=== PATIENT | female | born 1950 | race Caucasian/White ===

== ENCOUNTER → 2017-12-23 13:23 | Outpatient (CLI) | payer OTHER, SELFPAY ==
--- NOTE | 2017-12-23 | DI.MRI.S_ITS ---
PROCEDURE: MR LUMBAR SPINE WO CON INDICATIONS: LOW BACK PAIN TECHNIQUE: Noncontrast sagittal T1 spin echo and T2 fast echo, sagittal STIR, axial T1 and T2 fast spin echo through the lumbar spine. In cases with scoliosis, additional coronal T2 fast spin echo may be performed. COMPARISON: None. FINDINGS: Image quality: Excellent. Alignment and Curvature: There is normal bony alignment. Bone Marrow: Marrow is of normal overall signal. No acute vertebral body compression fractures. Spinal Cord: Conus medullaris terminates at the T12 level. Visualized cord demonstrates normal signal and size. Paraspinous Soft Tissues: No paravertebral masses. L1-L2: Severe disc desiccation. Broad-based disc bulge. Moderate facet and ligamentum flavum hypertrophy. Epidural lipomatosis. Mild canal stenosis. No foraminal stenosis. L2-L3: Severe disc desiccation and height loss. Broad-based disc bulge. Moderate facet and ligamentum flavum hypertrophy. Epidural lipomatosis with resultant moderate canal stenosis. Moderate right and mild left foraminal narrowing. L3-L4: Severe disc desiccation and height loss. Broad-based disc bulge. Moderate facet and ligamentum flavum hypertrophy. Epidural lipomatosis. Severe canal stenosis. Severe bilateral neuroforaminal stenosis. L4-L5: Severe disc desiccation and height loss. Vacuum disc phenomenon. Severe facet and ligamentum flavum hypertrophy. Extensive epidural lipomatosis and severe canal stenosis. Mild bilateral neuroforaminal stenosis. L5-S1: Moderate disc desiccation and height loss. Broad-based disc bulge. Severe facet and ligamentum flavum hypertrophy. Epidural lipomatosis. Moderate canal stenosis. Severe left and moderate right foraminal stenosis. IMPRESSION: 1. Disc desiccation and height loss throughout the lumbar spine overall severe in degree. 2. Broad-based disc bulges and facet and ligamentum flavum hypertrophy in addition to extensive epidural lipomatosis with resultant severe canal stenosis at L3-4 L4-5, moderate canal stenosis at L2-3 and L5-S1, and mild canal stenosis at L1-L2. 3. Severe bilateral neuroforaminal stenosis at L3-4, severe left foraminal narrowing at L5-S1, moderate right foraminal narrowing at L2-3 and L5-S1. Dictated by: Wendy Carey M.D. on 12/23/2017 at 16:21 Approved by: Wendy Carey M.D. on 12/23/2017 at 16:27
== END ==
PROVIDERS: Family Provider Internal Medicine; PCP Physician Assistant; Visit Provider Physical Medicine & Rehabilitation
DX: M48.061 Spinal stenosis, lumbar region without neurogenic claudication (principal); M51.26 Other intervertebral disc displacement, lumbar region
CPT/HCPCS: 72148

== ENCOUNTER → 2018-01-13 13:21 | Outpatient (CLI) | payer OTHER, SELFPAY ==
[2018-01-13 14:30] LABS: Prothrombin Time 33.7 SECONDS (10.1-12.7)
== END ==
PROVIDERS: Family Provider Internal Medicine; PCP Physician Assistant; Visit Provider Physician Assistant
DX: I48.91 Unspecified atrial fibrillation (principal); I47.9 Paroxysmal tachycardia, unspecified
CPT/HCPCS: 36415; 85610

== ENCOUNTER 2018-03-20 09:12 | Observation (INO) | payer OTHER, SELFPAY ==
[2018-03-20] VITALS (10 sets, daily range): BP systolic 126–186; BP diastolic 59–105; PULSE 65–122; RESP 20–28; TEMP 36.8–37.2; O2SAT 92–98; BMI 34.2
--- NOTE | 2018-03-20 | DI.RAD.S_ITS ---
PROCEDURE: XR CHEST 1V INDICATIONS: shortness of breath TECHNIQUE: One view of the chest was acquired. COMPARISON: [facility], CHEST 1 VIEW, 01/15/2012, 15:44. [facility], CHEST 1 VIEW, 12/27/2011, 14:42. FINDINGS: Surgical changes and devices: None. Lungs and pleura: No pleural effusions or pneumothorax. Lungs are edematous, inspiratory volume is reduced. Mediastinum: Mediastinal contours appear normal. Heart size is at the upper limits of normal considering very large body habitus and reduced inspiration. Bones and chest wall: No suspicious bony lesions. Overlying soft tissues appear unremarkable. IMPRESSION: Very large body habitus, reduced inspiration, quality of visualization is somewhat limited but there appears to be pulmonary edema likely cardiogenic in origin. Dictated by: Anam Haynes M.D. on 03/20/2018 at 10:58 Approved by: Anam Haynes M.D. on 03/20/2018 at 10:58
--- NOTE | 2018-03-20 09:33 | DI.RAD.S_ITS ---
PROCEDURE: XR ABDOMEN 1V INDICATIONS: nausea TECHNIQUE: One view of the abdomen acquired. COMPARISON: [facility], CR, XR CHEST 1V, 03/20/2018, 10:16. FINDINGS: Surgical changes and devices: None. Bowel: Bowel gas pattern is normal. Soft tissues: No suspicious abdominal calcifications. Visualized solid organ contours appear normal in size. Bones: No suspicious bony lesions. IMPRESSION: Very large body habitus, quality of visualization therefore somewhat diminished but no acute disease is found. No free air seen, no bowel obstruction is identified. Please also refer to chest plain film from same day. Dictated by: Anam Haynes M.D. on 03/20/2018 at 10:56 Approved by: Anam Haynes M.D. on 03/20/2018 at 10:57
--- NOTE | 2018-03-20 09:37 | ED.NAVMDI ---
HPI - Nausea/Vomiting/Diarrhea General Chief complaint: Nausea/Vomiting/Diarrhea Stated complaint: Nausea Time Seen by Provider: 03/20/18 09:27 Source: patient and EMS Mode of arrival: EMS Limitations: no limitations History of Present Illness HPI Narrative: 67-year-old female comes to the emergency department with complaint of nausea. Patient states that she started having symptoms last night. She has been nauseated she has not had any vomiting. She has a little bit a headache that started this morning. She denies any vision changes. No chest pain or pressure. She did tell nursing she had some abdominal pain. Patient has had a little bit of short of breath for a couple weeks but she has also had some mild swelling in her lower extremities. Patient has not had any diarrhea or constipation. She has done any black or bloody stools. She is not complaining of any abdominal pain at this time she told nursing she had some earlier. She states that she called EMS today because she just felt so nauseated any time she tried to walk around. She had similar symptoms about 3 weeks ago for a couple days but it resolved. She has not had any other episodes. She has known diabetes, atrial fibrillation, hypertension as well as dyslipidemia. She only takes metformin for her diabetes. she has a wound on her right foot which has been treated by wound care and is closely healing completely. Patient does not smoke, denies alcohol or thc. Related Data Home Medications Medication Instructions Recorded Confirmed diltiazem HCl [Tiazac] 240 mg PO QDAY #0 01/15/12 03/20/18 B.ANI/L.ACI/L.CLARA/L.PLAN/L.ADARSH 1.5 tsp PO PRN PRN #0 10/22/12 03/20/18 (Probiotic Formula Capsule) hydrocodone-acetaminophen 0.5 tab PO DAILY PRN 03/20/18 03/20/18 lidocaine-prilocaine 1 arnold TP BID PRN 03/20/18 03/20/18 metformin 500 mg PO DAILY 03/20/18 03/20/18 Previous Rx's Medication Instructions Recorded Glucose: Home Monitor ea #1 10/30/16 Glucose: Test Strips str BID #120 10/30/16 lisinopril 40 mg tablet 40 mg PO HS #90 tab 12/10/17 chlorthalidone 25 mg tablet 25 mg PO BID #180 tab 12/29/17 warfarin 7.5 mg tablet 7.5 mg PO DAILY #90 tab 02/09/18 lorazepam 2 mg tablet 2 mg PO HS #30 tab 03/04/18 Allergies Allergy/AdvReac Type Severity Reaction Status Date / Time Sulfa (Sulfonamide Allergy Intermediate PATIENT Verified 03/20/18 10:18 Antibiotics) CAN'T REMEMBER IT WAS SO LONG AGO gabapentin [GABAPENTIN] AdvReac Intermediate Bodyaches, Verified 03/20/18 10:18 muscle aches pregabalin [From Lyrica] AdvReac Intermediate Muscle Pain Verified 03/20/18 10:19 duloxetine [DULOXETINE] AdvReac Unknown nausea and Verified 03/20/18 10:18 vomiting Review of Systems Review of Systems All systems reviewed & are unremarkable except as noted in HPI and below Constitutional Denies fever(s), Reports headache(s), Reports malaise and Denies weakness Eyes Denies change in vision ENT Ears, Nose, Mouth, and Throat: Reports headache(s) Cardiovascular Denies chest pain, Denies syncope, Reports edema (Mild bilaterally), Denies irregular heart rhythm, Denies lightheadedness, Denies palpitations, Denies dyspnea, Reports dyspnea on exertion and Denies orthopnea Respiratory Denies chest congestion, Denies cough, Denies hemoptysis, Denies dyspnea, Reports dyspnea on exertion and Denies wheezing Gastrointestinal Gastrointestinal: Reports abdominal pain, Denies melena, Denies hematochezia, Denies change in bowel habits, Denies diarrhea, Reports nausea and Denies vomiting Genitourinary Denies hematuria, Denies urinary frequency, Denies flank pain, Denies urinary incontinence and Denies urinary urgency Integumentary/Breasts Denies new lesions and Reports wounds (Healing wound on foot.) Neurologic Denies syncope, Reports headache(s) and Denies weakness Endocrine Denies palpitations Allergic/Immunologic Denies wheezing [facility] Medical History Essential hypertension (Chronic) Morbid obesity with body mass index (BMI) of 50.0 to 59.9 in adult (Chronic) Atrial fibrillation (Chronic) Obstructive sleep apnea syndrome (Chronic) Mixed hyperlipidemia (Chronic 01/30/00) Type 2 diabetes mellitus with diabetic neuropathy, without long-term current use of insulin (Chronic) 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) Umbilical hernia (Chronic) Atrial fibrillation (Chronic 12/2011) Diabetes (Chronic Unknown) Gout (Chronic Unknown) Heart murmur (Chronic Unknown) Hyperlipemia (Chronic Unknown) Hypertension (Chronic Unknown) Obstructive sleep apnea (Chronic 03/2014) Osteoarthritis (Chronic Unknown) PVD (peripheral vascular disease) (Chronic Unknown) Peripheral neuropathy (Chronic Unknown) Foot pain (Resolved Unknown) Foot ulcer (Resolved 08/2016) Surgical History History of angioplasty (Resolved 10/2016) Family History Father No problems noted. Mother No problems noted. Brother No problems noted. Brother No problems noted. Sister Fibromyalgia Social History household members: none Smoking Status: Never smoker alcohol intake: never Exam Narrative Exam Narrative: GENERAL: Alert and oriented x three, morbidly obese female in mild distress. HEENT: Head normocephalic, atraumatic, EOMI, pupils reactive, face symmetric, moist mucous membranes NECK: Supple, full range of motion CARDIOVASCULAR: Irregularly irregular rate and rhythm without murmurs, rubs or gallops. No JVD noted. RESPIRATORY: Breath sounds equal bilaterally, no wheezes rales or rhonchi. Patient has slightly decreased breath sounds bilaterally. This may be secondary to body habitus. No tachypnea or accessory muscle use. ABDOMEN: Soft, nontender. Normoactive bowel sounds all 4 quadrants. No guarding or rebound, rigidity, no mass : No CVA tenderness EXTREMITIES: Normal range of motion, no clubbing or edema. Neurovascularly intact NEUROLOGICAL: Cranial nerves II through XII grossly intact. Moving all extremities SKIN: Warm, dry, no petechiae, no rashes or lesions. Initial Vital Signs Initial Vital Signs: Vital Signs Temperature 98.6 F 03/20/18 09:14 Pulse Rate 65 03/20/18 09:14 Respiratory Rate 26 H 03/20/18 09:14 Blood Pressure 186/105 H 03/20/18 09:14 Pulse Oximetry 95 03/20/18 09:14 Course Orders Ordered: ED Orders 03/20/18 11:28 EKG-12 Lead Stat 03/20/18 11:41 US abdomen complete Stat 03/20/18 15:09 Education, smoking cessation ONGOING 03/20/18 17:34 EC echo doppler complete Routine 03/20/18 17:35 Troponin I Q4H 03/20/18 18:13 Consult to Pharmacy Routine 03/20/18 18:15 Prothrombin Time INR DAILY 03/20/18 21:35 Troponin I Q4H 03/21/18 01:35 Troponin I Q4H 03/21/18 04:00 Complete Blood Count AUTO DIFF Routine Comprehensive Metabolic Panel Routine Hemoglobin A1C % Routine Hepatitis A Antibody Total Routine Hepatitis B Core Antibody Routine Hepatitis B Surface Antigen Routine Hepatitis C Virus Antibody Routine Lipid Panel Routine TSH w/ Reflex to FT4 Routine Uric Acid Routine Acetaminophen (Tylenol) 650 mg PO Q6HR PRN PRN Reason: As Needed for Fever/Mild Pain Al Hydrox/Mg Hydrox/Simethicone (Maalox Plus) 30 ml PO Q6HR PRN PRN Reason: Dyspepsia Bisacodyl (Dulcolax) 10 mg PO DAILY PRN PRN Reason: Constipation Dextrose (D50w) 25 gm IV PRN PRN PRN Reason: Hypoglycemia Diltiazem HCl (Cardizem Cd) 240 mg PO DAILY [facility] Furosemide (Lasix) 20 mg IV BID [facility] Hydralazine HCl (Apresoline) 10 mg IV Q6HR PRN PRN Reason: Hypertension Insulin Aspart (Novolog Flexpen) 0 unit SUBCUT ACHS [facility]; Protocol Lisinopril (Zestril) 40 mg PO BEDTIME [facility] Lorazepam (Ativan) 2 mg PO BEDTIME [facility] Metformin HCl (Glucophage) 500 mg PO DAILY [facility] Metoclopramide HCl (Reglan) 5 mg PO AC [facility] Last Admin: 03/20/18 16:52 Dose: 5 mg Ondansetron HCl (Zofran Odt) 4 mg PO Q8HR PRN PRN Reason: Nausea And Vomiting Pantoprazole Sodium (Protonix) 20 mg PO 0700 [facility] Warfarin Sodium (Coumadin) 7.5 mg PO 1700 [facility] Discontinued Medications Diltiazem HCl (Cardizem Cd) 240 mg PO NOW ONE Stop: 03/20/18 13:44 Last Admin: 03/20/18 14:03 Dose: 240 mg Furosemide (Lasix) 40 mg IV NOW ONE Stop: 03/20/18 12:08 Last Admin: 03/20/18 12:26 Dose: 40 mg Furosemide (Lasix) 20 mg IV NOW ONE Stop: 03/20/18 15:10 Last Admin: 03/20/18 16:03 Dose: 20 mg Sodium Chloride (Normal Saline 0.9%) 1,000 mls @ 1,000 mls/hr IV BOLUS ONE Stop: 03/20/18 10:32 Last Admin: 03/20/18 10:20 Dose: Ondansetron HCl (Zofran) 4 mg IV NOW ONE Stop: 03/20/18 09:34 Last Admin: 03/20/18 10:21 Dose: 4 mg Warfarin Sodium (Coumadin) 7.5 mg PO NOW ONE Stop: 03/20/18 13:44 Last Admin: 03/20/18 14:03 Dose: 7.5 mg Vital Signs - 8 hr 03/20/18 12:00 03/20/18 13:39 03/20/18 14:49 Temperature Pulse Rate 94 H 97 H 93 H Respiratory Rate 22 23 20 Blood Pressure Blood Pressure [Left Arm] 146/76 H 148/88 H 139/59 L Pulse Oximetry 97 94 98 03/20/18 16:10 03/20/18 16:49 Temperature 98.3 F Pulse Rate 96 H 100 H Respiratory Rate 22 28 H Blood Pressure 126/74 Blood Pressure [Left Arm] Pulse Oximetry 95 95 MDM - Nausea/Vomiting/Diarrhea Lab Data Result diagrams: 03/20/18 10:10 03/20/18 10:10 Lab Results 03/20/18 03/20/18 03/20/18 Range/Units 10:10 10:10 10:10 WBC 10.1 (4.5-11.0) X10^3/uL RBC 4.03 (4.0-5.2) X10^6/uL Hgb 11.4 L (12.0-16.0) g/dL Hct 34.3 L (36-46) % MCV 85.1 (80-100) fL MCH 28.4 (26-34) PG MCHC 33.3 (30-36) % RDW 15.7 H (11.6-14.8) % Plt Count 268 (150-400) X10^3/uL Neut % (Auto) 85.3 H (50-75) % Lymph % (Auto) 8.8 L (25-40) % [place] % (Auto) 5.2 (3-14) % Eos % (Auto) 0.3 L (2-4) % Baso % (Auto) 0.4 (0-2) % Neut # (Auto) 8600 H (4715-5359) /uL Sodium 141 (137-145) mmol/L Potassium 4.7 (3.4-5.1) mmol/L Chloride 100 (98-107) mmol/L Carbon Dioxide 28 (22-32) mmol/L BUN 14 (7-17) mg/dL Creatinine 0.60 (0.52-1.04) mg/dL Estimated GFR > 60.0 (>60) mL/min BUN/Creatinine Ratio 23.3 H (6-22) Glucose 123 H (80-110) mg/dL Calcium 9.0 (8.4-10.2) mg/dL Total Bilirubin 1.6 H (0.2-1.3) mg/dL AST 59 H (14-36) IU/L ALT 15 (9-52) IU/L Alkaline Phosphatase 64 (38-126) U/L Troponin I 0.012 (0.01-0.034) ng/mL B-Natriuretic Peptide 365.0 H (<100) Total Protein 8.5 H (6.3-8.2) g/dL Albumin 4.6 (3.5-5.0) g/dL Globulin 3.9 (1.7-4.1) g/dL Albumin/Globulin Ratio 1.2 (1.0-2.8) Lipase 47 (23-300) U/L Point of Care Testing Glucose POC 124 Urine Dip Bedside Urine Glucose Negative Bedside Urine Bilirubin - Negative Bedside Urine Ketone - Negative Urine Specific [place] 1.015 Bedside Urine Occult Blood - Negative Bedside Urine pH 7.0 Bedside Urine Protein - Negative Bedside Urine Urobilinogen - Negative Bedside Urine Nitrite - Negative Bedside Urine Leukocytes - Negative Esterase Imaging Data US - abdomen: Radiologist's impression: [address] [id number] Ultrasound Report Signed Patient: Lucila Hawkins JMR#: [id number] : 8Acct:[id number] Age/Sex: 67 / FDate of Service: 03/20/18 Loc: ED Accession Number: [id number] Procedure: US abdomen complete Ordering Provider: Giana Samuel D.O. PROCEDURE: US ABDOMEN COMPLETE INDICATIONS: NAUSEA TECHNIQUE: Real-time scanning was performed of the abdominal and retroperitoneal organs, with image documentation. COMPARISON: None. FINDINGS: Liver: Liver is normal in size and homogeneous in echotexture and there is severe hyperechoic hepatic echotexture consistent with diffuse steatosis. Gallbladder: No abnormality found. Biliary ducts: Intrahepatic bile ducts are non-dilated. Extrahepatic bile duct caliber measures line is mm. Normal is 6-7 mm or less in diameter, or 10 mm or less post-cholecystectomy. Pancreas: Not seen due to hyperechoic overlying liver echotexture and bowel gas Spleen: Spleen is normal in size and homogeneous in echotexture. Kidneys: Kidneys are normal in size and echotexture. Right kidney measures 11.2 cm long; left kidney measures 11.9 cm long. No hydronephrosis or nephrolithiasis. No solid masses. Aorta: Not seen due to bowel gas [place]: Not seen due to bowel gas IVC: Intrahepatic inferior vena cava is patent. Miscellaneous: No free abdominal fluid. IMPRESSION: Prominent fatty infiltration throughout the liver. Overlying bowel gas and hyperechoic liver echotexture reduces quality of visualization of the gallbladder and renders the pancreas depending on the clinical status followup by CT scanning may become necessary. The common duct caliber of 9 mm is considered mildly dilated in the setting of a gallbladder remaining in place. Depending on the clinical status followup by MR cholangiogram may be warranted. Dictated by: Anam Haynes M.D. on 03/20/2018 at 12:57 Approved by: Anam Haynes M.D. on 03/20/2018 at 13:00 Chest x-ray: Radiologist's impression: [address] [address] XRay Report Signed Patient: Lucila Hawkins JMR#: [id number] : 8Acct:[id number] Age/Sex: 67 / FDate of Service: 03/20/18 Loc: ED Accession Number: [id number] Procedure: XR chest 1V Ordering Provider: Giana Samuel D.O. PROCEDURE: XR CHEST 1V INDICATIONS: shortness of breath TECHNIQUE: One view of the chest was acquired. COMPARISON: [facility], CHEST 1 VIEW, 01/15/2012, 15:44. [facility], CHEST 1 VIEW, 12/27/2011, 14:42. FINDINGS: Surgical changes and devices: None. Lungs and pleura: No pleural effusions or pneumothorax. Lungs are edematous, inspiratory volume is reduced. Mediastinum: Mediastinal contours appear normal. Heart size is at the upper limits of normal considering very large body habitus and reduced inspiration. Bones and chest wall: No suspicious bony lesions. Overlying soft tissues appear unremarkable. IMPRESSION: Very large body habitus, reduced inspiration, quality of visualization is somewhat limited but there appears to be pulmonary edema likely cardiogenic in origin. Dictated by: Anam Haynes M.D. on 03/20/2018 at 10:58 Approved by: Anam Haynes M.D. on 03/20/2018 at 10:58 Abdominal x-ray: Radiologist's impression: ECG Data Attestation: I personally reviewed and interpreted this ECG as follows: Prior ECG tracings: available for review Interpretation: Atrial fibrillation with rapid response with a rate of 107, QRS of 84 and QTC of 396 nonspecific T-wave changes. Patient does have some ST T depression in 1 and aVL. No elevation appreciated. Patient has a prior EKG from 01/12/2012 that appears similar with ST changes in 1 aVL and AFib. And nonspecific changes otherwise. MDM Narrative Medical decision making narrative: Patient's lab work shows a slightly elevated bilirubin. Ultrasound shows possibly mildly dilated duct but otherwise normal ultrasound. I discussed her findings with Dr. Tipton. Patient has not had any vomiting, she does not have any abdominal pain just nausea. She has also did shared that she has not been taking her Lasix because when she tries to get up and walk around she feels nauseated and her BNP is slightly elevated in the 300 range, she has had some drops in her oxygen level here in the emergency department. She has some changes on chest x-ray consistent with pulmonary edema expect she is having a little bit exacerbate gonzalez of CHF particularly she has not been taking her diuretic. Patient was given a dose of Lasix here in the emergency department. Patient has not had any improvement in her oxygenation after Lasix. When he tried to stand her up she feels a little bit dizzy. Patient case was discussed with Dr. Sanchez who accepts for observation. Discharge Plan Departure Patient Disposition: Admitted as Observation Clinical Impression: Nausea, Elevated bilirubin, Congestive heart failure Discharge Date/Time: 10/27/18 16:20 Interventions: ED Discharge Assessment Last Done: 03/20/18 16:10 Admit Date/Time: 03/20/18 16:10 Admit Provider: Dillon Fernandez
--- NOTE | 2018-03-20 09:43 | ED_ITS ---
HPI - Nausea/Vomiting/Diarrhea General Chief complaint: Nausea/Vomiting/Diarrhea Stated complaint: Nausea Time Seen by Provider: 03/20/18 09:27 Source: patient and EMS Mode of arrival: EMS Limitations: no limitations History of Present Illness HPI Narrative: 67-year-old female comes to the emergency department with complaint of nausea. Patient states that she started having symptoms last night. She has been nauseated she has not had any vomiting. She has a little bit a headache that started this morning. She denies any vision changes. No chest pain or pressure. She did tell nursing she had some abdominal pain. Patient has had a little bit of short of breath for a couple weeks but she has also had some mild swelling in her lower extremities. Patient has not had any diarrhea or constipation. She has done any black or bloody stools. She is not complaining of any abdominal pain at this time she told nursing she had some earlier. She states that she called EMS today because she just felt so nauseated any time she tried to walk around. She had similar symptoms about 3 weeks ago for a couple days but it resolved. She has not had any other episodes. She has known diabetes, atrial fibrillation, hypertension as well as dyslipidemia. She only takes metformin for her diabetes. she has a wound on her right foot which has been treated by wound care and is closely healing completely. Patient does not smoke, denies alcohol or thc. Related Data Home Medications Medication Instructions Recorded Confirmed diltiazem HCl [Tiazac] 240 mg PO QDAY #0 01/15/12 03/20/18 B.ANI/L.ACI/L.CLARA/L.PLAN/L.ADARSH 1.5 tsp PO PRN PRN #0 10/22/12 03/20/18 (Probiotic Formula Capsule) hydrocodone-acetaminophen 0.5 tab PO DAILY PRN 03/20/18 03/20/18 lidocaine-prilocaine 1 arnold TP BID PRN 03/20/18 03/20/18 metformin 500 mg PO DAILY 03/20/18 03/20/18 Previous Rx's Medication Instructions Recorded Glucose: Home Monitor ea #1 10/30/16 Glucose: Test Strips str BID #120 10/30/16 lisinopril 40 mg tablet 40 mg PO HS #90 tab 12/10/17 chlorthalidone 25 mg tablet 25 mg PO BID #180 tab 12/29/17 warfarin 7.5 mg tablet 7.5 mg PO DAILY #90 tab 02/09/18 lorazepam 2 mg tablet 2 mg PO HS #30 tab 03/04/18 Allergies Allergy/AdvReac Type Severity Reaction Status Date / Time Sulfa (Sulfonamide Allergy Intermediate PATIENT Verified 03/20/18 10:18 Antibiotics) CAN'T REMEMBER IT WAS SO LONG AGO gabapentin [GABAPENTIN] AdvReac Intermediate Bodyaches, Verified 03/20/18 10:18 muscle aches pregabalin [From Lyrica] AdvReac Intermediate Muscle Pain Verified 03/20/18 10: 19 duloxetine [DULOXETINE] AdvReac Unknown nausea and Verified 03/20/18 10:18 vomiting Review of Systems Review of Systems All systems reviewed & are unremarkable except as noted in HPI and below Constitutional Denies fever(s), Reports headache(s), Reports malaise and Denies weakness Eyes Denies change in vision ENT Ears, Nose, Mouth, and Throat: Reports headache(s) Cardiovascular Denies chest pain, Denies syncope, Reports edema (Mild bilaterally), Denies irregular heart rhythm, Denies lightheadedness, Denies palpitations, Denies dyspnea, Reports dyspnea on exertion and Denies orthopnea Respiratory Denies chest congestion, Denies cough, Denies hemoptysis, Denies dyspnea, Reports dyspnea on exertion and Denies wheezing Gastrointestinal Gastrointestinal: Reports abdominal pain, Denies melena, Denies hematochezia, Denies change in bowel habits, Denies diarrhea, Reports nausea and Denies vomiting Genitourinary Denies hematuria, Denies urinary frequency, Denies flank pain, Denies urinary incontinence and Denies urinary urgency Integumentary/Breasts Denies new lesions and Reports wounds (Healing wound on foot.) Neurologic Denies syncope, Reports headache(s) and Denies weakness Endocrine Denies palpitations Allergic/Immunologic Denies wheezing [facility] Medical History Essential hypertension (Chronic) Morbid obesity with body mass index (BMI) of 50.0 to 59.9 in adult (Chronic) Atrial fibrillation (Chronic) Obstructive sleep apnea syndrome (Chronic) Mixed hyperlipidemia (Chronic 01/30/00) Type 2 diabetes mellitus with diabetic neuropathy, without long-term current use of insulin (Chronic) 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) Umbilical hernia (Chronic) Atrial fibrillation (Chronic 12/2011) Diabetes (Chronic Unknown) Gout (Chronic Unknown) Heart murmur (Chronic Unknown) Hyperlipemia (Chronic Unknown) Hypertension (Chronic Unknown) Obstructive sleep apnea (Chronic 03/2014) Osteoarthritis (Chronic Unknown) PVD (peripheral vascular disease) (Chronic Unknown) Peripheral neuropathy (Chronic Unknown) Foot pain (Resolved Unknown) Foot ulcer (Resolved 08/2016) Surgical History History of angioplasty (Resolved 10/2016) Family History Father No problems noted. Mother No problems noted. Brother No problems noted. Brother No problems noted. Sister Fibromyalgia Social History household members: none Smoking Status: Never smoker alcohol intake: never Exam Narrative Exam Narrative: GENERAL: Alert and oriented x three, morbidly obese female in mild distress. HEENT: Head normocephalic, atraumatic, EOMI, pupils reactive, face symmetric, moist mucous membranes NECK: Supple, full range of motion CARDIOVASCULAR: Irregularly irregular rate and rhythm without murmurs, rubs or gallops. No JVD noted. RESPIRATORY: Breath sounds equal bilaterally, no wheezes rales or rhonchi. Patient has slightly decreased breath sounds bilaterally. This may be secondary to body habitus. No tachypnea or accessory muscle use. ABDOMEN: Soft, nontender. Normoactive bowel sounds all 4 quadrants. No guarding or rebound, rigidity, no mass : No CVA tenderness EXTREMITIES: Normal range of motion, no clubbing or edema. Neurovascularly intact NEUROLOGICAL: Cranial nerves II through XII grossly intact. Moving all extremities SKIN: Warm, dry, no petechiae, no rashes or lesions. Initial Vital Signs Initial Vital Signs: Vital Signs Temperature 98.6 F 03/20/18 09:14 Pulse Rate 65 03/20/18 09:14 Respiratory Rate 26 H 03/20/18 09:14 Blood Pressure 186/105 H 03/20/18 09:14 Pulse Oximetry 95 03/20/18 09:14 Course Orders Ordered: ED Orders 03/20/18 11:28 EKG-12 Lead Stat 03/20/18 11:41 US abdomen complete Stat 03/20/18 15:09 Education, smoking cessation ONGOING 03/20/18 17:34 EC echo doppler complete Routine 03/20/18 17:35 Troponin I Q4H 03/20/18 18:13 Consult to Pharmacy Routine 03/20/18 18:15 Prothrombin Time INR DAILY 03/20/18 21:35 Troponin I Q4H 03/21/18 01:35 Troponin I Q4H 03/21/18 04:00 Complete Blood Count AUTO DIFF Routine Comprehensive Metabolic Panel Routine Hemoglobin A1C % Routine Hepatitis A Antibody Total Routine Hepatitis B Core Antibody Routine Hepatitis B Surface Antigen Routine Hepatitis C Virus Antibody Routine Lipid Panel Routine TSH w/ Reflex to FT4 Routine Uric Acid Routine Acetaminophen (Tylenol) 650 mg PO Q6HR PRN PRN Reason: As Needed for Fever/Mild Pain Al Hydrox/Mg Hydrox/Simethicone (Maalox Plus) 30 ml PO Q6HR PRN PRN Reason: Dyspepsia Bisacodyl (Dulcolax) 10 mg PO DAILY PRN PRN Reason: Constipation Dextrose (D50w) 25 gm IV PRN PRN PRN Reason: Hypoglycemia Diltiazem HCl (Cardizem Cd) 240 mg PO DAILY [facility] Furosemide (Lasix) 20 mg IV BID [facility] Hydralazine HCl (Apresoline) 10 mg IV Q6HR PRN PRN Reason: Hypertension Insulin Aspart (Novolog Flexpen) 0 unit SUBCUT ACHS [facility]; Protocol Lisinopril (Zestril) 40 mg PO BEDTIME [facility] Lorazepam (Ativan) 2 mg PO BEDTIME [facility] Metformin HCl (Glucophage) 500 mg PO DAILY [facility] Metoclopramide HCl (Reglan) 5 mg PO AC [facility] Last Admin: 03/20/18 16:52 Dose: 5 mg Ondansetron HCl (Zofran Odt) 4 mg PO Q8HR PRN PRN Reason: Nausea And Vomiting Pantoprazole Sodium (Protonix) 20 mg PO 0700 [facility] Warfarin Sodium (Coumadin) 7.5 mg PO 1700 [facility] Discontinued Medications Diltiazem HCl (Cardizem Cd) 240 mg PO NOW ONE Stop: 03/20/18 13:44 Last Admin: 03/20/18 14:03 Dose: 240 mg Furosemide (Lasix) 40 mg IV NOW ONE Stop: 03/20/18 12:08 Last Admin: 03/20/18 12:26 Dose: 40 mg Furosemide (Lasix) 20 mg IV NOW ONE Stop: 03/20/18 15:10 Last Admin: 03/20/18 16:03 Dose: 20 mg Sodium Chloride (Normal Saline 0.9%) 1,000 mls @ 1,000 mls/hr IV BOLUS ONE Stop: 03/20/18 10:32 Last Admin: 03/20/18 10:20 Dose: Ondansetron HCl (Zofran) 4 mg IV NOW ONE Stop: 03/20/18 09:34 Last Admin: 03/20/18 10:21 Dose: 4 mg Warfarin Sodium (Coumadin) 7.5 mg PO NOW ONE Stop: 03/20/18 13:44 Last Admin: 03/20/18 14:03 Dose: 7.5 mg Vital Signs - 8 hr 03/20/18 12:00 03/20/18 13:39 03/20/18 14:49 Temperature Pulse Rate 94 H 97 H 93 H Respiratory Rate 22 23 20 Blood Pressure Blood Pressure [Left Arm] 146/76 H 148/88 H 139/59 L Pulse Oximetry 97 94 98 03/20/18 16:10 03/20/18 16:49 Temperature 98.3 F Pulse Rate 96 H 100 H Respiratory Rate 22 28 H Blood Pressure 126/74 Blood Pressure [Left Arm] Pulse Oximetry 95 95 MDM - Nausea/Vomiting/Diarrhea Lab Data Result diagrams: 03/20/18 10:10 03/20/18 10:10 Lab Results 03/20/18 03/20/18 03/20/18 Range/Units 10:10 10:10 10:10 WBC 10.1 (4.5-11.0) X10^3/uL RBC 4.03 (4.0-5.2) X10^6/uL Hgb 11.4 L (12.0-16.0) g/dL Hct 34.3 L (36-46) % MCV 85.1 (80-100) fL MCH 28.4 (26-34) PG MCHC 33.3 (30-36) % RDW 15.7 H (11.6-14.8) % Plt Count 268 (150-400) X10^3/uL Neut % (Auto) 85.3 H (50-75) % Lymph % (Auto) 8.8 L (25-40) % [place] % (Auto) 5.2 (3-14) % Eos % (Auto) 0.3 L (2-4) % Baso % (Auto) 0.4 (0-2) % Neut # (Auto) 8600 H (2614-2041) /uL Sodium 141 (137-145) mmol/L Potassium 4.7 (3.4-5.1) mmol/L Chloride 100 (98-107) mmol/L Carbon Dioxide 28 (22-32) mmol/L BUN 14 (7-17) mg/dL Creatinine 0.60 (0.52-1.04) mg/dL Estimated GFR > 60.0 (>60) mL/min BUN/Creatinine Ratio 23.3 H (6-22) Glucose 123 H (80-110) mg/dL Calcium 9.0 (8.4-10.2) mg/dL Total Bilirubin 1.6 H (0.2-1.3) mg/dL AST 59 H (14-36) IU/L ALT 15 (9-52) IU/L Alkaline Phosphatase 64 (38-126) U/L Troponin I 0.012 (0.01-0.034) ng/mL B-Natriuretic Peptide 365.0 H (<100) Total Protein 8.5 H (6.3-8.2) g/dL Albumin 4.6 (3.5-5.0) g/dL Globulin 3.9 (1.7-4.1) g/dL Albumin/Globulin Ratio 1.2 (1.0-2.8) Lipase 47 (23-300) U/L Point of Care Testing Glucose POC 124 Urine Dip Bedside Urine Glucose Negative Bedside Urine Bilirubin - Negative Bedside Urine Ketone - Negative Urine Specific [place] 1.015 Bedside Urine Occult Blood - Negative Bedside Urine pH 7.0 Bedside Urine Protein - Negative Bedside Urine Urobilinogen - Negative Bedside Urine Nitrite - Negative Bedside Urine Leukocytes - Negative Esterase Imaging Data US - abdomen: Radiologist's impression: [address] [address] Ultrasound Report Signed Patient: Lucila Hawkins JMR#: [id number] : 8Acct:[id number] Age/Sex: 67 / FDate of Service: 03/20/18 Loc: ED Accession Number: [id number] Procedure: US abdomen complete Ordering Provider: Giana Samuel D.O. PROCEDURE: US ABDOMEN COMPLETE INDICATIONS: NAUSEA TECHNIQUE: Real-time scanning was performed of the abdominal and retroperitoneal organs, with image documentation. COMPARISON: None. FINDINGS: Liver: Liver is normal in size and homogeneous in echotexture and there is severe hyperechoic hepatic echotexture consistent with diffuse steatosis. Gallbladder: No abnormality found. Biliary ducts: Intrahepatic bile ducts are non-dilated. Extrahepatic bile duct caliber measures line is mm. Normal is 6-7 mm or less in diameter, or 10 mm or less post-cholecystectomy. Pancreas: Not seen due to hyperechoic overlying liver echotexture and bowel gas Spleen: Spleen is normal in size and homogeneous in echotexture. Kidneys: Kidneys are normal in size and echotexture. Right kidney measures 11.2 cm long; left kidney measures 11.9 cm long. No hydronephrosis or nephrolithiasis. No solid masses. Aorta: Not seen due to bowel gas Iliacs: Not seen due to bowel gas IVC: Intrahepatic inferior vena cava is patent. Miscellaneous: No free abdominal fluid. IMPRESSION: Prominent fatty infiltration throughout the liver. Overlying bowel gas and hyperechoic liver echotexture reduces quality of visualization of the gallbladder and renders the pancreas depending on the clinical status followup by CT scanning may become necessary. The common duct caliber of 9 mm is considered mildly dilated in the setting of a gallbladder remaining in place. Depending on the clinical status followup by MR cholangiogram may be warranted. Dictated by: Anam Haynes M.D. on 03/20/2018 at 12:57 Approved by: Anam Haynes M.D. on 03/20/2018 at 13:00 Chest x-ray: Radiologist's impression: [address] [address] XRay Report Signed Patient: Lucila Hawkins JMR#: [id number] : 8Acct:[id number] Age/Sex: 67 / FDate of Service: 03/20/18 Loc: ED Accession Number: [id number] Procedure: XR chest 1V Ordering Provider: Giana Samuel D.O. PROCEDURE: XR CHEST 1V INDICATIONS: shortness of breath TECHNIQUE: One view of the chest was acquired. COMPARISON: [facility], CHEST 1 VIEW, 01/15/2012, 15:44. [facility], CHEST 1 VIEW, 12/27/2011, 14:42. FINDINGS: Surgical changes and devices: None. Lungs and pleura: No pleural effusions or pneumothorax. Lungs are edematous, inspiratory volume is reduced. Mediastinum: Mediastinal contours appear normal. Heart size is at the upper limits of normal considering very large body habitus and reduced inspiration. Bones and chest wall: No suspicious bony lesions. Overlying soft tissues appear unremarkable. IMPRESSION: Very large body habitus, reduced inspiration, quality of visualization is somewhat limited but there appears to be pulmonary edema likely cardiogenic in origin. Dictated by: Anam Haynes M.D. on 03/20/2018 at 10:58 Approved by: Anam Haynes M.D. on 03/20/2018 at 10:58 Abdominal x-ray: Radiologist's impression: ECG Data Attestation: I personally reviewed and interpreted this ECG as follows: Prior ECG tracings: available for review Interpretation: Atrial fibrillation with rapid response with a rate of 107, QRS of 84 and QTC of 396 nonspecific T-wave changes. Patient does have some ST T depression in 1 and aVL. No elevation appreciated. Patient has a prior EKG from 01/12/2012 that appears similar with ST changes in 1 aVL and AFib. And nonspecific changes otherwise. MDM Narrative Medical decision making narrative: Patient's lab work shows a slightly elevated bilirubin. Ultrasound shows possibly mildly dilated duct but otherwise normal ultrasound. I discussed her findings with Dr. Tipton. Patient has not had any vomiting, she does not have any abdominal pain just nausea. She has also did shared that she has not been taking her Lasix because when she tries to get up and walk around she feels nauseated and her BNP is slightly elevated in the 300 range, she has had some drops in her oxygen level here in the emergency department. She has some changes on chest x-ray consistent with pulmonary edema expect she is having a little bit exacerbate gonzalez of CHF particularly she has not been taking her diuretic. Patient was given a dose of Lasix here in the emergency department. Patient has not had any improvement in her oxygenation after Lasix. When he tried to stand her up she feels a little bit dizzy. Patient case was discussed with Dr. Sanchez who accepts for observation. Discharge Plan Departure Patient Disposition: Admitted as Observation Clinical Impression: Nausea, Elevated bilirubin, Congestive heart failure Discharge Date/Time: 10/27/18 16:20 Interventions: ED Discharge Assessment Last Done: 03/20/18 16:10 Admit Date/Time: 03/20/18 16:10 Admit Provider: Dillon Fernandez
[2018-03-20] MEDS: ONDANSETRON 4 MG/2 ML INJ IV (10:21)
[2018-03-20 10:23] LABS: Add Manual Diff / Slide Review NO; Basophils Percent Auto 0.4 % (0-2); Eosinophils Percent Auto 0.3 % (2-4); Hematocrit 34.3 % (36-46); Hemoglobin 11.4 g/dL (12.0-16.0); Lymphocytes Percent Auto 8.8 % (25-40); Mean Corpuscular HGB Conc 33.3 % (30-36); Mean Corpuscular Hemoglobin 28.4 PG (26-34); Mean Corpuscular Volume 85.1 fL (80-100); Monocytes Percent Auto 5.2 % (3-14); Neutrophils Absolute Auto 8600 /uL (3000-5900); Neutrophils Percent Auto 85.3 % (50-75); Platelet Count 268 X10^3/uL (150-400); Red Blood Cell Count 4.03 X10^6/uL (4.0-5.2); Red Cell Distribution Width 15.7 % (11.6-14.8); White Blood Cell Count 10.1 X10^3/uL (4.5-11.0)
--- NOTE | 2018-03-20 10:23 | PC.NURSE ---
w/ any activity,(talking/moving/repositioning) pt w/ decreased saturations. Initially resolved w/ rest. Noted resting sat drift to 85% w/ good wave form. Placed on 4 l NC oxygen w/ 99% saturation. Now 2L NC w/ sat 93%.
[2018-03-20 10:34] LABS: Alanine Aminotransferase 15 IU/L (9-52); Albumin 4.6 g/dL (3.5-5.0); Albumin Globulin Ratio 1.2 (1.0-2.8); Alkaline Phosphatase 64 U/L (38-126); Aspartate Aminotransferase 59 IU/L (14-36); BUN Creatinine Ratio 23.3 (6-22); Bilirubin Total 1.6 mg/dL (0.2-1.3); Blood Urea Nitrogen 14 mg/dL (7-17); Carbon Dioxide 28 mmol/L (22-32); Chloride 100 mmol/L (98-107); Estimated Glomerular Filt Rate > 60.0 mL/min (>60); Globulin 3.9 g/dL (1.7-4.1); Glucose 123 mg/dL (80-110); Lipase 47 U/L (23-300); Potassium 4.7 mmol/L (3.4-5.1); Sodium 141 mmol/L (137-145); Total Protein 8.5 g/dL (6.3-8.2)
[2018-03-20 10:41] LABS: HEMOLYSIS 207 (0-50)
[2018-03-20 10:46] LABS: Troponin I 0.012 ng/mL (0.01-0.034)
--- NOTE | 2018-03-20 11:41 | DI.US.S_ITS ---
PROCEDURE: US ABDOMEN COMPLETE INDICATIONS: NAUSEA TECHNIQUE: Real-time scanning was performed of the abdominal and retroperitoneal organs, with image documentation. COMPARISON: None. FINDINGS: Liver: Liver is normal in size and homogeneous in echotexture and there is severe hyperechoic hepatic echotexture consistent with diffuse steatosis. Gallbladder: No abnormality found. Biliary ducts: Intrahepatic bile ducts are non-dilated. Extrahepatic bile duct caliber measures line is mm. Normal is 6-7 mm or less in diameter, or 10 mm or less post-cholecystectomy. Pancreas: Not seen due to hyperechoic overlying liver echotexture and bowel gas Spleen: Spleen is normal in size and homogeneous in echotexture. Kidneys: Kidneys are normal in size and echotexture. Right kidney measures 11.2 cm long; left kidney measures 11.9 cm long. No hydronephrosis or nephrolithiasis. No solid masses. Aorta: Not seen due to bowel gas Iliacs: Not seen due to bowel gas IVC: Intrahepatic inferior vena cava is patent. Miscellaneous: No free abdominal fluid. IMPRESSION: Prominent fatty infiltration throughout the liver. Overlying bowel gas and hyperechoic liver echotexture reduces quality of visualization of the gallbladder and renders the pancreas depending on the clinical status followup by CT scanning may become necessary. The common duct caliber of 9 mm is considered mildly dilated in the setting of a gallbladder remaining in place. Depending on the clinical status followup by MR cholangiogram may be warranted. Dictated by: Anam Haynes M.D. on 03/20/2018 at 12:57 Approved by: Anam Haynes M.D. on 03/20/2018 at 13:00
[2018-03-20] MEDS: FUROSEMIDE 40 MG/4 ML VIAL IV (12:26)
[2018-03-20] MEDS: dilTIAZem CD 240 MG CAP PO (14:03)
[2018-03-20] MEDS: WARFARIN 7.5 MG TABLET PO (14:03)
[2018-03-20] MEDS: FUROSEMIDE 20 MG/2 ML VIAL IV ×2 (16:03→20:40)
--- NOTE | 2018-03-20 16:45 | P.HP_ITS ---
History of Present Illness Chief complaint: Nausea Narrative: THE PATIENT DATES HER PROBLEM BACK TO APPROXIMATELY 1 WEEK PRIOR TO ADMISSION. SHE STATES THAT AT THAT TIME SHE DEVELOPED NAUSEA. THERE WAS NO EMESIS. SHE STATES THAT IT LASTED FOR 2 DAYS AND RESOLVED WITHOUT ANY PARTICULAR TREATMENT. SHE STATES THAT IT THEN RETURNED THE DAY PRIOR TO ADMISSION. SPONTANEOUS IN NATURE. IT IS NOT POSTPRANDIAL. THEN THE NIGHT PRIOR TO ADMISSION HER SYMPTOMS BECAME PARTICULARLY SEVERE WITH HER STATING SHE HAS SIGNIFICANT PROBLEMS WITH BREATHING SHE JUST COULD NOT CATCH HER AIR SHE WAS GASPING FOR AIR. 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 THE DISCOMFORT DID NOT RADIATE INTO HER BACK SHOULDERS OR CHEST. SHE DENIED ANY PROBLEMS WITH ANY CHEST TIGHTNESS OR CHEST HEAVINESS. SHE HAS HAD SOME SLIGHT INCREASE IN LOWER EXTREMITY EDEMA. SHE DENIED PROBLEMS WITH PALPITATIONS. SHE HAS HAD DAILY BOWEL MOVEMENTS. SHE STATES THAT SHE HAS HAD NO PREVIOUS SIMILAR TYPE SYMPTOMS. BECAUSE OF THE ONGOING SYMPTOMS WHICH WERE INCREASING SHE SHE PRESENTED TO THE ED. IN THE ED HER BLOOD PRESSURE IS 186/105 PULSE 65 RESPIRATIONS 26 TEMPERATURE 98.6? O2 SAT WAS 95. HER INR IS 3.0 ON THE PATIENT IS ON WARFARIN. HER CBC REVEALED HEMOGLOBIN OF 11.4 WHITE BLOOD CELL COUNT WAS 10.1 PLATELET COUNT 268. COMPLETE METABOLIC PROFILE WAS REMARKABLE FOR GLUCOSE OF 123, TOTAL BILI 1.6, AST OF 59. HER BNP WAS 365 AND TROPONIN 0.012. LIPASE WAS WITHIN NORMAL LIMITS AT 47. ABDOMINAL ULTRASOUND WAS REMARKABLE FOR PROMINENT FATTY INFILTRATION THROUGHOUT THE LIVER. THE COMMON BOWEL DUCT WAS 9 MM. ABDOMINAL X -RAY REVEALED NO FREE AIR OR BOWEL OBSTRUCTION. CHEST X-RAY REVEALED PULMONARY EDEMA LIKE COULEE CARDIAC IN ORIGIN. A RESULT OF THE PATIENT'S COMPLAINTS OF SHORTNESS OF BREATH CHEST X-RAY WITH PULMONARY EDEMA AND ELEVATED BNP THE PATIENT IS BEING ADMITTED FOR CONGESTIVE HEART FAILURE AND TO HAVE FURTHER WORKUP AND EVALUATION Patient History Medical History Essential hypertension (Chronic) Morbid obesity with body mass index (BMI) of 50.0 to 59.9 in adult (Chronic) Atrial fibrillation (Chronic) Obstructive sleep apnea syndrome (Chronic) Mixed hyperlipidemia (Chronic 01/30/00) Type 2 diabetes mellitus with diabetic neuropathy, without long-term current use of insulin (Chronic) 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) Umbilical hernia (Chronic) Atrial fibrillation (Chronic 12/2011) Diabetes (Chronic Unknown) Gout (Chronic Unknown) Heart murmur (Chronic Unknown) Hyperlipemia (Chronic Unknown) Hypertension (Chronic Unknown) Obstructive sleep apnea (Chronic 03/2014) Osteoarthritis (Chronic Unknown) PVD (peripheral vascular disease) (Chronic Unknown) Peripheral neuropathy (Chronic Unknown) Foot pain (Resolved Unknown) Foot ulcer (Resolved 08/2016) Surgical History History of angioplasty (Resolved 10/2016) Family & Social History Social History: PATIENT IS . SHE LIVES ALONE. SHE HAS 2 CHILDREN 1 SON AND 1 DAUGHTER SHE IS RETIRED. 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 Safety & Behavioral: Feels Safe in Current No Environment Tobacco & Substance use: Smoking Status Never smoker Substance Use Type does not use Meds Home Medications Medication Instructions Recorded Confirmed Type diltiazem HCl [Tiazac] 240 mg PO QDAY #0 01/15/12 03/20/18 History B.ANI/L.ACI/L.CLARA/L.PLAN/L.ADARSH 1.5 tsp PO PRN PRN #0 10/22/12 03/20/18 History (Probiotic Formula Capsule) Glucose: Home Monitor ea #1 10/30/16 11/04/17 Rx Glucose: Test Strips str BID #120 10/30/16 11/04/17 Rx lisinopril 40 mg tablet 40 mg PO HS #90 tab 12/10/17 03/20/18 Rx chlorthalidone 25 mg tablet 25 mg PO BID #180 tab 12/29/17 03/20/18 Rx warfarin 7.5 mg tablet 7.5 mg PO DAILY #90 tab 02/09/18 03/20/18 Rx lorazepam 2 mg tablet 2 mg PO HS #30 tab 03/04/18 03/20/18 Rx hydrocodone-acetaminophen 0.5 tab PO DAILY PRN 03/20/18 03/20/18 History lidocaine-prilocaine 1 arnold TP BID PRN 03/20/18 03/20/18 History metformin 500 mg PO DAILY 03/20/18 03/20/18 History Allergies Allergy/AdvReac Type Severity Reaction Status Date / Time Sulfa (Sulfonamide Allergy Intermediate PATIENT Verified 03/20/18 10:18 Antibiotics) CAN'T REMEMBER IT WAS SO LONG AGO gabapentin [GABAPENTIN] AdvReac Intermediate Bodyaches, Verified 03/20/18 10:18 muscle aches pregabalin [From Lyrica] AdvReac Intermediate Muscle Pain Verified 03/20/18 10: 19 duloxetine [DULOXETINE] AdvReac Unknown nausea and Verified 03/20/18 10:18 vomiting Review of Systems Review of Systems All systems reviewed & are unremarkable except as noted in HPI and below Exam Vital Signs (past 8 hours): - 03/20/18 09:14 03/20/18 11:00 03/20/18 12:00 Temperature 98.6 F Pulse Rate 65 106 H 94 H Respiratory Rate 26 H 25 H 22 Blood Pressure 186/105 H Blood Pressure [Left Arm] 155/87 H 146/76 H Pulse Oximetry 95 94 97 03/20/18 13:39 03/20/18 14:49 03/20/18 16:10 Temperature Pulse Rate 97 H 93 H 96 H Respiratory Rate 23 20 22 Blood Pressure 126/74 Blood Pressure [Left Arm] 148/88 H 139/59 L Pulse Oximetry 94 98 95 Oxygen Delivery Method Nasal Cannula Oxygen Flow Rate 3 Narrative Exam Narrative: GENERAL MORBIDLY OBESE FEMALE LAYING IN BED AT APPROXIMATELY A 20 DEGREE TRUNCAL ELEVATION. SHE HAS MILD INCREASED WORK OF BREATHING. HEENT NORMOCEPHALIC ATRAUMATIC EXTRAOCULAR MOVEMENT WAS INTACT PUPILS WERE EQUAL ROUND REACTIVE FUNDI WERE NOT VISUALIZED SCLERA WERE NONICTERIC OROPHARYNX WAS CLEAR NECK NO JUGULAR VENOUS DISTENTION THYROMEGALY OR BRUITS PULMONARY CLEAR ON ANTERIOR AUSCULTATION CARDIOVASCULAR IRREGULARLY IRREGULAR RHYTHM ABDOMEN OBESE BENIGN BOWEL SOUNDS ACTIVE EXTREMITIES TRACE PRETIBIAL PEDAL EDEMA NEUROLOGIC GROSSLY PHYSIOLOGIC PSYCHIATRIC MOOD AND AFFECT WERE NORMAL Objective Labs Result Diagrams: 03/20/18 10:10 03/20/18 10:10 Labs: Laboratory Results - last 24 hr 03/20/18 03/20/18 03/20/18 10:10 10:10 10:10 WBC 10.1 RBC 4.03 Hgb 11.4 L Hct 34.3 L MCV 85.1 MCH 28.4 MCHC 33.3 RDW 15.7 H Plt Count 268 Neut % (Auto) 85.3 H Lymph % (Auto) 8.8 L [place] % (Auto) 5.2 Eos % (Auto) 0.3 L Baso % (Auto) 0.4 Neut # (Auto) 8600 H Sodium 141 Potassium 4.7 Chloride 100 Carbon Dioxide 28 BUN 14 Creatinine 0.60 Estimated GFR > 60.0 BUN/Creatinine Ratio 23.3 H Glucose 123 H Calcium 9.0 Total Bilirubin 1.6 H AST 59 H ALT 15 Alkaline Phosphatase 64 Troponin I 0.012 B-Natriuretic Peptide 365.0 H Total Protein 8.5 H Albumin 4.6 Globulin 3.9 Albumin/Globulin Ratio 1.2 Lipase 47 ULTRASOUND OF THE ABDOMEN IMPRESSION: Prominent fatty infiltration throughout the liver. Overlying bowel gas and hyperechoic liver echotexture reduces quality of visualization of the gallbladder and renders the pancreas depending on the clinical status followup by CT scanning may become necessary. The common duct caliber of 9 mm is considered mildly dilated in the setting of a gallbladder remaining in place. Depending on the clinical status followup by MR cholangiogram may be warranted. ONE VIEW ABDOMINAL X-RAY IMPRESSION: Very large body habitus, quality of visualization therefore somewhat diminished but no acute disease is found. No free air seen, no bowel obstruction is identified. Please also refer to chest plain film from same day. ONE VIEW CHEST X-RAY IMPRESSION: Very large body habitus, reduced inspiration, quality of visualization is somewhat limited but there appears to be pulmonary edema likely cardiogenic in origin. Assessment & Plan Plan: Assessment/Plan Narrative: 1. SHORTNESS OF BREATH BASED ON HER INCREASED BMP AND CHEST X-RAY IT APPEARED THIS IS SECONDARY TO CONGESTIVE HEART FAILURE ECHOCARDIOGRAM ORDERED THE PATIENT IS ALREADY ON YUAN INHIBITOR. HAVE ORDERED LASIX 20 MG B.I.D. CHEM PANEL IN A.M. 2. NAUSEA ETIOLOGY OF THIS IS NOT CLEAR. THIS IS SUDDENLY DEVELOPED AND THEREFORE DOUBT DIABETIC GASTROPARESIS. HOWEVER WILL HAVE PATIENT ON SCHEDULED REGLAN FOR NOW. PATIENT MAY REQUIRE GASTRIC EMPTYING STUDY THE NAUSEA IS NOT POSTPRANDIAL AND THEREFORE DOUBT GALLBLADDER DISEASE SHE DOES TAKE 2-4 IBUPROFEN PER DAY FOR HER PERIPHERAL NEUROPATHY. IT IS POSSIBLE THAT SHE MAY BE DEVELOPING GASTRITIS OR EVEN ULCER. SHE MAY NEED EGD. WILL HAVE PATIENT ON PROTEIN PUMP INHIBITOR LASTLY CONSIDERATION PART OF ATYPICAL MASS WAS STATIONED OF UNDERLYING CORONARY ARTERY DISEASE. THIS IS CONSIDERED BECAUSE OF THE DEVELOPMENT OF ABDOMINAL PRESSURE WITH ASSOCIATED NAUSEA AND SHORTNESS OF BREATH. BECAUSE OF CARDIAC CONSIDERATIONS SHE WILL HAVE A NUCLEAR MEDICINE CARDIAC STRESS TEST 3. EPIGASTRIC ABDOMINAL HEAVINESS ULTRASOUND BUT HE DOES NOT REVEAL ANY GALLBLADDER DISEASE TO SUGGEST ETIOLOGY OF PROBLEM. STATED ABOVE CONSIDERATION FOR CARDIAC IS GIVEN. A RESULT SHE IS TO HAVE A NUCLEAR MEDICINE CARDIAC STRESS TEST 4. ABNORMAL LFTs IN LIGHT OF HER MORBID OBESITY AND ULTRASOUND RESULTS QUITE LIKELY THIS IS RELATED TO NON ALCOHOLIC STEATOHEPATITIS. OF PATIENT DENIES ETOH HISTORY AND THEREFORE WAS SEEM UNLIKELY SECONDARY TO THIS. HEPATITIS SEROLOGY WILL BE OBTAINED SERIAL LFTS WILL BE OBTAINED 5. ATRIAL FIBRILLATION WITH CONTROLLED VENTRICULAR RESPONSE HEART RATE IS CONTROLLED. WE WILL MAINTAIN HER ON HER CARDIZEM CD 200 40 MG P.O. DAILY 6. ANTICOAGULATION WITH WARFARIN HER INR IS AT THE UPPER LIMIT OF THERAPEUTIC AT 3.0 WILL OBTAIN DAILY INRS AND HAVE PHARMACY FOLLOW 7. OBSTRUCTIVE SLEEP APNEA/OBESITY HYPERVENTILATION SYNDROME PATIENT STATES THAT SHE HAS NEVER USED CPAP OR OXYGEN AT HOME WILL MONITOR O2 SATS AND OBTAIN O2 SAT PRIOR TO DISCHARGE TO SEE IF SHE WOULD BENEFIT BY HOME O2 8. MORBID OBESITY 9. GOUT CHECK URIC ACID IN A.M. PATIENT IS PRESENTLY NOT ON ANY THERAPY FOR GOUT 10. PERIPHERAL ARTERY DISEASE PATIENT IS SAID TO HAVE HAD AN ANGIOPLASTY. SHE IS UNAWARE OF THE TERM ANGIOPLASTY BUT STATES THAT SHE HAD SOME PROCEDURE AND HER LEG BECAUSE OF HER DIABETIC FOOT ULCER 11. DIABETES MELLITUS TYPE 2 WITH PERIPHERAL NEUROPATHY DIABETIC DIET MAINTAIN ON HOME OUTPATIENT DIABETIC THERAPY PLACED ON SLIDING SCALE INSULIN PATIENT IS ON IBUPROFEN FOR HER NEUROPATHY. SHE STATES THAT SHE IS TRYING TO STAY OFF THE OXYCODONE. ADDITIONALLY THE PATIENT IS SAID TO BE ALLERGIC OR TO HAVE ADVERSE REACTIONS TO GABAPENTIN, LYRICA, AND CYMBALTA. THEREFORE THESE WILL NOT BE USED FOR DIABETIC PERIPHERAL NEUROPATHY
[2018-03-20] MEDS: METOCLOPRAMIDE HCL 5 MG TABLET PO (16:52)
--- NOTE | 2018-03-20 17:34 | DI.ECHO.S_ITS ---
[facility]---------+ [facility] +---------+ : : [address] : : : : [id number] : : : : Phone: [phone] Echocardiogram Report + + :Name: KEDAR SCOTT Study Date: 03/22/2018 Height: 60 in : :[facility] Weight: 276 lb : : Gender: Female BSA: 2.1 m2 : :: 1950 Age: 67 yrs BP: 138/104 mmHg: :Reason For Study: Atrial fibrillation : : Performed By: Mayela Short : :Referring: RADHA DEWEY : + + Interpretation Summary Technically difficult study. The patient was in atrial fibrillation with heart rates between 89-125 bpm during the exam. Normal left ventricle size with ejection fraction 60-65%. Moderately dilated left atrium. Mild aortic stenosis. The peak aortic velocity is 2.0 m/sec (the previous exam was 1.7 m/sec). Mild aortic regurgitation. Moderate mitral annular calcification. The right ventricular systolic pressure is estimated to be at least 32 mmHg based on an estimated right atrial pressure of 3 mm Hg. Comparison is made with the echocardiogram of 12-28-11, aortic stenosis has progressed. Procedure: A two-dimensional transthoracic echocardiogram with color flow and Doppler was performed. The study quality was technically difficult. A contrast injection of Definity was performed to improve assessment of LV function. Comparison is made with the echocardiogram of 12-28-11. The patient was in atrial fibrillation with heart rates between 89-125 bpm during the exam. Left Ventricle: The left ventricle is normal in size. There is normal left ventricular wall thickness. The left ventricular ejection fraction is grossly normal. The ejection fraction is estimated to be 60-65%. There are no obvious focal wall motion abnormalities noted but poor endocardial definition reduces the sensitivity for the detection of such. Diastolic function could not be accurately assessed due to atrial fibrillation. Right Ventricle: The right ventricle grossly appears normal in size with probable normal systolic function. Atria: The left atrium is moderately dilated. The right atrium grossly appears normal in size. Mitral Valve: The mitral valve leaflets appear mildly thickened, but open well. There is moderate calcification extending into the subvalvular apparatus. There is moderate mitral annular calcification. There is no mitral regurgitation noted. Aortic Valve: The aortic valve is moderately calcified. There is mild aortic stenosis. The calculated aortic valve area is 1.6 cm2. The peak aortic velocity is 2.0 m/sec. The peak aortic velocity on the previous exam was 1.7 m/sec. The aortic valve mean gradient is 7 mmHg. There is mild aortic regurgitation. Tricuspid Valve: The tricuspid valve is normal in structure and function. There is a trace or physiologic amount of tricuspid regurgitation. The right ventricular systolic pressure is estimated to be at least 32 mmHg based on an estimated right atrial pressure of 3 mm Hg. Pulmonic Valve: The pulmonic valve is normal in structure and function. There is trace pulmonic regurgitation. Great Vessels: The aortic root is normal size. The ascending aorta is at the upper limits of normal in size. The aortic arch is normal in size. The IVC is of normal diameter and collapses greater than 50% with a sniff. This suggests a low right atrial pressure of 3 mm Hg. Pericardium/ Pleura There is no pericardial effusion. There is no pleural effusion. MMode/2D Measurements & Calculations LVIDd: 5.5 cm LVOT diam: 2.1 cm LVIDs: 3.5 cm Ao root diam: 2.7 cm FS: 36.9 % Aortic Jxn: 2.6 cm EPSS: 0.83 cm asc Aorta Diam: 3.7 cm IVSd: 1.0 cm Ao Arch Diam (Prox Trans): 3.2 cm LVPWd: 0.79 cm LV parekh. diameter/BSA (cm/m^2): 2.6 LV sys. diameter/BSA (cm/m^2): 1.6 LA dimension: 4.9 cm Doppler Measurements & Calculations Ao V2 max: 195.3 cm/sec LVOT Max Sean: 90.5 cm/sec Ao V2 mean: 122.2 cm/sec LV V1 max P.3 mmHg Ao max P.3 mmHg LV V1 VTI: 18.2 cm Ao mean P.4 mmHg KELL(I,D): 2.0 cm2 Ao V2 VTI: 31.8 cm KELL(V,D): 1.6 cm2 sev ratio: 0.57 KELL indexed to BSA (cm^2/m^2): 0.94 MV P1/2t: 69.4 msec TR max sean: 268.0 cm/sec MVA(VTI): 3.2 cm2 TR max P.7 mmHg PA V2 max: 136.8 cm/sec PA V2 mean: 82.3 cm/sec PA mean P.3 mmHg PA Accel Time: 0.11 sec MV V2 mean: 60.7 cm/sec MV P1/2t max sean: 126.1 cm/sec MV mean P.1 mmHg MVA(P1/2t): 3.2 cm2 MV V2 VTI: 19.9 cm Electronically signed by: Guillaume Calvillo on Reading Physician:03/22/2018 01:32 PM
[2018-03-20 20:03] LABS: Troponin I < 0.012 ng/mL (0.01-0.034)
[2018-03-20 20:09] LABS: INR 3.1 (0.9-1.3); Prothrombin Time 34.4 SECONDS (10.1-12.7)
[2018-03-20] MEDS: LORazepam 1 MG TABLET 2 MG PO (20:38)
[2018-03-20] MEDS: LISINOPRIL 20 MG TABLET 40 MG PO (20:39)
[2018-03-20 22:09] LABS: Troponin I 0.013 ng/mL (0.01-0.034)
[2018-03-21] VITALS (12 sets, daily range): BP systolic 121–144; BP diastolic 41–93; PULSE 88–110; RESP 14–19; TEMP 36.5–37.2; O2SAT 88–96
[2018-03-21 03:52] LABS: Uric Acid 6.3 mg/dL (2.5-6.2)
[2018-03-21 04:03] LABS: Add Manual Diff / Slide Review NO; Alanine Aminotransferase 26 IU/L (9-52); Albumin 3.8 g/dL (3.5-5.0); Albumin Globulin Ratio 1.2 (1.0-2.8); Alkaline Phosphatase 63 U/L (38-126); Aspartate Aminotransferase 22 IU/L (14-36); BUN Creatinine Ratio 18.9 (6-22); Basophils Percent Auto 0.7 % (0-2); Bilirubin Total 0.8 mg/dL (0.2-1.3); Blood Urea Nitrogen 17 mg/dL (7-17); Calcium 8.6 mg/dL (8.4-10.2); Carbon Dioxide 35 mmol/L (22-32); Chloride 96 mmol/L (98-107); Cholesterol 150 mg/dL (140-199); Eosinophils Percent Auto 1.6 % (2-4); Estimated Glomerular Filt Rate > 60.0 mL/min (>60); Globulin 3.2 g/dL (1.7-4.1); Glucose 105 mg/dL (80-110); HDL Cholesterol 48 mg/dL (40-60); HEMOLYSIS < 15 (0-50); Hematocrit 33.7 % (36-46); LDL Cholesterol Calculated 84 mg/dL (<100); Lymphocytes Percent Auto 12.9 % (25-40); Mean Corpuscular HGB Conc 32.7 % (30-36); Mean Corpuscular Hemoglobin 27.9 PG (26-34); Mean Corpuscular Volume 85.2 fL (80-100); Monocytes Percent Auto 7.1 % (3-14); Neutrophils Absolute Auto 5900 /uL (3000-5900); Neutrophils Percent Auto 77.7 % (50-75); Platelet Count 253 X10^3/uL (150-400); Potassium 3.1 mmol/L (3.4-5.1); Red Blood Cell Count 3.95 X10^6/uL (4.0-5.2); Red Cell Distribution Width 15.6 % (11.6-14.8); Sodium 145 mmol/L (137-145); Triglycerides 90 mg/dL (35-150); White Blood Cell Count 7.6 X10^3/uL (4.5-11.0)
[2018-03-21 04:10] LABS: Troponin I < 0.012 ng/mL (0.01-0.034)
[2018-03-21 04:18] LABS: Hemoglobin A1C% w Est Avg Glu 6.1 % (4.0-6.0)
[2018-03-21 04:49] LABS: TSH w/ Reflex to FT4 0.98 uIU/mL (0.47-4.68)
[2018-03-21 04:59] LABS: Hepatitis B Surface Antigen NEGATIVE s/c (NEGATIVE)
[2018-03-21 05:11] LABS: Hep C Virus Ab w/Reflex Quant NEGATIVE s/c (NEGATIVE)
--- NOTE | 2018-03-21 06:10 | PC.NURSE ---
Slept most of the night, did not C/O nausea all shift. No C/O pain, dyspnea & other discomfort. Potassium level this morning 3.1, GUANAKITO Whitfield made aware orders noted to give liquid Potassium. CO-ordinator Lilo Mann RN. notified with new order. Will implement order.
[2018-03-21] MEDS: POTASSIUM CHLORIDE 20 MEQ/15 ML UDC 60 MEQ PO (06:20)
[2018-03-21] MEDS: FUROSEMIDE 20 MG/2 ML VIAL IV ×2 (09:00→20:20)
[2018-03-21] MEDS: METFORMIN HCL 500 MG TABLET PO (09:00)
[2018-03-21] MEDS: SODIUM CHLORIDE 0.9% FLUSH 10 ML IV ×2 (09:00→20:19)
[2018-03-21] MEDS: dilTIAZem CD 240 MG CAP PO (09:00)
[2018-03-21] MEDS: PANTOPRAZOLE 20 MG TABLET PO (09:06)
--- NOTE | 2018-03-21 09:08 | CM.DANOTE ---
DCP: Case received, EMR reviewed and met with patient. Introduced self and role. DCP template completed with information currently available. Patient is a 67 year old female who admitted yesterday afternoon to the care of the hospitalist team. PCP: CHELSEA Beltrán. Payer: confirmed: [facility]. Patient came in to hospital via ambulance with symptoms of nausea. Patient at this time carries diagnosis of CHF. Resides here in [place]. Stated that she lives alone, but has friends nearby. Stated that she uses a walker sometimes in the home. Has been independent in the home as well. P: DCP to follow closely, and offer any resources that patient may need upon discharge. Rose Garcia RN/Assistant Merchandiser
--- NOTE | 2018-03-21 11:40 | PM.PN.1 ---
Subjective Date Patient Seen: 03/21/18 Time Patient Seen: 11:40 Interval history: She is seen in her room today to follow up the pulmonary edema, nausea, rule out CHF related myocardial ischemia. She also has atrial fibrillation, a peripheral arterial disease foot ulcer and type 2 diabetes mellitus with peripheral neuropathy. She says the foot ulcer is caused by diabetes but it is on the top of the foot much more typical for arterial disease. She is very anxious that she not miss her follow-up wound care appointment in [place] tomorrow and does not wish to remain in the hospital for the rest of her workup. 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 In that case she will also be undergoing a nuclear medicine chemical stress test here tomorrow instead of as an outpatient later on. Her dyspnea and nausea have improved/resolved. Exam Vital Signs (past 8 hours): - 03/21/18 04:32 03/21/18 07:35 03/21/18 08:45 Temperature 98.4 F 98.9 F Pulse Rate 107 H 110 H Respiratory Rate 18 17 Blood Pressure 121/58 L 125/93 H Pulse Oximetry 94 94 88 L 03/21/18 09:00 03/21/18 09:15 Temperature Pulse Rate 88 Respiratory Rate 14 Blood Pressure Pulse Oximetry 92 88 L Oxygen Delivery Method Room Air Oxygen Flow Rate 1 Narrative Exam Narrative: Heart is regular rate and rhythm without murmur. Lungs are clear to auscultation bilaterally. Abdomen is soft, bowel sounds positive, obese, nontender, no organomegaly. Extremities had no ankle edema. On the top of the right foot is a nearly completely healed vascular appearing ulcer. She is alert and oriented x3. Objective Labs Result Diagrams: 03/21/18 03:35 03/21/18 03:35 Labs: Laboratory Results - last 24 hr 03/20/18 03/20/18 03/20/18 19:20 19:20 21:37 WBC RBC Hgb Hct MCV MCH MCHC RDW Plt Count Neut % (Auto) Lymph % (Auto) [place] % (Auto) Eos % (Auto) Baso % (Auto) Neut # (Auto) PT 34.4 H INR 3.1 H Sodium Potassium Chloride Carbon Dioxide BUN Creatinine Estimated GFR BUN/Creatinine Ratio Glucose Hemoglobin A1c Uric Acid Calcium Total Bilirubin AST ALT Alkaline Phosphatase Troponin I < 0.012 0.013 Total Protein Albumin Globulin Albumin/Globulin Ratio Triglycerides Cholesterol LDL Cholesterol, Calc HDL Cholesterol TSH Hep Bs Antigen Hepatitis C Antibody 03/21/18 03/21/18 03/21/18 03:35 03:35 03:35 WBC 7.6 RBC 3.95 L Hgb 11.0 L Hct 33.7 L MCV 85.2 MCH 27.9 MCHC 32.7 RDW 15.6 H Plt Count 253 Neut % (Auto) 77.7 H Lymph % (Auto) 12.9 L [place] % (Auto) 7.1 Eos % (Auto) 1.6 L Baso % (Auto) 0.7 Neut # (Auto) 5900 PT INR Sodium 145 Potassium 3.1 L D Chloride 96 L Carbon Dioxide 35 H BUN 17 Creatinine 0.90 Estimated GFR > 60.0 BUN/Creatinine Ratio 18.9 Glucose 105 Hemoglobin A1c Uric Acid Calcium 8.6 Total Bilirubin 0.8 AST 22 ALT 26 Alkaline Phosphatase 63 Troponin I < 0.012 Total Protein 7.0 Albumin 3.8 Globulin 3.2 Albumin/Globulin Ratio 1.2 Triglycerides 90 Cholesterol 150 LDL Cholesterol, Calc 84 HDL Cholesterol 48 TSH Hep Bs Antigen Hepatitis C Antibody 03/21/18 03/21/18 03/21/18 03:35 03:35 03:35 WBC RBC Hgb Hct MCV MCH MCHC RDW Plt Count Neut % (Auto) Lymph % (Auto) [place] % (Auto) Eos % (Auto) Baso % (Auto) Neut # (Auto) PT INR Sodium Potassium Chloride Carbon Dioxide BUN Creatinine Estimated GFR BUN/Creatinine Ratio Glucose Hemoglobin A1c 6.1 H Uric Acid 6.3 H Calcium Total Bilirubin AST ALT Alkaline Phosphatase Troponin I Total Protein Albumin Globulin Albumin/Globulin Ratio Triglycerides Cholesterol LDL Cholesterol, Calc HDL Cholesterol TSH Hep Bs Antigen Negative Hepatitis C Antibody Negative 03/21/18 03:35 WBC RBC Hgb Hct MCV MCH MCHC RDW Plt Count Neut % (Auto) Lymph % (Auto) [place] % (Auto) Eos % (Auto) Baso % (Auto) Neut # (Auto) PT INR Sodium Potassium Chloride Carbon Dioxide BUN Creatinine Estimated GFR BUN/Creatinine Ratio Glucose Hemoglobin A1c Uric Acid Calcium Total Bilirubin AST ALT Alkaline Phosphatase Troponin I Total Protein Albumin Globulin Albumin/Globulin Ratio Triglycerides Cholesterol LDL Cholesterol, Calc HDL Cholesterol TSH 0.98 Hep Bs Antigen Hepatitis C Antibody Assessment & Plan Plan: Assessment/Plan Narrative: 1. SHORTNESS OF BREATH BASED ON HER INCREASED BNP AND CHEST X-RAY IT APPEARED THIS could be SECONDARY TO CONGESTIVE HEART FAILURE ECHOCARDIOGRAM ORDERED but not available sheet metal technician today, Thursday. THE PATIENT IS ALREADY ON YUAN INHIBITOR. Continue LASIX 20 MG B.I.D. Normal BMP today 2. NAUSEA ETIOLOGY OF THIS IS NOT CLEAR. THIS SUDDENLY DEVELOPED AND THEREFORE DOUBT DIABETIC GASTROPARESIS. HOWEVER WILL HAVE PATIENT ON SCHEDULED REGLAN FOR NOW. PATIENT MAY REQUIRE GASTRIC EMPTYING STUDY THE NAUSEA IS NOT POSTPRANDIAL AND THEREFORE DOUBT GALLBLADDER DISEASE SHE DOES TAKE 2-4 IBUPROFEN PER DAY FOR HER PERIPHERAL NEUROPATHY. IT IS POSSIBLE THAT SHE MAY BE DEVELOPING GASTRITIS OR EVEN ULCER. SHE MAY NEED EGD. WILL HAVE PATIENT ON PROTEIN PUMP INHIBITOR LASTLY CONSIDERATION PART OF an ATYPICAL sign of UNDERLYING CORONARY ARTERY DISEASE. THIS IS CONSIDERED BECAUSE OF THE DEVELOPMENT OF ABDOMINAL PRESSURE WITH ASSOCIATED NAUSEA AND SHORTNESS OF BREATH. BECAUSE OF CARDIAC CONSIDERATIONS SHE WILL HAVE A NUCLEAR MEDICINE CARDIAC STRESS TEST tomorrow. 3. EPIGASTRIC ABDOMINAL HEAVINESS ULTRASOUND DOES NOT REVEAL ANY GALLBLADDER DISEASE TO SUGGEST ETIOLOGY OF PROBLEM. STATED ABOVE CONSIDERATION FOR CARDIAC causes IS GIVEN. A RESULT SHE IS TO HAVE A NUCLEAR MEDICINE CARDIAC STRESS TEST 4. ABNORMAL LFTs IN LIGHT OF HER MORBID OBESITY AND ULTRASOUND RESULTS QUITE LIKELY THIS IS RELATED TO NON ALCOHOLIC STEATOHEPATITIS as the PATIENT DENIES ETOH HISTORY. Hepatic Congestion caused by the CHF is also possible. HEPATITIS SEROLOGY WILL BE OBTAINED Bilirubin and AST have both normalized with diuresis 5. ATRIAL FIBRILLATION WITH CONTROLLED VENTRICULAR RESPONSE HEART RATE IS CONTROLLED. WE WILL MAINTAIN HER ON HER CARDIZEM CD 200 40 MG P.O. DAILY - Hold Coumadin today, per pharmacy. INR 3.1. 6. ANTICOAGULATION WITH WARFARIN HER INR IS AT THE UPPER LIMIT OF THERAPEUTIC AT 3.1 WILL OBTAIN DAILY INRS AND HAVE PHARMACY FOLLOW - Hold Coumadin today, per pharmacy. INR 3.1. 7. OBSTRUCTIVE SLEEP APNEA/OBESITY HYPERVENTILATION SYNDROME PATIENT STATES THAT SHE HAS NEVER USED CPAP OR OXYGEN AT HOME WILL MONITOR O2 SATS AND OBTAIN O2 SAT PRIOR TO DISCHARGE TO SEE IF SHE WOULD BENEFIT BY HOME O2 8. MORBID OBESITY 9. GOUT CHECK URIC ACID IN A.M. PATIENT IS PRESENTLY NOT ON ANY THERAPY FOR GOUT 10. PERIPHERAL ARTERY DISEASE/Foot Ulcer PATIENT IS SAID TO HAVE HAD AN ANGIOPLASTY. SHE IS UNAWARE OF THE TERM ANGIOPLASTY BUT STATES THAT SHE HAD SOME PROCEDURE on HER LEG BECAUSE OF HER DIABETIC FOOT ULCER She has a wound care appointment in [place] tomorrow that she wants to get to. 11. DIABETES MELLITUS TYPE 2 WITH PERIPHERAL NEUROPATHY DIABETIC DIET MAINTAIN ON HOME OUTPATIENT DIABETIC THERAPY PLACED ON SLIDING SCALE INSULIN PATIENT IS ON IBUPROFEN FOR HER NEUROPATHY. SHE STATES THAT SHE IS TRYING TO STAY OFF THE OXYCODONE. ADDITIONALLY THE PATIENT IS SAID TO BE ALLERGIC OR TO HAVE ADVERSE REACTIONS TO GABAPENTIN, LYRICA, AND CYMBALTA. THEREFORE THESE WILL NOT BE USED FOR DIABETIC PERIPHERAL NEUROPATHY Quality VTE Deep Vein Thrombosis/Pulmonary Embolism Present on Admission: No
[2018-03-21] MEDS: LORazepam 1 MG TABLET 2 MG PO (20:19)
[2018-03-21] MEDS: LISINOPRIL 20 MG TABLET 40 MG PO (20:20)
[2018-03-21] MEDS: ACETAMINOPHEN 325 MG TABLET 650 MG PO (23:50)
[2018-03-22 02:50] VITALS: BP 123/71; PULSE 117; RESP 20; TEMP 36.7; O2SAT 90
[2018-03-22] MEDS: PANTOPRAZOLE 20 MG TABLET PO (06:50)
[2018-03-22 06:56] VITALS: O2SAT 97
[2018-03-22 07:30] VITALS: BP 151/74; PULSE 112; RESP 18; TEMP 36.6; O2SAT 93
[2018-03-22 10:00] VITALS: O2SAT 94
[2018-03-22] MEDS: FUROSEMIDE 20 MG/2 ML VIAL IV (12:48)
[2018-03-22] MEDS: METFORMIN HCL 500 MG TABLET PO (12:48)
[2018-03-22] MEDS: dilTIAZem CD 240 MG CAP PO (12:48)
[2018-03-22] MEDS: SODIUM CHLORIDE 0.9% FLUSH 10 ML IV (12:48)
[2018-03-22] MEDS: ONDANSETRON 4 MG ODT PO (12:49)
--- NOTE | 2018-03-22 17:10 | PC.NURSE ---
Pt given discharge instructions, states she understands her follow up care and the two new medications prescribed. She left in private vehicle with family member with all of her belongings, at 1700.
--- NOTE | 2018-03-22 19:51 | P.DS_ITS ---
History of Present Illness Chief complaint: Nausea Narrative: THE PATIENT DATES HER PROBLEM BACK TO APPROXIMATELY 1 WEEK PRIOR TO ADMISSION. SHE STATES THAT AT THAT TIME SHE DEVELOPED NAUSEA. THERE WAS NO EMESIS. SHE STATES THAT IT LASTED FOR 2 DAYS AND RESOLVED WITHOUT ANY PARTICULAR TREATMENT. SHE STATES THAT IT THEN RETURNED THE DAY PRIOR TO ADMISSION. SPONTANEOUS IN NATURE. IT IS NOT POSTPRANDIAL. THEN THE NIGHT PRIOR TO ADMISSION HER SYMPTOMS BECAME PARTICULARLY SEVERE WITH HER STATING SHE HAS SIGNIFICANT PROBLEMS WITH BREATHING SHE JUST COULD NOT CATCH HER AIR SHE WAS GASPING FOR AIR. 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 THE DISCOMFORT DID NOT RADIATE INTO HER BACK SHOULDERS OR CHEST. SHE DENIED ANY PROBLEMS WITH ANY CHEST TIGHTNESS OR CHEST HEAVINESS. SHE HAS HAD SOME SLIGHT INCREASE IN LOWER EXTREMITY EDEMA. SHE DENIED PROBLEMS WITH PALPITATIONS. SHE HAS HAD DAILY BOWEL MOVEMENTS. SHE STATES THAT SHE HAS HAD NO PREVIOUS SIMILAR TYPE SYMPTOMS. BECAUSE OF THE ONGOING SYMPTOMS WHICH WERE INCREASING SHE SHE PRESENTED TO THE ED. IN THE ED HER BLOOD PRESSURE IS 186/105 PULSE 65 RESPIRATIONS 26 TEMPERATURE 98.6? O2 SAT WAS 95. HER INR IS 3.0 ON THE PATIENT IS ON WARFARIN. HER CBC REVEALED HEMOGLOBIN OF 11.4 WHITE BLOOD CELL COUNT WAS 10.1 PLATELET COUNT 268. COMPLETE METABOLIC PROFILE WAS REMARKABLE FOR GLUCOSE OF 123, TOTAL BILI 1.6, AST OF 59. HER BNP WAS 365 AND TROPONIN 0.012. LIPASE WAS WITHIN NORMAL LIMITS AT 47. ABDOMINAL ULTRASOUND WAS REMARKABLE FOR PROMINENT FATTY INFILTRATION THROUGHOUT THE LIVER. THE COMMON BOWEL DUCT WAS 9 MM. ABDOMINAL X -RAY REVEALED NO FREE AIR OR BOWEL OBSTRUCTION. CHEST X-RAY REVEALED PULMONARY EDEMA LIKE COULEE CARDIAC IN ORIGIN. A RESULT OF THE PATIENT'S COMPLAINTS OF SHORTNESS OF BREATH CHEST X-RAY WITH PULMONARY EDEMA AND ELEVATED BNP THE PATIENT IS BEING ADMITTED FOR CONGESTIVE HEART FAILURE AND TO HAVE FURTHER WORKUP AND EVALUATION Discharge Providers Date of admission: 03/20/18 16:10 Primary care physician: Nubia Rock PA-C Consults: 03/20/18 18:13 Consult to Pharmacy Routine Comment: PATIENT TO FOLLOW WARFARIN AND ADJUST NECESSARY Discharge provider: Rolando Griffith MD Discharge Date: 03/22/18 Summary Discharge Diagnosis: 1. Acute on likely chronic diastolic heart failure 2. Acute nausea unclear etiology 3. Chronic atrial fibrillation 4. Diabetes with peripheral neuropathy 5. Non alcoholic steatohepatitis 7. Obstructive sleep apnea 8. Severe obesity 9. Mild aortic stenosis Procedures: -abdominal ultrasound:Prominent fatty infiltration throughout the liver. Overlying bowel gas and hyperechoic liver echotexture reduces quality of visualization of the gallbladder and renders the pancreas depending on the clinical status followup by CT scanning may become necessary. The common duct caliber of 9 mm is considered mildly dilated in the setting of a gallbladder remaining in place. Depending on the clinical status followup by MR cholangiogram may be warranted. Transthoracic echo:The patient was in atrial fibrillation with heart rates between 89-125 bpm during the exam. Normal left ventricle size with ejection fraction 60-65%. Moderately dilated left atrium. Mild aortic stenosis. The peak aortic velocity is 2.0 m/sec (the previous exam was 1.7 m/sec). Mild aortic regurgitation. Moderate mitral annular calcification. The right ventricular systolic pressure is estimated to be at least 32 mmHg based on an estimated right atrial pressure of 3 mm Hg. Comparison is made with the echocardiogram of 12-28-11, aortic stenosis has progressed. Hospital Course: -patient admitted with evidence of heart failure with lower extremity edema, pulmonary edema on x-ray, elevated BNP in 300 range. Echo showed normal LV systolic function with mild and MAC. Breathing improved with IV Lasix. She is being discharged on oral Lasix in addition to her chlorthalidone. She should have blood work done in a week to recheck electrolytes, BUN and creatinine. Patient also had nausea which improved during course of hospital stay. Ultrasound did not show gallstones but did show mild common bile duct 9 mm widening. Unclear if she passed a stone or she has gallbladder dysfunction. She also takes ibuprofen regularly and advised to stop her cut back on NSAID use. Advised she may need further diagnostic workup to be done as outpatient. In regards to AFib and diabetes, these were adequately controlled. She remains on oral agents including therapeutic warfarin. She has follow-up with PCP this week. Exam Vital Signs (past 8 hours): Oxygen Delivery Method Room Air Oxygen Flow Rate 0 Objective Labs Result Diagrams: 03/21/18 03:35 03/21/18 03:35 Discharge Plan Discharge Plan Patient Disposition: Home Discharge Med Rec/Prescriptions Prescriptions: New furosemide 20 mg tablet 20 mg PO DAILY Qty: 30 RF: 0 metoclopramide HCl 5 mg tablet 5 mg PO TID PRN (Reason: nausea and vomiting) Qty: 20 RF: 0 Continue diltiazem HCl [Tiazac] 240 MG capsule,extended release 24 hr 240 mg PO QDAY Qty: 0 RF: 0 B.ANI/L.ACI/L.CLARA/L.PLAN/L.ADARSH (Probiotic Formula Capsule) 1.5 tsp PO PRN PRN (Reason: Abdominal Discomfort) Qty: 0 RF: 0 Glucose: Home Monitor Qty: 1 RF: 0 Glucose: Test Strips BID Qty: 120 RF: 6 lisinopril 40 mg tablet 40 mg PO HS Qty: 90 RF: 3 chlorthalidone 25 mg tablet 25 mg PO BID Qty: 180 RF: 1 warfarin [Coumadin] 7.5 mg tablet 7.5 mg PO DAILY Qty: 90 RF: 1 lorazepam 2 mg tablet 2 mg PO HS Qty: 30 RF: 0 hydrocodone-acetaminophen 5-325 mg tablet 0.5 tab PO DAILY PRN (Reason: Pain (Scale Score 4-6)) RF: 0 lidocaine-prilocaine 2.5-2.5 % cream 1 arnold TP BID PRN (Reason: Pain (Scale Score 1-3)) RF: 0 metformin 500 mg Tablet 500 mg PO DAILY RF: 0 Follow up/Referrals: Nubia Rock PA-C [Primary Care Provider] - Provider Discharge Instructions Diet: Diet as Tolerated Visit Report/Discharge Packet Instructions: Metoclopramide Visit Report Forms: Stroke Signs & Symptoms Discharge Data Primary Care Provider: Nubia Rock Attending Provider: Dillon Fernandez Admit Date/Time: 03/20/18 16:10 Discharges patient from system. Discharge Date/Time: 03/22/18 17:00 Quality VTE Deep Vein Thrombosis/Pulmonary Embolism Present on Admission: No
[2018-03-23 15:09] LABS: Hepatitis A Antibody Total Nonreactive (Nonreactive)
[2018-03-24 08:33] LABS: Hepatitis B Core Antibody Nonreactive (Nonreactive)
== END 2018-03-22 17:00 | disposition home or self-care (01) ==
LOC: ED 16:09 → AC 16:10
PROVIDERS: Admitting Provider Internal Medicine; Emergency Provider Emergency Medicine; Family Provider Internal Medicine; PCP Physician Assistant; Visit Provider Internal Medicine
DX: I50.31 Acute diastolic (congestive) heart failure (principal); R11.0 Nausea; I48.2 Chronic atrial fibrillation; E11.42 Type 2 diabetes mellitus with diabetic polyneuropathy; K75.81 Nonalcoholic steatohepatitis (NASH); G47.33 Obstructive sleep apnea (adult) (pediatric); E66.9 Obesity, unspecified; I35.0 Nonrheumatic aortic (valve) stenosis; I10 Essential (primary) hypertension; E78.5 Hyperlipidemia, unspecified; Z79.84 Long term (current) use of oral hypoglycemic drugs; E80.6 Other disorders of bilirubin metabolism; Z68.43 Body mass index [BMI] 50.0-59.9, adult; Z79.01 Long term (current) use of anticoagulants; M10.9 Gout, unspecified; I73.9 Peripheral vascular disease, unspecified
CPT/HCPCS: 36415; 36591; 71045; 74018; 76700; 80053; 80061; 81003; 82962; 83036; 83690; 83880; 84443; 84484; 84550; 85025; 85610; 86704; 86708; 86803; 87340; 93005; 93010; 93306; 94760; 96374; 96375; 96376; 99285; G0378; J1940; J2405; Q9957

== ENCOUNTER 2018-07-02 10:50 | Emergency (ER) | payer OTHER, SELFPAY ==
[2018-03-20 16:18] VITALS: BMI 34.2
[2018-07-02 11:02] VITALS: BP 131/45; PULSE 60; RESP 18; TEMP 36.6; O2SAT 97
--- NOTE | 2018-07-02 12:39 | PC.NURSE ---
Pt with multiple wounds to bilateral lower shins, Weeping from wounds. Has increased edema to groin area. Lungs clear in all santos.
--- NOTE | 2018-07-02 13:45 | ED.EXTPRO ---
HPI - Extremity Problem <GUANAKITO Ng - Last Filed: 07/02/18 22:10> General Chief complaint: Extremity Problem,Nontraumatic Stated complaint: Sores on legs Time Seen by Provider: 07/02/18 13:24 Source: patient Mode of arrival: ambulatory Limitations: no limitations History of Present Illness HPI Narrative: 68-year-old female with history of AFib currently on warfarin that is a nonsmoker here for complaint of bilateral lower extremity swelling with lesions to her anterior gonzalez over the past few weeks. She denies any trauma to the area. She denies any chest pain. She does report that she has had some dyspnea at times when she is moving around. No nausea vomiting. Positive p.o. intake. No fevers no chills. She states that the open lesions have been leaking clear liquid. She also complains of having edema to pannus in the suprapubic region. states that she has been taking her medications as prescribed. No other concerns or complaints at this time Related Data Home Medications Medication Instructions Recorded Confirmed lidocaine-prilocaine 1 arnold TP BID PRN 03/20/18 07/02/18 chlorthalidone 25 mg tablet 25 mg PO BID 03/24/18 07/02/18 ibuprofen 200 mg tablet 400 mg PO PRN PRN 03/24/18 07/02/18 warfarin 7.5 mg tablet 7.5 mg PO DAILY 03/24/18 07/02/18 lisinopril 40 mg PO BEDTIME 07/02/18 07/02/18 lorazepam 2 mg PO BEDTIME 07/02/18 07/02/18 warfarin 3.75 mg PO MOFR 07/02/18 07/02/18 Previous Rx's Medication Instructions Recorded metoclopramide HCl 5 mg PO TID PRN #20 tab 03/22/18 Glucose: Home Monitor #1 ea 04/29/18 Glucose: Test Strips #100 each 06/09/18 diltiazem CD 240 mg 240 mg PO DAILY #30 cap 06/24/18 capsule,extended release 24 hr cephalexin 500 mg PO QID #28 cap 07/02/18 furosemide [Lasix] 20 mg PO BID #10 tab 07/02/18 mupirocin 1 applictn TOP BID #15 gram 07/02/18 Allergies Allergy/AdvReac Type Severity Reaction Status Date / Time Sulfa (Sulfonamide Allergy Intermediate PATIENT Verified 07/02/18 11:05 Antibiotics) CAN'T REMEMBER IT WAS SO LONG AGO gabapentin [GABAPENTIN] AdvReac Intermediate Bodyaches, Verified 07/02/18 11:05 muscle aches pregabalin [From Lyrica] AdvReac Intermediate Muscle Pain Verified 07/02/18 11:05 duloxetine [DULOXETINE] AdvReac Unknown nausea and Verified 07/02/18 11:05 vomiting Review of Systems <GUANAKITO Ng - Last Filed: 07/02/18 22:10> Constitutional Denies chills, Denies fever(s), Denies lethargy and Denies weakness Eyes Denies change in vision, Denies eye discharge, Denies irritation and Denies loss of vision ENT Ears, Nose, Mouth, and Throat: Denies change in voice, Denies neck pain, Denies sore throat and Denies throat swelling Cardiovascular Denies chest pain, Denies irregular heart rhythm, Denies lightheadedness, Denies palpitations, Reports dyspnea on exertion and Denies orthopnea Respiratory Reports dyspnea on exertion and Denies wheezing Gastrointestinal Gastrointestinal: Denies abdominal pain, Denies change in bowel habits, Denies diarrhea, Denies nausea and Denies vomiting Genitourinary Denies hematuria, Denies flank pain, Denies urinary incontinence and Denies urinary urgency Musculoskeletal Denies neck pain Integumentary/Breasts Denies pruritus, Denies erythema, Denies rash and Denies wounds Neurologic Denies confusion, Denies loss of vision and Denies weakness Psychiatric Denies anxiety, Denies confusion, Denies depression, Denies homicidal ideation and Denies suicidal ideation Endocrine Denies palpitations Hematologic/Lymphatic Denies easy bruising Allergic/Immunologic Denies urticaria, Denies throat swelling and Denies wheezing PFSH <GUANAKITO Ng - Last Filed: 07/02/18 22:10> Medical History Atrial fibrillation (Chronic) Essential hypertension (Chronic) Morbid obesity with body mass index (BMI) of 50.0 to 59.9 in adult (Chronic) Obstructive sleep apnea syndrome (Chronic) Mixed hyperlipidemia (Chronic 01/30/00) Type 2 diabetes mellitus with diabetic neuropathy, without long-term current use of insulin (Chronic) 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) Umbilical hernia (Chronic) Atrial fibrillation (Chronic 12/2011) Diabetes (Chronic Unknown) Gout (Chronic Unknown) Heart murmur (Chronic Unknown) Hyperlipemia (Chronic Unknown) Hypertension (Chronic Unknown) Obstructive sleep apnea (Chronic 03/2014) Osteoarthritis (Chronic Unknown) PVD (peripheral vascular disease) (Chronic Unknown) Peripheral neuropathy (Chronic Unknown) Foot pain (Resolved Unknown) Foot ulcer (Resolved 08/2016) Surgical History History of angioplasty (Resolved 10/2016) Family History Father No problems noted. Mother No problems noted. Brother No problems noted. Brother No problems noted. Sister Fibromyalgia Social History household members: none Smoking Status: Never smoker second hand exposure: No alcohol intake: never substance use type: does not use Family History Father No problems noted. Mother No problems noted. Brother No problems noted. Brother No problems noted. Sister Fibromyalgia Social History household members: none Smoking Status: Never smoker second hand exposure: No alcohol intake: never substance use type: does not use Exam <GUANAKITO Ng - Last Filed: 07/02/18 22:10> Initial Vital Signs Initial Vital Signs: Vital Signs Temperature 98 F 07/02/18 11:02 Pulse Rate 60 07/02/18 11:02 Respiratory Rate 18 07/02/18 11:02 Blood Pressure 131/45 L 07/02/18 11:02 Pulse Oximetry 97 07/02/18 11:02 Const General: cooperative and well developed Nutritional Appearance: well nourished Orientation: alert, awake, oriented x3 and not confused [facility] Mouth: oral mucosae normal and moist mucous membranes Eyes Conjunctivae: conjunctivae normal Sclera: sclerae normal Pupils: PERRL EOM: EOM intact bilaterally Neck Neck: normal visual inspection, trachea midline, No lymphadenopathy, No midline deformity and No JVD Lymphatic: No lymphedema Resp Effort & Inspection: normal respiratory effort, able to speak in complete sentences, no respiratory distress and no use of accessory muscles Auscultation: clear to auscultation bilaterally, no rales, no rhonchi and no wheezes Cardio Rate: regular rate Rhythm: regular rhythm Heart Sounds: no click, no gallops, no murmurs and no rubs GI Inspection: non-distended Palpation: soft, no hepatosplenomegaly, No guarding, No pulsatile mass and No tender Auscultation: normal bowel sounds Skin General: no rashes or lesions noted, No jaundice and No petechiae Neuro General: alert, oriented x3, gait normal and no focal motor deficits Speech: speech normal Extrem Other: bilateral lower extremities with +2 pitting edema to lower extremities. Ulcerations to the left anterior gonzalez Draining clear sanguinous drainage. Distal sensation is intact. Distal range of motion is intact. Distal pulses are intact. <Giana Samuel DO - Last Filed: 07/03/18 08:23> Initial Vital Signs Initial Vital Signs: Vital Signs Temperature 98 F 07/02/18 11:02 Pulse Rate 60 07/02/18 11:02 Respiratory Rate 18 07/02/18 11:02 Blood Pressure 131/45 L 07/02/18 11:02 Pulse Oximetry 97 07/02/18 11:02 Course <GUANAKITO Ng - Last Filed: 07/02/18 22:10> Orders Ordered: ED Orders 07/02/18 13:30 Urine Culture Routine Urine Microscopic Routine 07/02/18 13:57 XR chest 1V Stat 07/02/18 14:00 B Type Natriuretic Peptide Stat Complete Blood Count AUTO DIFF Stat Comprehensive Metabolic Panel Stat Lactate (Lactic Acid) Stat Procalcitonin Stat Prothrombin Time INR Stat Troponin & CK Cardiac Panel Stat Wound Culture and Gram Stain Stat 07/02/18 14:23 Blood Culture Stat EKG-12 Lead Stat Vital Signs - 8 hr 07/02/18 15:26 07/02/18 17:02 Pulse Rate 80 101 H Respiratory Rate 16 20 Blood Pressure 148/86 H Pulse Oximetry 95 96 <Giana Samuel DO - Last Filed: 07/03/18 08:23> Orders Ordered: ED Orders 07/02/18 13:30 Urine Culture Routine Urine Microscopic Routine 07/02/18 13:57 XR chest 1V Stat 07/02/18 14:00 B Type Natriuretic Peptide Stat Complete Blood Count AUTO DIFF Stat Comprehensive Metabolic Panel Stat Lactate (Lactic Acid) Stat Procalcitonin Stat Prothrombin Time INR Stat Troponin & CK Cardiac Panel Stat Wound Culture and Gram Stain Stat 07/02/18 14:23 Blood Culture Stat EKG-12 Lead Stat Vital Signs - 8 hr 07/02/18 15:26 07/02/18 17:02 Pulse Rate 80 101 H Respiratory Rate 16 20 Blood Pressure 148/86 H Pulse Oximetry 95 96 MDM - Extremity (Nontraumatic) <Abdiel GUANAKITO Daily - Last Filed: 07/02/18 22:10> Lab Data Result diagrams: 07/02/18 14:00 07/02/18 14:00 Lab Results 07/02/18 07/02/18 07/02/18 Range/Units 13:30 13:45 14:00 WBC 7.2 (4.5-11.0) X10^3/uL RBC 4.09 (4.0-5.2) X10^6/uL Hgb 11.4 L (12.0-16.0) g/dL Hct 34.6 L (36-46) % MCV 84.7 (80-100) fL MCH 27.8 (26-34) PG MCHC 32.8 (30-36) % RDW 17.2 H (11.6-14.8) % Plt Count 260 (150-400) X10^3/uL Neut % (Auto) 77.3 H (50-75) % Lymph % (Auto) 14.3 L (25-40) % [place] % (Auto) 6.2 (3-14) % Eos % (Auto) 1.7 L (2-4) % Baso % (Auto) 0.5 (0-2) % Neut # (Auto) 5500 (2750-4280) /uL Lymph # (Auto) 1000 L (1940-7772) /uL [place] # (Auto) 400 (0-900) /uL Eos # (Auto) 100 (0-450) /uL Baso # (Auto) 0 (0-100) /uL PT (10.1-12.7) SECONDS INR (0.9-1.3) Sodium (137-145) mmol/L Potassium (3.4-5.1) mmol/L Chloride (98-107) mmol/L Carbon Dioxide (22-32) mmol/L BUN (7-17) mg/dL Creatinine (0.52-1.04) mg/dL Estimated GFR (>60) mL/min BUN/Creatinine Ratio (6-22) Glucose (80-110) mg/dL Lactate (0.7-2.1) mmol/L Calcium (8.4-10.2) mg/dL Total Bilirubin (0.2-1.3) mg/dL AST (14-36) IU/L ALT (9-52) IU/L Alkaline Phosphatase (38-126) U/L Total Creatine Kinase (30-135) U/L CK-MB (CK-2) (<2.37) ng/mL CK-MB (CK-2) Rel Index (1.5-5.0) % Troponin I (0.01-0.034) ng/mL B-Natriuretic Peptide 181 H (<100) Total Protein (6.3-8.2) g/dL Albumin (3.5-5.0) g/dL Globulin (1.7-4.1) g/dL Albumin/Globulin Ratio (1.0-2.8) Procalcitonin (<0.5) ng/mL Urine RBC None seen Cancelled (0-5/HPF) Urine WBC 5-10/hpf H Cancelled (0-5/HPF) Ur Squamous Epith Cells 0-1 /hpf Cancelled Ur Transition Epith Cell Cancelled Ur Renal Epithelial Cell Cancelled Calcium Oxalate Crystal Cancelled Uric Acid Crystals Cancelled Triple Phos Crystals Cancelled Other Crystals Cancelled Amorphous Sediment Cancelled Urine Bacteria Many (>30) H Cancelled (None) Hyaline Casts Cancelled Granular Casts Cancelled RBC Casts Cancelled WBC Casts Cancelled Other Casts Cancelled Urine Mucus Cancelled Urine Trichomonas Cancelled Urine Yeast Cancelled Urine Sperm Cancelled Ur Culture Indicated? Specimen cultured Cancelled Micro UA Comment Cancelled 07/02/18 07/02/18 07/02/18 Range/Units 14:00 14:00 14:00 WBC (4.5-11.0) X10^3/uL RBC (4.0-5.2) X10^6/uL Hgb (12.0-16.0) g/dL Hct (36-46) % MCV (80-100) fL MCH (26-34) PG MCHC (30-36) % RDW (11.6-14.8) % Plt Count (150-400) X10^3/uL Neut % (Auto) (50-75) % Lymph % (Auto) (25-40) % [place] % (Auto) (3-14) % Eos % (Auto) (2-4) % Baso % (Auto) (0-2) % Neut # (Auto) (1051-0876) /uL Lymph # (Auto) (1909-1224) /uL [place] # (Auto) (0-900) /uL Eos # (Auto) (0-450) /uL Baso # (Auto) (0-100) /uL PT 26.4 H (10.1-12.7) SECONDS INR 2.3 H (0.9-1.3) Sodium 141 (137-145) mmol/L Potassium 3.4 (3.4-5.1) mmol/L Chloride 98 (98-107) mmol/L Carbon Dioxide 30 (22-32) mmol/L BUN 29 H (7-17) mg/dL Creatinine 1.10 H (0.52-1.04) mg/dL Estimated GFR 49.1 L (>60) mL/min BUN/Creatinine Ratio 26.4 H (6-22) Glucose 110 (80-110) mg/dL Lactate (0.7-2.1) mmol/L Calcium 9.3 (8.4-10.2) mg/dL Total Bilirubin 0.5 (0.2-1.3) mg/dL AST 30 (14-36) IU/L ALT 35 (9-52) IU/L Alkaline Phosphatase 84 (38-126) U/L Total Creatine Kinase 109 (30-135) U/L CK-MB (CK-2) 1.38 (<2.37) ng/mL CK-MB (CK-2) Rel Index 1.3 L (1.5-5.0) % Troponin I < 0.012 (0.01-0.034) ng/mL B-Natriuretic Peptide (<100) Total Protein 8.1 (6.3-8.2) g/dL Albumin 4.4 (3.5-5.0) g/dL Globulin 3.7 (1.7-4.1) g/dL Albumin/Globulin Ratio 1.2 (1.0-2.8) Procalcitonin < 0.05 (<0.5) ng/mL Urine RBC (0-5/HPF) Urine WBC (0-5/HPF) Ur Squamous Epith Cells Ur Transition Epith Cell Ur Renal Epithelial Cell Calcium Oxalate Crystal Uric Acid Crystals Triple Phos Crystals Other Crystals Amorphous Sediment Urine Bacteria (None) Hyaline Casts Granular Casts RBC Casts WBC Casts Other Casts Urine Mucus Urine Trichomonas Urine Yeast Urine Sperm Ur Culture Indicated? Micro UA Comment 07/02/18 Range/Units 14:00 WBC (4.5-11.0) X10^3/uL RBC (4.0-5.2) X10^6/uL Hgb (12.0-16.0) g/dL Hct (36-46) % MCV (80-100) fL MCH (26-34) PG MCHC (30-36) % RDW (11.6-14.8) % Plt Count (150-400) X10^3/uL Neut % (Auto) (50-75) % Lymph % (Auto) (25-40) % [place] % (Auto) (3-14) % Eos % (Auto) (2-4) % Baso % (Auto) (0-2) % Neut # (Auto) (2456-2698) /uL Lymph # (Auto) (5865-3945) /uL [place] # (Auto) (0-900) /uL Eos # (Auto) (0-450) /uL Baso # (Auto) (0-100) /uL PT (10.1-12.7) SECONDS INR (0.9-1.3) Sodium (137-145) mmol/L Potassium (3.4-5.1) mmol/L Chloride (98-107) mmol/L Carbon Dioxide (22-32) mmol/L BUN (7-17) mg/dL Creatinine (0.52-1.04) mg/dL Estimated GFR (>60) mL/min BUN/Creatinine Ratio (6-22) Glucose (80-110) mg/dL Lactate 1.0 (0.7-2.1) mmol/L Calcium (8.4-10.2) mg/dL Total Bilirubin (0.2-1.3) mg/dL AST (14-36) IU/L ALT (9-52) IU/L Alkaline Phosphatase (38-126) U/L Total Creatine Kinase (30-135) U/L CK-MB (CK-2) (<2.37) ng/mL CK-MB (CK-2) Rel Index (1.5-5.0) % Troponin I (0.01-0.034) ng/mL B-Natriuretic Peptide (<100) Total Protein (6.3-8.2) g/dL Albumin (3.5-5.0) g/dL Globulin (1.7-4.1) g/dL Albumin/Globulin Ratio (1.0-2.8) Procalcitonin (<0.5) ng/mL Urine RBC (0-5/HPF) Urine WBC (0-5/HPF) Ur Squamous Epith Cells Ur Transition Epith Cell Ur Renal Epithelial Cell Calcium Oxalate Crystal Uric Acid Crystals Triple Phos Crystals Other Crystals Amorphous Sediment Urine Bacteria (None) Hyaline Casts Granular Casts RBC Casts WBC Casts Other Casts Urine Mucus Urine Trichomonas Urine Yeast Urine Sperm Ur Culture Indicated? Micro UA Comment Point of Care Testing Glucose POC 137 Urine Dip Bedside Urine Glucose Negative Bedside Urine Bilirubin - Negative Bedside Urine Ketone - Negative Urine Specific [place] 1.025 Bedside Urine Occult Blood +/- Bedside Urine pH 6.0 Bedside Urine Protein +/- 15 Bedside Urine Urobilinogen - Negative Bedside Urine Nitrite + Positive Bedside Urine Leukocytes +/- 15 Esterase Imaging Data Chest x-ray: Radiologist's impression: [place] [address] XRay Report Signed Patient: Lucila Hawkins R#: [id number] : 8Acct:[id number] Age/Sex: 68 / FDate of Service: 07/02/18 Loc: ED Accession Number: [id number] Procedure: XR chest 1V Ordering Provider: Abdiel Daily PROCEDURE: XR CHEST 1V INDICATIONS: Swelling to bilateral lower extremities TECHNIQUE: One view of the chest was acquired. COMPARISON: [facility], [place], CHEST 1 VIEW, 01/15/2012, 15:44. [facility], , XR CHEST 1V, 03/20/2018, 10:16. FINDINGS: Surgical changes and devices: None. Lungs and pleura: No acute consolidation. Scattered subsegmental atelectasis and/or scarring. No pleural effusions or pneumothorax. Mildly prominent right hilar vessels unchanged since 01/15/12 Mediastinum: Mediastinal contours appear normal. Heart size is normal. Bones and chest wall: No suspicious bony lesions. Overlying soft tissues appear unremarkable. IMPRESSION: No acute consolidation. Scattered subsegmental atelectasis and/or scarring. Dictated by: Troy Nieto M.D. on 07/02/2018 at 14:27 Approved by: Troy Nieto M.D. on 07/02/2018 at 14:30 ECG Data Interpretation: EKG shows atrial fibrillation no ST elevation or depression. No ectopy. Ventricular rate of 101. QRS duration of 83. QTC 344. MDM Narrative Medical decision making narrative: chest x-ray was obtained was negative for any acute findings. EKG shows atrial fibrillation with no ST elevation or depression. Ventricular rate of 101. Cardiac enzymes were obtained were unremarkable.urinalysis shows signs of urinary tract infection. CBC was obtained and shows mild anemia otherwise is unremarkable. INR was obtained and was 2.4. Chemistry panel shows GFR 49 and creatinine of 1.1 otherwise is unremarkable. BNP was elevated at 180. wounds to lower extremity was dressed with bacitracin and a dressing. She is prescribed topical antibiotic mupirocin to cover. She is also placed on antibiotic Keflex to cover for urinary tract infection and for infection to her lower extremities. She is placed on 40 mg of Lasix for the next 5 days. She is encouraged to follow up with primary care provider in the next few days for re-evaluation. <Giana Samuel, DO - Last Filed: 07/03/18 08:23> Lab Data Lab Results 07/02/18 07/02/18 07/02/18 Range/Units 13:30 13:45 14:00 WBC 7.2 (4.5-11.0) X10^3/uL RBC 4.09 (4.0-5.2) X10^6/uL Hgb 11.4 L (12.0-16.0) g/dL Hct 34.6 L (36-46) % MCV 84.7 (80-100) fL MCH 27.8 (26-34) PG MCHC 32.8 (30-36) % RDW 17.2 H (11.6-14.8) % Plt Count 260 (150-400) X10^3/uL Neut % (Auto) 77.3 H (50-75) % Lymph % (Auto) 14.3 L (25-40) % [place] % (Auto) 6.2 (3-14) % Eos % (Auto) 1.7 L (2-4) % Baso % (Auto) 0.5 (0-2) % Neut # (Auto) 5500 (3428-3581) /uL Lymph # (Auto) 1000 L (5767-8527) /uL [place] # (Auto) 400 (0-900) /uL Eos # (Auto) 100 (0-450) /uL Baso # (Auto) 0 (0-100) /uL PT (10.1-12.7) SECONDS INR (0.9-1.3) Sodium (137-145) mmol/L Potassium (3.4-5.1) mmol/L Chloride (98-107) mmol/L Carbon Dioxide (22-32) mmol/L BUN (7-17) mg/dL Creatinine (0.52-1.04) mg/dL Estimated GFR (>60) mL/min BUN/Creatinine Ratio (6-22) Glucose (80-110) mg/dL Lactate (0.7-2.1) mmol/L Calcium (8.4-10.2) mg/dL Total Bilirubin (0.2-1.3) mg/dL AST (14-36) IU/L ALT (9-52) IU/L Alkaline Phosphatase (38-126) U/L Total Creatine Kinase (30-135) U/L CK-MB (CK-2) (<2.37) ng/mL CK-MB (CK-2) Rel Index (1.5-5.0) % Troponin I (0.01-0.034) ng/mL B-Natriuretic Peptide 181 H (<100) Total Protein (6.3-8.2) g/dL Albumin (3.5-5.0) g/dL Globulin (1.7-4.1) g/dL Albumin/Globulin Ratio (1.0-2.8) Procalcitonin (<0.5) ng/mL Urine RBC None seen Cancelled (0-5/HPF) Urine WBC 5-10/hpf H Cancelled (0-5/HPF) Ur Squamous Epith Cells 0-1 /hpf Cancelled Ur Transition Epith Cell Cancelled Ur Renal Epithelial Cell Cancelled Calcium Oxalate Crystal Cancelled Uric Acid Crystals Cancelled Triple Phos Crystals Cancelled Other Crystals Cancelled Amorphous Sediment Cancelled Urine Bacteria Many (>30) H Cancelled (None) Hyaline Casts Cancelled Granular Casts Cancelled RBC Casts Cancelled WBC Casts Cancelled Other Casts Cancelled Urine Mucus Cancelled Urine Trichomonas Cancelled Urine Yeast Cancelled Urine Sperm Cancelled Ur Culture Indicated? Specimen cultured Cancelled Micro UA Comment Cancelled 07/02/18 07/02/18 07/02/18 Range/Units 14:00 14:00 14:00 WBC (4.5-11.0) X10^3/uL RBC (4.0-5.2) X10^6/uL Hgb (12.0-16.0) g/dL Hct (36-46) % MCV (80-100) fL MCH (26-34) PG MCHC (30-36) % RDW (11.6-14.8) % Plt Count (150-400) X10^3/uL Neut % (Auto) (50-75) % Lymph % (Auto) (25-40) % [place] % (Auto) (3-14) % Eos % (Auto) (2-4) % Baso % (Auto) (0-2) % Neut # (Auto) (3232-1132) /uL Lymph # (Auto) (7071-7051) /uL [place] # (Auto) (0-900) /uL Eos # (Auto) (0-450) /uL Baso # (Auto) (0-100) /uL PT 26.4 H (10.1-12.7) SECONDS INR 2.3 H (0.9-1.3) Sodium 141 (137-145) mmol/L Potassium 3.4 (3.4-5.1) mmol/L Chloride 98 (98-107) mmol/L Carbon Dioxide 30 (22-32) mmol/L BUN 29 H (7-17) mg/dL Creatinine 1.10 H (0.52-1.04) mg/dL Estimated GFR 49.1 L (>60) mL/min BUN/Creatinine Ratio 26.4 H (6-22) Glucose 110 (80-110) mg/dL Lactate (0.7-2.1) mmol/L Calcium 9.3 (8.4-10.2) mg/dL Total Bilirubin 0.5 (0.2-1.3) mg/dL AST 30 (14-36) IU/L ALT 35 (9-52) IU/L Alkaline Phosphatase 84 (38-126) U/L Total Creatine Kinase 109 (30-135) U/L CK-MB (CK-2) 1.38 (<2.37) ng/mL CK-MB (CK-2) Rel Index 1.3 L (1.5-5.0) % Troponin I < 0.012 (0.01-0.034) ng/mL B-Natriuretic Peptide (<100) Total Protein 8.1 (6.3-8.2) g/dL Albumin 4.4 (3.5-5.0) g/dL Globulin 3.7 (1.7-4.1) g/dL Albumin/Globulin Ratio 1.2 (1.0-2.8) Procalcitonin < 0.05 (<0.5) ng/mL Urine RBC (0-5/HPF) Urine WBC (0-5/HPF) Ur Squamous Epith Cells Ur Transition Epith Cell Ur Renal Epithelial Cell Calcium Oxalate Crystal Uric Acid Crystals Triple Phos Crystals Other Crystals Amorphous Sediment Urine Bacteria (None) Hyaline Casts Granular Casts RBC Casts WBC Casts Other Casts Urine Mucus Urine Trichomonas Urine Yeast Urine Sperm Ur Culture Indicated? Micro UA Comment 07/02/18 Range/Units 14:00 WBC (4.5-11.0) X10^3/uL RBC (4.0-5.2) X10^6/uL Hgb (12.0-16.0) g/dL Hct (36-46) % MCV (80-100) fL MCH (26-34) PG MCHC (30-36) % RDW (11.6-14.8) % Plt Count (150-400) X10^3/uL Neut % (Auto) (50-75) % Lymph % (Auto) (25-40) % [place] % (Auto) (3-14) % Eos % (Auto) (2-4) % Baso % (Auto) (0-2) % Neut # (Auto) (0242-1216) /uL Lymph # (Auto) (2459-0031) /uL [place] # (Auto) (0-900) /uL Eos # (Auto) (0-450) /uL Baso # (Auto) (0-100) /uL PT (10.1-12.7) SECONDS INR (0.9-1.3) Sodium (137-145) mmol/L Potassium (3.4-5.1) mmol/L Chloride (98-107) mmol/L Carbon Dioxide (22-32) mmol/L BUN (7-17) mg/dL Creatinine (0.52-1.04) mg/dL Estimated GFR (>60) mL/min BUN/Creatinine Ratio (6-22) Glucose (80-110) mg/dL Lactate 1.0 (0.7-2.1) mmol/L Calcium (8.4-10.2) mg/dL Total Bilirubin (0.2-1.3) mg/dL AST (14-36) IU/L ALT (9-52) IU/L Alkaline Phosphatase (38-126) U/L Total Creatine Kinase (30-135) U/L CK-MB (CK-2) (<2.37) ng/mL CK-MB (CK-2) Rel Index (1.5-5.0) % Troponin I (0.01-0.034) ng/mL B-Natriuretic Peptide (<100) Total Protein (6.3-8.2) g/dL Albumin (3.5-5.0) g/dL Globulin (1.7-4.1) g/dL Albumin/Globulin Ratio (1.0-2.8) Procalcitonin (<0.5) ng/mL Urine RBC (0-5/HPF) Urine WBC (0-5/HPF) Ur Squamous Epith Cells Ur Transition Epith Cell Ur Renal Epithelial Cell Calcium Oxalate Crystal Uric Acid Crystals Triple Phos Crystals Other Crystals Amorphous Sediment Urine Bacteria (None) Hyaline Casts Granular Casts RBC Casts WBC Casts Other Casts Urine Mucus Urine Trichomonas Urine Yeast Urine Sperm Ur Culture Indicated? Micro UA Comment Point of Care Testing Glucose POC 137 Urine Dip Bedside Urine Glucose Negative Bedside Urine Bilirubin - Negative Bedside Urine Ketone - Negative Urine Specific [place] 1.025 Bedside Urine Occult Blood +/- Bedside Urine pH 6.0 Bedside Urine Protein +/- 15 Bedside Urine Urobilinogen - Negative Bedside Urine Nitrite + Positive Bedside Urine Leukocytes +/- 15 Esterase Discharge Plan Departure Patient Disposition: Home Clinical Impression: Peripheral edema Urinary tract infection Qualifiers: Urinary tract infection type: acute cystitis Hematuria presence: without hematuria Qualified Code(s): N30.00 - Acute cystitis without hematuria Discharge Date/Time: 07/02/18 17:08 Interventions: ED Discharge Assessment Last Done: 07/02/18 17:02 Instructions: DI for Urinary Tract Infection (UTI), DI for Dependent Edema Activity Restrictions/Additional Instructions: laboratory results today show mild decrease in kidney function Ensure your drinking adequate fluids. Cardiac enzymes were negative. Chest x-ray was negative. urinalysis indicates urinary tract infection. You are prescribed an antibiotic to cover for infection to the left lower extremity use as directed. Your prescribed Lasix to help with the edema to the lower extremity into the pubic reason use as directed. Follow up with her doctor next week. For any worsening symptoms return to the emergency room. Prescriptions: New cephalexin 500 mg capsule 500 mg PO QID Qty: 28 RF: 0 mupirocin 2 % ointment 1 applictn TOP BID Qty: 15 RF: 0 furosemide [Lasix] 20 mg tablet 20 mg PO BID Qty: 10 RF: 0 No Action chlorthalidone 25 mg Tablet 25 mg PO BID RF: 0 warfarin 7.5 mg Tablet 7.5 mg PO DAILY RF: 0 ibuprofen 200 mg Tablet 400 mg PO PRN PRN (Reason: pain) RF: 0 Glucose: Home Monitor See Rx Instructions .Route .MEDSUPPLY Qty: 1 RF: 0 Glucose: Test Strips See Rx Instructions .Route .MEDSUPPLY Qty: 100 RF: 3 diltiazem HCl [Cartia XT] 240 mg capsule,extended release 24hr 240 mg PO DAILY Qty: 30 RF: 0 warfarin 7.5 mg Tablet 3.75 mg PO MOFR RF: 0 lisinopril 40 mg tablet 40 mg PO BEDTIME RF: 0 lorazepam 2 mg tablet 2 mg PO BEDTIME RF: 0 lidocaine-prilocaine 2.5-2.5 % cream 1 arnold TP BID PRN (Reason: Pain (Scale Score 1-3)) RF: 0 metoclopramide HCl 5 mg tablet 5 mg PO TID PRN (Reason: nausea and vomiting) Qty: 20 RF: 0 Referrals: Dillon Shelton MD [Primary Care Provider] - <DO Sean Etienne Last Filed: 07/03/18 08:23> Cosign ED Attending Cosignature Attestation: I was immediately available in the department for consultation. This documentation has been reviewed and I agree with assessment and plan. Supervised by Giana Samuel DO
--- NOTE | 2018-07-02 13:57 | DI.RAD.S_ITS ---
PROCEDURE: XR CHEST 1V INDICATIONS: Swelling to bilateral lower extremities TECHNIQUE: One view of the chest was acquired. COMPARISON: [facility], , CHEST 1 VIEW, 01/15/2012, 15:44. [facility], , XR CHEST 1V, 03/20/2018, 10:16. FINDINGS: Surgical changes and devices: None. Lungs and pleura: No acute consolidation. Scattered subsegmental atelectasis and/or scarring. No pleural effusions or pneumothorax. Mildly prominent right hilar vessels unchanged since 01/15/12 Mediastinum: Mediastinal contours appear normal. Heart size is normal. Bones and chest wall: No suspicious bony lesions. Overlying soft tissues appear unremarkable. IMPRESSION: No acute consolidation. Scattered subsegmental atelectasis and/or scarring. Dictated by: Troy Nieot M.D. on 07/02/2018 at 14:27 Approved by: Troy Nieto M.D. on 07/02/2018 at 14:30
[2018-07-02 14:13] LABS: Add Manual Diff / Slide Review NO; Basophils Absolute Auto 0 /uL (0-100); Basophils Percent Auto 0.5 % (0-2); Eosinophils Absolute Auto 100 /uL (0-450); Eosinophils Percent Auto 1.7 % (2-4); Hematocrit 34.6 % (36-46); Hemoglobin 11.4 g/dL (12.0-16.0); Lymphocytes Absolute Auto 1000 /uL (1100-4500); Lymphocytes Percent Auto 14.3 % (25-40); Mean Corpuscular HGB Conc 32.8 % (30-36); Mean Corpuscular Hemoglobin 27.8 PG (26-34); Mean Corpuscular Volume 84.7 fL (80-100); Monocytes Absolute Auto 400 /uL (0-900); Monocytes Percent Auto 6.2 % (3-14); Neutrophils Absolute Auto 5500 /uL (1500-7000); Neutrophils Percent Auto 77.3 % (50-75); Platelet Count 260 X10^3/uL (150-400); Red Blood Cell Count 4.09 X10^6/uL (4.0-5.2); Red Cell Distribution Width 17.2 % (11.6-14.8); White Blood Cell Count 7.2 X10^3/uL (4.5-11.0)
[2018-07-02 14:24] LABS: Alanine Aminotransferase 35 IU/L (9-52); Albumin 4.4 g/dL (3.5-5.0); Albumin Globulin Ratio 1.2 (1.0-2.8); Alkaline Phosphatase 84 U/L (38-126); Aspartate Aminotransferase 30 IU/L (14-36); BUN Creatinine Ratio 26.4 (6-22); Bilirubin Total 0.5 mg/dL (0.2-1.3); Blood Urea Nitrogen 29 mg/dL (7-17); Calcium 9.3 mg/dL (8.4-10.2); Carbon Dioxide 30 mmol/L (22-32); Chloride 98 mmol/L (98-107); Creatine Kinase 109 U/L (30-135); Estimated Glomerular Filt Rate 49.1 mL/min (>60); Globulin 3.7 g/dL (1.7-4.1); Glucose 110 mg/dL (80-110); HEMOLYSIS < 15 (0-50); Potassium 3.4 mmol/L (3.4-5.1); Sodium 141 mmol/L (137-145); Total Protein 8.1 g/dL (6.3-8.2)
[2018-07-02 14:32] LABS: INR 2.3 (0.9-1.3); Prothrombin Time 26.4 SECONDS (10.1-12.7)
[2018-07-02 14:33] LABS: B Type Natriuretic Peptide 181 (<100)
[2018-07-02 14:34] LABS: RBC Urine None Seen (0-5/HPF)
[2018-07-02 14:37] LABS: Troponin I < 0.012 ng/mL (0.01-0.034)
[2018-07-02 14:39] LABS: CKMB % Relative Index 1.3 % (1.5-5.0); Creatine Kinase MB 1.38 ng/mL (<2.37); Procalcitonin < 0.05 ng/mL (<0.5)
[2018-07-02 14:40] LABS: Bacteria Urine Many (>30); Culture Indicated Urine Specimen Cultured; Squamous Epithelial Cell Urine 0-1 /HPF; WBC Urine 5-10/HPF (0-5/HPF)
[2018-07-02 15:26] VITALS: PULSE 80; RESP 16; O2SAT 95
--- NOTE | 2018-07-02 16:19 | ED_ITS ---
HPI - Extremity Problem <GUANAKITO Ng - Last Filed: 07/02/18 22:10> General Chief complaint: Extremity Problem,Nontraumatic Stated complaint: Sores on legs Time Seen by Provider: 07/02/18 13:24 Source: patient Mode of arrival: ambulatory Limitations: no limitations History of Present Illness HPI Narrative: 68-year-old female with history of AFib currently on warfarin that is a nonsmoker here for complaint of bilateral lower extremity swelling with lesions to her anterior gonzalez over the past few weeks. She denies any trauma to the area. She denies any chest pain. She does report that she has had some dyspnea at times when she is moving around. No nausea vomiting. Positive p.o. intake. No fevers no chills. She states that the open lesions have been leaking clear liquid. She also complains of having edema to pannus in the suprapubic region. states that she has been taking her medications as prescribed. No other concerns or complaints at this time Related Data Home Medications Medication Instructions Recorded Confirmed lidocaine-prilocaine 1 arnold TP BID PRN 03/20/18 07/02/18 chlorthalidone 25 mg tablet 25 mg PO BID 03/24/18 07/02/18 ibuprofen 200 mg tablet 400 mg PO PRN PRN 03/24/18 07/02/18 warfarin 7.5 mg tablet 7.5 mg PO DAILY 03/24/18 07/02/18 lisinopril 40 mg PO BEDTIME 07/02/18 07/02/18 lorazepam 2 mg PO BEDTIME 07/02/18 07/02/18 warfarin 3.75 mg PO MOFR 07/02/18 07/02/18 Previous Rx's Medication Instructions Recorded metoclopramide HCl 5 mg PO TID PRN #20 tab 03/22/18 Glucose: Home Monitor #1 ea 04/29/18 Glucose: Test Strips #100 each 06/09/18 diltiazem CD 240 mg 240 mg PO DAILY #30 cap 06/24/18 capsule,extended release 24 hr cephalexin 500 mg PO QID #28 cap 07/02/18 furosemide [Lasix] 20 mg PO BID #10 tab 07/02/18 mupirocin 1 applictn TOP BID #15 gram 07/02/18 Allergies Allergy/AdvReac Type Severity Reaction Status Date / Time Sulfa (Sulfonamide Allergy Intermediate PATIENT Verified 07/02/18 11:05 Antibiotics) CAN'T REMEMBER IT WAS SO LONG AGO gabapentin [GABAPENTIN] AdvReac Intermediate Bodyaches, Verified 07/02/18 11:05 muscle aches pregabalin [From Lyrica] AdvReac Intermediate Muscle Pain Verified 07/02/18 11:05 duloxetine [DULOXETINE] AdvReac Unknown nausea and Verified 07/02/18 11:05 vomiting Review of Systems <GUANAKITO Ng - Last Filed: 07/02/18 22:10> Constitutional Denies chills, Denies fever(s), Denies lethargy and Denies weakness Eyes Denies change in vision, Denies eye discharge, Denies irritation and Denies loss of vision ENT Ears, Nose, Mouth, and Throat: Denies change in voice, Denies neck pain, Denies sore throat and Denies throat swelling Cardiovascular Denies chest pain, Denies irregular heart rhythm, Denies lightheadedness, Denies palpitations, Reports dyspnea on exertion and Denies orthopnea Respiratory Reports dyspnea on exertion and Denies wheezing Gastrointestinal Gastrointestinal: Denies abdominal pain, Denies change in bowel habits, Denies diarrhea, Denies nausea and Denies vomiting Genitourinary Denies hematuria, Denies flank pain, Denies urinary incontinence and Denies urinary urgency Musculoskeletal Denies neck pain Integumentary/Breasts Denies pruritus, Denies erythema, Denies rash and Denies wounds Neurologic Denies confusion, Denies loss of vision and Denies weakness Psychiatric Denies anxiety, Denies confusion, Denies depression, Denies homicidal ideation and Denies suicidal ideation Endocrine Denies palpitations Hematologic/Lymphatic Denies easy bruising Allergic/Immunologic Denies urticaria, Denies throat swelling and Denies wheezing PFSH <GUANAKITO Ng - Last Filed: 07/02/18 22:10> Medical History Atrial fibrillation (Chronic) Essential hypertension (Chronic) Morbid obesity with body mass index (BMI) of 50.0 to 59.9 in adult (Chronic) Obstructive sleep apnea syndrome (Chronic) Mixed hyperlipidemia (Chronic 01/30/00) Type 2 diabetes mellitus with diabetic neuropathy, without long-term current use of insulin (Chronic) 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) Umbilical hernia (Chronic) Atrial fibrillation (Chronic 12/2011) Diabetes (Chronic Unknown) Gout (Chronic Unknown) Heart murmur (Chronic Unknown) Hyperlipemia (Chronic Unknown) Hypertension (Chronic Unknown) Obstructive sleep apnea (Chronic 03/2014) Osteoarthritis (Chronic Unknown) PVD (peripheral vascular disease) (Chronic Unknown) Peripheral neuropathy (Chronic Unknown) Foot pain (Resolved Unknown) Foot ulcer (Resolved 08/2016) Surgical History History of angioplasty (Resolved 10/2016) Family History Father No problems noted. Mother No problems noted. Brother No problems noted. Brother No problems noted. Sister Fibromyalgia Social History household members: none Smoking Status: Never smoker second hand exposure: No alcohol intake: never substance use type: does not use Family History Father No problems noted. Mother No problems noted. Brother No problems noted. Brother No problems noted. Sister Fibromyalgia Social History household members: none Smoking Status: Never smoker second hand exposure: No alcohol intake: never substance use type: does not use Exam <GUANAKITO Ng - Last Filed: 07/02/18 22:10> Initial Vital Signs Initial Vital Signs: Vital Signs Temperature 98 F 07/02/18 11:02 Pulse Rate 60 07/02/18 11:02 Respiratory Rate 18 07/02/18 11:02 Blood Pressure 131/45 L 07/02/18 11:02 Pulse Oximetry 97 07/02/18 11:02 Const General: cooperative and well developed Nutritional Appearance: well nourished Orientation: alert, awake, oriented x3 and not confused [facility] Mouth: oral mucosae normal and moist mucous membranes Eyes Conjunctivae: conjunctivae normal Sclera: sclerae normal Pupils: PERRL EOM: EOM intact bilaterally Neck Neck: normal visual inspection, trachea midline, No lymphadenopathy, No midline deformity and No JVD Lymphatic: No lymphedema Resp Effort & Inspection: normal respiratory effort, able to speak in complete sentences, no respiratory distress and no use of accessory muscles Auscultation: clear to auscultation bilaterally, no rales, no rhonchi and no wheezes Cardio Rate: regular rate Rhythm: regular rhythm Heart Sounds: no click, no gallops, no murmurs and no rubs GI Inspection: non-distended Palpation: soft, no hepatosplenomegaly, No guarding, No pulsatile mass and No tender Auscultation: normal bowel sounds Skin General: no rashes or lesions noted, No jaundice and No petechiae Neuro General: alert, oriented x3, gait normal and no focal motor deficits Speech: speech normal Extrem Other: bilateral lower extremities with +2 pitting edema to lower extremities. Ulcerations to the left anterior gonzalez Draining clear sanguinous drainage. Distal sensation is intact. Distal range of motion is intact. Distal pulses are intact. <Giana Samuel DO - Last Filed: 07/03/18 08:23> Initial Vital Signs Initial Vital Signs: Vital Signs Temperature 98 F 07/02/18 11:02 Pulse Rate 60 07/02/18 11:02 Respiratory Rate 18 07/02/18 11:02 Blood Pressure 131/45 L 07/02/18 11:02 Pulse Oximetry 97 07/02/18 11:02 Course <GUANAKITO gN - Last Filed: 07/02/18 22:10> Orders Ordered: ED Orders 07/02/18 13:30 Urine Culture Routine Urine Microscopic Routine 07/02/18 13:57 XR chest 1V Stat 07/02/18 14:00 B Type Natriuretic Peptide Stat Complete Blood Count AUTO DIFF Stat Comprehensive Metabolic Panel Stat Lactate (Lactic Acid) Stat Procalcitonin Stat Prothrombin Time INR Stat Troponin & CK Cardiac Panel Stat Wound Culture and Gram Stain Stat 07/02/18 14:23 Blood Culture Stat EKG-12 Lead Stat Vital Signs - 8 hr 07/02/18 15:26 07/02/18 17:02 Pulse Rate 80 101 H Respiratory Rate 16 20 Blood Pressure 148/86 H Pulse Oximetry 95 96 <Giana Samuel DO - Last Filed: 07/03/18 08:23> Orders Ordered: ED Orders 07/02/18 13:30 Urine Culture Routine Urine Microscopic Routine 07/02/18 13:57 XR chest 1V Stat 07/02/18 14:00 B Type Natriuretic Peptide Stat Complete Blood Count AUTO DIFF Stat Comprehensive Metabolic Panel Stat Lactate (Lactic Acid) Stat Procalcitonin Stat Prothrombin Time INR Stat Troponin & CK Cardiac Panel Stat Wound Culture and Gram Stain Stat 07/02/18 14:23 Blood Culture Stat EKG-12 Lead Stat Vital Signs - 8 hr 07/02/18 15:26 07/02/18 17:02 Pulse Rate 80 101 H Respiratory Rate 16 20 Blood Pressure 148/86 H Pulse Oximetry 95 96 MDM - Extremity (Nontraumatic) <Abdiel GUANAKITO Daily - Last Filed: 07/02/18 22:10> Lab Data Result diagrams: 07/02/18 14:00 07/02/18 14:00 Lab Results 07/02/18 07/02/18 07/02/18 Range/Units 13:30 13:45 14:00 WBC 7.2 (4.5-11.0) X10^3/uL RBC 4.09 (4.0-5.2) X10^6/uL Hgb 11.4 L (12.0-16.0) g/dL Hct 34.6 L (36-46) % MCV 84.7 (80-100) fL MCH 27.8 (26-34) PG MCHC 32.8 (30-36) % RDW 17.2 H (11.6-14.8) % Plt Count 260 (150-400) X10^3/uL Neut % (Auto) 77.3 H (50-75) % Lymph % (Auto) 14.3 L (25-40) % [place] % (Auto) 6.2 (3-14) % Eos % (Auto) 1.7 L (2-4) % Baso % (Auto) 0.5 (0-2) % Neut # (Auto) 5500 (3926-8935) /uL Lymph # (Auto) 1000 L (9935-4240) /uL [place] # (Auto) 400 (0-900) /uL Eos # (Auto) 100 (0-450) /uL Baso # (Auto) 0 (0-100) /uL PT (10.1-12.7) SECONDS INR (0.9-1.3) Sodium (137-145) mmol/L Potassium (3.4-5.1) mmol/L Chloride (98-107) mmol/L Carbon Dioxide (22-32) mmol/L BUN (7-17) mg/dL Creatinine (0.52-1.04) mg/dL Estimated GFR (>60) mL/min BUN/Creatinine Ratio (6-22) Glucose (80-110) mg/dL Lactate (0.7-2.1) mmol/L Calcium (8.4-10.2) mg/dL Total Bilirubin (0.2-1.3) mg/dL AST (14-36) IU/L ALT (9-52) IU/L Alkaline Phosphatase (38-126) U/L Total Creatine Kinase (30-135) U/L CK-MB (CK-2) (<2.37) ng/mL CK-MB (CK-2) Rel Index (1.5-5.0) % Troponin I (0.01-0.034) ng/mL B-Natriuretic Peptide 181 H (<100) Total Protein (6.3-8.2) g/dL Albumin (3.5-5.0) g/dL Globulin (1.7-4.1) g/dL Albumin/Globulin Ratio (1.0-2.8) Procalcitonin (<0.5) ng/mL Urine RBC None seen Cancelled (0-5/HPF) Urine WBC 5-10/hpf H Cancelled (0-5/HPF) Ur Squamous Epith Cells 0-1 /hpf Cancelled Ur Transition Epith Cell Cancelled Ur Renal Epithelial Cell Cancelled Calcium Oxalate Crystal Cancelled Uric Acid Crystals Cancelled Triple Phos Crystals Cancelled Other Crystals Cancelled Amorphous Sediment Cancelled Urine Bacteria Many (>30) H Cancelled (None) Hyaline Casts Cancelled Granular Casts Cancelled RBC Casts Cancelled WBC Casts Cancelled Other Casts Cancelled Urine Mucus Cancelled Urine Trichomonas Cancelled Urine Yeast Cancelled Urine Sperm Cancelled Ur Culture Indicated? Specimen cultured Cancelled Micro UA Comment Cancelled 07/02/18 07/02/18 07/02/18 Range/Units 14:00 14:00 14:00 WBC (4.5-11.0) X10^3/uL RBC (4.0-5.2) X10^6/uL Hgb (12.0-16.0) g/dL Hct (36-46) % MCV (80-100) fL MCH (26-34) PG MCHC (30-36) % RDW (11.6-14.8) % Plt Count (150-400) X10^3/uL Neut % (Auto) (50-75) % Lymph % (Auto) (25-40) % [place] % (Auto) (3-14) % Eos % (Auto) (2-4) % Baso % (Auto) (0-2) % Neut # (Auto) (9231-7438) /uL Lymph # (Auto) (1468-6086) /uL [place] # (Auto) (0-900) /uL Eos # (Auto) (0-450) /uL Baso # (Auto) (0-100) /uL PT 26.4 H (10.1-12.7) SECONDS INR 2.3 H (0.9-1.3) Sodium 141 (137-145) mmol/L Potassium 3.4 (3.4-5.1) mmol/L Chloride 98 (98-107) mmol/L Carbon Dioxide 30 (22-32) mmol/L BUN 29 H (7-17) mg/dL Creatinine 1.10 H (0.52-1.04) mg/dL Estimated GFR 49.1 L (>60) mL/min BUN/Creatinine Ratio 26.4 H (6-22) Glucose 110 (80-110) mg/dL Lactate (0.7-2.1) mmol/L Calcium 9.3 (8.4-10.2) mg/dL Total Bilirubin 0.5 (0.2-1.3) mg/dL AST 30 (14-36) IU/L ALT 35 (9-52) IU/L Alkaline Phosphatase 84 (38-126) U/L Total Creatine Kinase 109 (30-135) U/L CK-MB (CK-2) 1.38 (<2.37) ng/mL CK-MB (CK-2) Rel Index 1.3 L (1.5-5.0) % Troponin I < 0.012 (0.01-0.034) ng/mL B-Natriuretic Peptide (<100) Total Protein 8.1 (6.3-8.2) g/dL Albumin 4.4 (3.5-5.0) g/dL Globulin 3.7 (1.7-4.1) g/dL Albumin/Globulin Ratio 1.2 (1.0-2.8) Procalcitonin < 0.05 (<0.5) ng/mL Urine RBC (0-5/HPF) Urine WBC (0-5/HPF) Ur Squamous Epith Cells Ur Transition Epith Cell Ur Renal Epithelial Cell Calcium Oxalate Crystal Uric Acid Crystals Triple Phos Crystals Other Crystals Amorphous Sediment Urine Bacteria (None) Hyaline Casts Granular Casts RBC Casts WBC Casts Other Casts Urine Mucus Urine Trichomonas Urine Yeast Urine Sperm Ur Culture Indicated? Micro UA Comment 07/02/18 Range/Units 14:00 WBC (4.5-11.0) X10^3/uL RBC (4.0-5.2) X10^6/uL Hgb (12.0-16.0) g/dL Hct (36-46) % MCV (80-100) fL MCH (26-34) PG MCHC (30-36) % RDW (11.6-14.8) % Plt Count (150-400) X10^3/uL Neut % (Auto) (50-75) % Lymph % (Auto) (25-40) % [place] % (Auto) (3-14) % Eos % (Auto) (2-4) % Baso % (Auto) (0-2) % Neut # (Auto) (9331-2220) /uL Lymph # (Auto) (8706-1934) /uL [place] # (Auto) (0-900) /uL Eos # (Auto) (0-450) /uL Baso # (Auto) (0-100) /uL PT (10.1-12.7) SECONDS INR (0.9-1.3) Sodium (137-145) mmol/L Potassium (3.4-5.1) mmol/L Chloride (98-107) mmol/L Carbon Dioxide (22-32) mmol/L BUN (7-17) mg/dL Creatinine (0.52-1.04) mg/dL Estimated GFR (>60) mL/min BUN/Creatinine Ratio (6-22) Glucose (80-110) mg/dL Lactate 1.0 (0.7-2.1) mmol/L Calcium (8.4-10.2) mg/dL Total Bilirubin (0.2-1.3) mg/dL AST (14-36) IU/L ALT (9-52) IU/L Alkaline Phosphatase (38-126) U/L Total Creatine Kinase (30-135) U/L CK-MB (CK-2) (<2.37) ng/mL CK-MB (CK-2) Rel Index (1.5-5.0) % Troponin I (0.01-0.034) ng/mL B-Natriuretic Peptide (<100) Total Protein (6.3-8.2) g/dL Albumin (3.5-5.0) g/dL Globulin (1.7-4.1) g/dL Albumin/Globulin Ratio (1.0-2.8) Procalcitonin (<0.5) ng/mL Urine RBC (0-5/HPF) Urine WBC (0-5/HPF) Ur Squamous Epith Cells Ur Transition Epith Cell Ur Renal Epithelial Cell Calcium Oxalate Crystal Uric Acid Crystals Triple Phos Crystals Other Crystals Amorphous Sediment Urine Bacteria (None) Hyaline Casts Granular Casts RBC Casts WBC Casts Other Casts Urine Mucus Urine Trichomonas Urine Yeast Urine Sperm Ur Culture Indicated? Micro UA Comment Point of Care Testing Glucose POC 137 Urine Dip Bedside Urine Glucose Negative Bedside Urine Bilirubin - Negative Bedside Urine Ketone - Negative Urine Specific [place] 1.025 Bedside Urine Occult Blood +/- Bedside Urine pH 6.0 Bedside Urine Protein +/- 15 Bedside Urine Urobilinogen - Negative Bedside Urine Nitrite + Positive Bedside Urine Leukocytes +/- 15 Esterase Imaging Data Chest x-ray: Radiologist's impression: [place] [address] XRay Report Signed Patient: Lucila Hawkins R#: [id number] : 8Acct:[id number] Age/Sex: 68 / FDate of Service: 07/02/18 Loc: ED Accession Number: [id number] Procedure: XR chest 1V Ordering Provider: Abdiel Daily PROCEDURE: XR CHEST 1V INDICATIONS: Swelling to bilateral lower extremities TECHNIQUE: One view of the chest was acquired. COMPARISON: [facility], GAUTAM, CHEST 1 VIEW, 01/15/2012, 15:44. [facility], , XR CHEST 1V, 03/20/2018, 10:16. FINDINGS: Surgical changes and devices: None. Lungs and pleura: No acute consolidation. Scattered subsegmental atelectasis and/or scarring. No pleural effusions or pneumothorax. Mildly prominent right hilar vessels unchanged since 01/15/12 Mediastinum: Mediastinal contours appear normal. Heart size is normal. Bones and chest wall: No suspicious bony lesions. Overlying soft tissues appear unremarkable. IMPRESSION: No acute consolidation. Scattered subsegmental atelectasis and/or scarring. Dictated by: Troy Nieto M.D. on 07/02/2018 at 14:27 Approved by: Troy Nieto M.D. on 07/02/2018 at 14:30 ECG Data Interpretation: EKG shows atrial fibrillation no ST elevation or depression. No ectopy. Ventricular rate of 101. QRS duration of 83. QTC 344. MDM Narrative Medical decision making narrative: chest x-ray was obtained was negative for any acute findings. EKG shows atrial fibrillation with no ST elevation or depression. Ventricular rate of 101. Cardiac enzymes were obtained were unremarkable.urinalysis shows signs of urinary tract infection. CBC was obtained and shows mild anemia otherwise is unremarkable. INR was obtained and was 2.4. Chemistry panel shows GFR 49 and creatinine of 1.1 otherwise is unremarkable. BNP was elevated at 180. wounds to lower extremity was dressed with bacitracin and a dressing. She is prescribed topical antibiotic mupirocin to cover. She is also placed on antibiotic Keflex to cover for urinary tract infection and for infection to her lower extremities. She is placed on 40 mg of Lasix for the next 5 days. She is encouraged to follow up with primary care provider in the next few days for re-evaluation. <Giana Samuel, DO - Last Filed: 07/03/18 08:23> Lab Data Lab Results 07/02/18 07/02/18 07/02/18 Range/Units 13:30 13:45 14:00 WBC 7.2 (4.5-11.0) X10^3/uL RBC 4.09 (4.0-5.2) X10^6/uL Hgb 11.4 L (12.0-16.0) g/dL Hct 34.6 L (36-46) % MCV 84.7 (80-100) fL MCH 27.8 (26-34) PG MCHC 32.8 (30-36) % RDW 17.2 H (11.6-14.8) % Plt Count 260 (150-400) X10^3/uL Neut % (Auto) 77.3 H (50-75) % Lymph % (Auto) 14.3 L (25-40) % [place] % (Auto) 6.2 (3-14) % Eos % (Auto) 1.7 L (2-4) % Baso % (Auto) 0.5 (0-2) % Neut # (Auto) 5500 (2644-4875) /uL Lymph # (Auto) 1000 L (8418-2696) /uL [place] # (Auto) 400 (0-900) /uL Eos # (Auto) 100 (0-450) /uL Baso # (Auto) 0 (0-100) /uL PT (10.1-12.7) SECONDS INR (0.9-1.3) Sodium (137-145) mmol/L Potassium (3.4-5.1) mmol/L Chloride (98-107) mmol/L Carbon Dioxide (22-32) mmol/L BUN (7-17) mg/dL Creatinine (0.52-1.04) mg/dL Estimated GFR (>60) mL/min BUN/Creatinine Ratio (6-22) Glucose (80-110) mg/dL Lactate (0.7-2.1) mmol/L Calcium (8.4-10.2) mg/dL Total Bilirubin (0.2-1.3) mg/dL AST (14-36) IU/L ALT (9-52) IU/L Alkaline Phosphatase (38-126) U/L Total Creatine Kinase (30-135) U/L CK-MB (CK-2) (<2.37) ng/mL CK-MB (CK-2) Rel Index (1.5-5.0) % Troponin I (0.01-0.034) ng/mL B-Natriuretic Peptide 181 H (<100) Total Protein (6.3-8.2) g/dL Albumin (3.5-5.0) g/dL Globulin (1.7-4.1) g/dL Albumin/Globulin Ratio (1.0-2.8) Procalcitonin (<0.5) ng/mL Urine RBC None seen Cancelled (0-5/HPF) Urine WBC 5-10/hpf H Cancelled (0-5/HPF) Ur Squamous Epith Cells 0-1 /hpf Cancelled Ur Transition Epith Cell Cancelled Ur Renal Epithelial Cell Cancelled Calcium Oxalate Crystal Cancelled Uric Acid Crystals Cancelled Triple Phos Crystals Cancelled Other Crystals Cancelled Amorphous Sediment Cancelled Urine Bacteria Many (>30) H Cancelled (None) Hyaline Casts Cancelled Granular Casts Cancelled RBC Casts Cancelled WBC Casts Cancelled Other Casts Cancelled Urine Mucus Cancelled Urine Trichomonas Cancelled Urine Yeast Cancelled Urine Sperm Cancelled Ur Culture Indicated? Specimen cultured Cancelled Micro UA Comment Cancelled 07/02/18 07/02/18 07/02/18 Range/Units 14:00 14:00 14:00 WBC (4.5-11.0) X10^3/uL RBC (4.0-5.2) X10^6/uL Hgb (12.0-16.0) g/dL Hct (36-46) % MCV (80-100) fL MCH (26-34) PG MCHC (30-36) % RDW (11.6-14.8) % Plt Count (150-400) X10^3/uL Neut % (Auto) (50-75) % Lymph % (Auto) (25-40) % [place] % (Auto) (3-14) % Eos % (Auto) (2-4) % Baso % (Auto) (0-2) % Neut # (Auto) (0971-3525) /uL Lymph # (Auto) (8126-1016) /uL [place] # (Auto) (0-900) /uL Eos # (Auto) (0-450) /uL Baso # (Auto) (0-100) /uL PT 26.4 H (10.1-12.7) SECONDS INR 2.3 H (0.9-1.3) Sodium 141 (137-145) mmol/L Potassium 3.4 (3.4-5.1) mmol/L Chloride 98 (98-107) mmol/L Carbon Dioxide 30 (22-32) mmol/L BUN 29 H (7-17) mg/dL Creatinine 1.10 H (0.52-1.04) mg/dL Estimated GFR 49.1 L (>60) mL/min BUN/Creatinine Ratio 26.4 H (6-22) Glucose 110 (80-110) mg/dL Lactate (0.7-2.1) mmol/L Calcium 9.3 (8.4-10.2) mg/dL Total Bilirubin 0.5 (0.2-1.3) mg/dL AST 30 (14-36) IU/L ALT 35 (9-52) IU/L Alkaline Phosphatase 84 (38-126) U/L Total Creatine Kinase 109 (30-135) U/L CK-MB (CK-2) 1.38 (<2.37) ng/mL CK-MB (CK-2) Rel Index 1.3 L (1.5-5.0) % Troponin I < 0.012 (0.01-0.034) ng/mL B-Natriuretic Peptide (<100) Total Protein 8.1 (6.3-8.2) g/dL Albumin 4.4 (3.5-5.0) g/dL Globulin 3.7 (1.7-4.1) g/dL Albumin/Globulin Ratio 1.2 (1.0-2.8) Procalcitonin < 0.05 (<0.5) ng/mL Urine RBC (0-5/HPF) Urine WBC (0-5/HPF) Ur Squamous Epith Cells Ur Transition Epith Cell Ur Renal Epithelial Cell Calcium Oxalate Crystal Uric Acid Crystals Triple Phos Crystals Other Crystals Amorphous Sediment Urine Bacteria (None) Hyaline Casts Granular Casts RBC Casts WBC Casts Other Casts Urine Mucus Urine Trichomonas Urine Yeast Urine Sperm Ur Culture Indicated? Micro UA Comment 07/02/18 Range/Units 14:00 WBC (4.5-11.0) X10^3/uL RBC (4.0-5.2) X10^6/uL Hgb (12.0-16.0) g/dL Hct (36-46) % MCV (80-100) fL MCH (26-34) PG MCHC (30-36) % RDW (11.6-14.8) % Plt Count (150-400) X10^3/uL Neut % (Auto) (50-75) % Lymph % (Auto) (25-40) % [place] % (Auto) (3-14) % Eos % (Auto) (2-4) % Baso % (Auto) (0-2) % Neut # (Auto) (4055-0786) /uL Lymph # (Auto) (3064-6972) /uL [place] # (Auto) (0-900) /uL Eos # (Auto) (0-450) /uL Baso # (Auto) (0-100) /uL PT (10.1-12.7) SECONDS INR (0.9-1.3) Sodium (137-145) mmol/L Potassium (3.4-5.1) mmol/L Chloride (98-107) mmol/L Carbon Dioxide (22-32) mmol/L BUN (7-17) mg/dL Creatinine (0.52-1.04) mg/dL Estimated GFR (>60) mL/min BUN/Creatinine Ratio (6-22) Glucose (80-110) mg/dL Lactate 1.0 (0.7-2.1) mmol/L Calcium (8.4-10.2) mg/dL Total Bilirubin (0.2-1.3) mg/dL AST (14-36) IU/L ALT (9-52) IU/L Alkaline Phosphatase (38-126) U/L Total Creatine Kinase (30-135) U/L CK-MB (CK-2) (<2.37) ng/mL CK-MB (CK-2) Rel Index (1.5-5.0) % Troponin I (0.01-0.034) ng/mL B-Natriuretic Peptide (<100) Total Protein (6.3-8.2) g/dL Albumin (3.5-5.0) g/dL Globulin (1.7-4.1) g/dL Albumin/Globulin Ratio (1.0-2.8) Procalcitonin (<0.5) ng/mL Urine RBC (0-5/HPF) Urine WBC (0-5/HPF) Ur Squamous Epith Cells Ur Transition Epith Cell Ur Renal Epithelial Cell Calcium Oxalate Crystal Uric Acid Crystals Triple Phos Crystals Other Crystals Amorphous Sediment Urine Bacteria (None) Hyaline Casts Granular Casts RBC Casts WBC Casts Other Casts Urine Mucus Urine Trichomonas Urine Yeast Urine Sperm Ur Culture Indicated? Micro UA Comment Point of Care Testing Glucose POC 137 Urine Dip Bedside Urine Glucose Negative Bedside Urine Bilirubin - Negative Bedside Urine Ketone - Negative Urine Specific [place] 1.025 Bedside Urine Occult Blood +/- Bedside Urine pH 6.0 Bedside Urine Protein +/- 15 Bedside Urine Urobilinogen - Negative Bedside Urine Nitrite + Positive Bedside Urine Leukocytes +/- 15 Esterase Discharge Plan Departure Patient Disposition: Home Clinical Impression: Peripheral edema Urinary tract infection Qualifiers: Urinary tract infection type: acute cystitis Hematuria presence: without hematuria Qualified Code(s): N30.00 - Acute cystitis without hematuria Discharge Date/Time: 07/02/18 17:08 Interventions: ED Discharge Assessment Last Done: 07/02/18 17:02 Instructions: DI for Urinary Tract Infection (UTI), DI for Dependent Edema Activity Restrictions/Additional Instructions: laboratory results today show mild decrease in kidney function Ensure your drinking adequate fluids. Cardiac enzymes were negative. Chest x-ray was negative. urinalysis indicates urinary tract infection. You are prescribed an antibiotic to cover for infection to the left lower extremity use as directed. Your prescribed Lasix to help with the edema to the lower extremity into the pubic reason use as directed. Follow up with her doctor next week. For any worsening symptoms return to the emergency room. Prescriptions: New cephalexin 500 mg capsule 500 mg PO QID Qty: 28 RF: 0 mupirocin 2 % ointment 1 applictn TOP BID Qty: 15 RF: 0 furosemide [Lasix] 20 mg tablet 20 mg PO BID Qty: 10 RF: 0 No Action chlorthalidone 25 mg Tablet 25 mg PO BID RF: 0 warfarin 7.5 mg Tablet 7.5 mg PO DAILY RF: 0 ibuprofen 200 mg Tablet 400 mg PO PRN PRN (Reason: pain) RF: 0 Glucose: Home Monitor See Rx Instructions .Route .MEDSUPPLY Qty: 1 RF: 0 Glucose: Test Strips See Rx Instructions .Route .MEDSUPPLY Qty: 100 RF: 3 diltiazem HCl [Cartia XT] 240 mg capsule,extended release 24hr 240 mg PO DAILY Qty: 30 RF: 0 warfarin 7.5 mg Tablet 3.75 mg PO MOFR RF: 0 lisinopril 40 mg tablet 40 mg PO BEDTIME RF: 0 lorazepam 2 mg tablet 2 mg PO BEDTIME RF: 0 lidocaine-prilocaine 2.5-2.5 % cream 1 arnold TP BID PRN (Reason: Pain (Scale Score 1-3)) RF: 0 metoclopramide HCl 5 mg tablet 5 mg PO TID PRN (Reason: nausea and vomiting) Qty: 20 RF: 0 Referrals: Dillon Shelton MD [Primary Care Provider] - <DO Sean Etienne Last Filed: 07/03/18 08:23> Cosign ED Attending Cosignature Attestation: I was immediately available in the department for consultation. This documentation has been reviewed and I agree with assessment and plan. Supervised by Giana Samuel DO
[2018-07-02 17:02] VITALS: BP 148/86; PULSE 101; RESP 20; O2SAT 96
--- NOTE | 2018-07-02 17:05 | PC.NURSE ---
Placed dressings on bilateral legs with bacitracin abd pads, and kerlex.
--- NOTE | 2018-07-05 18:25 | PC.NURSE ---
Pt called ED stating she was chilled this morning but had no fever. Asking for advice. Reviewed discharge instructions w/ patient. Pt states she feels well. Eating and drinking. Tolerating po fluids. Denies fever, chills or other complaints. Encouraged to come to ED if she was feeling poorly or to call pcp in am for follow up. Pt verbalized understanding of instructions.
== END 2018-07-02 17:08 | disposition home or self-care (01) ==
PROVIDERS: Emergency Provider Nurse Practitioner Family; Family Provider Internal Medicine; PCP Student in an Organized Health Care Education/Training Program
DX: R60.9 Edema, unspecified (principal)
CPT/HCPCS: 36415; 36591; 71045; 80053; 81003; 81015; 82550; 82553; 82962; 83605; 83880; 84145; 84484; 85025; 85610; 87040; 87070; 87077; 87086; 87147; 87186; 87205; 93005; 99283; 99285

== ENCOUNTER → 2018-07-14 14:35 | Outpatient (CLI) | payer OTHER, SELFPAY ==
[2018-03-20 16:18] VITALS: BMI 34.2
[2018-07-14 15:24] LABS: BUN Creatinine Ratio 32.7 (6-22); Blood Urea Nitrogen 36 mg/dL (7-17); Calcium 9.6 mg/dL (8.4-10.2); Carbon Dioxide 32 mmol/L (22-32); Chloride 99 mmol/L (98-107); Estimated Glomerular Filt Rate 49.1 mL/min (>60); Glucose 124 mg/dL (80-110); HEMOLYSIS < 15 (0-50); Potassium 4.2 mmol/L (3.4-5.1); Sodium 142 mmol/L (137-145)
[2018-07-14 16:50] LABS: Vitamin D 25 Hydroxy (D3) 33.4 ng/mL (30.0-100.0)
== END ==
PROVIDERS: Family Provider Internal Medicine; PCP Student in an Organized Health Care Education/Training Program; Visit Provider Student in an Organized Health Care Education/Training Program
DX: E55.9 Vitamin D deficiency, unspecified (principal); N17.9 Acute kidney failure, unspecified
CPT/HCPCS: 36415; 80048; 82306

== ENCOUNTER → 2018-12-04 10:15 | Outpatient (CLI) | payer OTHER, SELFPAY ==
[2018-03-20 16:18] VITALS: BMI 34.2
[2018-12-04 10:41] LABS: INR 1.6 (0.9-1.3); Prothrombin Time 18.5 SECONDS (10.1-12.7)
[2018-12-04 10:46] LABS: BUN Creatinine Ratio 33.3 (6-22); Blood Urea Nitrogen 30 mg/dL (7-17); Calcium 9.3 mg/dL (8.4-10.2); Carbon Dioxide 29 mmol/L (22-32); Chloride 102 mmol/L (98-107); Estimated Glomerular Filt Rate > 60.0 mL/min (>60); Glucose 117 mg/dL (80-110); HEMOLYSIS 22 (0-50); Sodium 142 mmol/L (137-145)
== END ==
PROVIDERS: PCP Student in an Organized Health Care Education/Training Program; Visit Provider Student in an Organized Health Care Education/Training Program
DX: I48.91 Unspecified atrial fibrillation (principal); Z79.899 Other long term (current) drug therapy
CPT/HCPCS: 36415; 80048; 85610

== ENCOUNTER → 2019-01-25 15:18 | Outpatient (CLI) | payer OTHER, SELFPAY ==
[2018-03-20 16:18] VITALS: BMI 34.2
[2019-01-25 17:30] LABS: INR 1.7 (0.9-1.3); Prothrombin Time 19.9 SECONDS (10.1-12.7)
== END ==
PROVIDERS: PCP Student in an Organized Health Care Education/Training Program; Visit Provider Student in an Organized Health Care Education/Training Program
DX: I48.91 Unspecified atrial fibrillation (principal)
CPT/HCPCS: 36415; 85610

== ENCOUNTER → 2019-02-11 14:56 | Outpatient (CLI) | payer OTHER, SELFPAY ==
[2018-03-20 16:18] VITALS: BMI 34.2
[2019-02-11 16:47] LABS: Add Manual Diff / Slide Review NO; Basophils Absolute Auto 0 /uL (0-100); Basophils Percent Auto 0.6 % (0-2); Eosinophils Absolute Auto 200 /uL (0-450); Eosinophils Percent Auto 2.4 % (2-4); Hematocrit 35.1 % (36-46); Hemoglobin 11.4 g/dL (12.0-16.0); Lymphocytes Absolute Auto 1000 /uL (1100-4500); Lymphocytes Percent Auto 13.3 % (25-40); Mean Corpuscular HGB Conc 32.4 % (30-36); Mean Corpuscular Hemoglobin 28.3 PG (26-34); Mean Corpuscular Volume 87.3 fL (80-100); Monocytes Absolute Auto 500 /uL (0-900); Monocytes Percent Auto 6.8 % (3-14); Neutrophils Absolute Auto 5600 /uL (1500-7000); Neutrophils Percent Auto 76.9 % (50-75); Platelet Count 267 X10^3/uL (150-400); Red Blood Cell Count 4.02 X10^6/uL (4.0-5.2); Red Cell Distribution Width 16.8 % (11.6-14.8); White Blood Cell Count 7.3 X10^3/uL (4.5-11.0)
[2019-02-11 16:54] LABS: Blood Urea Nitrogen 27 mg/dL (7-17); Calcium 9.8 mg/dL (8.4-10.2); Carbon Dioxide 31 mmol/L (22-32); Chloride 99 mmol/L (98-107); Estimated Glomerular Filt Rate > 60.0 mL/min (>60); Glucose 110 mg/dL (80-110); HEMOLYSIS < 15 (0-50); Potassium 4.7 mmol/L (3.4-5.1); Sodium 142 mmol/L (137-145)
[2019-02-11 17:05] LABS: Erythrocyte Sedimentation Rate 48 MM/HR (0-20)
== END ==
PROVIDERS: PCP Student in an Organized Health Care Education/Training Program; Visit Provider Hospitalist
DX: E11.40 Type 2 diabetes mellitus with diabetic neuropathy, unspecified (principal)
CPT/HCPCS: 36415; 80048; 85025; 85651

== ENCOUNTER 2019-03-08 11:38 | Emergency (ER) | payer OTHER, SELFPAY ==
[2018-03-20 16:18] VITALS: BMI 34.2
[2019-03-08] VITALS (7 sets, daily range): BP systolic 139–177; BP diastolic 64–128; PULSE 77–118; RESP 17–30; TEMP 36.7; O2SAT 92–95
--- NOTE | 2019-03-08 11:48 | DI.RAD.S_ITS ---
PROCEDURE: XR CHEST 1V INDICATIONS: chest pain TECHNIQUE: One view of the chest was acquired. COMPARISON: [facility], CR, XR CHEST 1V, 07/02/2018, 14:07. [facility], CR, XR CHEST 1V, 03/20/2018, 10:16. FINDINGS: Surgical changes and devices: None. Lungs and pleura: Lungs are mildly edematous. No pleural effusions or pneumothorax. Mediastinum: Mediastinal contours appear normal. Heart size is at the upper limits of normal. Bones and chest wall: No suspicious bony lesions. Overlying soft tissues appear unremarkable. IMPRESSION: Mild pulmonary edema pattern, heart size at the upper limits of normal. Reduced inspiration, large body habitus, a definite source of acute pain is not seen. Dictated by: Anam Haynes M.D. on 03/08/2019 at 12:58 Approved by: Anam Haynes M.D. on 03/08/2019 at 12:59
[2019-03-08 12:09] LABS: Add Manual Diff / Slide Review NO; Basophils Absolute Auto 0 /uL (0-100); Basophils Percent Auto 0.4 % (0-2); Eosinophils Absolute Auto 100 /uL (0-450); Eosinophils Percent Auto 1.8 % (2-4); Hemoglobin 11.8 g/dL (12.0-16.0); Lymphocytes Absolute Auto 800 /uL (1100-4500); Lymphocytes Percent Auto 12.6 % (25-40); Mean Corpuscular HGB Conc 32.8 % (30-36); Mean Corpuscular Hemoglobin 28.3 PG (26-34); Mean Corpuscular Volume 86.4 fL (80-100); Monocytes Absolute Auto 500 /uL (0-900); Monocytes Percent Auto 7.2 % (3-14); Neutrophils Absolute Auto 5100 /uL (1500-7000); Platelet Count 257 X10^3/uL (150-400); Red Blood Cell Count 4.16 X10^6/uL (4.0-5.2); Red Cell Distribution Width 17.5 % (11.6-14.8); White Blood Cell Count 6.6 X10^3/uL (4.5-11.0)
--- NOTE | 2019-03-08 12:12 | ED.ARRPALP ---
HPI - Arrhythmia/Palpitations General Chief Complaint: Arrhythmia/Palpitations Stated Complaint: heart palps x7 days Time Seen by Provider: 03/08/19 11:45 Source: patient Mode of arrival: Wheelchair Limitations: no limitations History of Present Illness HPI narrative: Patient is a 68-year-old female who went to her primary doctor's office today as a routine visit. During that time it was found that she was tachycardic. She also expressed that over the past week she has had worsening shortness of breath especially on exertion. She has also noticed that she has had decreased exercise tolerance. Has had to sleep on multiple pillows at night due to the shortness of breath. She does have lower extremity swelling her she does not think that this is much worse than normal. She does have a history of eps-myrygbu-sfjrjvnyy diabetes. Does have a history of atrial fibrillation. Patient is unsure whether not she is in atrial fibrillation all the time or whether it comes and goes. She does take warfarin for this. Denies any chest pain. Has never had any chest pain over past week. All of her symptoms have been shortness of breath. She does not feel any palpitations. When she is sitting her shortness of breath seems to be improved or at least not causing her much discomfort is when she is exerting herself when she develops symptoms. No fevers. No coughing. Related Data Home Medications Medication Instructions Recorded Confirmed lisinopril 40 mg PO BEDTIME 07/02/18 03/08/19 warfarin 7.5 mg PO MOWEFR 03/08/19 03/08/19 warfarin 10 mg PO SUTUTHSA 03/08/19 03/08/19 Previous Rx's Medication Instructions Recorded Glucose: Home Monitor #1 ea 04/29/18 Glucose: Test Strips #100 each 06/09/18 diltiazem HCl 240 mg 240 mg PO DAILY #90 cap 07/22/18 capsule,extended release 24 hr lorazepam 2 mg tablet 2 mg PO BEDTIME #30 tab 09/03/18 furosemide 40 mg tablet 40 mg PO BID #60 tab 12/16/18 potassium chloride 20 mEq 20 meq PO BID #60 tab 12/16/18 tablet,extended release mupirocin 2 % topical ointment 1 applictn TOP BID #30 gram 02/11/19 lidocaine-prilocaine 2.5 %-2.5 % 1 applictn TOPICAL BID PRN #30 gram 02/14/19 topical cream hydrocodone 5 mg-acetaminophen 325 1 tab PO BID PRN #45 tab 02/17/19 mg tablet metoprolol succinate 25 mg PO DAILY #30 tab 03/08/19 Allergies Allergy/AdvReac Type Severity Reaction Status Date / Time latex Allergy Intermediate skin Verified 03/08/19 11:53 blistering Sulfa (Sulfonamide Allergy Intermediate PATIENT Verified 03/08/19 11:53 Antibiotics) CAN'T REMEMBER IT WAS SO LONG AGO gabapentin [GABAPENTIN] AdvReac Intermediate Bodyaches, Verified 03/08/19 11:53 muscle aches pregabalin [From Lyrica] AdvReac Intermediate Muscle Pain Verified 03/08/19 11:53 duloxetine [DULOXETINE] AdvReac Unknown nausea and Verified 03/08/19 11:53 vomiting Review of Systems Constitutional Constitutional: Denies fever(s) ENT Ears, Nose, Mouth, and Throat: Denies dizziness and Denies lip swelling Cardiovascular Cardiovascular: Denies chest pain, Denies chest pain at rest, Denies chest pain with activity, Reports edema, Denies irregular heart rhythm, Denies palpitations, Reports dyspnea and Reports dyspnea on exertion Respiratory Respiratory: Denies cough, Reports dyspnea, Reports dyspnea on exertion and Denies wheezing Gastrointestinal Gastrointestinal: Denies abdominal pain, Denies nausea and Denies vomiting Genitourinary Genitourinary: Denies dysuria Musculoskeletal Musculoskeletal: Denies myalgias and Denies arthralgias Integumentary/Breasts Skin/Breast: Denies lesions and Denies rash Neurologic Neurologic: Denies abnormal movements, Denies abnormal speech and Denies dizziness Endocrine Endocrine: Denies palpitations Hematologic/Lymphatic Comments: On Coumadin Allergic/Immunologic Allergic/Immunologic: Denies lip swelling and Denies wheezing Patient History Medical History Atrial fibrillation (Chronic 12/2011) Atrial fibrillation (Chronic) Diabetes (Chronic Unknown) Essential hypertension (Chronic) Foot pain (Resolved Unknown) Foot ulcer (Resolved 08/2016) Gout (Chronic Unknown) Heart murmur (Chronic Unknown) Hyperlipemia (Chronic Unknown) Hypertension (Chronic Unknown) Mixed hyperlipidemia (Chronic 01/30/00) Morbid obesity with body mass index (BMI) of 50.0 to 59.9 in adult (Chronic) Obstructive sleep apnea (Chronic 03/2014) Obstructive sleep apnea syndrome (Chronic) Osteoarthritis (Chronic Unknown) 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) Peripheral neuropathy (Chronic Unknown) PVD (peripheral vascular disease) (Chronic Unknown) Type 2 diabetes mellitus with diabetic neuropathy, without long-term current use of insulin (Chronic) Umbilical hernia (Chronic) Social History household members: none Smoking Status: Never smoker second hand exposure: No alcohol intake: never substance use type: does not use alcohol intake frequency: 0-2 drinks per day Substance Use Type: does not use Exam Initial Vital Signs Initial Vital Signs: Vital Signs Temperature 98.1 F 03/08/19 11:48 Pulse Rate 97 H 03/08/19 11:48 Respiratory Rate 30 H 03/08/19 11:48 Blood Pressure 161/125 H 03/08/19 11:48 Pulse Oximetry 94 03/08/19 11:48 Const General: cooperative and comfortable Nutritional Appearance: obese Orientation: alert, awake and oriented x3 HENMT Head: normal to inspection and normocephalic Resp Effort & Inspection: not labored and tachypneic Auscultation: clear to auscultation bilaterally Cardio Rate: regular rate Rhythm: abnormal rhythm Pulses: radial pulses present GI Inspection: non-distended Palpation: soft, No firm and No tender Skin Other: Patient with multiple ulcers on her distal left lower extremity. Minimal surrounding erythema. Patient states that these are actually improved from baseline. They are not causing any discomfort. There is no drainage. Neuro General: alert, awake and oriented x3 Cognition: normal cognition Speech: speech normal Extrem General: normal to inspection, capillary refill normal and edema Other: Bilateral right greater than left 2+ pitting edema Psych Appearance: grossly normal and well kempt Scores GCS Taylor coma scale eye opening: Spontaneous Taylor coma scale verbal response: Orientated Taylor coma scale motor response: Obey commands Taylor coma scale total score: 15 Course Orders Ordered: ED Orders 03/08/19 11:48 XR chest 1V Stat EKG-12 Lead Stat 03/08/19 11:57 BNP [B Type Natriuretic Peptide] Stat Complete Blood Count AUTO DIFF Stat Comprehensive Metabolic Panel Stat Lipase Stat Partial Thromboplastin Time Stat Prothrombin Time INR Stat Troponin & CK Cardiac Panel Stat 03/08/19 15:04 CT angio chest PE protocol Stat 03/08/19 16:19 Troponin I Stat Discontinued Medications Furosemide (Lasix) 40 mg IV NOW ONE Stop: 03/08/19 17:31 Last Admin: 03/08/19 17:37 Dose: 40 mg Documented by: JESSICA Metoprolol Tartrate (Lopressor) 5 mg IV NOW ONE Stop: 03/08/19 12:41 Last Admin: 03/08/19 13:59 Dose: 5 mg Documented by: JESSICA Vital Signs Vital signs: Vital Signs - 8 hr 03/08/19 11:48 03/08/19 11:51 03/08/19 13:00 Temperature 98.1 F Pulse Rate 97 H 118 H 77 Respiratory Rate 30 H 30 H 23 Blood Pressure 161/125 H Blood Pressure [Right Wrist] 161/128 H 177/64 H Pulse Oximetry 94 94 95 03/08/19 13:56 03/08/19 14:55 03/08/19 16:00 Temperature Pulse Rate 101 H 88 81 Respiratory Rate 22 17 20 Blood Pressure Blood Pressure [Right Wrist] 170/81 H 150/117 H 139/74 Pulse Oximetry 94 94 92 03/08/19 17:30 Temperature Pulse Rate 91 H Respiratory Rate 20 Blood Pressure Blood Pressure [Right Wrist] 165/106 H Pulse Oximetry 95 MDM - Arrhythmia/Palpitations Medical Records Attestation: I reviewed the patient's medical records. Lab Data Attestation: I reviewed the patient's lab results. Result diagrams: 03/08/19 11:57 03/08/19 11:57 Labs: Lab Results 03/08/19 03/08/19 03/08/19 Range/Units 11:57 11:57 11:57 WBC 6.6 (4.5-11.0) X10^3/uL RBC 4.16 (4.0-5.2) X10^6/uL Hgb 11.8 L (12.0-16.0) g/dL Hct 36.0 (36-46) % MCV 86.4 (80-100) fL MCH 28.3 (26-34) PG MCHC 32.8 (30-36) % RDW 17.5 H (11.6-14.8) % Plt Count 257 (150-400) X10^3/uL Neut % (Auto) 78.0 H (50-75) % Lymph % (Auto) 12.6 L (25-40) % [place] % (Auto) 7.2 (3-14) % Eos % (Auto) 1.8 L (2-4) % Baso % (Auto) 0.4 (0-2) % Neut # (Auto) 5100 (4475-3218) /uL Lymph # (Auto) 800 L (2560-3421) /uL [place] # (Auto) 500 (0-900) /uL Eos # (Auto) 100 (0-450) /uL Baso # (Auto) 0 (0-100) /uL PT 35.8 H (10.1-12.7) SECONDS INR 3.0 H (0.9-1.3) APTT 43 H (26.4-36.2) SECONDS Sodium 142 (137-145) mmol/L Potassium 4.0 (3.4-5.1) mmol/L Chloride 101 (98-107) mmol/L Carbon Dioxide 29 (22-32) mmol/L BUN 19 H (7-17) mg/dL Creatinine 0.80 (0.52-1.04) mg/dL Estimated GFR > 60.0 (>60) mL/min BUN/Creatinine Ratio 23.8 H (6-22) Glucose 120 H (80-110) mg/dL Calcium 9.4 (8.4-10.2) mg/dL Total Bilirubin 0.7 (0.2-1.3) mg/dL AST 34 (14-36) IU/L ALT 19 (9-52) IU/L Alkaline Phosphatase 88 (38-126) U/L Total Creatine Kinase 61 (30-135) U/L CK-MB (CK-2) TNP CK-MB (CK-2) Rel Index TNP Troponin I 0.033 (0.01-0.034) ng/mL B-Natriuretic Peptide (<100) Total Protein 8.2 (6.3-8.2) g/dL Albumin 4.6 (3.5-5.0) g/dL Globulin 3.6 (1.7-4.1) g/dL Albumin/Globulin Ratio 1.3 (1.0-2.8) Lipase 98 (23-300) U/L 03/08/19 03/08/19 Range/Units 11:57 16:19 WBC (4.5-11.0) X10^3/uL RBC (4.0-5.2) X10^6/uL Hgb (12.0-16.0) g/dL Hct (36-46) % MCV (80-100) fL MCH (26-34) PG MCHC (30-36) % RDW (11.6-14.8) % Plt Count (150-400) X10^3/uL Neut % (Auto) (50-75) % Lymph % (Auto) (25-40) % [place] % (Auto) (3-14) % Eos % (Auto) (2-4) % Baso % (Auto) (0-2) % Neut # (Auto) (7899-1609) /uL Lymph # (Auto) (0173-9882) /uL [place] # (Auto) (0-900) /uL Eos # (Auto) (0-450) /uL Baso # (Auto) (0-100) /uL PT (10.1-12.7) SECONDS INR (0.9-1.3) APTT (26.4-36.2) SECONDS Sodium (137-145) mmol/L Potassium (3.4-5.1) mmol/L Chloride (98-107) mmol/L Carbon Dioxide (22-32) mmol/L BUN (7-17) mg/dL Creatinine (0.52-1.04) mg/dL Estimated GFR (>60) mL/min BUN/Creatinine Ratio (6-22) Glucose (80-110) mg/dL Calcium (8.4-10.2) mg/dL Total Bilirubin (0.2-1.3) mg/dL AST (14-36) IU/L ALT (9-52) IU/L Alkaline Phosphatase (38-126) U/L Total Creatine Kinase (30-135) U/L CK-MB (CK-2) CK-MB (CK-2) Rel Index Troponin I 0.024 (0.01-0.034) ng/mL B-Natriuretic Peptide 160 H (<100) Total Protein (6.3-8.2) g/dL Albumin (3.5-5.0) g/dL Globulin (1.7-4.1) g/dL Albumin/Globulin Ratio (1.0-2.8) Lipase (23-300) U/L Imaging Data Chest x-ray: Radiologist's impression: [address] [address] XRay Report Signed Patient: Lucila Hawknis R#: [id number] : 8Acct:[id number] Age/Sex: 68 / FDate of Service: 03/08/19 Loc: ED Accession Number: [id number] Procedure: XR chest 1V Ordering Provider: Phillip Ashford D.O. PROCEDURE: XR CHEST 1V INDICATIONS: chest pain TECHNIQUE: One view of the chest was acquired. COMPARISON: [facility], CR, XR CHEST 1V, 07/02/2018, 14:07. [facility], CR, XR CHEST 1V, 03/20/2018, 10:16. FINDINGS: Surgical changes and devices: None. Lungs and pleura: Lungs are mildly edematous. No pleural effusions or pneumothorax. Mediastinum: Mediastinal contours appear normal. Heart size is at the upper limits of normal. Bones and chest wall: No suspicious bony lesions. Overlying soft tissues appear unremarkable. IMPRESSION: Mild pulmonary edema pattern, heart size at the upper limits of normal. Reduced inspiration, large body habitus, a definite source of acute pain is not seen. Dictated by: Anam Haynes M.D. on 03/08/2019 at 12:58 Approved by: Anam Haynes M.D. on 03/08/2019 at 12:59 CT scan - chest: Radiologist's impression: [address] [address] [address] Scan Report Signed Patient: Lucila Hawkins R#: [id number] : 8Acct:[id number] Age/Sex: 68 / FDate of Service: 03/08/19 Loc: ED Accession Number: [id number] Procedure: CT angio chest PE protocol Ordering Provider: Phillip Ashford D.O. PROCEDURE: CT ANGIO CHEST PE PROTOCOL INDICATIONS: Chest pain, shortness of breath, tachycardia TECHNIQUE: After the administration of intravenous contrast, 2 mm thick sections acquired from the pulmonary apices to the posterior costophrenic angles. 3-dimensional maximum intensity projection (MIP) coronal and sagittal reformats were then acquired through the thorax. For radiation dose reduction, the following was used: automated exposure control, adjustment of mA and/or kV according to patient size. COMPARISON: None. FINDINGS: Image quality: Excellent. Pulmonary arteries: Pulmonary arteries are normal in size, and demonstrate no intraluminal filling defects to suggest central pulmonary embolism. Lungs and pleura: Atelectasis noted in the dependent portions of the lungs. Multiple, small, 2-3 mm diameter calcified granuloma is noted in the lungs bilaterally. No pleural effusions or pneumothorax. Central and peripheral airways are patent. Mediastinum: Heart is enlarged, without pericardial effusion. Atherosclerotic calcifications are noted in the aorta, great vessels and the coronary vasculature. No mediastinal or hilar adenopathy. Thoracic aorta is normal in caliber and enhancement. Esophagus is normal in caliber, without hiatal hernia. Bones and chest wall: No suspicious bony lesions. Ribs and thoracic spine appear intact throughout. Spine degenerative disc disease and facet arthropathy. Thyroid gland is within normal limits. No axillary or supraclavicular adenopathy. Abdomen: The visualized liver has slightly nodular margins suggesting hepatic cirrhosis; please correlate with clinical and laboratory data. The adrenal glands are diffusely thickened concerning for adrenal hyperplasia. Visualized pancreas, spleen and kidneys are normal. IMPRESSION: 1. No pulmonary embolus. 2. No lung consolidation or pleural effusions. 3. Cardiomegaly. 4. Atherosclerosis including dense atherosclerotic calcifications in the coronary vasculature. 5. Visualized liver has slightly nodular margins suggesting hepatic cirrhosis. Please correlate with clinical and laboratory data. 6. Probable bilateral adrenal hyperplasia. Dictated by: Estefany Delgado MD, PhD on 03/08/2019 at 14:46 Approved by: Estefany Delgado MD, PhD on 03/08/2019 at 14:53 ECG Data Attestation: I personally reviewed and interpreted this ECG as follows: Prior ECG tracings: not available for review Interpretation: Atrial fibrillation Ventricular rate of 101 Normal axis QRS 94 milliseconds Normal QTC Nonspecific ST T wave changes MDM Narrative Medical decision making narrative: Upon arrival patient was tachypneic however was not in any respiratory distress. She did not need oxygen. Oxygen saturations were greater than 95%. Her lungs were clear. Chest x-ray does show some signs of pulmonary edema. She does have bilateral with right greater than left lower extremity pitting edema. She has denied any chest pain. She is in atrial fibrillation on her EKG. Her heart rate has been anywhere from 80s to 120s. Patient is unsure if she has paroxysmal AFib versus persistent AFib. She is on Coumadin and she is therapeutic today however review of her INR levels show that the last 2 over the past several months have been less than 2. This is somewhat concerning as to whether not she has been therapeutic on her Coumadin on a regular basis. Initial troponin slightly elevated however this could be secondary to her rapid heart rate and atrial fibrillation. Clinically patient has CHF given her lower extremity swelling and also her description of the symptoms however her BNP today is not consistent with this. A CT scan was ordered to rule out pulmonary embolism which she does not have. Patient was given IV metoprolol and afterwards her heart rate was consistently less than 100. After further discussion with the patient appears that she has not been taking her Lasix recently. She has multiple reasons to why this has been happening but she is prescribed 40 mg 2 times a day. Patient has been in the emergency department long enough that we could obtain a 2nd troponin which was lower than the initial troponin. I feel given the question is whether not she has been therapeutic on the Coumadin and the unknown onset of her atrial fibrillation that cardioversion in the emergency department is not possible. I also feel that given her other comorbidities in her body habitus that sedation in the emergency department would be unwise. I feel does not unreasonable to remind the patient that she should be taking her Lasix twice a day. She was given Lasix here in the emergency department. She did expressed the understanding and the importance of taking this medication and why she was taking a. Metoprolol seem to improve her symptoms today. Will send her home on 25 mg a day for rate control. Informed her that tomorrow she should contact her primary provider for follow-up. She was given strict return precautions. She expressed understanding and agreement with plan. Discharge Plan Departure Patient Disposition: Home Clinical Impression: Peripheral edema, Shortness of breath Atrial fibrillation Qualifiers: Atrial fibrillation type: paroxysmal Qualified Code(s): I48.0 - Paroxysmal atrial fibrillation Pulmonary edema Qualifiers: Chronicity: acute Qualified Code(s): J81.0 - Acute pulmonary edema Discharge Date/Time: 03/08/19 18:19 Instructions: DI for Atrial Fibrillation, DI for Peripheral Edema -- Bilateral Activity Restrictions/Additional Instructions: Recommend you take all of your medications as directed especially the 40 mg of Lasix/furosemide 2 times a day. Continue your Coumadin. Start taking the metoprolol as directed. Tomorrow morning contact Dr. Shelton's office for a follow-up. Return to the emergency department for any new or worsening symptoms Prescriptions: New metoprolol succinate 25 mg tablet extended release 24 hr 25 mg PO DAILY Qty: 30 RF: 0 No Action (DME) Glucose: Home Monitor See Rx Instructions .Route .MEDSUPPLY Qty: 1 RF: 0 (DME) Glucose: Test Strips See Rx Instructions .Route .MEDSUPPLY Qty: 100 RF: 3 diltiazem HCl [Cartia XT] 240 mg capsule,extended release 24hr 240 mg PO DAILY Qty: 90 RF: 3 lorazepam 2 mg tablet 2 mg PO BEDTIME Qty: 30 RF: 5 furosemide 40 mg tablet 40 mg PO BID Qty: 60 RF: 5 potassium chloride 20 mEq tablet extended release 20 meq PO BID Qty: 60 RF: 5 lidocaine-prilocaine 2.5-2.5 % cream 1 applictn topical BID PRN (Reason: Pain (Scale Score 1-3)) Qty: 30 RF: 1 hydrocodone-acetaminophen 5-325 mg tablet 1 tab PO BID PRN (Reason: pain) Qty: 45 RF: 0 mupirocin 2 % ointment 1 applictn TOP BID Qty: 30 RF: 1 lisinopril 40 mg tablet 40 mg PO BEDTIME RF: 0 warfarin 10 mg Tablet 10 mg PO SUTUTHSA RF: 0 warfarin 7.5 mg tablet 7.5 mg PO MOWEFR RF: 0 Referrals: Dillon Shelton MD [Primary Care Provider] -
[2019-03-08 12:13] LABS: Prothrombin Time 35.8 SECONDS (10.1-12.7)
[2019-03-08 12:15] LABS: PTT Partial Thromboplastin Tim 43 SECONDS (26.4-36.2)
[2019-03-08 12:17] LABS: Alanine Aminotransferase 19 IU/L (9-52); Albumin 4.6 g/dL (3.5-5.0); Albumin Globulin Ratio 1.3 (1.0-2.8); Alkaline Phosphatase 88 U/L (38-126); Aspartate Aminotransferase 34 IU/L (14-36); BUN Creatinine Ratio 23.8 (6-22); Bilirubin Total 0.7 mg/dL (0.2-1.3); Blood Urea Nitrogen 19 mg/dL (7-17); Calcium 9.4 mg/dL (8.4-10.2); Carbon Dioxide 29 mmol/L (22-32); Chloride 101 mmol/L (98-107); Creatine Kinase 61 U/L (30-135); Estimated Glomerular Filt Rate > 60.0 mL/min (>60); Globulin 3.6 g/dL (1.7-4.1); Glucose 120 mg/dL (80-110); HEMOLYSIS 30 (0-50); Lipase 98 U/L (23-300); Sodium 142 mmol/L (137-145); Total Protein 8.2 g/dL (6.3-8.2)
[2019-03-08 12:29] LABS: B Type Natriuretic Peptide 160 (<100); Troponin I 0.033 ng/mL (0.01-0.034)
[2019-03-08] MEDS: METOPROLOL TARTRATE 5 MG/5 ML INJ IV (13:59)
--- NOTE | 2019-03-08 15:04 | DI.CT.S_ITS ---
PROCEDURE: CT ANGIO CHEST PE PROTOCOL INDICATIONS: Chest pain, shortness of breath, tachycardia TECHNIQUE: After the administration of intravenous contrast, 2 mm thick sections acquired from the pulmonary apices to the posterior costophrenic angles. 3-dimensional maximum intensity projection (MIP) coronal and sagittal reformats were then acquired through the thorax. For radiation dose reduction, the following was used: automated exposure control, adjustment of mA and/or kV according to patient size. COMPARISON: None. FINDINGS: Image quality: Excellent. Pulmonary arteries: Pulmonary arteries are normal in size, and demonstrate no intraluminal filling defects to suggest central pulmonary embolism. Lungs and pleura: Atelectasis noted in the dependent portions of the lungs. Multiple, small, 2-3 mm diameter calcified granuloma is noted in the lungs bilaterally. No pleural effusions or pneumothorax. Central and peripheral airways are patent. Mediastinum: Heart is enlarged, without pericardial effusion. Atherosclerotic calcifications are noted in the aorta, great vessels and the coronary vasculature. No mediastinal or hilar adenopathy. Thoracic aorta is normal in caliber and enhancement. Esophagus is normal in caliber, without hiatal hernia. Bones and chest wall: No suspicious bony lesions. Ribs and thoracic spine appear intact throughout. Spine degenerative disc disease and facet arthropathy. Thyroid gland is within normal limits. No axillary or supraclavicular adenopathy. Abdomen: The visualized liver has slightly nodular margins suggesting hepatic cirrhosis; please correlate with clinical and laboratory data. The adrenal glands are diffusely thickened concerning for adrenal hyperplasia. Visualized pancreas, spleen and kidneys are normal. IMPRESSION: 1. No pulmonary embolus. 2. No lung consolidation or pleural effusions. 3. Cardiomegaly. 4. Atherosclerosis including dense atherosclerotic calcifications in the coronary vasculature. 5. Visualized liver has slightly nodular margins suggesting hepatic cirrhosis. Please correlate with clinical and laboratory data. 6. Probable bilateral adrenal hyperplasia. Dictated by: Estefany Delgado MD, PhD on 03/08/2019 at 14:46 Approved by: Estefany Delgado MD, PhD on 03/08/2019 at 14:53
[2019-03-08 16:54] LABS: Troponin I 0.024 ng/mL (0.01-0.034)
[2019-03-08] MEDS: FUROSEMIDE 40 MG/4 ML VIAL IV (17:37)
== END 2019-03-08 18:19 | disposition home or self-care (01) ==
PROVIDERS: Emergency Provider Emergency Medicine; PCP Student in an Organized Health Care Education/Training Program
DX: I48.0 Paroxysmal atrial fibrillation (principal); J81.0 Acute pulmonary edema; R60.9 Edema, unspecified
CPT/HCPCS: 36415; 71045; 71275; 80053; 82550; 83690; 83880; 84484; 85025; 85610; 85730; 93005; 96374; 96375; 99284; 99285; J1940; Q9967

== ENCOUNTER → 2019-07-15 14:13 | Outpatient (CLI) | payer OTHER, SELFPAY ==
[2018-03-20 16:18] VITALS: BMI 34.2
[2019-07-15 15:00] LABS: Add Manual Diff / Slide Review NO; Basophils Absolute Auto 100 /uL (0-100); Basophils Percent Auto 0.7 % (0-2); Eosinophils Absolute Auto 400 /uL (0-450); Eosinophils Percent Auto 5.1 % (2-4); Hematocrit 37.9 % (36-46); Hemoglobin 12.5 g/dL (12.0-16.0); Lymphocytes Absolute Auto 1200 /uL (1100-4500); Lymphocytes Percent Auto 16.8 % (25-40); Mean Corpuscular HGB Conc 32.9 % (30-36); Mean Corpuscular Hemoglobin 28.7 PG (26-34); Mean Corpuscular Volume 87.3 fL (80-100); Monocytes Absolute Auto 500 /uL (0-900); Neutrophils Absolute Auto 4900 /uL (1500-7000); Neutrophils Percent Auto 70.4 % (50-75); Platelet Count 242 X10^3/uL (150-400); Red Blood Cell Count 4.34 X10^6/uL (4.0-5.2); Red Cell Distribution Width 18.2 % (11.6-14.8); White Blood Cell Count 6.9 X10^3/uL (4.5-11.0)
[2019-07-15 15:08] LABS: INR 2.4 (0.9-1.3); Prothrombin Time 27.1 SECONDS (10.1-12.7)
[2019-07-15 15:12] LABS: D Dimer < 200 ng/mL (<230)
[2019-07-15 15:21] LABS: Hemoglobin A1C% w Est Avg Glu 5.9 % (4.0-6.0)
[2019-07-15 15:35] LABS: BUN Creatinine Ratio 35.6 (6-22); Blood Urea Nitrogen 32 mg/dL (7-17); Calcium 9.9 mg/dL (8.4-10.2); Carbon Dioxide 26 mmol/L (22-32); Chloride 105 mmol/L (98-107); Estimated Glomerular Filt Rate > 60.0 mL/min (>60); Glucose 119 mg/dL (80-110); HEMOLYSIS < 15 (0-50); Potassium 5.1 mmol/L (3.4-5.1); Sodium 143 mmol/L (137-145)
[2019-07-15 15:44] LABS: NT-proBNP (BNP-Adult 18+) 597 pg/mL (<125)
== END ==
PROVIDERS: PCP Student in an Organized Health Care Education/Training Program; Referring Provider Student in an Organized Health Care Education/Training Program; Visit Provider Student in an Organized Health Care Education/Training Program
DX: E11.40 Type 2 diabetes mellitus with diabetic neuropathy, unspecified (principal); E66.01 Morbid (severe) obesity due to excess calories; I10 Essential (primary) hypertension; I48.91 Unspecified atrial fibrillation; I50.9 Heart failure, unspecified; R60.9 Edema, unspecified; Z68.43 Body mass index [BMI] 50.0-59.9, adult; Z79.01 Long term (current) use of anticoagulants
CPT/HCPCS: 36415; 80048; 83036; 83880; 85025; 85379; 85610

== ENCOUNTER 2019-11-19 03:23 | Emergency (ER) | payer OTHER, SELFPAY ==
[2018-03-20 16:18] VITALS: BMI 34.2
--- NOTE | 2019-11-19 03:42 | DI.CT.S_ITS ---
PROCEDURE: CT HEAD/BRAIN WO CON INDICATIONS: Fall on Coumadin hit head TECHNIQUE: Noncontrast 4.5 mm thick angled axial sections acquired from the foramen magnum to the vertex, with coronal and sagittal reformats. For radiation dose reduction, the following was used: automated exposure control, adjustment of mA and/or kV according to patient size. COMPARISON: None. FINDINGS: Image quality: Excellent. CSF spaces: Basal cisterns are patent. No extra-axial fluid collections. The ventricles are symmetric in size and shape. Brain: No intracranial bleeds or masses. There is cerebral volume loss for age, with resultant ventricular and sulcal prominence. There are moderate periventricular and deep white matter chronic small vessel ischemic changes. There is intracranial internal carotid artery atherosclerosis. Skull and face: Calvarium and visualized facial bones appear intact, without suspicious lesions. Sinuses: Visualized sinuses and mastoids are clear. IMPRESSION: 1. Age related volume loss and moderate small vessel ischemic change. 2. No evidence acute stroke, hemorrhage, or mass. Dictated by: Ahmet Ko M.D. on 11/19/2019 at 8:02 Approved by: Ahmet Ko M.D. on 11/19/2019 at 8:03
--- NOTE | 2019-11-19 03:43 | ED_ITS ---
HPI - General Adult General Chief complaint: Fall Stated complaint: Ground level fall Time Seen by Provider: 11/19/19 03:27 Source: patient and EMS Mode of arrival: EMS Limitations: no limitations History of Present Illness HPI narrative: 69-year-old female on Coumadin for atrial fibrillation here for evaluation of a fall at home. Patient took some CBD and also a Ativan and afterwards became lightheaded and dizzy. EMS reports that she told them the lightheadedness happened last night after she took the same medication and after she fell asleep and woke up in the morning her symptoms improved. Patient reports that she did hit her head. There was no loss of consciousness. She reports no neck pain. No other injuries reported from the event. Related Data Previous Rx's Medication Instructions Recorded Glucose: Home Monitor #1 ea 04/29/18 Glucose: Test Strips #100 each 06/09/18 mupirocin 2 % topical ointment 1 applictn TOP BID #30 gram 02/11/19 lisinopril 40 mg tablet 40 mg PO BEDTIME #90 tab 03/09/19 warfarin 10 mg tablet 10 mg PO SUTUTHSA #60 tab 03/14/19 lidocaine-prilocaine 2.5 %-2.5 % 1 applictn TOPICAL BID PRN #30 gram 04/05/19 topical cream diltiazem HCl 240 mg 240 mg PO DAILY #90 cap 07/26/19 capsule,extended release 24 hr furosemide 40 mg tablet 40 mg PO BID #60 tab 07/28/19 potassium chloride 20 mEq 20 meq PO BID #60 tab 07/28/19 tablet,extended release lorazepam 2 mg tablet 2 mg PO BEDTIME #30 tab 09/21/19 warfarin 7.5 mg tablet 7.5 mg PO MOWEFR #60 tab 09/21/19 metoprolol succinate 25 mg 25 mg PO DAILY #90 tab 09/28/19 tablet,extended release 24 hr hydrocodone 5 mg-acetaminophen 325 1 tab PO BID PRN #45 tab 10/19/19 mg tablet Allergies Allergy/AdvReac Type Severity Reaction Status Date / Time latex Allergy Intermediate skin Verified 07/15/19 13:49 blistering Sulfa (Sulfonamide Allergy Intermediate PATIENT Verified 07/15/19 13:49 Antibiotics) CAN'T REMEMBER IT WAS SO LONG AGO gabapentin [GABAPENTIN] AdvReac Intermediate Bodyaches, Verified 07/15/19 13:49 muscle aches pregabalin [From Lyrica] AdvReac Intermediate Muscle Pain Verified 07/15/19 13:49 duloxetine [DULOXETINE] AdvReac Unknown nausea and Verified 07/15/19 13:49 vomiting Review of Systems Constitutional Constitutional: Denies fever(s) and Denies headache(s) ENT Ears, Nose, Mouth, and Throat: Denies vertigo, Reports dizziness, Denies headache(s) and Reports disequilibrium Cardiovascular Cardiovascular: Denies chest pain, Denies rapid heart rate, Denies irregular heart rhythm, Reports lightheadedness and Denies dyspnea Respiratory Respiratory: Denies dyspnea Gastrointestinal Gastrointestinal: Denies change in bowel habits Musculoskeletal Musculoskeletal: Denies arthralgias, Denies back pain and Denies myalgias Integumentary/Breasts Skin/Breast: Denies lesions Neurologic Neurologic: Denies vertigo, Reports dizziness, Denies headache(s) and Reports disequilibrium Hematologic/Lymphatic Comments: On Coumadin Patient History Medical History Atrial fibrillation (Chronic 12/2011) Atrial fibrillation (Chronic) Diabetes (Chronic Unknown) Essential hypertension (Chronic) Foot pain (Resolved Unknown) Foot ulcer (Resolved 08/2016) Gout (Chronic Unknown) Heart murmur (Chronic Unknown) Hyperlipemia (Chronic Unknown) Hypertension (Chronic Unknown) Mixed hyperlipidemia (Chronic 01/30/00) Morbid obesity with body mass index (BMI) of 50.0 to 59.9 in adult (Chronic) Obstructive sleep apnea (Chronic 03/2014) Obstructive sleep apnea syndrome (Chronic) Osteoarthritis (Chronic Unknown) 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 Mother No problems noted. Brother No problems noted. Brother No problems noted. Sister Fibromyalgia Social History household members: none Smoking Status: Smoker, status unknown second hand exposure: No alcohol intake: never substance use type: does not use Smoking Status: Smoker, status unknown alcohol intake frequency: 0-2 drinks per day Substance Use Type: does not use Exam Initial Vital Signs Initial Vital Signs: Vital Signs Temperature 98.1 F 11/19/19 04:10 Pulse Rate 105 H 11/19/19 04:10 Respiratory Rate 21 11/19/19 04:10 Blood Pressure 179/81 H 11/19/19 04:10 Pulse Oximetry 92 11/19/19 04:10 Const General: cooperative and comfortable Limitations: mental status not altered HENMT Head: normal to inspection and normocephalic Nose: external nose normal Face and sinus: normal facial exam Resp Effort & Inspection: normal respiratory effort Auscultation: clear to auscultation bilaterally Cardio Rate: regular rate Rhythm: abnormal rhythm irregularly irregular GI Inspection: non-distended Palpation: soft Back/Spine/Pelvis Cervical Spine: No collar present and No cervical spinal tenderness Skin Rashes: no rashes Other: Patient does have a wound to the top of her left foot. This approximately 8 cm x 8 cm. He is white. Draining a clear liquid. She also has a similar wound on the back of her legs. Neuro General: patient alert, patient awake and patient oriented x3 Cognition: normal cognition Speech: speech normal Extrem General: normal to inspection and capillary refill normal Psych Appearance: grossly normal and well kempt Scores GCS Taylor coma scale eye opening: Spontaneous Taylor coma scale verbal response: Orientated Taylor coma scale motor response: Obey commands Taylor coma scale total score: 15 Nexus Score for C-Spine Focal Neurologic deficit present: No Midline spinal tenderness present: No Altered level of conciousness present: No Intoxication present: No Distracting Injury Present: No Nexus Criteria for C-spine: 0 Course Orders Ordered: ED Orders 11/19/19 03:30 EKG-12 Lead Stat 11/19/19 03:42 CT head/brain wo con Stat 11/19/19 04:03 Wound Culture and Gram Stain Stat 11/19/19 04:16 Basic Metabolic Panel Stat Complete Blood Count AUTO DIFF Stat Partial Thromboplastin Time Stat Prothrombin Time INR Stat Vital Signs Vital signs: Vital Signs - 8 hr 11/19/19 04:10 11/19/19 04:30 11/19/19 05:35 Temperature 98.1 F Pulse Rate 105 H 91 H 91 H Respiratory Rate 21 20 24 Blood Pressure 179/81 H Blood Pressure [Right Arm] 158/71 H Pulse Oximetry 92 92 94 Medical Decision Making Medical Records Medical records reviewed: Yes I reviewed the patient's medical records. Lab Data Lab results reviewed: Yes I reviewed the patient's lab results. Result diagrams: 11/19/19 04:16 11/19/19 04:16 Labs: Lab Results 11/19/19 11/19/19 11/19/19 Range/Units 04:16 04:16 04:16 WBC 8.2 (4.5-11.0) X10^3/uL RBC 4.26 (4.0-5.2) X10^6/uL Hgb 12.3 (12.0-16.0) g/dL Hct 37.7 (36-46) % MCV 88.5 (80-100) fL MCH 28.9 (26-34) PG MCHC 32.7 (30-36) % RDW 17.5 H (11.6-14.8) % Plt Count 262 (150-400) X10^3/uL Neut % (Auto) 77.8 H (50-75) % Lymph % (Auto) 12.1 L (25-40) % Dewitt % (Auto) 7.4 (3-14) % Eos % (Auto) 2.2 (2-4) % Baso % (Auto) 0.5 (0-2) % Neut # (Auto) 6400 (9526-5689) /uL Lymph # (Auto) 1000 L (3473-3612) /uL Dewitt # (Auto) 600 (0-900) /uL Eos # (Auto) 200 (0-450) /uL Baso # (Auto) 0 (0-100) /uL PT 60.6 H (10.1-12.7) SECONDS INR 5.4 H* (0.9-1.3) APTT 55 H D (26.4-36.2) SECONDS Sodium 142 (137-145) mmol/L Potassium 4.2 (3.4-5.1) mmol/L Chloride 101 (98-107) mmol/L Carbon Dioxide 36 H (22-32) mmol/L BUN 27 H (7-17) mg/dL Creatinine 0.90 (0.52-1.04) mg/dL Estimated GFR > 60.0 (>60) mL/min BUN/Creatinine Ratio 30.0 H (6-22) Glucose 190 H (80-110) mg/dL Calcium 9.9 (8.4-10.2) mg/dL Imaging Data CT scan - head: Radiologist's Impression: No acute intracranial hemorrhage seen ECG Data Attestation: I personally reviewed and interpreted this ECG as follows: Prior ECG tracings: not available for review Interpretation: Atrial fibrillation Ventricular rate of 91 Normal axis Normal QRS Normal QTC Nonspecific ST T wave changes MDM Narrative Medical decision making narrative: Modified trauma call secondary to fall on anticoagulation. Head CT is unremarkable. She is in AFib however his rate controlled during most of her stay. The wounds the top of her foot back for legs are not related to the fall. I suspect that these are related to her diabetes. They do not need any emergent treatment. A wound culture was taken of the wound on the top of her foot for future reference. She has an appointment with wound care within the next week. Will hold on any antibiotics. Suspect the patient's dizziness/falls related to her CBD and Ativan. Appears this is the 2nd night in a row that this has happened. Feel we can hold on furt her workup for now. Patient was given return precautions and follow-up instructions. She expressed understanding and agreement. Discharge Plan Departure Patient Disposition: Home Clinical Impression: Closed head injury Qualifiers: Encounter type: initial encounter Qualified Code(s): S09.90XA - Unspecified injury of head, initial encounter Atrial fibrillation Qualifiers: Atrial fibrillation type: unspecified Qualified Code(s): I48.91 - Unspecified atrial fibrillation Diabetic foot ulcer Qualifiers: Diabetic foot ulcer location: midfoot Diabetes mellitus type: type 2 Laterality: left Non-pressure ulcer stage: unspecified non-pressure ulcer stage Qualified Code(s): E11.621 - Type 2 diabetes mellitus with foot ulcer Fall Qualifiers: Encounter type: initial encounter Qualified Code(s): W19.XXXA - Unspecified fall, initial encounter Instructions: How to Prevent Falls Activity Restrictions/Additional Instructions: I do recommend that you do not mix your Ativan head your CBD and earlier cut. This can cause you to become very lightheaded and fall. Is important that you avoid falling because of the fact that your on Coumadin/warfarin. You do have wounds on the top of your foot. A culture was obtained today. I advised that you contact her primary doctor and also keep your follow-up with wound care in the next couple days. Return to the emergency department for any new or worsening symptoms Prescriptions: No Action (DME) Glucose: Home Monitor See Rx Instructions .Route .MEDSUPPLY Qty: 1 RF: 0 (DME) Glucose: Test Strips See Rx Instructions .Route .MEDSUPPLY Qty: 100 RF: 3 lisinopril 40 mg tablet 40 mg PO BEDTIME Qty: 90 RF: 3 warfarin 10 mg tablet 10 mg PO SUTUTHSA Qty: 60 RF: 1 lidocaine-prilocaine 2.5-2.5 % cream 1 applictn topical BID PRN (Reason: Pain (Scale Score 1-3)) Qty: 30 RF: 1 diltiazem HCl [Cartia XT] 240 mg capsule,extended release 24hr 240 mg PO DAILY Qty: 90 RF: 3 furosemide 40 mg tablet 40 mg PO BID Qty: 60 RF: 5 potassium chloride 20 mEq tablet extended release 20 meq PO BID Qty: 60 RF: 5 lorazepam 2 mg tablet 2 mg PO BEDTIME Qty: 30 RF: 5 warfarin 7.5 mg tablet 7.5 mg PO MOWEFR Qty: 60 RF: 1 metoprolol succinate 25 mg tablet extended release 24 hr 25 mg PO DAILY Qty: 90 RF: 3 hydrocodone-acetaminophen 5-325 mg tablet 1 tab PO BID PRN (Reason: pain) Qty: 45 RF: 0 mupirocin 2 % ointment 1 applictn TOP BID Qty: 30 RF: 1 Referrals: Dillon Shelton MD [Primary Care Provider] -
[2019-11-19 04:10] VITALS: BP 179/81; PULSE 105; RESP 21; TEMP 36.7; O2SAT 92; BMI 60.9
--- NOTE | 2019-11-19 04:16 | PC.NURSE ---
attempt iv start x3. Unable to get line, provider ok with lab draw at this time.
[2019-11-19 04:27] LABS: Add Manual Diff / Slide Review NO; Basophils Absolute Auto 0 /uL (0-100); Basophils Percent Auto 0.5 % (0-2); Eosinophils Absolute Auto 200 /uL (0-450); Eosinophils Percent Auto 2.2 % (2-4); Hematocrit 37.7 % (36-46); Hemoglobin 12.3 g/dL (12.0-16.0); Lymphocytes Absolute Auto 1000 /uL (1100-4500); Lymphocytes Percent Auto 12.1 % (25-40); Mean Corpuscular HGB Conc 32.7 % (30-36); Mean Corpuscular Hemoglobin 28.9 PG (26-34); Mean Corpuscular Volume 88.5 fL (80-100); Monocytes Absolute Auto 600 /uL (0-900); Monocytes Percent Auto 7.4 % (3-14); Neutrophils Absolute Auto 6400 /uL (1500-7000); Neutrophils Percent Auto 77.8 % (50-75); Platelet Count 262 X10^3/uL (150-400); Red Blood Cell Count 4.26 X10^6/uL (4.0-5.2); Red Cell Distribution Width 17.5 % (11.6-14.8); White Blood Cell Count 8.2 X10^3/uL (4.5-11.0)
[2019-11-19 04:30] VITALS: BP 158/71; PULSE 91; RESP 20; O2SAT 92
[2019-11-19 04:39] LABS: PTT Partial Thromboplastin Tim 55 SECONDS (26.4-36.2)
[2019-11-19 04:43] LABS: Blood Urea Nitrogen 27 mg/dL (7-17); Calcium 9.9 mg/dL (8.4-10.2); Carbon Dioxide 36 mmol/L (22-32); Chloride 101 mmol/L (98-107); Estimated Glomerular Filt Rate > 60.0 mL/min (>60); Glucose 190 mg/dL (80-110); HEMOLYSIS < 15 (0-50); Potassium 4.2 mmol/L (3.4-5.1); Prothrombin Time 60.6 SECONDS (10.1-12.7); Sodium 142 mmol/L (137-145)
[2019-11-19 04:46] LABS: INR 5.4 (0.9-1.3)
[2019-11-19 05:35] VITALS: PULSE 91; RESP 24; O2SAT 94
[2019-11-19 06:45] VITALS: BP 151/70; PULSE 101; RESP 20; O2SAT 94
== END 2019-11-19 06:45 | disposition home or self-care (01) ==
PROVIDERS: Emergency Provider Emergency Medicine; PCP Student in an Organized Health Care Education/Training Program
DX: S09.90XA Unspecified injury of head, initial encounter (principal); I48.91 Unspecified atrial fibrillation; Z79.01 Long term (current) use of anticoagulants; W19.XXXA Unspecified fall, initial encounter
CPT/HCPCS: 36415; 70450; 80048; 85025; 85610; 85730; 87070; 87075; 87077; 87186; 87205; 93005; 99284

== ENCOUNTER 2020-01-10 18:19 | Inpatient (IN) | payer OTHER, SELFPAY ==
[2018-03-20 16:18] VITALS: BMI 34.2
[2020-01-10] VITALS (15 sets, daily range): BP systolic 110–156; BP diastolic 56–107; PULSE 75–133; RESP 22–47; TEMP 35.6–36.4; O2SAT 86–98; BMI 48.8
--- NOTE | 2020-01-10 18:44 | ED.GENADULT ---
HPI - General Adult General Chief complaint: Weakness Stated complaint: weakness / falls Time Seen by Provider: 01/10/20 18:23 Source: patient, family (Daughter) and EMS Mode of arrival: EMS Limitations: no limitations History of Present Illness HPI narrative: Patient is a 69-year-old female on anticoagulation for atrial fibrillation. Brought in by EMS after they were called to her house today 3 separate times for a lift assist. Patient states that she has chronic venous stasis changes in her lower extremities for which she sees wound care. She states that these wounds caused her quite a bit of discomfort. She feels that these wounds today are actually improving from prior issues that she has had. She is not currently taking any antibiotics. She states the past couple days she has had significant amount of pain in her legs. She does take hydrocodone at home. She states she takes 1 tablet 2 times a day. When she takes this medication and does ?take the edge off? the pain in her legs. She states that last evening she had a very difficult time sleeping secondary to the pain. She did use some CBD oil last evening which he states she normally does not do. She does admit that taking this CBD oil did cause her to be ?loopy? she states that she woke up this morning feeling this way. She states that she was very unsteady on her feet today. She denied any room spinning sensation it was an unsteadiness on her feet. She states that she fell 3 separate times today and could not get up on her own. She did not hit her head. There was no loss of consciousness. She states she did not hurt any bones or joints. She has no neck pain. She states that she agreed to come into the emergency department after the paramedics for her house 3 times today she does have home health which comes every other day otherwise she lives alone. She states that she does give herself sponge baths. She does walk around her house with a walker. She does cook for herself. Does dress herself. She states she can put on her socks but she rarely uses shoes. Related Data Home Medications Medication Instructions Recorded Confirmed hydrocodone-acetaminophen 2 tab PO BID PRN 01/10/20 01/10/20 Previous Rx's Medication Instructions Recorded Glucose: Home Monitor #1 ea 04/29/18 Glucose: Test Strips #100 each 06/09/18 lisinopril 40 mg tablet 40 mg PO BEDTIME #90 tab 03/09/19 warfarin 10 mg tablet 10 mg PO SUTUTHSA #60 tab 03/14/19 diltiazem HCl 240 mg 240 mg PO DAILY #90 cap 07/26/19 capsule,extended release 24 hr furosemide 40 mg tablet 40 mg PO BID #60 tab 07/28/19 potassium chloride 20 mEq 20 meq PO BID #60 tab 07/28/19 tablet,extended release lorazepam 2 mg tablet 2 mg PO BEDTIME #30 tab 09/21/19 warfarin 7.5 mg tablet 7.5 mg PO MOWEFR #60 tab 09/21/19 metoprolol succinate 25 mg 25 mg PO DAILY #90 tab 09/28/19 tablet,extended release 24 hr Allergies Allergy/AdvReac Type Severity Reaction Status Date / Time latex Allergy Intermediate skin Verified 01/10/20 20:22 blistering Sulfa (Sulfonamide Allergy Intermediate PATIENT Verified 01/10/20 20:22 Antibiotics) CAN'T REMEMBER IT WAS SO LONG AGO gabapentin [GABAPENTIN] AdvReac Intermediate Bodyaches, Verified 01/10/20 20:22 muscle aches pregabalin [From Lyrica] AdvReac Intermediate Muscle Pain Verified 01/10/20 20:22 duloxetine [DULOXETINE] AdvReac Unknown nausea and Verified 01/10/20 20:22 vomiting Review of Systems Constitutional Constitutional: Reports fatigue, Denies fever(s), Reports frequent falls, Denies headache(s) and Reports lethargy Eyes Eyes: Denies change in vision ENT Ears, Nose, Mouth, and Throat: Denies vertigo, Reports dizziness, Denies otalgia, Denies headache(s) and Reports disequilibrium Cardiovascular Cardiovascular: Denies chest pain and Denies dyspnea Respiratory Respiratory: Denies dyspnea Gastrointestinal Gastrointestinal: Denies abdominal pain, Denies nausea and Denies vomiting Genitourinary Genitourinary: Denies dysuria Genitourinary: Denies dysuria Musculoskeletal Musculoskeletal: Denies tingling Comments: Bilateral heat/lower leg pain Integumentary/Breasts Skin/Breast: Reports lesions Neurologic Neurologic: Denies behavioral changes, Denies confusion, Denies vertigo, Reports dizziness, Reports frequent falls, Denies headache(s), Denies tingling and Reports disequilibrium Psychiatric Psychiatric: Denies behavioral changes, Denies confusion and Denies depression Endocrine Endocrine: Reports fatigue Hematologic/Lymphatic Comments: On Coumadin Allergic/Immunologic Allergic/Immunologic: Denies urticaria Patient History Medical History Atrial fibrillation (Chronic 12/2011) Diabetes (Chronic Unknown) Essential hypertension (Chronic) Foot pain (Resolved Unknown) Foot ulcer (Resolved 08/2016) Gout (Chronic Unknown) Heart murmur (Chronic Unknown) Hypertension (Chronic Unknown) Mixed hyperlipidemia (Chronic 01/30/00) Morbid obesity with body mass index (BMI) of 50.0 to 59.9 in adult (Chronic) Obstructive sleep apnea syndrome (Chronic) Osteoarthritis (Chronic Unknown) 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 Brother No problems noted. Sister Fibromyalgia Social History household members: none Smoking Status: Never smoker second hand exposure: No alcohol intake: never substance use type: does not use Smoking Status: Smoker, status unknown alcohol intake frequency: 0-2 drinks per day Substance Use Type: does not use Exam Initial Vital Signs Initial Vital Signs: Vital Signs Temperature 97.5 F L 01/10/20 18:26 Pulse Rate 94 H 01/10/20 18:26 Respiratory Rate 29 H 01/10/20 18:26 Blood Pressure 124/89 01/10/20 18:26 Pulse Oximetry 98 01/10/20 18:26 Const General: cooperative and disheveled Limitations: mental status not altered [facility] Head: normal to inspection and normocephalic Ears: hearing grossly normal bilaterally Nose: external nose normal Face and sinus: normal facial exam Eyes Pupils: PERRL Chest Chest: No crepitus and No tenderness Other: Bruising right-sided chest Resp Effort & Inspection: normal respiratory effort and tachypneic Auscultation: clear to auscultation bilaterally Cardio Rate: regular rate Rhythm: abnormal rhythm Pulses: radial pulses present GI Inspection: non-distended Palpation: soft Back/Spine/Pelvis Cervical Spine: No cervical spinal tenderness Skin Other: Patient with ulcerations and wounds to bilateral lower extremities with surrounding redness. This does not appear to be new. There is some clear drainage from some of the wounds. They are not warm to touch. Patient has ecchymosis to her right chest. This does not appear to be new. She does not know when this occurred however she states the last time she fell was approximately 3 weeks ago. Neuro General: patient alert, patient awake and patient oriented x3 Cognition: normal cognition Speech: speech normal Extrem General: capillary refill normal Psych Appearance: grossly normal and disheveled Course Orders Ordered: ED Orders 01/10/20 18:23 Consult to [employer] - Music Therapy Teacher Stat 01/10/20 18:26 Wound Culture and Gram Stain Stat 01/10/20 18:33 EKG-12 Lead Stat 01/10/20 18:45 BNP [NT-proBNP (BNP-Adult 18+)] Stat Complete Blood Count AUTO DIFF Stat Comprehensive Metabolic Panel Stat Lipase Stat Partial Thromboplastin Time Stat Prothrombin Time INR Stat Troponin & CK Cardiac Panel Stat 01/10/20 19:26 XR chest 1V Stat 01/10/20 19:48 Urinalysis and Microscopic Stat Acetaminophen (Tylenol) 650 mg PO Q6HR PRN PRN Reason: Fever/Mild Pain (1-3) Hydrocodone Bitart/Acetaminophen (Hamlin 5/325) 1 tab PO Q6H PRN PRN Reason: Pain, Moderate (4-6) Hydrocodone Bitart/Acetaminophen (Hamlin 5/325) 2 tab PO Q6H PRN PRN Reason: Pain, Severe (7-10) Aspirin (Aspirin Ec) 81 mg PO DAILY MURRAY Bisacodyl (Dulcolax) 10 mg NM DAILY PRN PRN Reason: Constipation Dextrose (D50w) 25 gm IV PRN PRN; Protocol PRN Reason: Hypoglycemia Diltiazem HCl (Cardizem Cd) 240 mg PO DAILY MURRAY Docusate Sodium (Colace) 100 mg PO BID PRN PRN Reason: Constipation Sodium Chloride (Normal Saline 0.45%) 1,000 mls @ 75 mls/hr IV CONT MURRAY Last Admin: 01/11/20 00:56 Dose: 75 mls/hr Documented by: NIKOLE Insulin Aspart (Novolog Flexpen) 0 unit SUBCUT ACHS MURRAY; Protocol Metoprolol Succinate (Toprol Xl) 25 mg PO DAILY [facility] Naloxone HCl (Narcan) 0.2 mg IV Q2MIN PRN PRN Reason: Opiate Reversal Ondansetron HCl (Zofran) 4 mg IV Q8HR PRN PRN Reason: Nausea And Vomiting Warfarin Sodium (Coumadin) 10 mg PO SuTuThSa@1700 [facility] Warfarin Sodium (Coumadin) 7.5 mg PO MoWeFr@1700 [facility] Warfarin Sodium (Coumadin) 10 mg PO NOW ONE Stop: 01/11/20 01:16 Last Admin: 01/11/20 01:04 Dose: 10 mg Documented by: NIKOLE Discontinued Medications Hydrocodone Bitart/Acetaminophen (Hamlin 5/325) 1 tab PO NOW ONE Stop: 01/10/20 20:21 Last Admin: 01/10/20 20:25 Dose: 1 tab Documented by: JESSICA Sodium Chloride (Normal Saline 0.9%) 1,000 mls @ 125 mls/hr IV CONT [facility] Last Infusion: 01/10/20 20:59 Dose: 125 mls/hr Documented by: Admin: 01/10/20 20:26 Dose: 125 mls/hr Documented by: JESSICA Sodium Chloride (Normal Saline 0.9%) 1,000 mls @ 75 mls/hr IV CONT [facility] Ceftriaxone Sodium/Dextrose (Rocephin) 1 gm in 50 mls @ 100 mls/hr IV Q24H [facility] Spironolactone (Aldactone) 25 mg PO DAILY [facility] Vital Signs Vital signs: Vital Signs - 8 hr 01/10/20 18:26 01/10/20 18:27 01/10/20 18:28 Temperature 97.5 F L 97.5 F L Pulse Rate 94 H 103 H 102 H Respiratory Rate 29 H 32 H 32 H Blood Pressure 124/89 Blood Pressure [Left Wrist] 124/89 Pulse Oximetry 98 98 98 01/10/20 18:30 01/10/20 18:45 01/10/20 19:00 Temperature Pulse Rate 110 H 103 H 103 H Respiratory Rate 47 H 22 28 H Blood Pressure 132/59 L 135/56 L Blood Pressure [Left Wrist] Pulse Oximetry 97 97 86 L 01/10/20 19:15 01/10/20 19:30 01/10/20 19:31 Temperature Pulse Rate 103 H 102 H 108 H Respiratory Rate 43 H 37 H 36 H Blood Pressure 156/98 H 150/76 H Blood Pressure [Left Wrist] Pulse Oximetry 97 97 97 01/10/20 19:45 01/10/20 20:00 01/10/20 20:15 Temperature Pulse Rate 133 H 89 107 H Respiratory Rate 30 H 32 H 36 H Blood Pressure Blood Pressure [Left Wrist] Pulse Oximetry 97 95 Medical Decision Making Medical Records Medical records reviewed: Yes I reviewed the patient's medical records. Lab Data Lab results reviewed: Yes I reviewed the patient's lab results. Result diagrams: 01/10/20 18:45 01/10/20 18:45 Labs: Lab Results 01/10/20 01/10/20 01/10/20 Range/Units 18:45 18:45 18:45 WBC 9.2 (4.5-11.0) X10^3/uL RBC 3.78 L (4.0-5.2) X10^6/uL Hgb 10.9 L (12.0-16.0) g/dL Hct 33.4 L (36-46) % MCV 88.2 (80-100) fL MCH 28.7 (26-34) PG MCHC 32.6 (30-36) % RDW 17.3 H (11.6-14.8) % Plt Count 239 (150-400) X10^3/uL Neut % (Auto) 83.5 H (50-75) % Lymph % (Auto) 7.4 L (25-40) % Kimball % (Auto) 8.1 (3-14) % Eos % (Auto) 0.6 L (2-4) % Baso % (Auto) 0.4 (0-2) % Neut # (Auto) 7700 H (6149-2282) /uL Lymph # (Auto) 700 L (1779-5569) /uL Kimball # (Auto) 800 (0-900) /uL Eos # (Auto) 100 (0-450) /uL Baso # (Auto) 0 (0-100) /uL PT 25.2 H (10.1-12.7) SECONDS INR 2.2 H (0.9-1.3) APTT 40 H D (26.4-36.2) SECONDS Sodium 140 (137-145) mmol/L Potassium 4.6 (3.4-5.1) mmol/L Chloride 108 H (98-107) mmol/L Carbon Dioxide 17 L (22-32) mmol/L BUN 69 H (7-17) mg/dL Creatinine 2.60 H (0.52-1.04) mg/dL Estimated GFR 18.1 L (>60) mL/min BUN/Creatinine Ratio 26.5 H (6-22) Glucose 109 (80-110) mg/dL Calcium 9.6 (8.4-10.2) mg/dL Magnesium (1.6-2.3) mg/dL Total Bilirubin 0.4 (0.2-1.3) mg/dL AST 34 (14-36) IU/L ALT 18 (<35) IU/L Alkaline Phosphatase 98 (38-126) U/L Total Creatine Kinase (30-135) U/L CK-MB (CK-2) (<2.37) ng/mL CK-MB (CK-2) Rel Index (1.5-5.0) % Troponin I (0.01-0.034) ng/mL C-Reactive Protein (<1.0) mg/dL NT-Pro-B Natriuret Pep (<125) pg/mL Total Protein 8.2 (6.3-8.2) g/dL Albumin 4.3 (3.5-5.0) g/dL Globulin 3.9 (1.7-4.1) g/dL Albumin/Globulin Ratio 1.1 (1.0-2.8) Lipase 213 (23-300) U/L Urine Color Urine Appearance Urine pH (4.5-8.0) Ur Specific Monroe (1.000-1.035) Urine Protein (Negative) Urine Glucose (UA) (Negative) g/dL Urine Ketones (NEGATIVE) Urine Occult Blood (Negative) Urine Nitrate (Negative) Urine Bilirubin (NEGATIVE) Urine Urobilinogen (0.2) E.U./dL Ur Leukocyte Esterase (NEGATIVE) Urine RBC (0-5/HPF) Urine WBC (0-5/HPF) Ur Squamous Epith Cells (0-5/HPF) Amorphous Sediment Urine Bacteria (None) Ur Culture Indicated? Ur Random Sodium (30-90) mmol/L Urine Creatinine mg/dL COVID-19 PCR (Negative) 01/10/20 01/10/20 01/10/20 Range/Units 18:45 18:45 18:45 WBC (4.5-11.0) X10^3/uL RBC (4.0-5.2) X10^6/uL Hgb (12.0-16.0) g/dL Hct (36-46) % MCV (80-100) fL MCH (26-34) PG MCHC (30-36) % RDW (11.6-14.8) % Plt Count (150-400) X10^3/uL Neut % (Auto) (50-75) % Lymph % (Auto) (25-40) % Kimball % (Auto) (3-14) % Eos % (Auto) (2-4) % Baso % (Auto) (0-2) % Neut # (Auto) (5339-6286) /uL Lymph # (Auto) (7757-5727) /uL Kimball # (Auto) (0-900) /uL Eos # (Auto) (0-450) /uL Baso # (Auto) (0-100) /uL PT (10.1-12.7) SECONDS INR (0.9-1.3) APTT (26.4-36.2) SECONDS Sodium (137-145) mmol/L Potassium (3.4-5.1) mmol/L Chloride (98-107) mmol/L Carbon Dioxide (22-32) mmol/L BUN (7-17) mg/dL Creatinine (0.52-1.04) mg/dL Estimated GFR (>60) mL/min BUN/Creatinine Ratio (6-22) Glucose (80-110) mg/dL Calcium (8.4-10.2) mg/dL Magnesium 2.7 H (1.6-2.3) mg/dL Total Bilirubin (0.2-1.3) mg/dL AST (14-36) IU/L ALT (<35) IU/L Alkaline Phosphatase (38-126) U/L Total Creatine Kinase 246 H (30-135) U/L CK-MB (CK-2) 4.16 H (<2.37) ng/mL CK-MB (CK-2) Rel Index 1.7 (1.5-5.0) % Troponin I 0.043 H (0.01-0.034) ng/mL C-Reactive Protein 1.2 H (<1.0) mg/dL NT-Pro-B Natriuret Pep 1110 H (<125) pg/mL Total Protein (6.3-8.2) g/dL Albumin (3.5-5.0) g/dL Globulin (1.7-4.1) g/dL Albumin/Globulin Ratio (1.0-2.8) Lipase (23-300) U/L Urine Color Urine Appearance Urine pH (4.5-8.0) Ur Specific Monroe (1.000-1.035) Urine Protein (Negative) Urine Glucose (UA) (Negative) g/dL Urine Ketones (NEGATIVE) Urine Occult Blood (Negative) Urine Nitrate (Negative) Urine Bilirubin (NEGATIVE) Urine Urobilinogen (0.2) E.U./dL Ur Leukocyte Esterase (NEGATIVE) Urine RBC (0-5/HPF) Urine WBC (0-5/HPF) Ur Squamous Epith Cells (0-5/HPF) Amorphous Sediment Urine Bacteria (None) Ur Culture Indicated? Ur Random Sodium (30-90) mmol/L Urine Creatinine mg/dL COVID-19 PCR (Negative) 01/10/20 01/10/20 01/10/20 Range/Units 19:40 19:48 19:48 WBC (4.5-11.0) X10^3/uL RBC (4.0-5.2) X10^6/uL Hgb (12.0-16.0) g/dL Hct (36-46) % MCV (80-100) fL MCH (26-34) PG MCHC (30-36) % RDW (11.6-14.8) % Plt Count (150-400) X10^3/uL Neut % (Auto) (50-75) % Lymph % (Auto) (25-40) % Kimball % (Auto) (3-14) % Eos % (Auto) (2-4) % Baso % (Auto) (0-2) % Neut # (Auto) (2410-0321) /uL Lymph # (Auto) (4957-2936) /uL Kimball # (Auto) (0-900) /uL Eos # (Auto) (0-450) /uL Baso # (Auto) (0-100) /uL PT (10.1-12.7) SECONDS INR (0.9-1.3) APTT (26.4-36.2) SECONDS Sodium (137-145) mmol/L Potassium (3.4-5.1) mmol/L Chloride (98-107) mmol/L Carbon Dioxide (22-32) mmol/L BUN (7-17) mg/dL Creatinine (0.52-1.04) mg/dL Estimated GFR (>60) mL/min BUN/Creatinine Ratio (6-22) Glucose (80-110) mg/dL Calcium (8.4-10.2) mg/dL Magnesium (1.6-2.3) mg/dL Total Bilirubin (0.2-1.3) mg/dL AST (14-36) IU/L ALT (<35) IU/L Alkaline Phosphatase (38-126) U/L Total Creatine Kinase (30-135) U/L CK-MB (CK-2) (<2.37) ng/mL CK-MB (CK-2) Rel Index (1.5-5.0) % Troponin I (0.01-0.034) ng/mL C-Reactive Protein (<1.0) mg/dL NT-Pro-B Natriuret Pep (<125) pg/mL Total Protein (6.3-8.2) g/dL Albumin (3.5-5.0) g/dL Globulin (1.7-4.1) g/dL Albumin/Globulin Ratio (1.0-2.8) Lipase (23-300) U/L Urine Color Yellow Urine Appearance Clear Urine pH 5.5 (4.5-8.0) Ur Specific Monroe 1.010 (1.000-1.035) Urine Protein Trace H (Negative) Urine Glucose (UA) Negative (Negative) g/dL Urine Ketones Negative (NEGATIVE) Urine Occult Blood Negative (Negative) Urine Nitrate Negative (Negative) Urine Bilirubin Negative (NEGATIVE) Urine Urobilinogen 0.2 (0.2) E.U./dL Ur Leukocyte Esterase Negative (NEGATIVE) Urine RBC None seen (0-5/HPF) Urine WBC 1-5/hpf (0-5/HPF) Ur Squamous Epith Cells 1-5 /hpf (0-5/HPF) Amorphous Sediment 1+ Urine Bacteria Occasional (0-1) D (None) Ur Culture Indicated? Cult not indicated Ur Random Sodium 37 (30-90) mmol/L Urine Creatinine mg/dL COVID-19 PCR Negative (Negative) 01/10/20 Range/Units 19:48 WBC (4.5-11.0) X10^3/uL RBC (4.0-5.2) X10^6/uL Hgb (12.0-16.0) g/dL Hct (36-46) % MCV (80-100) fL MCH (26-34) PG MCHC (30-36) % RDW (11.6-14.8) % Plt Count (150-400) X10^3/uL Neut % (Auto) (50-75) % Lymph % (Auto) (25-40) % Kimball % (Auto) (3-14) % Eos % (Auto) (2-4) % Baso % (Auto) (0-2) % Neut # (Auto) (7587-6582) /uL Lymph # (Auto) (7179-8692) /uL Kimball # (Auto) (0-900) /uL Eos # (Auto) (0-450) /uL Baso # (Auto) (0-100) /uL PT (10.1-12.7) SECONDS INR (0.9-1.3) APTT (26.4-36.2) SECONDS Sodium (137-145) mmol/L Potassium (3.4-5.1) mmol/L Chloride (98-107) mmol/L Carbon Dioxide (22-32) mmol/L BUN (7-17) mg/dL Creatinine (0.52-1.04) mg/dL Estimated GFR (>60) mL/min BUN/Creatinine Ratio (6-22) Glucose (80-110) mg/dL Calcium (8.4-10.2) mg/dL Magnesium (1.6-2.3) mg/dL Total Bilirubin (0.2-1.3) mg/dL AST (14-36) IU/L ALT (<35) IU/L Alkaline Phosphatase (38-126) U/L Total Creatine Kinase (30-135) U/L CK-MB (CK-2) (<2.37) ng/mL CK-MB (CK-2) Rel Index (1.5-5.0) % Troponin I (0.01-0.034) ng/mL C-Reactive Protein (<1.0) mg/dL NT-Pro-B Natriuret Pep (<125) pg/mL Total Protein (6.3-8.2) g/dL Albumin (3.5-5.0) g/dL Globulin (1.7-4.1) g/dL Albumin/Globulin Ratio (1.0-2.8) Lipase (23-300) U/L Urine Color Urine Appearance Urine pH (4.5-8.0) Ur Specific Monroe (1.000-1.035) Urine Protein (Negative) Urine Glucose (UA) (Negative) g/dL Urine Ketones (NEGATIVE) Urine Occult Blood (Negative) Urine Nitrate (Negative) Urine Bilirubin (NEGATIVE) Urine Urobilinogen (0.2) E.U./dL Ur Leukocyte Esterase (NEGATIVE) Urine RBC (0-5/HPF) Urine WBC (0-5/HPF) Ur Squamous Epith Cells (0-5/HPF) Amorphous Sediment Urine Bacteria (None) Ur Culture Indicated? Ur Random Sodium (30-90) mmol/L Urine Creatinine 76.5 mg/dL COVID-19 PCR (Negative) Imaging Data Chest x-ray: Radiologist's Impression: [place] [address] XRay Report Signed Patient: Lucila Hawkins R#: [id number] : 8Acct:[id number] Age/Sex: 69 / FDate of Service: 01/10/20 Loc: [id number] Accession Number: [id number] Procedure: XR chest 1V Ordering Provider: Phillip Ashford D.O. PROCEDURE: XR CHEST 1V INDICATIONS: SHORTNESS OF BREATH TECHNIQUE: One view of the chest was acquired. COMPARISON: [facility], , XR CHEST 1V, 07/02/2018, 14:07. [facility], , XR CHEST 1V, 03/08/2019, 11:58. FINDINGS: Surgical changes and devices: None. Lungs and pleura: Lungs are clear. No pleural effusions or pneumothorax. Mediastinum: Mediastinal contours appear normal. Heart size is enlarged as before. Bones and chest wall: No suspicious bony lesions. Overlying soft tissues appear unremarkable. IMPRESSION: Cardiomegaly similar to prior studies. No acute pulmonary findings. Dictated by: Wendy Carey M.D. on 01/10/2020 at 20:28 Approved by: Wendy Carey M.D. on 01/10/2020 at 20:29 ECG Data Attestation: I personally reviewed and interpreted this ECG as follows: Prior ECG tracings: not available for review Interpretation: Atrial fibrillation Ventricular rate of [address] T wave changes MDM Narrative Medical decision making narrative: Patient was evaluated by social Work in the emergency department. Patient was tachypneic however her chest x-ray is unremarkable. She does not have any signs of CHF/heart failure/COPD and she has never been diagnosed with these before. She does have a prescription for furosemide. Her lower extremity skin changes do not appear to be new. This does not appear to be cellulitis. There may potentially be a superficial infection however according to the patient actually looked better today than what they have in the past. She does have ecchymosis on the right side of her chest. This does not appear to be new. She is unsure as when this occurred. Feel that given the appearance of it is less likely that this ecchymosis occurred today when she fell. She did not hit her head. She is alert and oriented x3. She has no neck pain. We will hold on head and neck CT for now given these findings. I suspect some of the patient's unsteadiness today is related to the CBD oil that she took last evening. Her daughter is at bedside. Patient does not use CBD on a regular basis. Her daughter states that when she has taken this substance in the past she has had some dizziness. With the patient describes is not vertigo per more unsteadiness on her feet. This is also compounded by the fact that she did not sleep very well last evening because the pain that she is having in her lower extremities. Review of labs today does show an increase in her creatinine consistent with acute kidney injury. Upon further discussion with the patient she does admit that potentially she has not been drinking very much for the past couple days. Patient does not have a leukocytosis however her CO2 on the chemistry is 17. Considered a potential infectious issue going on with the patient however does not appear that she has pneumonia, no belly pain, her lower extremity changes are not new and I feel the cellulitis is unlikely, she has no urinary symptoms, no headache, will hold on any antibiotics for now. Given the issues that she is having home and her acute kidney injury I did discuss the case with ROSIBEL Mendieta the [facility] hospital provider who will admit the patient for further evaluation and treatment. Discuss all this with the patient. She expressed understanding and agreement. Discharge Plan Departure Patient Disposition: Admitted As Inpatient Clinical Impression: Acute kidney injury, A-fib Discharge Date/Time: 01/10/20 21:02 Referrals: Dillon Shelton MD [Primary Care Provider] - Admit Date/Time: 01/10/20 20:20 Admit Provider: Hakeem Mendieta
[2020-01-10 18:57] LABS: Add Manual Diff / Slide Review NO; Basophils Absolute Auto 0 /uL (0-100); Basophils Percent Auto 0.4 % (0-2); Eosinophils Absolute Auto 100 /uL (0-450); Eosinophils Percent Auto 0.6 % (2-4); Hematocrit 33.4 % (36-46); Hemoglobin 10.9 g/dL (12.0-16.0); Lymphocytes Absolute Auto 700 /uL (1100-4500); Lymphocytes Percent Auto 7.4 % (25-40); Mean Corpuscular HGB Conc 32.6 % (30-36); Mean Corpuscular Hemoglobin 28.7 PG (26-34); Mean Corpuscular Volume 88.2 fL (80-100); Monocytes Absolute Auto 800 /uL (0-900); Monocytes Percent Auto 8.1 % (3-14); Neutrophils Absolute Auto 7700 /uL (1500-7000); Neutrophils Percent Auto 83.5 % (50-75); Platelet Count 239 X10^3/uL (150-400); Red Blood Cell Count 3.78 X10^6/uL (4.0-5.2); Red Cell Distribution Width 17.3 % (11.6-14.8); White Blood Cell Count 9.2 X10^3/uL (4.5-11.0)
[2020-01-10 19:05] LABS: INR 2.2 (0.9-1.3); Prothrombin Time 25.2 SECONDS (10.1-12.7)
[2020-01-10 19:08] LABS: PTT Partial Thromboplastin Tim 40 SECONDS (26.4-36.2)
[2020-01-10 19:10] LABS: Creatine Kinase 246 U/L (30-135)
[2020-01-10 19:11] LABS: Alanine Aminotransferase 18 IU/L (<35); Albumin 4.3 g/dL (3.5-5.0); Albumin Globulin Ratio 1.1 (1.0-2.8); Alkaline Phosphatase 98 U/L (38-126); Aspartate Aminotransferase 34 IU/L (14-36); BUN Creatinine Ratio 26.5 (6-22); Bilirubin Total 0.4 mg/dL (0.2-1.3); Blood Urea Nitrogen 69 mg/dL (7-17); Calcium 9.6 mg/dL (8.4-10.2); Carbon Dioxide 17 mmol/L (22-32); Chloride 108 mmol/L (98-107); Estimated Glomerular Filt Rate 18.1 mL/min (>60); Globulin 3.9 g/dL (1.7-4.1); Glucose 109 mg/dL (80-110); HEMOLYSIS 18 (0-50); Lipase 213 U/L (23-300); Potassium 4.6 mmol/L (3.4-5.1); Sodium 140 mmol/L (137-145); Total Protein 8.2 g/dL (6.3-8.2)
[2020-01-10 19:23] LABS: NT-proBNP (BNP-Adult 18+) 1110 pg/mL (<125); Troponin I 0.043 ng/mL (0.01-0.034)
[2020-01-10 19:26] LABS: CKMB % Relative Index 1.7 % (1.5-5.0); Creatine Kinase MB 4.16 ng/mL (<2.37)
--- NOTE | 2020-01-10 19:26 | DI.RAD.S_ITS ---
PROCEDURE: XR CHEST 1V INDICATIONS: SHORTNESS OF BREATH TECHNIQUE: One view of the chest was acquired. COMPARISON: [facility], CR, XR CHEST 1V, 07/02/2018, 14:07. [facility], CR, XR CHEST 1V, 03/08/2019, 11:58. FINDINGS: Surgical changes and devices: None. Lungs and pleura: Lungs are clear. No pleural effusions or pneumothorax. Mediastinum: Mediastinal contours appear normal. Heart size is enlarged as before. Bones and chest wall: No suspicious bony lesions. Overlying soft tissues appear unremarkable. IMPRESSION: Cardiomegaly similar to prior studies. No acute pulmonary findings. Dictated by: Wendy Carey M.D. on 01/10/2020 at 20:28 Approved by: Wendy Carey M.D. on 01/10/2020 at 20:29
--- NOTE | 2020-01-10 19:35 | CM.SWNOTE ---
SITE WORKER note SITE WORKER consult requested for patient. Patient is a 69 y/o female who presents to ED today with her daughter with stated complaint of weakness. Per verbal report from Dr. Ashford, patient had fallen and contacted EMS 3 times today, and has been receiving less in home care recently due to COVID. SITE WORKER enters room and speaks with patient and daughter. Patient is A+O x3, but does state she is experiencing some pain. Patient states that she feels she is getting what she needs from [facility], but is wanting caregiving services. Patient and daughter both explain that patient has been attempting to get set up with [employer] for several months, but that it hasn't been completed. SITE WORKER inquires further, and patient explains she is working with [facility]. Patient states Kathe, her mattress spring encaser at [facility] told her approx 1 week prior that she had her packet had been submitted for her Medicaid application and she should be hearing back roughly 1 week later. Patient and daughter both express agreement that patient would benefit from in home caregiving support, and daughter expresses frustration at length of time that patient has waited while applying for Medicaid/[employer]. Patient provides permission for SITE WORKER and SITE WORKER staff to contact [facility] on patient's behalf following d/c. Due to time of meeting, SITE WORKER is unable to contact [facility] to inquire about status of patient application for medicaid or [employer]. SITE WORKER offers to inform SITE WORKER on shift following day of situation and see if that SITE WORKER is able to contact [facility] while they are open to inquire further. Patient and daughter agreeable to this and request follow up call after [facility] is contacted. Pl: SITE WORKER will update SITE WORKER on shift tomorrow for follow up with [facility] and patient. AYLA Cobb
[2020-01-10 20:12] LABS: RBC Urine None Seen (0-5/HPF)
[2020-01-10 20:14] LABS: Appearance Urine UA CLEAR; Bilirubin Urine UA NEGATIVE (NEGATIVE); Color Urine UA YELLOW; Glucose Urine UA NEGATIVE (Negative); Ketones Urine UA NEGATIVE (NEGATIVE); Leukocyte Esterase Urine UA NEGATIVE (NEGATIVE); Nitrite Urine UA NEGATIVE (Negative); Occult Blood Urine UA NEGATIVE (Negative); Protein Urine UA TRACE (Negative); Urobilinogen Urine UA 0.2 E.U./dL (0.2)
[2020-01-10 20:24] LABS: WBC Urine 1-5/HPF (0-5/HPF); pH Urine UA 5.5 (4.5-8.0)
[2020-01-10 20:25] LABS: Amorphous Sediment Urine 1+; Bacteria Urine Occasional (0-1); Culture Indicated Urine Cult Not Indicated; Squamous Epithelial Cell Urine 1-5 /HPF (0-5/HPF)
[2020-01-10] MEDS: HYDROCODONE/ACET 5/325 TABLET 1 TAB PO (20:25)
[2020-01-10] MEDS: SODIUM CHLORIDE 0.9% 1,000 ML 125 ML IV (20:26)
--- NOTE | 2020-01-10 20:59 | PC.NURSE ---
Pt arrives to ED after EMS beind dispatched to pt's house x 3 today for weakness and falls. Pt states unsteady on feet causing her to fall, on thinners for afib. bruises noted on L cheek and B/L upper arms and R breast which appear to be old due to color. Redness and excoriation to B/L LE and weeping. afebrile, denies CP SOB. CLEARANCE REPRESENTATIVE in department for consult due to falls at home.
--- NOTE | 2020-01-10 21:45 | DI.ECHO.S_ITS ---
[facility] +---------+ [facility] +---------+ : : [address] : [place] : : : : [id number] : : : : Phone: [phone]+ Echocardiogram Report + + :Name: KEDAR SCOTT Study Date: 01/11/2020 Height: 60 in : :[facility] Weight: 250 lb : : Gender: Female BSA: 2.1 m2 : :: 1950 Age: 69 yrs BP: 153/93 mmHg: :Reason For Study: Congestive Heart Failure : :Ordering Physician: Xuan : :Hospitalist Performed By: Ann Marie Ruelas : :Referring: JONATHAN APARICIO : + + Interpretation Summary Patient refused Apical window due to pain. Skin under left breast was red in appearance prior Apical attempts. The study quality was technically difficult. Images were not obtained from all of the standard acoustic windows due to the limited scope of the study. The apical views were not obtained due to due to patient pain. The patient was in atrial fibrillation with heart rates between 84-98 bpm during the exam. The left ventricle is normal in size and wall thickness. The ejection fraction is estimated to be 50-55%. Regional wall motion abnormalities cannot be excluded due to limited visualization. Right ventricular appears grossly normal in size and function based of parasternal views. The aortic valve is moderately calcified. Patient has history of mild aortic stenosis from March 22, 2018. Today, aortic valve cusp separation measures 1.5cm. There is no hemodynamically significant valvular aortic stenosis. There is mild tricuspid regurgitation. Pulmonary artery pressures cannot be estimated because of the lack of a measurable TR jet velocity but the IVC suggests a CVP of around 3 mmHg. Procedure: A two-dimensional transthoracic echocardiogram with color flow and Doppler was performed. The apical views were not obtained due to due to patient pain. Images were not obtained from all of the standard acoustic windows due to the limited scope of the study. Comparison is made with the echocardiogram of 03/22/2018. The study quality was technically difficult. The patient was in atrial fibrillation with heart rates between 84-98 bpm during the exam. Left Ventricle: The left ventricle is normal in size and wall thickness. The ejection fraction is estimated to be 50-55%. Regional wall motion abnormalities cannot be excluded due to limited visualization. Diastolic function could not be accurately assessed due to atrial fibrillation. Right Ventricle: Right ventricular appears grossly normal in size and function based of parasternal views. Atria: Left atrial dimension of 4.7cm suggests moderate dilatation. Right atrium not well visualized. Mitral Valve: There is moderate mitral annular calcification. There is moderate calcification extending into the subvalvular apparatus. No significant mitral valve stenosis. There is no mitral regurgitation noted. Aortic Valve: The aortic valve is moderately calcified. The aortic valve is not well visualized. There is discrete nodular thickening of the non- coronary cusp. Patient has history of mild aortic stenosis from March 22, 2018. Today, aortic valve cusp separation measures 1.5cm. There is no hemodynamically significant valvular aortic stenosis. No aortic regurgitation is present. Compared to the prior echo study, there has been a decrease in the severity of aortic regurgitation. Tricuspid Valve: The tricuspid valve is not well visualized, but is grossly normal. There is mild tricuspid regurgitation. Pulmonary artery pressures cannot be estimated because of the lack of a measurable TR jet velocity but the IVC suggests a CVP of around 3 mmHg. Pulmonic Valve: The pulmonic valve is not well visualized. There is mild pulmonic regurgitation. Great Vessels: The aortic root is normal size. The ascending aorta is at the upper limits of normal in size. The IVC is of normal diameter and collapses greater than 50% with a sniff. This suggests a low right atrial pressure of 3 mm Hg. Pericardium/ Pleura There is no pericardial effusion. There is no pleural effusion. MMode/2D Measurements & Calculations LVIDd: 5.0 cm LVOT diam: 2.0 cm LVIDs: 3.5 cm Ao root diam: 3.1 cm FS: 29.9 % asc Aorta Diam: 3.5 cm EPSS: 1.2 cm Ao Arch Diam (Prox Trans): 2.9 cm IVSd: 0.91 cm LVPWd: 0.96 cm LV parekh. diameter/BSA (cm/m^2): 2.4 LV sys. diameter/BSA (cm/m^2): 1.7 LA dimension: 4.7 cm IVC diam: 2.0 cm Reading Physician:[id number] PM
[2020-01-10 22:22] LABS: COVID19 -Nasal RAPID Negative (Negative)
[2020-01-10 22:22] LABS: Magnesium 2.7 mg/dL (1.6-2.3)
[2020-01-10 22:25] LABS: C-Reactive Protein Quant 1.2 mg/dL (<1.0)
[2020-01-10 22:29] LABS: pH ABG 7.28 (7.35-7.45)
[2020-01-10 22:30] LABS: Fractionated Inspired Oxygen 21; HCO3 ABG 19 mmol/L (22-26); Oxygen Saturation ABG 92 % (95-100); PCO2 ABG 39.5 mmHg (35-45); PO2 ABG 71 mmHg (80-100); TCO2 ABG 20 mmol/L (21-31)
[2020-01-10 22:31] LABS: Sodium Urine Random 37 mmol/L (30-90)
[2020-01-10 22:39] LABS: Erythrocyte Sedimentation Rate 64 MM/HR (0-20)
[2020-01-10 22:44] LABS: Troponin I 0.044 ng/mL (0.01-0.034)
[2020-01-11] VITALS (8 sets, daily range): BP systolic 113–154; BP diastolic 64–93; PULSE 71–111; RESP 20–22; TEMP 36–36.7; O2SAT 96–97
--- NOTE | 2020-01-11 00:21 | P.HP_ITS ---
History of Present Illness History of Present Illness Date Patient Seen: 01/10/20 Time Patient Seen: 22:40 Chief complaint: weakness / falls Narrative: Ms. Lucila Hawkins is a 69-year-old female with history significant for atrial fibrillation anticoagulated on Coumadin, congestive heart failure with preserved ejection fraction, diabetes with neuropathy, h ypertension, hyperlipidemia, peripheral vascular disease chronic leg ulcers, morbid obesity and obstructive sleep apnea presents to the emergency department after calling EMS 3 times for falls today. The patient reports being unsteady on her feet and typically ambulates with a walker. She has been having increased pain in her lower extremities for which she takes [facility] 5/325 twice daily. Pain is not been controlled and she has added CBD while for pain. She states her falls were nonsyncopal and denies complaints of striking her head, neck or back pain. She describes generalized weakness and being unable to get up unassisted. She is on chronic Lasix therapy for CHF and bilateral lower ex tremity venous stasis leg ulcers which she states are actually looking better. She denies complaints of fevers or chills and has no known COVID-19 exposures. She denies complaints of chest pain and has intermittent palpitations. She reports no complaints of shortness of breath and sleeps in a recliner. She has no cough or wheezing. Denies complaints of abdominal pain, nausea vomiting. She had mild constipation in the last week but that has since resolved. She endorses urinary frequency and urgency on Lasix therapy. The patient lives alone in a 2 bedroom house with assistance of home health for a few hours per day. Upon arrival to the emergency department the patient has a temperature 97.5?, heart rate of 102, blood pressure 124/89, respiratory rate of 32 saturating 98% on room air. Chest x-ray is obtained which demonstrates cardiomegaly without evidence of pulmonary edema. Twelve lead EKG is obtained finding atrial fibrillation with a rapid ventricular response at 101 with unifocal PVCs, QRS is 82 milliseconds and QTC is 446 milliseconds, no evidence of ischemia with Q-wav es in V1 and V2. On laboratory analysis the patient has white count of 9.2 with elevated neutrophils at 83.5%, hemoglobin 10.9, hematocrit of 33.4 and platelets of 239. She has a PT of 25.2 with an INR of 2.2 and a PTT of 40. She has a sodium 140 and chloride of 108 potassium 4.6, BUN of 69 and a creatinine of 2.6. Her EGFR is 18.1 with a BUN creatinine ratio of 26.5. Her her total bilirubin 0.4, AST 34, ALT 18 and alkaline phosphatase is 98. Her total CK is 246, and be fraction is 4.16 with an index of 1.7%. Her troponin is elevated at 0.043. Her BMP is 1110. Her urine is not infected with trace protein. In the ER the patient was started on normal saline 125 cc/hour and given [facility] [place] 5/325 x1 for leg pain. The patient is admitted to the medicine service for generalized weakness, falls and acute kidney injury. Patient History Medical History Atrial fibrillation (Chronic 12/2011) Diabetes (Chronic Unknown) Essential hypertension (Chronic) Foot pain (Resolved Unknown) Foot ulcer (Resolved 08/2016) Gout (Chronic Unknown) Heart murmur (Chronic Unknown) Hypertension (Chronic Unknown) Mixed hyperlipidemia (Chronic 01/30/00) Morbid obesity with body mass index (BMI) of 50.0 to 59.9 in adult (Chronic) Obstructive sleep apnea syndrome (Chronic) Osteoarthritis (Chronic Unknown) 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) Peripheral neuropathy (Chronic Unknown) PVD (peripheral vascular disease) (Chronic Unknown) Type 2 diabetes mellitus with diabetic neuropathy, without long-term current use of insulin (Chronic) Umbilical hernia (Chronic) Surgical History History of angioplasty (Resolved 10/2016) Family & Social History Family History (Updated 01/11/20 @ 01:03 by GUANAKITO Osorio) Father Heart attack Mother Stroke Brother No problems noted. Brother No problems noted. Sister Fibromyalgia Social History: household members none Prior Living Arrangements House Safety & Behavioral: Feels Safe in Current Yes Environment Been Physically Hurt or No Threatened By a Person Suicidal Ideation Description None Suicide Plan Description No Plan Tobacco & Substance use: Smoking Status Never smoker alcohol intake never alcohol intake frequency 0-2 drinks per day Substance Use Type does not use Meds Home Medications and Allergies Home Medications Medication Instructions Recorded Confirmed Type Glucose: Home Monitor #1 ea 04/29/18 01/10/20 Rx Glucose: Test Strips #100 each 06/09/18 01/10/20 Rx lisinopril 40 mg tablet 40 mg PO BEDTIME #90 tab 03/09/19 01/10/20 Rx warfarin 10 mg tablet 10 mg PO SUTUTHSA #60 tab 03/14/19 01/10/20 Rx diltiazem HCl 240 mg 240 mg PO DAILY #90 cap 07/26/19 01/10/20 Rx capsule,extended release 24 hr furosemide 40 mg tablet 40 mg PO BID #60 tab 07/28/19 01/10/20 Rx potassium chloride 20 mEq 20 meq PO BID #60 tab 07/28/19 01/10/20 Rx tablet,extended release lorazepam 2 mg tablet 2 mg PO BEDTIME #30 tab 09/21/19 01/10/20 Rx warfarin 7.5 mg tablet 7.5 mg PO MOWEFR #60 tab 09/21/19 01/10/20 Rx metoprolol succinate 25 mg 25 mg PO DAILY #90 tab 09/28/19 01/10/20 Rx tablet,extended release 24 hr hydrocodone-acetaminophen 2 tab PO BID PRN 01/10/20 01/10/20 History Allergies Allergy/AdvReac Type Severity Reaction Status Date / Time latex Allergy Intermediate skin Verified 01/10/20 20:22 blistering Sulfa (Sulfonamide Allergy Intermediate PATIENT Verified 01/10/20 20:22 Antibiotics) CAN'T REMEMBER IT WAS SO LONG AGO gabapentin [GABAPENTIN] AdvReac Intermediate Bodyaches, Verified 01/10/20 20:22 muscle aches pregabalin [From Lyrica] AdvReac Intermediate Muscle Pain Verified 01/10/20 20:22 duloxetine [DULOXETINE] AdvReac Unknown nausea and Verified 01/10/20 20:22 vomiting Review of Systems Review of Systems ROS: Yes All systems reviewed with the patient and are negative except as otherwise documented Exam Vital Signs (past 8 hours): - 01/10/20 18:26 01/10/20 18:27 01/10/20 18:28 Temperature 97.5 F L 97.5 F L Pulse Rate 94 H 103 H 102 H Respiratory Rate 29 H 32 H 32 H Blood Pressure 124/89 Blood Pressure [Left Wrist] 124/89 Pulse Oximetry 98 98 98 01/10/20 18:30 01/10/20 18:45 01/10/20 19:00 Temperature Pulse Rate 110 H 103 H 103 H Respiratory Rate 47 H 22 28 H Blood Pressure 132/59 L 135/56 L Blood Pressure [Left Wrist] Pulse Oximetry 97 97 86 L 01/10/20 19:15 01/10/20 19:30 01/10/20 19:31 Temperature Pulse Rate 103 H 102 H 108 H Respiratory Rate 43 H 37 H 36 H Blood Pressure 156/98 H 150/76 H Blood Pressure [Left Wrist] Pulse Oximetry 97 97 97 01/10/20 19:45 01/10/20 20:00 01/10/20 20:15 Temperature Pulse Rate 133 H 89 107 H Respiratory Rate 30 H 32 H 36 H Blood Pressure Blood Pressure [Left Wrist] Pulse Oximetry 97 95 01/10/20 20:30 01/10/20 20:45 01/10/20 21:25 Temperature 96.1 F L Pulse Rate 106 H 83 75 Respiratory Rate 36 H 35 H 22 Blood Pressure 142/107 H 110/69 Blood Pressure [Left Wrist] Pulse Oximetry 96 96 96 Oxygen Delivery Method Room Air Oxygen Flow Rate 0 Narrative Exam Narrative: GENERAL APPEARANCE: well developed, super morbidly obese with BMI of 57.3, resting quietly in recliner chair in no acute distress. HEENT: Contusion left cheek, PERRLA, conjunctiva clear, EOMs intact without nystagmus, no sinus tenderness to percussion, no rhinorrhea or epistaxis, mucous membranes are moist and pink without lesions or exudate. NECK/THYROID: neck supple, nontender palpation, no step-offs, no JVD, no carotid bruit, no thyromegaly, trachea midline. LYMPH NODES: no cervical or supraclavicular lymphadenopathy. SKIN: [place], warm and dry, ecchymosis bilateral arms, venous stasis changes bilateral lower legs with weeping right anterior left posterior leg HEART: Irregularly irregular rhythm, S1-S2, 1/6 systolic murmur, no rubs or gallops, brisk capillary refill, 1+ pedal edema LUNGS: clear to auscultation bilaterally, no coarseness crackles or wheezing, no cough present CHEST: Symmetrical movement, no accessory muscle use, good tidal volume. ABDOMEN: Soft, obese, exam limited by body habitus, no abdominal tenderness on palpation, active bowel tones. EXTREMITIES: moves all extremities, strength is 4/5 and symmetrical, no deformities or joint effusions. NEUROLOGIC: AAO x3, no focal neurologic deficits, cranial nerves II-XII grossly intact, bilateral neuropathy distal to the ankles, hearing grossly normal to speech. PSYCH: Drowsy, Fair eye contact, cooperative with stable behavior. Objective Labs Result Diagrams: 01/10/20 18:45 01/10/20 18:45 Labs: Laboratory Results - last 24 hr 01/10/20 01/10/20 01/10/20 18:45 18:45 18:45 WBC 9.2 RBC 3.78 L Hgb 10.9 L Hct 33.4 L MCV 88.2 MCH 28.7 MCHC 32.6 RDW 17.3 H Plt Count 239 Neut % (Auto) 83.5 H Lymph % (Auto) 7.4 L Crisp % (Auto) 8.1 Eos % (Auto) 0.6 L Baso % (Auto) 0.4 Neut # (Auto) 7700 H Lymph # (Auto) 700 L Crisp # (Auto) 800 Eos # (Auto) 100 Baso # (Auto) 0 ESR PT 25.2 H INR 2.2 H APTT 40 H D ABG pH ABG pCO2 ABG pO2 ABG HCO3 ABG Total CO2 ABG O2 Saturation ABG Base Excess FiO2 Sodium 140 Potassium 4.6 Chloride 108 H Carbon Dioxide 17 L BUN 69 H Creatinine 2.60 H Estimated GFR 18.1 L BUN/Creatinine Ratio 26.5 H Glucose 109 Calcium 9.6 Magnesium Total Bilirubin 0.4 AST 34 ALT 18 Alkaline Phosphatase 98 Total Creatine Kinase CK-MB (CK-2) CK-MB (CK-2) Rel Index Troponin I C-Reactive Protein NT-Pro-B Natriuret Pep Total Protein 8.2 Albumin 4.3 Globulin 3.9 Albumin/Globulin Ratio 1.1 Lipase 213 Urine Color Urine Appearance Urine pH Ur Specific [place] Urine Protein Urine Glucose (UA) Urine Ketones Urine Occult Blood Urine Nitrate Urine Bilirubin Urine Urobilinogen Ur Leukocyte Esterase Urine RBC Urine WBC Ur Squamous Epith Cells Amorphous Sediment Urine Bacteria Ur Culture Indicated? Ur Random Sodium COVID-19 PCR 01/10/20 01/10/20 01/10/20 18:45 18:45 18:45 WBC RBC Hgb Hct MCV MCH MCHC RDW Plt Count Neut % (Auto) Lymph % (Auto) Crisp % (Auto) Eos % (Auto) Baso % (Auto) Neut # (Auto) Lymph # (Auto) Crisp # (Auto) Eos # (Auto) Baso # (Auto) ESR PT INR APTT ABG pH ABG pCO2 ABG pO2 ABG HCO3 ABG Total CO2 ABG O2 Saturation ABG Base Excess FiO2 Sodium Potassium Chloride Carbon Dioxide BUN Creatinine Estimated GFR BUN/Creatinine Ratio Glucose Calcium Magnesium 2.7 H Total Bilirubin AST ALT Alkaline Phosphatase Total Creatine Kinase 246 H CK-MB (CK-2) 4.16 H CK-MB (CK-2) Rel Index 1.7 Troponin I 0.043 H C-Reactive Protein 1.2 H NT-Pro-B Natriuret Pep 1110 H Total Protein Albumin Globulin Albumin/Globulin Ratio Lipase Urine Color Urine Appearance Urine pH Ur Specific [place] Urine Protein Urine Glucose (UA) Urine Ketones Urine Occult Blood Urine Nitrate Urine Bilirubin Urine Urobilinogen Ur Leukocyte Esterase Urine RBC Urine WBC Ur Squamous Epith Cells Amorphous Sediment Urine Bacteria Ur Culture Indicated? Ur Random Sodium COVID-19 PCR 01/10/20 01/10/20 01/10/20 19:40 19:48 19:48 WBC RBC Hgb Hct MCV MCH MCHC RDW Plt Count Neut % (Auto) Lymph % (Auto) Cris[place] % (Auto) Eos % (Auto) Baso % (Auto) Neut # (Auto) Lymph # (Auto) Crisp # (Auto) Eos # (Auto) Baso # (Auto) ESR PT INR APTT ABG pH ABG pCO2 ABG pO2 ABG HCO3 ABG Total CO2 ABG O2 Saturation ABG Base Excess FiO2 Sodium Potassium Chloride Carbon Dioxide BUN Creatinine Estimated GFR BUN/Creatinine Ratio Glucose Calcium Magnesium Total Bilirubin AST ALT Alkaline Phosphatase Total Creatine Kinase CK-MB (CK-2) CK-MB (CK-2) Rel Index Troponin I C-Reactive Protein NT-Pro-B Natriuret Pep Total Protein Albumin Globulin Albumin/Globulin Ratio Lipase Urine Color Yellow Urine Appearance Clear Urine pH 5.5 Ur Specific [place] 1.010 Urine Protein Trace H Urine Glucose (UA) Negative Urine Ketones Negative Urine Occult Blood Negative Urine Nitrate Negative Urine Bilirubin Negative Urine Urobilinogen 0.2 Ur Leukocyte Esterase Negative Urine RBC None seen Urine WBC 1-5/hpf Ur Squamous Epith Cells 1-5 /hpf Amorphous Sediment 1+ Urine Bacteria Occasional (0-1) D Ur Culture Indicated? Cult not indicated Ur Random Sodium 37 COVID-19 PCR Negative 01/10/20 01/10/20 01/10/20 22:06 22:10 22:10 WBC RBC Hgb Hct MCV MCH MCHC RDW Plt Count Neut % (Auto) Lymph % (Auto) [place] % (Auto) Eos % (Auto) Baso % (Auto) Neut # (Auto) Lymph # (Auto) Crisp # (Auto) Eos # (Auto) Baso # (Auto) ESR 64 H PT INR APTT ABG pH 7.28 L* ABG pCO2 39.5 ABG pO2 71 L ABG HCO3 19 L ABG Total CO2 20 L ABG O2 Saturation 92 L ABG Base Excess -8.0 L FiO2 21 Sodium Potassium Chloride Carbon Dioxide BUN Creatinine Estimated GFR BUN/Creatinine Ratio Glucose Calcium Magnesium Total Bilirubin AST ALT Alkaline Phosphatase Total Creatine Kinase CK-MB (CK-2) CK-MB (CK-2) Rel Index Troponin I 0.044 H C-Reactive Protein NT-Pro-B Natriuret Pep Total Protein Albumin Globulin Albumin/Globulin Ratio Lipase Urine Color Urine Appearance Urine pH Ur Specific [place] Urine Protein Urine Glucose (UA) Urine Ketones Urine Occult Blood Urine Nitrate Urine Bilirubin Urine Urobilinogen Ur Leukocyte Esterase Urine RBC Urine WBC Ur Squamous Epith Cells Amorphous Sediment Urine Bacteria Ur Culture Indicated? Ur Random Sodium COVID-19 PCR Assessment & Plan Assessment & Plan narrative: S a 69-year-old female patient who presents to the ER with multiple falls today secondary to generalized weakness requiring assistance of paramedics. The patient states she has been feeling unsteady on her feet and has had increased leg pain for which she used CBD. In the ER the patient is found to be in acute renal failure with metabolic acidosis. 1. Acute kidney injury, present on admission, active -BUN and creatinine upon arrival at 69 and 2.6 respectively, potassium is within normal range of 4.6. Patient had a creatinine of 0.9 on 11/19/2019 -patient is currently on Lasix 40 mg twice daily and reports decreased oral fluid intake. She further states that her leg swelling is better in the last few days. -patient is have a history CHF with preserved ejection fraction with last EF documented at 60-65%. -the patient's acute injury appears to be pre renal from over dehydration, will obtain a urine sodium and urine creatinine. -will rehydrate gently with normal saline 0.45% at 75 cc/hour related to history CHF and metabolic acidosis. -will stop lisinopril and hold Lasix tonight and re-evaluate tomorrow. 2. Uncompensated metabolic acidosis secondary to acute kidney injury, present on admission, active. -the patient is found to be acidotic on chemistries with a CO of 17. ABG is obtained finding a pH of 7.28, pCO2 of 39, PO2 71 with a bicarb of 18 and a base excess of -8. Anion gap is 15. -patient is tachypneic upon arrival at but with 30 breaths per minute believed compensatory for metabolic acidosis. -will treat underlying cause of acute kidney injury. 3. Persistent atrial fibrillation, present on admission, active -the patient reports intermittently having palpitations and irregular heartbeat. Twelve lead EKG finds atrial fibrillation with a rapid spots at 101 beats per minute with unifocal PVCs. -Potassium is 4.6 will obtain a magnesium level. -will continue regimen of diltiazem to and 40 mg extended release daily and metoprolol succinate 25 mg daily. -long-term anticoagulation with warfarin with therapeutic INR at 2.2. Will continue patient's home regimen of warfarin. 4. Elevated troponin, acute, present on admission, active -patient denies chest pain but is tachypneic at the rate of 30 in the setting of metabolic acidosis. -elevated troponin at 0.043, will recheck troponin for stability in the setting of decreased clearance secondary to GARRISON. 5. Frequent falls, chronic -the patient lives alone with assistance of home health few hours per day and uses a walker for ambulation. -patient reports increased generalized weakness which could be secondary to dehydration, metabolic acidosis word uses CBD. -requested PT and OT to consult, evaluate and treat. 6. Peripheral vascular disease with venous stasis ulcers, chronic, stable -Patient with bilateral venous stasis ulcers and skin lesions followed by wound care clinic. -patient reports worsening pain with decreased edema, no obvious cellulitic ag nges however patient does have a elevation in neutrophils at 83.5%, will obtain a sed rate and CRP. -will wrap bilateral lower extremities with Cong wrap for compression. 7. Diabetes type 2, with neuropathy, stable -blood sugar on admission is 109. Patient is not currently on diabetic medication. -will obtain a hemoglobin A1c. 8. Super morbid obesity, chronic, stable -BMI of 57.3 -requested dietitian to consult. VTE prophylaxis: Bilateral Cong wraps lower extremities, anticoagulated on warfa rin. IV fluid: Saline 0.45% at 75 cc/hour Diet: Constant carbohydrate low-sodium Code status: Full code, patient designates her daughter Gege to be her surrogate decision maker. The patient is admitted to the hospital related to acute kidney injury with uncompensated metabolic acidosis, atrial fibrillation and elevated troponin requiring further monitoring and evaluation. The patient is admitted as an inpatient with expected length of stay to be greater than 2 midnights. Scores GCS [place] coma scale eye opening: Spontaneous [place] coma scale verbal response: Orientated [place] coma scale motor response: Obey commands [place] coma scale total score: 15
[2020-01-11 00:23] LABS: Procalcitonin 0.06 ng/mL (<0.5)
[2020-01-11 00:29] LABS: Creatinine Urine Random 76.5 mg/dL
[2020-01-11] MEDS: SODIUM CHLORIDE 0.45% 1,000 ML 75 ML IV ×2 (00:56→12:37)
[2020-01-11] MEDS: WARFARIN 5 MG TABLET 10 MG PO (01:04)
[2020-01-11] MEDS: HYDROCODONE/ACET 5/325 TABLET 2 TAB PO ×2 (01:08→15:46)
[2020-01-11 02:50] LABS: Hemoglobin A1C% w Est Avg Glu 6.1 % (4.0-6.0)
[2020-01-11] MEDS: LORATADINE 10 MG TABLET PO (05:01)
[2020-01-11 05:41] LABS: Add Manual Diff / Slide Review NO; Basophils Absolute Auto 0 /uL (0-100); Basophils Percent Auto 0.5 % (0-2); Eosinophils Absolute Auto 100 /uL (0-450); Hematocrit 32.5 % (36-46); Hemoglobin 10.6 g/dL (12.0-16.0); INR 2.6 (0.9-1.3); Lymphocytes Absolute Auto 700 /uL (1100-4500); Lymphocytes Percent Auto 9.8 % (25-40); Mean Corpuscular HGB Conc 32.5 % (30-36); Mean Corpuscular Hemoglobin 28.7 PG (26-34); Mean Corpuscular Volume 88.5 fL (80-100); Monocytes Absolute Auto 700 /uL (0-900); Monocytes Percent Auto 10.4 % (3-14); Neutrophils Absolute Auto 5300 /uL (1500-7000); Neutrophils Percent Auto 77.3 % (50-75); Platelet Count 220 X10^3/uL (150-400); Prothrombin Time 29.7 SECONDS (10.1-12.7); Red Blood Cell Count 3.68 X10^6/uL (4.0-5.2); Red Cell Distribution Width 17.3 % (11.6-14.8); White Blood Cell Count 6.9 X10^3/uL (4.5-11.0)
[2020-01-11 05:48] LABS: Lactate (Lactic Acid) 0.9 mmol/L (0.7-2.1)
[2020-01-11 05:50] LABS: Albumin 3.7 g/dL (3.5-5.0); BUN Creatinine Ratio 27.7 (6-22); Blood Urea Nitrogen 59 mg/dL (7-17); Calcium 9.2 mg/dL (8.4-10.2); Carbon Dioxide 18 mmol/L (22-32); Chloride 109 mmol/L (98-107); Cholesterol 167 mg/dL (140-199); Estimated Glomerular Filt Rate 22.8 mL/min (>60); Glucose 91 mg/dL (80-110); HDL Cholesterol 45 mg/dL (40-60); HEMOLYSIS < 15 (0-50); LDL Cholesterol Calculated 104 mg/dL (<100); Phosphorous 5.1 mg/dL (2.8-4.1); Sodium 139 mmol/L (137-145); Triglycerides 90 mg/dL (35-150)
[2020-01-11 05:53] LABS: Uric Acid 11.7 mg/dL (2.5-6.2)
[2020-01-11 05:57] LABS: NT-proBNP (BNP-Adult 18+) 1130 pg/mL (<125)
[2020-01-11 06:15] LABS: Thyroid Stimulating Hormone 1.26 uIU/mL (0.47-4.68)
[2020-01-11] MEDS: ASPIRIN EC 81 MG TABLET PO (09:20)
[2020-01-11] MEDS: METOPROLOL ER 25 MG TABLET PO (09:22)
[2020-01-11] MEDS: HYDROCODONE/ACET 5/325 TABLET 1 TAB PO ×2 (09:22→23:40)
[2020-01-11] MEDS: NYSTATIN POWDER 15GM 1 APPLIC TOP (09:23)
[2020-01-11] MEDS: dilTIAZem CD 240 MG CAP PO (09:24)
--- NOTE | 2020-01-11 11:04 | PT.IIE ---
Current Diagnoses Acute kidney failure, unspecified (01/10/20) Surgical History (Last Reviewed 01/11/20 @ 01:02 by GUANAKITO Osorio) History of angioplasty (Resolved 10/2016) Medical History (Last Reviewed 01/11/20 @ 01:14 by Phillip Ashford DO) Atrial fibrillation (Chronic 12/2011) Diabetes (Chronic Unknown) Essential hypertension (Chronic) Foot pain (Resolved Unknown) Foot ulcer (Resolved 08/2016) Gout (Chronic Unknown) Heart murmur (Chronic Unknown) Hypertension (Chronic Unknown) Mixed hyperlipidemia (Chronic 01/30/00) Morbid obesity with body mass index (BMI) of 50.0 to 59.9 in adult (Chronic) Obstructive sleep apnea syndrome (Chronic) Osteoarthritis (Chronic Unknown) 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) Peripheral neuropathy (Chronic Unknown) PVD (peripheral vascular disease) (Chronic Unknown) Type 2 diabetes mellitus with diabetic neuropathy, without long-term current use of insulin (Chronic) Umbilical hernia (Chronic) Physical Therapy Inpatient Evaluation/Re-Eval M1 PT/OT-IP Prior Functional Status Start: 01/11/20 12:13 Freq: NEEDED Status: Active Protocol: Document 01/11/20 11:04 AB (Rec: 01/11/20 12:28 AB [id number]) Medical Review Prior Functional Status Medical History Reviewed Yes Communication able to make needs known Mobility and Gait pt stated that she is modified independent with all mobilities and ambulation with FWW; pt stated that her friend buys her groceries Social History Household Members none Living Arrangements House Number of Floors (Floors) One Floor Number of Stairs To Enter/Railing? 1 step to enter Home Environment Standard Height Toilet,Walk in Shower Home Equipment Front Wheel Walker,Hand Held Shower,Grab Bars Near Toilet Additional Social History Comment pt stated that she has bilateral bed rails M2 PT-IP Current Condition Start: 01/11/20 12:13 Freq: NEEDED Status: Active Protocol: Document 01/11/20 11:04 AB (Rec: 01/11/20 12:28 AB [email or web address]) Physical Therapy Current Condition Current Condition Evaluation Date 01/11/20 Treatment Diagnosis s/p fall; acute kidney injury; A-fib; difficulty in walking Onset Date 01/10/20 Precautions Other Precautions falls M3 PT-IP Subjective Start: 01/11/20 12:13 Freq: NEEDED Status: Active Protocol: Document 01/11/20 11:04 AB (Rec: 01/11/20 12:28 AB [email or web address]) Subjective Physical Therapy Visit Type Type Initial Evaluation Visit Start Time 11:04 Visit Stop Time 11:33 Total Visit Minutes 29 Number of JOB PRINTER Visits 0 Physical Therapy Visit Comments Patient Comments pt initially refusing but agreed to get up and requested to use the toilet Therapy Pain Assessment Pain When Pain Assessed During Mobility Pain Present Pain Present Pain Reported Location bilateral legs Scale Used pain scale not stated Pain Behaviors Guarding,Wincing Pain Management Techniques Modification of Treatment,Re- positioning,Timing of Activity with Medications M4 PT-IP Mobility and Gait Start: 01/11/20 12:13 Freq: NEEDED Status: Active Protocol: Document 01/11/20 11:04 AB (Rec: 01/11/20 12:28 [email or web address]) PT-Bed Mobility Assessment Supine to Sit Supine to Sit Maximum Assistance,1 Person Assistance,2 Person Assistance ,Head of Bed Elevated,Bedrails Sit to Supine Sit to Supine Maximum Assistance,2 Person Assistance,Bedrails Scooting Scooting to Edge of Bed Maximum Assistance PT-Transfer Assessment Sit to and From Stand Sit to and from Stand Maximum Assistance,1 Person Assistance,Use of Upper Extremities Equipment Transfer Assistive Device Gait Belt,Front Wheeled Walker Orthotic/Prosthetic Devices or Brace: No Transfers Transfer Destination Bedside Commode Transfer Technique Stand Step Pivot Transfer Ability Level of Assist Maximum Assistance,1 Person Assistance,Use of Upper Extremities Comments Mobility Comments completed supine to sit with HOB elevated max A x 1-2 and max cues. able to sit on EOB CGA. completed sit to stand max A x 1 and cues and transfer to bedside commode max A and cues using FWW. completed sit to stand from bedside commode mod to max A and was able to maintain standing min A while NAC assisted with hygiene care. completed step transfer to the bed using FWW max A and max cues. completed sit to supine max A x 2 and max cues. positioned pt in bed. call light and table placed within reach. pt is unable to stand upright during standing/transfers. tends to lean down on FWW on her forearms. emergency technician came in and will do ECHO procedure on pt and needs pt back in bed. pt was assisted back to the bed. Gait Assessment Comments Gait Comments unable at this time but was able to take steps during transfers. PT-Balance Assessment Sitting Balance and Reactions Static Sitting Balance Ability Good Dynamic Sitting Balance Ability Fair Standing Balance and Reactions Static Standing Balance Ability Poor Dynamic Standing Balance Ability Poor Device Used FWW M5 PT-IP Objective Assessments Start: 01/11/20 12:13 Freq: NEEDED Status: Active Protocol: Document 01/11/20 11:04 AB (Rec: 01/11/20 12:28 AB [email or web address]) Orientation Orientation/Cognition Level of Alertness Alert Orientation Name Safety Awareness Decreased Safety Awareness Strength Lower Extremity Strength Assessment Bilaterally Impaired Hip 3-/5 Knee 3/5 Muscle Tone Muscle Tone WNL Yes M6 PT-IP Treatment Start: 01/11/20 12:13 Freq: NEEDED Status: Active Protocol: Document 01/11/20 11:04 AB (Rec: 01/11/20 12:28 AB [email or web address]) Physical Therapy Treatment Education Education Provided Safety M7 PT-IP Assessment and Plan Start: 01/11/20 12:13 Freq: NEEDED Status: Active Protocol: Document 01/11/20 11:04 AB (Rec: 01/11/20 12:28 AB [email or web address]) PT Summary Assessment and Plan Potential Rehabilitation Potential Fair Status of Condition at Evaluation Evolving Summary Impairments Pain,ROM,Strength,Balance, Coordination,Sensation,Tone, Cognition,Bed Mobility, Transfers,Gait,Activity Tolerance Assessment Summary pt requires 2 person max A with mobility at this time and unable to ambulate due to decrease strength and activity tolerance. pt lives alone and will not have any assistance at home. pt will require SNF rehab to improve strength and independence. Goals Bed Mobility Goal Standby Assistance Transfer Goal Standby Assistance,Front Wheeled Walker Gait Goal Standby Assistance,Front Wheel Walker Gait Distance 50 Other Goals up/down 1 step SBA Days to Meet Goals 10 Frequency of Treatment Frequency Of Treatment Once a Day Treatment Plan Physical Therapy Treatment Plan Bed Mobility Training,Transfer Training,Gait Training, Therapeutic Exercise,Balance Retraining,Discharge Planning, Neuromuscular Re-ed, Coordination Retraining Other Recommendations and Next Treatment ambulation Focus Recommendations To Nursing Amount of Assist Needed 2 Person Assist Discharge Recommendations PT Discharge Recommendations SNF Rehab Transportation Needs at Discharge Wheelchair/Cabulance
--- NOTE | 2020-01-11 14:28 | CM.IDA ---
Initial DCP Assessment Note Patient is a 69 yo female, resident of [place]. Patient presents after falling multiple times at home, brought in by EMS PCP: Dillon Shelton Payer: Dieud[facility] Reviewed chart. Noted ED WORLD GEOGRAPHY TEACHER Kevin's note that indicated patient and family wondering when patient will get [employer] caregivers ? Placed call to [facility] and patient was not in their client database. Placed call to [facility], learned that Kolby Fitzpatrick P# [phone] has been assigned as patient's SWer but had to leave him a msg as he was in trainings all day (per his VM). have not heard back. Met w/patient very briefly today as she was beginning her session w/PT. Patient was in obvious distress while talking (exertion), says that she lives alone and dtr lives locally, works in the evenings per patient. Patient requiring 2 person max assist today and will require SNF stay to regain strength before return home (hopefully w/[facility] cgs in place), patient agreeable to this plan, [facility] vs [facility] are options w/[facility]. [facility] is not taking referrals at this time. Placed call to [facility], gave referral. Will not fax to [facility] today- they often request clinical/SNF auth request w/in 24-48 hr of DC date CM team following closely for coordination of DCP. Dtr appreciative of updates when available. AYLA Jackson Discharge Planning/Care Management CM Discharge Assessment Start: 01/11/20 14:17 Freq: Status: Active Protocol: Document 01/11/20 14:17 ADAIR (Rec: 01/11/20 14:28 ADAIR [id number]) Discharge Planning Assessment Assigned Expense Clerk AYLA Amaya DPMARTINA/Assigned Designee Name genny Stoner/JACOB Contact Information [phone] Advance Directives? Yes History Provided By Patient,Medical Record Prior Living Arrangements House Household Members none Independent with ADL's Yes: Modified, assist w/ groceries, chores Needs Assistance With Meal Prep,Home Chores / Shopping Patient/Family Preference [facility] Facility Barriers to Discharge Yes Comment Lives alone, currently 2 person assist Discharge Plan [facility] Facility Transportation Arrangement Friends Referrals Initiated [facility]
[2020-01-11] MEDS: hydrOXYzine pamoate 25 MG CAPSULE 12.5 MG PO (15:57)
--- NOTE | 2020-01-11 16:16 | PC.NURSE ---
Addendum entered by Ailyn Rodriguez R.N. 01/11/20 23:32: Pt awake and alert and desires assistance to commode. Demands manan wraps/compression wraps be removed d/t pain. Hospitalist Anam was informed and came to bedside. Compression wraps removed leaving telfa pads in place. Up to commode with assistance. Addendum entered by Ailyn Rodriguez R.N. 01/11/20 23:00: Declines offer for nystatin powder to folds. Continuous pulse oximeter in place with room air saturation level 94%. Pt denies h/o sleep apnea with cpap. Mostly sleeping once assisted into bed. Pedal pulses present BL with doppler. Addendum entered by Ailyn Rodriguez R.N. 01/11/20 18:36: Now denies pain. Taking diet well. Dr. Hoskins has seen pt and pt states will elevate legs BL in recliner as now legs are dependent. Original Note: Pt sitting up in recliner @ beginning of shift rocking back and forth and moaning. C/o pain to legs BL 9/10 and states does experience baseline pain to LE's. Pt requests compression wraps be removed. Discussion with pt to treat pain first as compression is beneficial. Pt reports wraps were placed last night to treat edema. BL manan wraps intact. Medicated pt with two vicodin and 12.5 mg vistaril as pt reports feels tightness in thighs. Tele in place. Apical rate irregular. Unable to palpate pedal pulses BL. Feet BL are red in color with visible thicky flaky skin. Bruise to left buttock when assisted with toileting. Able to bear own weight and ambulate slowly with walker. Returned to recliner and BL LE's elevated to manage edema. Call light available and use encouraged.
--- NOTE | 2020-01-11 17:52 | PM.PN.1 ---
Subjective Subjective Date Patient Seen: 01/11/20 Interval history: Lucila Hawkins is a 69-year-old female with a past medical history significant for persistent atrial fibrillation anticoagulated on warfarin, congestive heart failure with preserved ejection fraction, diabetes mellitus type II, non-insulin using with neuropathy, hypertension, hyperlipidemia, peripheral vascular disease with chronic venous stasis ulcers followed by wound care at [facility], morbid obesity and obstructive sleep apnea who presented to the emergency department for multiple falls today secondary to generalized weakness requiring assistance of paramedics. The patient is resting in bedside chair. She reports she feels fatigued and not foggy minded. She is mildly somnolent. She just received pain medication per nursing. Plan to perform repeat ABG to assess acidosis and possible carbon dioxide retention. She has pain of her legs especially with palpation and reports she does not like to elevate legs all the time due to pain. She continues to have generalized weakness. She has no other complaints and denies headache, ear pain, rhinitis, sore throat, cough, shortness of breath, chest pain, abdominal pain, nausea, vomiting, fever, chills, dysuria, diarrhea or constipation. She is voiding and eliminating without difficulty. She is minimally with significant assistance. Exam Vital Signs (past 8 hours): - 01/11/20 12:00 01/11/20 15:20 Temperature 98.0 F 97.6 F Pulse Rate 105 H 75 Respiratory Rate 20 21 Blood Pressure 154/93 H 113/72 Pulse Oximetry 96 97 Oxygen Delivery Method Room Air Oxygen Flow Rate 0 Narrative Exam Narrative: General: No acute distress, well-developed, well-nourished, appropriately interactive HEENT: Normocephalic, atraumatic. External ears without defect. Pupils equal, round, and reactive to light and accommodation. Anicteric sclerae, moist conjunctivae, and no lid lag. Oropharynx free of erythema and cobble stoning with moist mucosa. Neck: Supple with full range of motion. No jugular venous distension. No bruits. No lymphadenopathy or thyromegaly. Cardiovascular:Irregularly irregular without murmurs, rubs, or gallops appreciated Pulmonary: Clear to auscultation bilaterally without crackles, wheezes, or rhonchi. Normal respiratory effort with no use of accessory muscles. Abdomen: Soft, obese, bowel tones present. nontender, nondistended. Extremities: No clubbing or cyanosis. Moderate edema of bilateral feet with CONG wraps in place and mildly wet due to drainage. Skin: Normal temperature, turgor, and texture; no rash, ulcers, or subcutaneous nodules appreciated. Neurological: Cranial nerves grossly intact. Normal muscle strength, tone, and bulk. Reflexes, coordination, and sensory function within normal limits. No known gait impairment. Psychiatric: Normal mood and affect. Alert and oriented to person, place, and time. Objective Labs Result Diagrams: 01/11/20 05:00 01/11/20 19:49 Labs: Laboratory Results - last 24 hr 01/10/20 01/10/20 01/10/20 18:45 18:45 18:45 WBC 9.2 RBC 3.78 L Hgb 10.9 L Hct 33.4 L MCV 88.2 MCH 28.7 MCHC 32.6 RDW 17.3 H Plt Count 239 Neut % (Auto) 83.5 H Lymph % (Auto) 7.4 L [place] % (Auto) 8.1 Eos % (Auto) 0.6 L Baso % (Auto) 0.4 Neut # (Auto) 7700 H Lymph # (Auto) 700 L [place] # (Auto) 800 Eos # (Auto) 100 Baso # (Auto) 0 ESR PT 25.2 H INR 2.2 H APTT 40 H D ABG pH ABG pCO2 ABG pO2 ABG HCO3 ABG Total CO2 ABG O2 Saturation ABG Base Excess FiO2 Sodium 140 Potassium 4.6 Chloride 108 H Carbon Dioxide 17 L BUN 69 H Creatinine 2.60 H Estimated GFR 18.1 L BUN/Creatinine Ratio 26.5 H Glucose 109 Hemoglobin A1c Lactate Uric Acid Calcium 9.6 Phosphorus Magnesium Total Bilirubin 0.4 AST 34 ALT 18 Alkaline Phosphatase 98 Total Creatine Kinase CK-MB (CK-2) CK-MB (CK-2) Rel Index Troponin I C-Reactive Protein NT-Pro-B Natriuret Pep Total Protein 8.2 Albumin 4.3 Globulin 3.9 Albumin/Globulin Ratio 1.1 Triglycerides Cholesterol LDL Cholesterol, Calc HDL Cholesterol Lipase 213 Procalcitonin TSH Urine Color Urine Appearance Urine pH Ur Specific [place] Urine Protein Urine Glucose (UA) Urine Ketones Urine Occult Blood Urine Nitrate Urine Bilirubin Urine Urobilinogen Ur Leukocyte Esterase Urine RBC Urine WBC Ur Squamous Epith Cells Amorphous Sediment Urine Bacteria Ur Culture Indicated? Ur Random Sodium Urine Creatinine COVID-19 PCR 01/10/20 01/10/20 01/10/20 18:45 18:45 18:45 WBC RBC Hgb Hct MCV MCH MCHC RDW Plt Count Neut % (Auto) Lymph % (Auto) [place] % (Auto) Eos % (Auto) Baso % (Auto) Neut # (Auto) Lymph # (Auto) [place] # (Auto) Eos # (Auto) Baso # (Auto) ESR PT INR APTT ABG pH ABG pCO2 ABG pO2 ABG HCO3 ABG Total CO2 ABG O2 Saturation ABG Base Excess FiO2 Sodium Potassium Chloride Carbon Dioxide BUN Creatinine Estimated GFR BUN/Creatinine Ratio Glucose Hemoglobin A1c Lactate Uric Acid Calcium Phosphorus Magnesium 2.7 H Total Bilirubin AST ALT Alkaline Phosphatase Total Creatine Kinase 246 H CK-MB (CK-2) 4.16 H CK-MB (CK-2) Rel Index 1.7 Troponin I 0.043 H C-Reactive Protein 1.2 H NT-Pro-B Natriuret Pep 1110 H Total Protein Albumin Globulin Albumin/Globulin Ratio Triglycerides Cholesterol LDL Cholesterol, Calc HDL Cholesterol Lipase Procalcitonin TSH Urine Color Urine Appearance Urine pH Ur Specific [place] Urine Protein Urine Glucose (UA) Urine Ketones Urine Occult Blood Urine Nitrate Urine Bilirubin Urine Urobilinogen Ur Leukocyte Esterase Urine RBC Urine WBC Ur Squamous Epith Cells Amorphous Sediment Urine Bacteria Ur Culture Indicated? Ur Random Sodium Urine Creatinine COVID-19 PCR 01/10/20 01/10/20 01/10/20 18:45 19:40 19:48 WBC RBC Hgb Hct MCV MCH MCHC RDW Plt Count Neut % (Auto) Lymph % (Auto) [place] % (Auto) Eos % (Auto) Baso % (Auto) Neut # (Auto) Lymph # (Auto) [place] # (Auto) Eos # (Auto) Baso # (Auto) ESR PT INR APTT ABG pH ABG pCO2 ABG pO2 ABG HCO3 ABG Total CO2 ABG O2 Saturation ABG Base Excess FiO2 Sodium Potassium Chloride Carbon Dioxide BUN Creatinine Estimated GFR BUN/Creatinine Ratio Glucose Hemoglobin A1c 6.1 H Lactate Uric Acid Calcium Phosphorus Magnesium Total Bilirubin AST ALT Alkaline Phosphatase Total Creatine Kinase CK-MB (CK-2) CK-MB (CK-2) Rel Index Troponin I C-Reactive Protein NT-Pro-B Natriuret Pep Total Protein Albumin Globulin Albumin/Globulin Ratio Triglycerides Cholesterol LDL Cholesterol, Calc HDL Cholesterol Lipase Procalcitonin TSH Urine Color Yellow Urine Appearance Clear Urine pH 5.5 Ur Specific [place] 1.010 Urine Protein Trace H Urine Glucose (UA) Negative Urine Ketones Negative Urine Occult Blood Negative Urine Nitrate Negative Urine Bilirubin Negative Urine Urobilinogen 0.2 Ur Leukocyte Esterase Negative Urine RBC None seen Urine WBC 1-5/hpf Ur Squamous Epith Cells 1-5 /hpf Amorphous Sediment 1+ Urine Bacteria Occasional (0-1) D Ur Culture Indicated? Cult not indicated Ur Random Sodium Urine Creatinine COVID-19 PCR Negative 01/10/20 01/10/20 01/10/20 19:48 19:48 22:06 WBC RBC Hgb Hct MCV MCH MCHC RDW Plt Count Neut % (Auto) Lymph % (Auto) [place] % (Auto) Eos % (Auto) Baso % (Auto) Neut # (Auto) Lymph # (Auto) [place] # (Auto) Eos # (Auto) Baso # (Auto) ESR PT INR APTT ABG pH 7.28 L* ABG pCO2 39.5 ABG pO2 71 L ABG HCO3 19 L ABG Total CO2 20 L ABG O2 Saturation 92 L ABG Base Excess -8.0 L FiO2 21 Sodium Potassium Chloride Carbon Dioxide BUN Creatinine Estimated GFR BUN/Creatinine Ratio Glucose Hemoglobin A1c Lactate Uric Acid Calcium Phosphorus Magnesium Total Bilirubin AST ALT Alkaline Phosphatase Total Creatine Kinase CK-MB (CK-2) CK-MB (CK-2) Rel Index Troponin I C-Reactive Protein NT-Pro-B Natriuret Pep Total Protein Albumin Globulin Albumin/Globulin Ratio Triglycerides Cholesterol LDL Cholesterol, Calc HDL Cholesterol Lipase Procalcitonin TSH Urine Color Urine Appearance Urine pH Ur Specific [place] Urine Protein Urine Glucose (UA) Urine Ketones Urine Occult Blood Urine Nitrate Urine Bilirubin Urine Urobilinogen Ur Leukocyte Esterase Urine RBC Urine WBC Ur Squamous Epith Cells Amorphous Sediment Urine Bacteria Ur Culture Indicated? Ur Random Sodium 37 Urine Creatinine 76.5 COVID-19 PCR 01/10/20 01/10/20 01/10/20 22:10 22:10 22:10 WBC RBC Hgb Hct MCV MCH MCHC RDW Plt Count Neut % (Auto) Lymph % (Auto) [place] % (Auto) Eos % (Auto) Baso % (Auto) Neut # (Auto) Lymph # (Auto) [place] # (Auto) Eos # (Auto) Baso # (Auto) ESR 64 H PT INR APTT ABG pH ABG pCO2 ABG pO2 ABG HCO3 ABG Total CO2 ABG O2 Saturation ABG Base Excess FiO2 Sodium Potassium Chloride Carbon Dioxide BUN Creatinine Estimated GFR BUN/Creatinine Ratio Glucose Hemoglobin A1c Lactate Uric Acid Calcium Phosphorus Magnesium Total Bilirubin AST ALT Alkaline Phosphatase Total Creatine Kinase CK-MB (CK-2) CK-MB (CK-2) Rel Index Troponin I 0.044 H C-Reactive Protein NT-Pro-B Natriuret Pep Total Protein Albumin Globulin Albumin/Globulin Ratio Triglycerides Cholesterol LDL Cholesterol, Calc HDL Cholesterol Lipase Procalcitonin 0.06 TSH Urine Color Urine Appearance Urine pH Ur Specific [place] Urine Protein Urine Glucose (UA) Urine Ketones Urine Occult Blood Urine Nitrate Urine Bilirubin Urine Urobilinogen Ur Leukocyte Esterase Urine RBC Urine WBC Ur Squamous Epith Cells Amorphous Sediment Urine Bacteria Ur Culture Indicated? Ur Random Sodium Urine Creatinine COVID-19 PCR 01/11/20 01/11/20 01/11/20 05:00 05:00 05:00 WBC 6.9 RBC 3.68 L Hgb 10.6 L Hct 32.5 L MCV 88.5 MCH 28.7 MCHC 32.5 RDW 17.3 H Plt Count 220 Neut % (Auto) 77.3 H Lymph % (Auto) 9.8 L [place] % (Auto) 10.4 Eos % (Auto) 2.0 Baso % (Auto) 0.5 Neut # (Auto) 5300 Lymph # (Auto) 700 L [place] # (Auto) 700 Eos # (Auto) 100 Baso # (Auto) 0 ESR PT 29.7 H INR 2.6 H APTT ABG pH ABG pCO2 ABG pO2 ABG HCO3 ABG Total CO2 ABG O2 Saturation ABG Base Excess FiO2 Sodium 139 Potassium 4.0 Chloride 109 H Carbon Dioxide 18 L BUN 59 H Creatinine 2.13 H Estimated GFR 22.8 L BUN/Creatinine Ratio 27.7 H Glucose 91 Hemoglobin A1c Lactate Uric Acid Calcium 9.2 Phosphorus 5.1 H Magnesium Total Bilirubin AST ALT Alkaline Phosphatase Total Creatine Kinase CK-MB (CK-2) CK-MB (CK-2) Rel Index Troponin I C-Reactive Protein NT-Pro-B Natriuret Pep 1130 H Total Protein Albumin 3.7 Globulin Albumin/Globulin Ratio Triglycerides 90 Cholesterol 167 LDL Cholesterol, Calc 104 H HDL Cholesterol 45 Lipase Procalcitonin TSH Urine Color Urine Appearance Urine pH Ur Specific [place] Urine Protein Urine Glucose (UA) Urine Ketones Urine Occult Blood Urine Nitrate Urine Bilirubin Urine Urobilinogen Ur Leukocyte Esterase Urine RBC Urine WBC Ur Squamous Epith Cells Amorphous Sediment Urine Bacteria Ur Culture Indicated? Ur Random Sodium Urine Creatinine COVID-19 PCR 01/11/20 01/11/20 01/11/20 05:00 05:00 05:00 WBC RBC Hgb Hct MCV MCH MCHC RDW Plt Count Neut % (Auto) Lymph % (Auto) [place] % (Auto) Eos % (Auto) Baso % (Auto) Neut # (Auto) Lymph # (Auto) [place] # (Auto) Eos # (Auto) Baso # (Auto) ESR PT INR APTT ABG pH ABG pCO2 ABG pO2 ABG HCO3 ABG Total CO2 ABG O2 Saturation ABG Base Excess FiO2 Sodium Potassium Chloride Carbon Dioxide BUN Creatinine Estimated GFR BUN/Creatinine Ratio Glucose Hemoglobin A1c Lactate 0.9 Uric Acid 11.7 H Calcium Phosphorus Magnesium Total Bilirubin AST ALT Alkaline Phosphatase Total Creatine Kinase CK-MB (CK-2) CK-MB (CK-2) Rel Index Troponin I C-Reactive Protein NT-Pro-B Natriuret Pep Total Protein Albumin Globulin Albumin/Globulin Ratio Triglycerides Cholesterol LDL Cholesterol, Calc HDL Cholesterol Lipase Procalcitonin TSH 1.26 Urine Color Urine Appearance Urine pH Ur Specific [place] Urine Protein Urine Glucose (UA) Urine Ketones Urine Occult Blood Urine Nitrate Urine Bilirubin Urine Urobilinogen Ur Leukocyte Esterase Urine RBC Urine WBC Ur Squamous Epith Cells Amorphous Sediment Urine Bacteria Ur Culture Indicated? Ur Random Sodium Urine Creatinine COVID-19 PCR Assessment & Plan Assessment & Plan narrative: Lucila Hawkins is a 69-year-old female with a past medical history significant for persistent atrial fibrillation anticoagulated on warfarin, congestive heart failure with preserved ejection fraction, diabetes mellitus type II, non-insulin using with neuropathy, hypertension, hyperlipidemia, peripheral vascular disease with chronic venous stasis ulcers followed by wound care at [facility], morbid obesity and obstructive sleep apnea who presented to the emergency department for multiple falls today secondary to generalized weakness requiring assistance of paramedics. 1. Acute kidney injury, present on admission. Improving. -Secondary to pre-renal azotemia (FENA 0.7)from over diuresis and dehydration from home furosemide 40 mg twice daily and reports decreased oral fluid intake . -Initial creatinine 2.6 BUN 69. Baseline creatinine 0.9 on 11/19/2019. Creatinine improving to 2.13. -Continue gentle IV fluid hydration with normal saline 0.45% at 75 cc/hour related to history CHF and metabolic acidosis. -Held lisinopril and furosemide and continue to re-evaluate daily. 2. Metabolic acidosis, secondary to acute kidney injury, present on admission. Improving. -Patient was acidotic on chemistries with a CO of 17. ABG demonstrated metabolic acidosis with: pH of 7.28, pCO2 of 39, PO2 71 and HCO3 18. Repeat ABG demonstrates near resolution with IV fluid hydration as above. -Continue to treat acute kidney injury as above. 3. Persistent atrial fibrillation, present on admission. Stable. -Patient reports intermittent palpitations and irregular heartbeat. -EKG demonstrated atrial fibrillation without acute ischemic changes such as ST elevation or depression. -Continue home diltiazem ER 240 mg and metoprolol succinate 25 mg daily. -INR therapeutic at 2.6. Continue home regimen of warfarin. 4. Elevated troponin of unclear significance, acute, present on admission. Stable. -Patient denies chest pain or ACS symptoms. -EKG demonstrated atrial fibrillation without acute ischemic changes such as ST elevation or depression. Echocardiogram technically difficult due to body habitus and zelda intertrigo, therefore, unable to assess wall motion. -Initial troponin slightly elevated at 0.043and repeat unchanged 0.44 in the setting of GARRISON. No need to trend unless patient develops CP. 5. Frequent falls with generalized weakness, super morbid obesity and deconditioning, chronic, present on admission. Active. -Patient lives alone with assistance of home health a few hours per day and uses a walker for ambulation. Patient reports increased generalized weakness which could be secondary to dehydration, metabolic acidosis or use of CBD. -Continue physical and occupational therapy evaluation and treatment. 6. Peripheral vascular disease with venous stasis ulcers and pain with opiate dependence, chronic, present on admision. Stable -Patient with bilateral venous stasis ulcers and skin lesions followed by wound care clinic at [facility]. -Patient reports worsening pain with decreased edema. No obvious cellulitic changes. ESR elevated at 62 which is elevated once age adjusted (> 40 abnormal) and CRP 1.2 is not elevated once age adjusted (> 2). -Continue wound care per nursing with bilateral lower extremities with Cong wrap for compression. -Continue hydrocodone 5-10 mg every 6 hours as needed for pain. 7. Diabetes mellitus type 2, non-insulin using and diet controlled, with neuropathy, present on admission. Stable. -Hemoglobin A1C is 6.1% indicative of excellent glycemic control in the range of prediabetes. Patient is not currently medically treated and diet controlled. -Continue ACHS blood glucose checks and low dose correctional scale insulin. -Continue heart healthy/carbohydrate controlled diet. 8. Super morbid obesity, chronic, present on admission. Stable. -BMI of 57.3. -Counseled the patient on lifestyle modification including diet and exercise. -Consulted dietitian and we appreciate her time and recommendations. 9. Heart failure with preserved EF, chronic, present on admission. Stable. -Does not represent CHF exacerbation. -Held furosemide and lisinopril as above. Continue metoprolol as above. -Continue gentle IV fluid hydrationn as above and assess fluid balance daily. 10. History of NABILA and OHS not on CPAP/BiPAP due to non-complian, chronic, present on admission. Stable. -Plan to college and career counselor regarding risk of not treating NABILA/OHS. Code status: Full code, patient designates her daughter Gege to be her surrogate decision maker. VTE prophylaxis: Bilateral Cong wraps lower extremities, anticoagulated on warfarin. Disposition: Patient remains hospitalized to IV hydrate and treat GARRISON and increase strength and mobility. [facility].
[2020-01-11] MEDS: WARFARIN 7.5 MG TABLET PO (18:19)
[2020-01-11 19:08] LABS: Fractionated Inspired Oxygen 21; HCO3 ABG 20 mmol/L (22-26); Oxygen Saturation ABG 95 % (95-100); PCO2 ABG 38.8 mmHg (35-45); PO2 ABG 79 mmHg (80-100); TCO2 ABG 21 mmol/L (21-31); pH ABG 7.33 (7.35-7.45)
[2020-01-11 20:17] LABS: BUN Creatinine Ratio 26.5 (6-22); Blood Urea Nitrogen 52 mg/dL (7-17); Calcium 9.2 mg/dL (8.4-10.2); Carbon Dioxide 22 mmol/L (22-32); Chloride 108 mmol/L (98-107); Estimated Glomerular Filt Rate 25.1 mL/min (>60); Glucose 102 mg/dL (80-110); HEMOLYSIS < 15 (0-50); Potassium 4.2 mmol/L (3.4-5.1); Sodium 140 mmol/L (137-145)
[2020-01-11] MEDS: hydrOXYzine pamoate 25 MG CAPSULE PO (23:40)
[2020-01-12] VITALS (7 sets, daily range): BP systolic 127–168; BP diastolic 56–72; PULSE 71–94; RESP 19–22; TEMP 35.9–36.7; O2SAT 94–97
[2020-01-12] MEDS: SODIUM CHLORIDE 0.45% 1,000 ML 75 ML IV ×2 (02:11→15:20)
--- NOTE | 2020-01-12 03:01 | PC.NURSE ---
Addendum entered by Tiffani Woody R.N. 01/12/20 05:04: Additional note: patient refusing to have legs elevated Addendum entered by Tiffani Woody R.N. 01/12/20 05:03: New telfa pads placed on open areas of legs and legs rewrapped with manan wraps toes to knees bilaterally between 0330 and 0400. Patient then complaining of increasing pain. Discussed pain management with GUANAKITO Mendieta, and new order received to change Vicodin frequency from q6h to q4h; medicated with Vicodin following order change. Original Note: 2340 Patient crying and hollering out due to pain in bilateral LE. Insisting that manan wraps and non-adherent dressings be removed. Discussed with Anam CALABRESE, who agreed that patient could have them removed for 4 hours. Also discussed pain control with GUANAKITO and he instructed RN to give 1 tab of Vicodin + 25mg of Vistaril.
[2020-01-12] MEDS: HYDROCODONE/ACET 5/325 TABLET 1 TAB PO ×2 (04:06→10:05)
[2020-01-12 05:37] LABS: Add Manual Diff / Slide Review NO; Basophils Absolute Auto 0 /uL (0-100); Basophils Percent Auto 0.4 % (0-2); Eosinophils Absolute Auto 200 /uL (0-450); Hematocrit 33.6 % (36-46); Lymphocytes Absolute Auto 900 /uL (1100-4500); Lymphocytes Percent Auto 11.5 % (25-40); Mean Corpuscular HGB Conc 32.8 % (30-36); Mean Corpuscular Hemoglobin 29.2 PG (26-34); Mean Corpuscular Volume 89.1 fL (80-100); Monocytes Absolute Auto 700 /uL (0-900); Monocytes Percent Auto 8.7 % (3-14); Neutrophils Absolute Auto 6300 /uL (1500-7000); Neutrophils Percent Auto 77.4 % (50-75); Platelet Count 212 X10^3/uL (150-400); Red Blood Cell Count 3.77 X10^6/uL (4.0-5.2); Red Cell Distribution Width 17.3 % (11.6-14.8); White Blood Cell Count 8.2 X10^3/uL (4.5-11.0)
[2020-01-12 05:42] LABS: INR 3.6 (0.9-1.3); Prothrombin Time 40.4 SECONDS (10.1-12.7)
[2020-01-12 05:46] LABS: Alanine Aminotransferase 19 IU/L (<35); Albumin 3.7 g/dL (3.5-5.0); Alkaline Phosphatase 78 U/L (38-126); Aspartate Aminotransferase 34 IU/L (14-36); BUN Creatinine Ratio 29.3 (6-22); Bilirubin Total 0.3 mg/dL (0.2-1.3); Blood Urea Nitrogen 48 mg/dL (7-17); Calcium 9.2 mg/dL (8.4-10.2); Carbon Dioxide 22 mmol/L (22-32); Chloride 109 mmol/L (98-107); Estimated Glomerular Filt Rate 30.9 mL/min (>60); Globulin 3.8 g/dL (1.7-4.1); Glucose 91 mg/dL (80-110); HEMOLYSIS 17 (0-50); Magnesium 2.6 mg/dL (1.6-2.3); Potassium 4.3 mmol/L (3.4-5.1); Sodium 141 mmol/L (137-145); Total Protein 7.5 g/dL (6.3-8.2)
[2020-01-12] MEDS: ASPIRIN EC 81 MG TABLET PO (09:57)
[2020-01-12] MEDS: METOPROLOL ER 25 MG TABLET PO (09:57)
[2020-01-12] MEDS: PROBENECID 500 MG TABLET 250 MG PO ×2 (09:57→20:03)
[2020-01-12] MEDS: dilTIAZem CD 240 MG CAP PO (09:57)
[2020-01-12] MEDS: NYSTATIN POWDER 15GM 1 APPLIC TOP ×3 (10:07→20:33)
--- NOTE | 2020-01-12 10:47 | PT.IPTN ---
Current Diagnoses Acute kidney failure, unspecified (01/10/20) Physical Therapy Treatment Note M2 PT-IP Current Condition Start: 01/11/20 12:13 Freq: NEEDED Status: Active Protocol: Document 01/11/20 11:04 AB (Rec: 01/11/20 12:28 AB [email or web address]) Physical Therapy Current Condition Current Condition Evaluation Date 01/11/20 Treatment Diagnosis s/p fall; acute kidney injury; A-fib; difficulty in walking Onset Date 01/10/20 Precautions Other Precautions falls M3 PT-IP Subjective Start: 01/11/20 12:13 Freq: NEEDED Status: Active Protocol: Document 01/12/20 10:24 KS (Rec: 01/12/20 12:00 KS [email or web address]) Subjective Physical Therapy Visit Type Type Treatment Note Visit Start Time 10:24 Visit Stop Time 10:47 Total Visit Minutes 23 Number of CHAUFFEUR Visits 1 Physical Therapy Visit Comments Patient Comments Pt agreeable to therapy. Partial co treat w/ OT Therapy Pain Assessment Pain When Pain Assessed During Mobility Pain Present Pain Present Pain Reported Location bilateral legs Scale Used pain scale not stated Pain Behaviors Calling Out,Facial Grimacing, Guarding,Wincing Pain Management Techniques Modification of Treatment, Timing of Activity with Medications M4 PT-IP Mobility and Gait Start: 01/11/20 12:13 Freq: NEEDED Status: Active Protocol: Document 01/12/20 10:24 KS (Rec: 01/12/20 12:00 KS [email or web address]) PT-Bed Mobility Assessment Scooting Scooting to Edge of Bed Moderate Assistance PT-Transfer Assessment Sit to and From Stand Sit to and from Stand Minimal Assistance,1 Person Assistance,Use of Upper Extremities Equipment Transfer Assistive Device Gait Belt,Front Wheeled Walker Orthotic/Prosthetic Devices or Brace: No Transfers Transfer Destination Chair Transfer Technique Pt ambulated w/ FWW Transfer Ability Level of Assist Minimal Assistance,1 Person Assistance,Use of Upper Extremities Comments Mobility Comments Pt reclined in chair upon arrival from PT and OT. Pt c/o bilateral LE pain w/ movement . Pt able to tolerate 1x5 bilateral ankle pumps, quad sets, and SLR. Pt then Mod A for scooting to EOC, Min A and cues for hand placement for sit<>stand. Pt then ambulated ~10 ft to sink w/ FWW and Min A for FWW management. Cues for upright posture. Pt able to remain balanced at sink ~4 min for hygiene. Pt left in room at sink w/ OT. Gait Assessment Gait Gait Assistance Required: Minimum Assistance,1 Person Assist Distance (Feet) 10 Able to Maintain Weight Bearing Status Yes During Gait Assistive Devices Assistive Device Front Wheeled Walker Orthotic/Prosthetic Devices or Brace: No Gait Deviations General Gait Pattern Antalgic,Decreased Stride Length,Decreased Feet Clearance,Flexed Trunk,Wide Based Gait Factors Limiting Gait Function Factors Limiting Gait Function Decreased Activity Tolerance, Decreased Sensation,Decreased Strength,Limited Range of Motion,Pain Comments Gait Comments Pt ambulated ~10 ft w/ FWW. Pt requires Min A and mod cues for FWW use as well as cues for upright posture. Pt leans on forearms on FWW for support and is unable to use wrists/ hands for support at this time . PT-Balance Assessment Sitting Balance and Reactions Static Sitting Balance Ability Good Dynamic Sitting Balance Ability Fair Standing Balance and Reactions Static Standing Balance Ability Poor Dynamic Standing Balance Ability Poor Device Used FWW M5 PT-IP Objective Assessments Start: 01/11/20 12:13 Freq: NEEDED Status: Active Protocol: Document 01/11/20 11:04 AB (Rec: 01/11/20 12:28 AB [email or web address]) Orientation Orientation/Cognition Level of Alertness Alert Orientation Name Safety Awareness Decreased Safety Awareness Strength Lower Extremity Strength Assessment Bilaterally Impaired Hip 3-/5 Knee 3/5 Muscle Tone Muscle Tone WNL Yes M6 PT-IP Treatment Start: 01/11/20 12:13 Freq: NEEDED Status: Active Protocol: Document 01/12/20 10:24 KS (Rec: 01/12/20 12:00 KS [email or web address]) Physical Therapy Treatment Exercises Exercises Ankle Pumps,Quad Sets,Straight Leg Raises Education Education Provided Safety M7 PT-IP Assessment and Plan Start: 01/11/20 12:13 Freq: NEEDED Status: Active Protocol: Document 01/12/20 10:24 KS (Rec: 01/12/20 12:00 KS [email or web address]) PT Summary Assessment and Plan Potential Rehabilitation Potential Fair Status of Condition at Evaluation Evolving Summary Impairments Pain,ROM,Strength,Balance, Coordination,Sensation,Tone, Cognition,Bed Mobility, Transfers,Gait,Activity Tolerance Progress Towards Goals Slow Progress due to Pain,Slow Progress due to Medical Issues,Slow Progress due to Activity Tolerance Assessment Summary Pt showed improvements, needing Mod A fo5r scooting, and Min A Mod cues for sit<> stand and ambulation w/ FWW. Pt unable to use FWW properly at this time d/t pain, weakness, and low tolerance for Pt able to remain standing ~4 min at sink for hygiene, but only when leaning onto sink for support. Pt still requiring significant assistance and cuing and will require SNF to improve bed mobility, ambulation, and functional mobility. Goals Bed Mobility Goal Standby Assistance Transfer Goal Standby Assistance,Front Wheeled Walker Gait Goal Standby Assistance,Front Wheel Walker Gait Distance 50 Other Goals up/down 1 step SBA Days to Meet Goals 10 Frequency of Treatment Frequency Of Treatment Once a Day Treatment Plan Physical Therapy Treatment Plan Bed Mobility Training,Transfer Training,Gait Training, Therapeutic Exercise,Balance Retraining,Discharge Planning, Neuromuscular Re-ed, Coordination Retraining Other Recommendations and Next Treatment ambulation Focus Recommendations To Nursing Amount of Assist Needed 2 Person Assist Discharge Recommendations PT Discharge Recommendations SNF Rehab Transportation Needs at Discharge Wheelchair/Cabulance
--- NOTE | 2020-01-12 11:14 | OT.IP.EVAL ---
Current Diagnoses Acute kidney failure, unspecified (01/10/20) Past Medical History (Last Reviewed 01/11/20 @ 01:14 by Phillip Ashford DO) Atrial fibrillation (Chronic 12/2011) Diabetes (Chronic Unknown) Essential hypertension (Chronic) Foot pain (Resolved Unknown) Foot ulcer (Resolved 08/2016) Gout (Chronic Unknown) Heart murmur (Chronic Unknown) Hypertension (Chronic Unknown) Mixed hyperlipidemia (Chronic 01/30/00) Morbid obesity with body mass index (BMI) of 50.0 to 59.9 in adult (Chronic) Obstructive sleep apnea syndrome (Chronic) Osteoarthritis (Chronic Unknown) 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) Peripheral neuropathy (Chronic Unknown) PVD (peripheral vascular disease) (Chronic Unknown) Type 2 diabetes mellitus with diabetic neuropathy, without long-term current use of insulin (Chronic) Umbilical hernia (Chronic) Surgical History (Last Reviewed 01/11/20 @ 01:02 by GUANAKITO Osorio) History of angioplasty (Resolved 10/2016) Occupational Therapy Inpatient Evaluation/Re-Eval M1 PT/OT-IP Prior Functional Status Start: 01/12/20 11:26 Freq: NEEDED Status: Active Protocol: Document 01/12/20 10:25 [facility] (Rec: 01/12/20 11:48 [facility] [id number]) Medical Review Prior Functional Status Medical History Reviewed Yes Communication able to make needs known Mobility and Gait pt stated that she is modified independent with all mobilities and ambulation with FWW; pt stated that her friend buys her groceries Activities of Daily Living and IADL's Pt states just mainly wears short and top and has difficulty with pericare needs at home. Social History Household Members none Living Arrangements House Number of Floors (Floors) One Floor Number of Stairs To Enter/Railing? 1 step to enter Home Environment Standard Height Toilet,Walk in Shower Home Equipment Front Wheel Walker,Hand Held Shower,Grab Bars Near Toilet Additional Social History Comment pt stated that she has bilateral bed rails M2 OT-IP Current Condition Start: 01/12/20 11:26 Freq: Status: Active Protocol: Document 01/12/20 10:25 [facility] (Rec: 01/12/20 11:48 [facility] [id number]) Occupational Therapy Current Condition Current Condition Evaluation Date 01/12/20 Treatment Diagnosis S/p fall, acute kidney injury, decreased mobility Diagnosis Onset Date 01/10/20 M3 OT- IP Subjective and Pain Start: 01/12/20 11:26 Freq: Status: Active Protocol: Document 01/12/20 10:25 [facility] (Rec: 01/12/20 11:48 [facility] [id number]) OT- Subjective Occupational Therapy Visit Type Type Initial Evaluation Visit Start Time 10:25 Visit Stop Time 11:14 Total Visit Minutes 49 Occupational Therapy Visit Comments Patient Comments Pt agreed to get up for OT eval , OFFICE COORDINATOR RECEPTIONIST present for part of the session. Patient/Caregiver Goals Pt wanting to feel better and get some sleep. OT Pain Assessment Pain When Pain Assessed During Mobility Pain Present Pain Present Pain Reported M4 OT- IP ADL's Start: 01/12/20 11:26 Freq: Status: Active Protocol: Document 01/12/20 10:25 [facility] (Rec: 01/12/20 11:48 [facility] [id number]) OT WAL-Nove-Eylwdkd Comments OT Self-Feeding Comments Not at meal time. OT ADL-Grooming General Evaluation Grooming Ability Standby Assistance Areas Needing Assistance Retrieving/Set-up of Grooming Items Comments OT Grooming Comments Pt heavily leans onto the counter while standing with wide FWW in front of her and having to sit down to complete grooming as getting too tired to stand. Prior pt able to stand for 5 minutes at a time. OT ADL-Oral Care General Eval Oral Care Ability Independent OT ADL-Dressing General Eval Lower Body Dressing Ability Total Assistance Areas Needing Assistance Socks Comments OT Dressing Comments At this time, pt unable to reach her feet in order to gilda/doff socks. Pt's bilateral legs are also swollen. OT ADL-Toileting Comments MAXA OT Toileting Comments Pt not having to go. At this time pt unable to reach her pericare needs. Initiated conversation of options for hygiene needs. OT ADL-Bathing Comments OT Bathing Comments NOt at this time. M5 OT- IP IADL's Start: 01/12/20 11:26 Freq: Status: Active Protocol: Document 01/12/20 10:25 [facility] (Rec: 01/12/20 11:48 [facility] [id number]) OT-Instrumental Activities of Daily Living Home Safety Awareness Home Safety Comments Pt a bit confused at this time and if going home would need assist for all ADL and IADl needs. Medication Management Medication Management Comments Prior pt states took her own medications. Money Management Money Management Comments Prior pr states did her own bills but now having difficulty to add subtract two digit numbers. Meal Preparation Meal Preparation Comments Pt only able to stand for one minute , but heavily leaning on FWW or counter and would not be able to do meal prep at home at this time. Medical Records Manager Medical Records Manager Comments Pt a bit confused at this time and if going home would need assist for all ADL and IADl needs, however pt lives alone. M6 OT- IP Functional Cognition Start: 01/12/20 11:26 Freq: Status: Active Protocol: Document 01/12/20 10:25 [facility] (Rec: 01/12/20 11:48 [facility] [id number]) Cognitive Factors Limiting Selfcare Function Cognitive Ability Level of Alertness Alert,Drowsy Patient Orientation Name,Month,Year,Place, Situation Attention Span Ability Capable of Focused Attention, Capable of Sustained Attention Ability to Follow Commands Able to Follow One Step Commands Memory Description Short Term Impaired Safety Awareness Underestimates Need for Assistance Problem Solving Ability Needs Assist to Identify Solutions Cognitive Tests SLUMS Pt scored 14/30 on which implies cognitive deficits as normal score for pt's level of education is 25/30. Pt did not know the day of the week, unable to do recall information for math problem, only able to say 8 animals in one minute, only able to recall/5 objects after time passed, not able to recall 4 digit number backwards, not able to draw correctly the hour hands after time given, and only able to answer 2/4 questions right after a paragraph read. Pt blames her having lack of sleep for not thinking well today. Therefore continue to assess pt's cognitive status. Cognitive Comments Cognitive Assessment Comments Pt needing vc for safety awareness, vc to use of hands on armrests to push to stand up, vc for pt to hold handles of FWW versus front of the walker while walking, and to have the FWW in front of her while at the sink. OT- Vision and Hearing OT- Hearing Assessment OT- Hearing Assessment WFL OT- Vision Assessment Visual Acuity Glasses All The Time M7 OT- IP Mobility and Balance Start: 01/12/20 11:26 Freq: Status: Active Protocol: Document 01/12/20 10:25 [facility] (Rec: 01/12/20 11:48 [facility] [id number]) OT-Transfer Assessment Sit to and From Stand Sit to and from Stand Minimal Assistance,Moderate Assistance Transfers Transfer Ability Minimal Assistance Technique Transfer Destination Bedside Commode,Chair Transfer Technique Stand Step Pivot Devices Transfer Assistive Devices Gait Belt,Front Wheeled Walker Comments Mobility Comments Pt needing OSEI to stand from higher surface and will need MODA from lower surfaces. Once on her feet needing OSEI for balance and safety cues to stand upright to hold to handles of FWW. Pt has limited activity tolerance and only able to stand at sink leaned over for one minute at a time. OT- Gait Assessment Comments Gait Ability Comments OSEI with FWW. OT- Balance Assessment Sitting Balance and Reactions Static Sitting Balance Ability Good Standing Balance and Reactions Static Standing Balance Ability Fair M8 OT- IP Objective Assessments Start: 01/12/20 11:26 Freq: Status: Active Protocol: Document 01/12/20 10:25 [facility] (Rec: 01/12/20 11:48 [id number] OT Gross Range of Motion Upper Extremity Range of Motion Assessment Left Impaired OT Strength Comments Strength Comments BUE 4/5 thoroughout except for left shoulder 3-/5. M9 OT- IP Assessment and Plan Start: 01/12/20 11:26 Freq: Status: Active Protocol: Document 01/12/20 10:25 [facility] (Rec: 01/12/20 11:48 [id number] OT Summary Assessment and Plan Potential Rehabilitation Potential Good Analytic Complexity at Evaluation Low Summary OT Impairments Pain,Balance,Functional Cognition,Functional Mobility, Grooming,Dressing,Toileting, Bathing,Toilet Transfers, Shower Transfers,Activity Tolerance Progress Towards Goals Slow Progress due to Pain,Slow Progress due to Medical Issues,Slow Progress due to Activity Tolerance,Slow Progress due to Cognition Assessment Summary Pt low complexity and main barriers are pain , swollen legs and now a not able to do her LB dressing needs, and will need at time MODA to stand from lower surfaces. In addition, pt having difficulty thinking and scored 14/30 on the SLUMS but insists her decreased thinking is from lack of sleep. At this time it would be beneficial for pt to go to skilled rehab for to help improve pt's level for safety and independence for ADl, IADl and mobility needs as prior pt was mostly independent with all her needs. Goals Grooming Goal Independent Dressing Goal Independent Toileting Goal Independent Bathing Goal Independent Toilet Transfer Goal Independent Shower Transfer Goal Independent Patient/Caregiver Education Goal Demonstrate Energy Conservation and Pacing Days to Meet Goals 10 Frequency of Treatment Frequency Of Treatment Once a Day Treatment Plan OT Treatment Plan ADL Training,Functional Cognition Training,Functional Mobility,Patient/Family Education,Discharge Planning Other Treatment Recommendations and Next Shower Treatment Focus Discharge Recommendations OT Discharge Recommendations SNF Rehab Home Equipment Needs defer to SNF Transportation Needs at Discharge Private Vehicle,Wheelchair/ Cabulance
--- NOTE | 2020-01-12 13:13 | PM.PN.1 ---
Subjective Subjective Date Patient Seen: 01/12/20 Interval history: Lucila Hawkins is a 69-year-old female with a past medical history significant for persistent atrial fibrillation anticoagulated on warfarin, congestive heart failure with preserved ejection fraction, diabetes mellitus type II, non-insulin using with neuropathy, hypertension, hyperlipidemia, peripheral vascular disease with chronic venous stasis ulcers followed by wound care at [facility], morbid obesity and obstructive sleep apnea who presented to the emergency department for multiple falls today secondary to generalized weakness requiring assistance of paramedics. The patient is resting in bed comfortably. She continues to endorse fatigue and fogginess. She continies to have a difficult time elevating her legs due to body habitus and legs pain. Consulted wound care and Dr. Whitaker at bedside believes wounds are infected and plan to treat. Once dressings are taken down wounds appear purulent with drainage and erythema and minor bleeding. She continues to have generalized weakness and deconditioning. She has no other complaints and denies headache, cough, shortness of breath, chest pain, abdominal pain, nausea, vomiting, fever, chills, dysuria, diarrhea or constipation. She is voiding and eliminating without difficulty. She is ambulating minimally with significant assistance. Exam Vital Signs (past 8 hours): - 01/12/20 08:00 01/12/20 09:57 01/12/20 11:12 Temperature 97.6 F Pulse Rate 92 H 72 Respiratory Rate 19 Blood Pressure 168/68 H 145/68 H 134/72 Pulse Oximetry 97 01/12/20 12:00 Temperature 98.0 F Pulse Rate 78 Respiratory Rate 20 Blood Pressure 134/72 Pulse Oximetry 95 Oxygen Delivery Method Room Air Oxygen Flow Rate 0 Narrative Exam Narrative: General: Elderly acute distress, well-developed, well-nourished, appropriately interactive HEENT: Normocephalic, atraumatic. External ears without defect. Pupils equal, round, and reactive to light and accommodation. Anicteric sclerae, moist conjunctivae, and no lid lag. Oropharynx free of erythema and cobble stoning with moist mucosa. Neck: Supple with full range of motion. No jugular venous distension. No lymphadenopathy or thyromegaly. Cardiovascular: Irregularly irregular without murmurs, rubs, or gallops appreciated Pulmonary: Diminished throughout but clear to auscultation bilaterally without crackles, wheezes, or rhonchi. Normal respiratory effort with no use of accessory muscles. Abdomen: Soft, super obesity with panniculus, bowel tones present, nontender, nondistended. Zelda intertrigo. Extremities: No clubbing or cyanosis. Moderate edema of bilateral and legs with chronic venous stasis changes, excoriations, bleeding, and venous stasis ulcers that appear infected with purulence. Skin: Normal temperature, turgor, and texture; no rash, ulcers, or subcutaneous nodules appreciated. Neurological: Cranial nerves grossly intact. Generalized weakness. Psychiatric: Normal mood and affect. Alert and oriented to person, place, and time. Objective Labs Result Diagrams: 01/12/20 04:50 01/12/20 04:50 Labs: Laboratory Results - last 24 hr 01/11/20 01/11/20 01/12/20 18:59 19:49 04:50 WBC 8.2 RBC 3.77 L Hgb 11.0 L Hct 33.6 L MCV 89.1 MCH 29.2 MCHC 32.8 RDW 17.3 H Plt Count 212 Neut % (Auto) 77.4 H Lymph % (Auto) 11.5 L [place] % (Auto) 8.7 Eos % (Auto) 2.0 Baso % (Auto) 0.4 Neut # (Auto) 6300 Lymph # (Auto) 900 L [place] # (Auto) 700 Eos # (Auto) 200 Baso # (Auto) 0 PT INR ABG pH 7.33 L ABG pCO2 38.8 ABG pO2 79 L ABG HCO3 20 L ABG Total CO2 21 ABG O2 Saturation 95 ABG Base Excess -6.0 L FiO2 21 Sodium 140 Potassium 4.2 Chloride 108 H Carbon Dioxide 22 BUN 52 H Creatinine 1.96 H Estimated GFR 25.1 L BUN/Creatinine Ratio 26.5 H Glucose 102 Calcium 9.2 Magnesium Total Bilirubin AST ALT Alkaline Phosphatase Total Protein Albumin Globulin Albumin/Globulin Ratio 01/12/20 01/12/20 04:50 04:50 WBC RBC Hgb Hct MCV MCH MCHC RDW Plt Count Neut % (Auto) Lymph % (Auto) [place] % (Auto) Eos % (Auto) Baso % (Auto) Neut # (Auto) Lymph # (Auto) [place] # (Auto) Eos # (Auto) Baso # (Auto) PT 40.4 H D INR 3.6 H ABG pH ABG pCO2 ABG pO2 ABG HCO3 ABG Total CO2 ABG O2 Saturation ABG Base Excess FiO2 Sodium 141 Potassium 4.3 Chloride 109 H Carbon Dioxide 22 BUN 48 H Creatinine 1.64 H Estimated GFR 30.9 L BUN/Creatinine Ratio 29.3 H Glucose 91 Calcium 9.2 Magnesium 2.6 H Total Bilirubin 0.3 AST 34 ALT 19 Alkaline Phosphatase 78 Total Protein 7.5 Albumin 3.7 Globulin 3.8 Albumin/Globulin Ratio 1.0 Assessment & Plan Assessment & Plan narrative: Lucila Hawkins is a 69-year-old female with a past medical history significant for persistent atrial fibrillation anticoagulated on warfarin, congestive heart failure with preserved ejection fraction, diabetes mellitus type II, non-insulin using with neuropathy, hypertension, hyperlipidemia, peripheral vascular disease with chronic venous stasis ulcers followed by wound care at [facility], morbid obesity and obstructive sleep apnea who presented to the emergency department for multiple falls today secondary to generalized weakness requiring assistance of paramedics. 1. Acute kidney injury, present on admission. Improving. -Secondary to pre-renal azotemia (FENA 0.7) from over diuresis and dehydration from home furosemide 40 mg twice daily and reports decreased oral fluid intake . -Initial creatinine 2.6 and BUN 69. Baseline creatinine 0.9 on 11/19/2019. Creatinine improving to 1.64. -Continued gentle IV fluid hydration with normal saline 0.45% at 75 cc/hour then discontinued as appears to be hydrated. -Held lisinopril and furosemide and will consider restarting once GARRISON resolved and renal function stable. 2. Peripheral vascular disease with infected venous stasis ulcers and pain with opiate dependence, chronic, present on admision. Stable -Patient with bilateral venous stasis ulcers and skin lesions followed by wound care clinic at [facility]. -Patient reports worsening pain with infected appearing ulcers and no obvious cellulitic changes. ESR elevated at 62 which is elevated once age adjusted (> 40 abnormal) and CRP 1.2 is not elevated once age adjusted (> 2). Wound culture grew Enterococcus faecalis and Acinetobacter baumanii with variable sensitivities. Discussed case with on-call Infectious Disease for [facility] who recommended combination of cefepime 1 g every 24 hours and ampicillin 2 g every 8 hours renally dosed and to have lab test Enterococcus sensitivity for levofloxacin. If both organisms sensitive to levofloxacin with continue this medication with doxycycline to prevent Acinetobacter baumanii resistance to fluoroquinolones and anti-inflammatory effect. -Consulted wound care, Julianne Yang, and we appreciate his time and recommendations. Continue wound care per nursing and wound care physicians orders. -Continue hydrocodone 5-10 mg every 6 hours as needed for pain. 3. Metabolic acidosis, secondary to acute kidney injury and infected venous stasis ulcers, present on admission. Resolved. -Patient was acidotic on chemistries with a CO of 17. ABG demonstrated metabolic acidosis with: pH of 7.28, pCO2 of 39, PO2 71 and HCO3 18. Repeat ABG demonstrates near resolution with IV fluid hydration as above. -Continue to treat acute kidney injury as above. 4. Persistent atrial fibrillation, present on admission. Stable. -Patient reports intermittent palpitations and irregular heartbeat. -EKG demonstrated atrial fibrillation without acute ischemic changes such as ST elevation or depression. -Continue home diltiazem ER 240 mg and metoprolol succinate 25 mg daily. -INR supratherapeutic at 3.6. Held home regimen of warfarin temporarily. 5. Elevated troponin of unclear significance, acute, present on admission. Stable. -Patient denies chest pain or ACS symptoms. -EKG demonstrated atrial fibrillation without acute ischemic changes such as ST elevation or depression. Echocardiogram technically difficult due to body habitus and zelda intertrigo, therefore, unable to assess wall motion. -Initial troponin slightly elevated at 0.043and repeat unchanged 0.44 in the setting of GARRISON. No need to trend unless patient develops CP. 6. Frequent falls with generalized weakness, super morbid obesity and deconditioning, chronic, present on admission. Active. -Patient lives alone with assistance of home health a few hours per day and uses a walker for ambulation. Patient reports increased generalized weakness which could be secondary to dehydration, metabolic acidosis or use of CBD. -Continue physical and occupational therapy evaluation and treatment. 7. Diabetes mellitus type 2, non-insulin using and diet controlled, with neuropathy, present on admission. Stable. -Hemoglobin A1C is 6.1% indicative of excellent glycemic control in the range of prediabetes. Patient is not currently medically treated and diet controlled. -Continue ACHS blood glucose checks and low dose correctional scale insulin. -Continue heart healthy/carbohydrate controlled diet. 8. Super morbid obesity with zelda intertrigo, chronic, present on admission. Stable. -BMI of 57.3. -Counseled the patient on lifestyle modification including diet and exercise. -Consulted dietitian and we appreciate her time and recommendations. 9. Heart failure with preserved EF, chronic, present on admission. Stable. -Does not represent CHF exacerbation. -Held furosemide and lisinopril as above. Continue metoprolol as above. -Continued gentle IV fluid hydration as above. 10. History of NABILA and OHS not on CPAP/BiPAP due to non-complian, chronic, present on admission. Stable. -Plan to halfway house counselor regarding risk of not treating NABILA/OHS. Code status: Full code, patient designates her daughter Gege to be her surrogate decision maker. VTE prophylaxis: Bilateral Cong wraps lower extremities, anticoagulated on warfarin. Disposition: [facility] once infected venous stasis ulcers and GARRISON improving.
--- NOTE | 2020-01-12 13:20 | CM.DPC ---
DCP Cont: SNF vs HH Per MD, pt making some medical progress but not stable for d/c yet today and Consult with Dr. Andino Wound Care to determine any further recommendations for chronic wound care and possible need for IV-Abx. Per PT/OT, pt made some progress with mobility and transfers today but still requiring some care and assist. DOMINIK Sanders made initial SNF referral to [facility] for review in case SNF auth needed at d/c. SW met bedside with pt and explained role and discussed possible need for SNF pending pt's progress and possible IV-Abx needs. Pt denies any hx of SNF and preference is home and states she is currently open with [facility] but aware that her care level needs may make SNF needed at d/c. Pt lives in [place] and preference would be [facility]. SW called [facility] and confirmed pt open with RN for wound care currently and they were not aware that pt was admitted. SW faxed H&P to [facility] to review. JESUS called [facility] admissions October and she confirms that she is reviewing pt but if pt needs to continue her wound care at [facility] they will not be able to transport pt to her appointments and currently due to COVID 19 restrictions family is not an option for transport. But [facility] does have their own in-house wound care on Tuesdays. [facility] also wants to confirm that pt willing to follow recommendations for wound care/elevated legs/wrapped legs prior to accepting. Plan: SW to follow for [facility] review to determine if they will auth SNF and [facility] review of pt to determine if they can accept and Wound Care Consult to determine recommendations to determine d/c needs at d/c. AYLA Riley
[2020-01-12 15:21] LABS: Osmolality Urine 411 mOsmol/kg (.)
[2020-01-12] MEDS: HYDROCODONE/ACET 5/325 TABLET 2 TAB PO (15:48)
[2020-01-12] MEDS: AMPICILLIN 2,000 MG in SODIUM CHLORIDE 0.9% 100 ML 200 ML IV (20:01)
[2020-01-12] MEDS: hydrOXYzine pamoate 25 MG CAPSULE PO (20:03)
[2020-01-12] MEDS: HYDROMORPHONE 0.5 MG INJ IV (20:33)
[2020-01-12] MEDS: CEFEPIME 1 GM in SODIUM CHLORIDE 0.9% 100 ML 200 ML IV (21:16)
--- NOTE | 2020-01-12 22:53 | PC.NURSE ---
wound care 1899 in to see/assess pt. previous leg wraps and telfa dressings removed. sanguineous drainage to all. multiple wounds present with yellow slough and some bleeding. pt's legs erythemic and warm and tender to touch. per order, wounds cleansed with saline and patted dry with gauze, aquacel AG (removed from surgical dressing with duoderm portion removed), ABD pad overlays and kerlex wrapped with tubigauze. pt refusing tubigauze to RLE r/t the way it feels on her ankle. pt in significant pain post wound care. Anam CALABRESE notified and will order IV medication for pain.
[2020-01-13 01:15] VITALS: BP 132/85; PULSE 86; RESP 18; TEMP 36.6; O2SAT 97
[2020-01-13] MEDS: HYDROCODONE/ACET 5/325 TABLET 2 TAB PO ×6 (01:38→23:40)
--- NOTE | 2020-01-13 01:55 | PC.NURSE ---
Patient asleep at start of shift but now awake to use BSC and complains of excruciating pain (10/10) in bilateral legs; medicated with Vicodin. Patient is alert and oriented. Breath sounds diminished but CTA with RA sat of 97%. HR irregular; telemetry reading was afib CVR w/BBB. Denies nausea. BT hypoactive; abdomen is soft and non tender. Denies dysuria, frequency or urgency with urination. Needing 1-2 assist to BSC as is weak. Moves in bed with some difficulty; assisted upon request. Dressings to bilateral LE are CDI; refused to have tubular stocking applied to right LE. Moist, red, yeasty skin under breasts, abdominal and groin folds; exudry in place. Fall risk score is high and bed alarm is activated. Legs elevated on pillows.
[2020-01-13] MEDS: SODIUM CHLORIDE 0.9% FLUSH 10 ML IV ×3 (03:24→21:32)
[2020-01-13] MEDS: SODIUM CHLORIDE 0.9% 250 ML 21 ML IV (03:24)
[2020-01-13] MEDS: AMPICILLIN 2,000 MG in SODIUM CHLORIDE 0.9% 100 ML 200 ML IV ×2 (03:24→11:32)
[2020-01-13 03:30] VITALS: BP 130/53; PULSE 72; RESP 18; TEMP 36.6; O2SAT 95
[2020-01-13 05:11] LABS: INR 3.5 (0.9-1.3)
[2020-01-13 05:17] LABS: Add Manual Diff / Slide Review NO; Basophils Absolute Auto 0 /uL (0-100); Basophils Percent Auto 0.3 % (0-2); Eosinophils Absolute Auto 200 /uL (0-450); Eosinophils Percent Auto 2.5 % (2-4); Hematocrit 30.5 % (36-46); Lymphocytes Absolute Auto 700 /uL (1100-4500); Lymphocytes Percent Auto 9.3 % (25-40); Mean Corpuscular HGB Conc 32.9 % (30-36); Mean Corpuscular Hemoglobin 29.1 PG (26-34); Mean Corpuscular Volume 88.5 fL (80-100); Monocytes Absolute Auto 800 /uL (0-900); Monocytes Percent Auto 10.2 % (3-14); Neutrophils Absolute Auto 6100 /uL (1500-7000); Neutrophils Percent Auto 77.7 % (50-75); Platelet Count 206 X10^3/uL (150-400); Red Blood Cell Count 3.44 X10^6/uL (4.0-5.2); Red Cell Distribution Width 17.3 % (11.6-14.8); White Blood Cell Count 7.8 X10^3/uL (4.5-11.0)
[2020-01-13 05:24] LABS: BUN Creatinine Ratio 27.1 (6-22); Blood Urea Nitrogen 38 mg/dL (7-17); Calcium 8.9 mg/dL (8.4-10.2); Carbon Dioxide 18 mmol/L (22-32); Chloride 109 mmol/L (98-107); Estimated Glomerular Filt Rate 37.1 mL/min (>60); Glucose 94 mg/dL (80-110); HEMOLYSIS < 15 (0-50); Magnesium 2.4 mg/dL (1.6-2.3); Potassium 4.3 mmol/L (3.4-5.1); Sodium 138 mmol/L (137-145)
[2020-01-13 05:44] LABS: Procalcitonin < 0.05 ng/mL (<0.5)
[2020-01-13 08:00] VITALS: BP 146/64; PULSE 84; RESP 19; TEMP 36.4; O2SAT 97
[2020-01-13] MEDS: HYDROMORPHONE 0.5 MG INJ IV (08:21)
[2020-01-13] MEDS: dilTIAZem CD 240 MG CAP PO (08:22)
[2020-01-13] MEDS: ASPIRIN EC 81 MG TABLET PO (08:22)
[2020-01-13] MEDS: PROBENECID 500 MG TABLET 250 MG PO ×2 (08:23→21:30)
[2020-01-13] MEDS: METOPROLOL ER 25 MG TABLET PO (08:23)
--- NOTE | 2020-01-13 09:20 | PT.IPTN ---
Current Diagnoses Acute kidney failure, unspecified (01/10/20) Physical Therapy Treatment Note M2 PT-IP Current Condition Start: 01/11/20 12:13 Freq: NEEDED Status: Active Protocol: Document 01/11/20 11:04 AB (Rec: 01/11/20 12:28 AB [id number]) Physical Therapy Current Condition Current Condition Evaluation Date 01/11/20 Treatment Diagnosis s/p fall; acute kidney injury; A-fib; difficulty in walking Onset Date 01/10/20 Precautions Other Precautions falls M3 PT-IP Subjective Start: 01/11/20 12:13 Freq: NEEDED Status: Active Protocol: Document 01/13/20 09:09 KS (Rec: 01/13/20 09:30 KS [id number]) Subjective Physical Therapy Visit Type Type Treatment Note Visit Start Time 09:09 Visit Stop Time 09:20 Total Visit Minutes 11 Number of ICE HOCKEY COACH Visits 2 Physical Therapy Visit Comments Patient Comments Pt reporting high pain. Therapy Pain Assessment Pain When Pain Assessed During Mobility Pain Present Pain Present Pain Reported Location bilateral legs Intensity 8 Scale Used Numeric (0 - 10) Pain Behaviors Calling Out,Facial Grimacing, Guarding,Wincing Pain Management Techniques Elevation,Modification of Treatment,Re-positioning, Timing of Activity with Medications M4 PT-IP Mobility and Gait Start: 01/11/20 12:13 Freq: NEEDED Status: Active Protocol: Document 01/13/20 09:09 KS (Rec: 01/13/20 09:30 KS [id number]) PT-Transfer Assessment Sit to and From Stand Sit to and from Stand Minimal Assistance,1 Person Assistance,Use of Upper Extremities Equipment Transfer Assistive Device Gait Belt,Front Wheeled Walker Orthotic/Prosthetic Devices or Brace: No Transfers Transfer Destination Chair Transfer Technique Pt ambulated w/ FWW Transfer Ability Level of Assist Minimal Assistance,1 Person Assistance,Use of Upper Extremities Comments Mobility Comments Pt in chair w/ nursing in prep for bathing. Pt reported 8/10 pain in bilateral LE w/ movement. Pt Min A and cues for hand placement for sit<> stand w/ FWW. Pt then took 5 steps laterally and turned backwards to sit in chair. Pt unable to stand up fully and leans on forearms on FWW during ambulation. Min A and cues for FWW management, Min A for stand<>sit for slow descent, cues for hand placement. Pt was able to scoot herself back in chair CGA. Pt called out in pain when being reclined in chair and during requested pillow placement under BLE. Pt then agreed to review LE exercises including ankle pumps, quad sets, SLR, and glute sets to promote blood flow and strengthening. Gait Assessment Gait Gait Assistance Required: Minimum Assistance,1 Person Assist Distance (Feet) 6 Able to Maintain Weight Bearing Status Yes During Gait Assistive Devices Assistive Device Front Wheeled Walker Gait Deviations General Gait Pattern Antalgic,Decreased Stride Length,Decreased Feet Clearance,Flexed Trunk,Wide Based Gait Factors Limiting Gait Function Factors Limiting Gait Function Decreased Activity Tolerance, Decreased Sensation,Decreased Strength,Limited Range of Motion,Pain Comments Gait Comments Please refer to mobility section for details. PT-Balance Assessment Sitting Balance and Reactions Static Sitting Balance Ability Good Dynamic Sitting Balance Ability Fair Standing Balance and Reactions Static Standing Balance Ability Poor Dynamic Standing Balance Ability Poor Device Used FWW M5 PT-IP Objective Assessments Start: 01/11/20 12:13 Freq: NEEDED Status: Active Protocol: Document 01/11/20 11:04 AB (Rec: 01/11/20 12:28 AB [id number]) Orientation Orientation/Cognition Level of Alertness Alert Orientation Name Safety Awareness Decreased Safety Awareness Strength Lower Extremity Strength Assessment Bilaterally Impaired Hip 3-/5 Knee 3/5 Muscle Tone Muscle Tone WNL Yes M6 PT-IP Treatment Start: 01/11/20 12:13 Freq: NEEDED Status: Active Protocol: Document 01/13/20 09:09 KS (Rec: 01/13/20 09:30 KS [id number]) Physical Therapy Treatment Exercises Exercises Ankle Pumps,Gluteal Sets,Quad Sets,Straight Leg Raises Education Education Provided Safety M7 PT-IP Assessment and Plan Start: 01/11/20 12:13 Freq: NEEDED Status: Active Protocol: Document 01/13/20 09:09 KS (Rec: 01/13/20 09:30 KS [id number]) PT Summary Assessment and Plan Potential Rehabilitation Potential Fair Status of Condition at Evaluation Evolving Summary Impairments Pain,ROM,Strength,Balance, Coordination,Sensation,Tone, Cognition,Bed Mobility, Transfers,Gait,Activity Tolerance Progress Towards Goals Slow Progress due to Pain,Slow Progress due to Medical Issues,Slow Progress due to Activity Tolerance Assessment Summary Pt continues to require Min A for sit<>stand, transfers, and ambulation. She requires cues for FWW use/management, hand placement, and upright posture . Pt able to review ankle pumps, quad sets, glute sets, and SLR, but is very limited in mobility d/t high reported pain and BLE weakness and lack of ROM. Pt will require SNF to improve strength and functional mobility. Goals Bed Mobility Goal Standby Assistance Transfer Goal Standby Assistance,Front Wheeled Walker Gait Goal Standby Assistance,Front Wheel Walker Gait Distance 50 Other Goals up/down 1 step SBA Days to Meet Goals 10 Frequency of Treatment Frequency Of Treatment Once a Day Treatment Plan Physical Therapy Treatment Plan Bed Mobility Training,Transfer Training,Gait Training, Therapeutic Exercise,Balance Retraining,Discharge Planning, Neuromuscular Re-ed, Coordination Retraining Other Recommendations and Next Treatment ambulation Focus Recommendations To Nursing Amount of Assist Needed 2 Person Assist Discharge Recommendations PT Discharge Recommendations SNF Rehab Transportation Needs at Discharge Wheelchair/Cabulance
--- NOTE | 2020-01-13 10:44 | DIET.PN ---
Dietary Progress Note Assessment: 69y F admitted for weakness/falls, referred to nutrition for morbid obesity (BMI 57.5) and chronic wounds. HT: 152.4cm WT: 133.5kg BMI: 57.5 Labs: Cr 1.4, eGFR 37.1 L, A1c 6.1 H preDM Pt reports following Ketogenic diet and losing 60# however since stopping the diet she has gained it all back. Pt drinks collagen drink daily which she reports as being low/no sugar. Nutrition Diagnosis: morbid obesity and unhealing wounds r/t physical inactivity and undesirable food choices aeb pt BMI 57.5, pt seen at wound care, pt has hx of yoyo dieting without structured maintenance plan. Interventions: 1. Discussed important nutrients for wound healing. Using handout, discussed each (Vit A, C, Zinc, PRO) and good sources of each. RD highlighted foods pt enjoys on handout and pt will use this after d/c for meal planning. 2. Discussed pt's high BMI and how this reduces mobility, independence, and delays wound healing. Encouraged pt to continue consistent carb diet instead of keto diet for better follow through. 3. Encouraged pt to focus on intake of F/V, PRO, to support weight management and wound healing as well as mobility. 4. Encouraged pt to replace one meal c ONS Ensure Max (bariatric formula) to assist wound healing and weight loss. Provided d/c paperwork on ONS c coupons. Diet Order: CCD
[2020-01-13] MEDS: NYSTATIN POWDER 15GM 1 APPLIC TOP ×3 (11:26→21:30)
--- NOTE | 2020-01-13 11:42 | OT.IP.TRT ---
Current Diagnoses Acute kidney failure, unspecified (01/10/20) Occupational Therapy Treatment Note M2 OT-IP Current Condition Start: 01/12/20 11:26 Freq: Status: Active Protocol: Document 01/12/20 10:25 [facility] (Rec: 01/12/20 11:48 [facility] [id number]) Occupational Therapy Current Condition Current Condition Evaluation Date 01/12/20 Treatment Diagnosis S/p fall, acute kidney injury, decreased mobility Diagnosis Onset Date 01/10/20 M3 OT- IP Subjective and Pain Start: 01/12/20 11:26 Freq: Status: Active Protocol: Document 01/13/20 12:29 [facility] (Rec: 01/13/20 13:03 [facility] [id number]) OT- Subjective Occupational Therapy Visit Type Type Treatment Note Visit Start Time 11:25 Visit Stop Time 11:42 Total Visit Minutes 17 Occupational Therapy Visit Comments Patient Comments Pt not wanting to get up at this time, pt's daughter in the room. Patient/Caregiver Goals Pt wanting to go home but realizes would be best to go to skilled rehab prior to going home. M4 OT- IP ADL's Start: 01/12/20 11:26 Freq: Status: Active Protocol: Document 01/13/20 12:29 [facility] (Rec: 01/13/20 13:03 [facility] [id number]) OT ADL-Dressing Comments OT Dressing Comments Issued pt a heart doctor to assist for dressing needs as currently pt just wears shorts and a top. OT ADL-Toileting Comments OT Toileting Comments Educated and spoke to pt regarding a bidet would be helpful for pericare needs or even use of toilet paper aid would benefit to increase her hygiene needs. OT ADL-Bathing Comments OT Bathing Comments Currently pt states just sponges off as needed. Pt would benefit from a heavy duty tub bench and assist. M6 OT- IP Functional Cognition Start: 01/12/20 11:26 Freq: Status: Active Protocol: Document 01/13/20 12:29 [facility] (Rec: 01/13/20 13:03 [facility] [id number]) Cognitive Factors Limiting Selfcare Function Cognitive Comments Cognitive Assessment Comments Pt states has been thinking about ways to help with her hygiene needs but states never gets around to it to do anything at this time. Pt's daughter states will assist to help try to initiate getting items so pt able to increase her hygiene needs. M9 OT- IP Assessment and Plan Start: 01/12/20 11:26 Freq: Status: Active Protocol: Document 01/13/20 12:29 [facility] (Rec: 01/13/20 13:03 [facility] [id number]) OT Summary Assessment and Plan Potential Rehabilitation Potential Good Analytic Complexity at Evaluation Low Summary OT Impairments Pain,Balance,Functional Cognition,Functional Mobility, Grooming,Dressing,Toileting, Bathing,Toilet Transfers, Shower Transfers,Activity Tolerance Progress Towards Goals Slow Progress due to Pain,Slow Progress due to Medical Issues,Slow Progress due to Activity Tolerance,Slow Progress due to Cognition Assessment Summary Pt will continue to benefit from skilled rehab to improve her independence and safety for Adl and functional mobility needs. In addition to continue to educated and encourage pt to obtain equipment to improve her overall hygiene needs. Goals Grooming Goal Independent Dressing Goal Independent Toileting Goal Independent Bathing Goal Independent Toilet Transfer Goal Independent Shower Transfer Goal Independent Patient/Caregiver Education Goal Demonstrate Energy Conservation and Pacing Days to Meet Goals 9 Frequency of Treatment Frequency Of Treatment Once a Day Treatment Plan OT Treatment Plan ADL Training,Functional Cognition Training,Functional Mobility,Patient/Family Education,Discharge Planning Discharge Recommendations OT Discharge Recommendations SNF Rehab Home Equipment Needs defer to SNF Transportation Needs at Discharge Private Vehicle,Wheelchair/ Cabulance
[2020-01-13 12:00] VITALS: BP 123/63; PULSE 70; RESP 19; TEMP 36.3; O2SAT 96
--- NOTE | 2020-01-13 13:57 | CM.DPC ---
Addendum entered by AYLA Riley 01/13/20 14:32: ADD: Return call from Jacqueline at [facility] stating she needs PT/OT notes from today and a wound care note. JESUS updated that per MD just now, changing pt's Abx and will keep pt overnight to confirm no negative interaction with her Coumadin with plan of discharge Sat to SNF if stable. Jacqueline will review the updated clinicals today to try to determine pt meets SNF auth criteria. BF Original Note: DCP Cont: Per MD, Wound Consult occurred yesterday and recommendation of IV-Abx but not likely chcf but determining how many days before switching to PO abx. Per PT/OT, pt making some progress but would still benefit from SNF before home alone with HH. JESUS met bedside with pt and her adult Dtr Gege and explained role again and discussed needing to have [address] pending pt's progress. SW discussed SNF rehab and need to get [facility] [facility] auth and pt and Dtr agree that [facility] would be their preference. Pt ultimate preference would be to d/c home with [facility] and confirms that currently she is not aware of a [facility] CG in place to start immediately but feels that CG could be in place in the near future. Pt states that she goes to [facility] for [facility]ound Care as they are a contracted [place] facility and therefore less out of pocket copay than [facility] here in [place]. Pt would be agreeable to [facility] in house wound care if needed rather than Prov if SNF needed at d/c. JESUS faxed updated clinicals to [facility] with IV-Abx need currently towards SNF auth and called [facility] to find out assigned CM and was transferred to Jacqueline at [facility] and SW left ms updating that clinicals faxed yesterday and today towards SNF auth as likely getting closer to d/c. PASRR previously completed in anticipation of SNF at d/c. Plan: SW to follow for [facility] [facility] review for SNF auth at [facility] vs return home alone with [facility] and eventual [facility] CG in place. AYLA Riley
--- NOTE | 2020-01-13 14:19 | PC.NURSE ---
Pt A/o x4, painful, BLE with edema and wrapped from 01/11.Bed bath completed, panus and below breasts with nystatin and interweb drying towels placed. Assisting side to side positioning. Up to chair fo rmost of shift. Elevating LE's. IV ABX, order to change to Po Levaquin @ shift end. Will start lenora Pt. INR elevated coumadin on hold.
--- NOTE | 2020-01-13 14:21 | P.PN_ITS ---
Subjective Subjective Date Patient Seen: 01/13/20 Time Patient Seen: 14:21 Interval history: Lucila Hawkins is a 69-year-old female with a past medical history significant for persistent atrial fibrillation anticoagulated on warfarin, congestive heart failure with preserved ejection fraction, diabetes mellitus type II, non-insulin using with neuropathy, hypertension, hyperlipidemia, peripheral vascular disease with chronic venous stasis ulcers followed by wound care at [place], morbid obesity and obstructive sleep apnea who presented to the emergency department for multiple falls today secondary to generalized weakness requiring assistance of paramedics. The patient is resting in bed comfortably. She continues to endorse fatigue and fogginess which is slightly improved. Wound cultures came back with both Acinetobacter and E faecalis both sensitive to Levaquin. Previous provider discussed with infectious disease who recommended if possible to treat with Levaquin and doxycycline, which we will start today. Will need to have caution with this regimen given her Coumadin, and already with a supratherapeutic INR. She continues to have generalized weakness and deconditioning. She has no other complaints and denies headache, cough, shortness of breath, chest pain, abdominal pain, nausea, vomiting, fever, chills, dysuria, diarrhea or constipation. She is voiding and eliminating without difficulty. She requires significant assistance. She still complains of significant leg pain when attempting to ambulate. Currently awaiting authorization for possible senior living placement with [employer]. Exam Vital Signs (past 8 hours): - 01/13/20 08:00 01/13/20 12:00 Temperature 97.5 F L 97.3 F L Pulse Rate 84 70 Respiratory Rate 19 19 Blood Pressure 146/64 H 123/63 Pulse Oximetry 97 96 Oxygen Delivery Method Room Air Oxygen Flow Rate 0 Narrative Exam Narrative: General: Elderly acute distress, well-developed, well- nourished, appropriately interactive HEENT: Normocephalic, atraumatic. External ears without defect. Pupils equal, round, and reactive to light and accommodation. Anicteric sclerae, moist conjunctivae, and no lid lag. Oropharynx free of erythema and cobble stoning with moist mucosa. Neck: Supple with full range of motion. No jugular venous distension. No lymphadenopathy or thyromegaly. Cardiovascular: Irregularly irregular without murmurs, rubs, or gallops appreciated Pulmonary: Diminished throughout but clear to auscultation bilaterally without crackles, wheezes, or rhonchi. Normal respiratory effort with no use of accessory muscles. Abdomen: Soft, super obesity with panniculus, bowel tones present, nontender, nondistended. Zelda intertrigo. Extremities: No clubbing or cyanosis. Moderate edema of bilateral and legs with chronic venous stasis changes. Dressings c/d/i. Patient requested not to remove dressings as they had just recently been changed and cause significant pain. Skin: Normal temperature, turgor, and texture; no rash, ulcers, or subcutaneous nodules appreciated. Neurological: Cranial nerves grossly intact. Generalized weakness. Psychiatric: Normal mood and affect. Alert and oriented to person, place, and time. Objective Labs Result Diagrams: 01/13/20 04:35 01/13/20 04:35 Labs: Laboratory Results - last 24 hr 01/10/20 01/13/20 01/13/20 19:48 04:35 04:35 WBC 7.8 RBC 3.44 L Hgb 10.0 L Hct 30.5 L MCV 88.5 MCH 29.1 MCHC 32.9 RDW 17.3 H Plt Count 206 Neut % (Auto) 77.7 H Lymph % (Auto) 9.3 L [place] % (Auto) 10.2 Eos % (Auto) 2.5 Baso % (Auto) 0.3 Neut # (Auto) 6100 Lymph # (Auto) 700 L [place] # (Auto) 800 Eos # (Auto) 200 Baso # (Auto) 0 PT 40.0 H INR 3.5 H Sodium Potassium Chloride Carbon Dioxide BUN Creatinine Estimated GFR BUN/Creatinine Ratio Glucose Calcium Magnesium Procalcitonin Urine Osmolality 411 01/13/20 01/13/20 04:35 04:35 WBC RBC Hgb Hct MCV MCH MCHC RDW Plt Count Neut % (Auto) Lymph % (Auto) [place] % (Auto) Eos % (Auto) Baso % (Auto) Neut # (Auto) Lymph # (Auto) [place] # (Auto) Eos # (Auto) Baso # (Auto) PT INR Sodium 138 Potassium 4.3 Chloride 109 H Carbon Dioxide 18 L BUN 38 H Creatinine 1.40 H Estimated GFR 37.1 L BUN/Creatinine Ratio 27.1 H Glucose 94 Calcium 8.9 Magnesium 2.4 H Procalcitonin < 0.05 Urine Osmolality Assessment & Plan Assessment & Plan narrative: Lucila Hawkins is a 69-year-old female with a past medical history significant for persistent atrial fibrillation anticoagulated on warfarin, congestive heart failure with preserved ejection fraction, diabetes mellitus type II, non-insulin using with neuropathy, hypertension, hyperlipidemia, peripheral vascular disease with chronic venous stasis ulcers followed by wound care at [place], morbid obesity and obstructive sleep apnea who presented to the emergency department for multiple falls today secondary to generalized weakness requiring assistance of paramedics. 1. Acute kidney injury, present on admission. Improving. -Secondary to pre-renal azotemia (FENA 0.7) from over diuresis and dehydration from home furosemide 40 mg twice daily and reports decreased oral fluid intake . -Initial creatinine 2.6 and BUN 69. Baseline creatinine 0.9 on 11/19/2019. Creatinine improving to 1.64. -Continued gentle IV fluid hydration with normal saline 0.45% at 75 cc/hour then discontinued as appears to be hydrated. -Held lisinopril and furosemide and will consider restarting once GARRISON resolved and renal function stable. Possibly tomorrow as Cr improved to 1.4. 2. Peripheral vascular disease with infected venous stasis ulcerations and pain with opiate dependence, chronic, present on admision. Stable -Patient with bilateral venous stasis ulcers and skin lesions followed by wound care clinic at [place]. -Patient reports worsening pain with infected appearing ulcers and no obvious cellulitic changes. ESR elevated at 62 which is elevated once age adjusted (> 40 abnormal) and CRP 1.2 is not elevated once age adjusted (> 2). Wound culture grew Enterococcus faecalis and Acinetobacter baumanii with variabl e sensitivities. Discussed case with on-call Infectious Disease for [facility] who recommended combination of cefepime 1 g every 24 hours and ampicillin 2 g every 8 hours renally dosed and to have lab test Enterococcus sensitivity for levofloxacin. Both were sensative to levaquin so will start this medication with doxycycline to prevent Acinetobacter baumanii resistance to fluoroquinolones and anti-inflammatory effect. -Consulted wound care, Julianne Yang, and we appreciate his time and recommendations. Continue wound care per nursing and wound care physicians orders. -Continue hydrocodone 5-10 mg every 6 hours as needed for pain. 3. Metabolic acidosis, secondary to acute kidney injury and infected venous stasis ulcers, present on admission. Resolved. -Patient was acidotic on chemistries with a CO of 17. ABG demonstrated metabolic acidosis with: pH of 7.28, pCO2 of 39, PO2 71 and HCO3 18. Repeat ABG demonstrates near resolution with IV fluid hydration as above. -Continue to treat acute kidney injury as above. 4. Persistent atrial fibrillation, present on admission. Stable. -Patient reports intermittent palpitations and irregular heartbeat. -EKG demonstrated atrial fibrillation without acute ischemic changes such as ST elevation or depression. -Continue home diltiazem ER 240 mg and metoprolol succinate 25 mg daily. -INR supratherapeutic at 3.6, slightly improved to 3.5 today. Held home regimen of warfarin temporarily. Will need close monitoring after initiation of Levaquin. 5. Elevated troponin of unclear significance, acute, present on admission. Stable. -Patient denies chest pain or ACS symptoms. -EKG demonstrated atrial fibrillation without acute ischemic changes such as ST elevation or depression. Echocardiogram technically difficult due to body habit us and zelda intertrigo, therefore, unable to assess wall motion. -Initial troponin slightly elevated at 0.043and repeat unchanged 0.44 in the setting of GARRISON. No need to trend unless patient develops CP. 6. Frequent falls with generalized weakness, super morbid obesity and deconditioning, chronic, present on admission. Active. -Patient lives alone with assistance of home health a few hours per day and uses a walker for ambulation. Patient reports increased generalized weakness which could be secondary to dehydration, metabolic acidosis or use of CBD. -Continue physical and occupational therapy evaluation and treatment. 7. Diabetes mellitus type 2, non-insulin using and diet controlled, with neuropathy, present on admission. Stable. -Hemoglobin A1C is 6.1% indicative of excellent glycemic control in the range of prediabetes. Patient is not currently medically treated and diet controlled. -Continue [facility] blood glucose checks and low dose correctional scale insulin. -Continue heart healthy/carbohydrate controlled diet. 8. Super morbid obesity with zelda intertrigo, chronic, present on admission. Stable. -BMI of 57.3. -Counseled the patient on lifestyle modification including diet and exercise. -Consulted dietitian and we appreciate her time and recommendations. 9. Heart failure with preserved EF, chronic, present on admission. Stable. -Does not represent CHF exacerbation. -Held furosemide and lisinopril as above. Continue metoprolol as above. -Continued gentle IV fluid hydration as above. 10. History of NABILA and OHS not on CPAP/BiPAP due to non-complian, chronic, present on admission. Stable. -Plan to corporate counsel regarding risk of not treating NABILA/OHS. Code status: Full code, patient designates her daughter Gege to be her surrogate decision maker. VTE prophylaxis: Bilateral Cong wraps lower extremities, anticoagulated on warfarin. Disposition: Patient possibly ready for discharge tomorrow to SNF as GARRISON is improving and have adequate antibiotics for therapy. She still requires significant assistance and lives alone. Currently pending [employer] authorization for senior living.
[2020-01-13] MEDS: levoFLOXacin 250 MG TABLET 750 MG PO (15:18)
[2020-01-13 15:37] VITALS: BP 134/64; PULSE 61; RESP 20; TEMP 36.1; O2SAT 95
[2020-01-13] MEDS: INSULIN ASPART 100 UNIT/ML INSULN PEN SUBCUT (16:46)
[2020-01-13 19:09] VITALS: BP 140/77; PULSE 75; RESP 21; TEMP 36.3; O2SAT 97
[2020-01-13] MEDS: DOXYCYCLINE HYCLATE 100 MG TABLET PO (21:30)
[2020-01-14] VITALS (7 sets, daily range): BP systolic 112–155; BP diastolic 49–105; PULSE 69–88; RESP 18–20; TEMP 35.7–37; O2SAT 95–97
--- NOTE | 2020-01-14 01:42 | PC.NURSE ---
Patient seen and assessed at 2346. Is alert and oriented. Breath sounds diminished but CTA with RA sat of 97%. HR irregular; telemetry reading was afib CVR w/BBB. Denies nausea. BT hypoactive. Denies dysuria, frequency or urgency with urination. Assisted to turn upon patient request. Assisted to BSC with walker and 1-2 assist. Skin below breasts, abdominal folds and groin remain red and moist but not as bright and odor has improved. Dressings to bilateral LE are intact with serous drainage noted on left dressing; due to be changed later today. Medicated with Vicodin for 10/10 pain and on reassessment patient was asleep. Fall risk score is high and bed alarm is activated.
[2020-01-14] MEDS: HYDROCODONE/ACET 5/325 TABLET 2 TAB PO ×3 (03:31→17:17)
[2020-01-14 05:26] LABS: Add Manual Diff / Slide Review NO; Basophils Absolute Auto 0 /uL (0-100); Basophils Percent Auto 0.3 % (0-2); Eosinophils Absolute Auto 200 /uL (0-450); Eosinophils Percent Auto 3.5 % (2-4); Hematocrit 31.9 % (36-46); Hemoglobin 10.3 g/dL (12.0-16.0); Lymphocytes Absolute Auto 600 /uL (1100-4500); Lymphocytes Percent Auto 10.4 % (25-40); Mean Corpuscular HGB Conc 32.4 % (30-36); Mean Corpuscular Hemoglobin 28.8 PG (26-34); Mean Corpuscular Volume 88.7 fL (80-100); Monocytes Absolute Auto 600 /uL (0-900); Monocytes Percent Auto 9.9 % (3-14); Neutrophils Absolute Auto 4700 /uL (1500-7000); Neutrophils Percent Auto 75.9 % (50-75); Platelet Count 214 X10^3/uL (150-400); Red Cell Distribution Width 17.2 % (11.6-14.8); White Blood Cell Count 6.2 X10^3/uL (4.5-11.0)
[2020-01-14 05:27] LABS: INR 2.7 (0.9-1.3); Prothrombin Time 30.5 SECONDS (10.1-12.7)
[2020-01-14 05:40] LABS: Blood Urea Nitrogen 38 mg/dL (7-17); Carbon Dioxide 22 mmol/L (22-32); Chloride 109 mmol/L (98-107); Estimated Glomerular Filt Rate 35.3 mL/min (>60); Glucose 87 mg/dL (80-110); HEMOLYSIS < 15 (0-50); Potassium 4.4 mmol/L (3.4-5.1); Sodium 139 mmol/L (137-145)
[2020-01-14] MEDS: HYDROMORPHONE 0.5 MG INJ IV ×2 (08:54→15:00)
[2020-01-14] MEDS: LIDOCAINE JELLY 2% 30 ML TOP (08:54)
[2020-01-14] MEDS: PROBENECID 500 MG TABLET 250 MG PO ×2 (09:21→21:24)
[2020-01-14] MEDS: dilTIAZem CD 240 MG CAP PO (09:21)
[2020-01-14] MEDS: METOPROLOL ER 25 MG TABLET PO (09:21)
[2020-01-14] MEDS: ASPIRIN EC 81 MG TABLET PO (09:22)
--- NOTE | 2020-01-14 11:27 | PM.DS.1 ---
History of Present Illness History of Present Illness Date Patient Seen: 01/14/20 Time Patient Seen: 11:27 Chief complaint: weakness / falls Narrative: As per GUANAKITO Osorio: Ms. Lucila Hawkins is a 69-year-old female with history significant for atrial fibrillation anticoagulated on Coumadin, congestive heart failure with preserved ejection fraction, diabetes with neuropathy, hypertension, hyperlipidemia, peripheral vascular disease chronic leg ulcers, morbid obesity and obstructive sleep apnea presents to the emergency department after calling EMS 3 times for falls today. The patient reports being unsteady on her feet and typically ambulates with a walker. She has been having increased pain in her lower extremities for which she takes [place] 5/325 twice daily. Pain is not been controlled and she has added CBD while for pain. She states her falls were nonsyncopal and denies complaints of striking her head, neck or back pain. She describes generalized weakness and being unable to get up unassisted. She is on chronic Lasix therapy for CHF and bilateral lower extremity venous stasis leg ulcers which she states are actually looking better. She denies complaints of fevers or chills and has no known COVID-19 exposures. She denies complaints of chest pain and has intermittent palpitations. She reports no complaints of shortness of breath and sleeps in a recliner. She has no cough or wheezing. Denies complaints of abdominal pain, nausea vomiting. She had mild constipation in the last week but that has since resolved. She endorses urinary frequency and urgency on Lasix therapy. The patient lives alone in a 2 bedroom house with assistance of home health for a few hours per day. Upon arrival to the emergency department the patient has a temperature 97.5?, heart rate of 102, blood pressure 124/89, respiratory rate of 32 saturating 98% on room air. Chest x-ray is obtained which demonstrates cardiomegaly without evidence of pulmonary edema. Twelve lead EKG is obtained finding atrial fibrillation with a rapid ventricular response at 101 with unifocal PVCs, QRS is 82 milliseconds and QTC is 446 milliseconds, no evidence of ischemia with Q-waves in V1 and V2. On laboratory analysis the patient has white count of 9.2 with elevated neutrophils at 83.5%, hemoglobin 10.9, hematocrit of 33.4 and platelets of 239. She has a PT of 25.2 with an INR of 2.2 and a PTT of 40. She has a sodium 140 and chloride of 108 potassium 4.6, BUN of 69 and a creatinine of 2.6. Her EGFR is 18.1 with a BUN creatinine ratio of 26.5. Her her total bilirubin 0.4, AST 34, ALT 18 and alkaline phosphatase is 98. Her total CK is 246, and be fraction is 4.16 with an index of 1.7%. Her troponin is elevated at 0.043. Her BMP is 1110. Her urine is not infected with trace protein. In the ER the patient was started on normal saline 125 cc/hour and given [place] 5/325 x1 for leg pain. The patient is admitted to the medicine service for generalized weakness, falls and acute kidney injury. Discharge Providers Provider Date of admission: 01/10/20 20:20 Discharge Date: 01/14/20 Primary care physician: Dillon Shelton MD Consults: 01/10/20 18:23 Consult to FIELD SERVICE ENGINEER - [employer] Nib Grinder Stat Comment: FIELD SERVICE ENGINEER Consult: [facility] Res Need 01/10/20 21:39 Consult to Dietitian, Adult Routine Comment: Reason For Exam: Morbid obesity, diabetic, CHF, lymphedema 01/10/20 21:40 Consult to Discharge Planning Routine Comment: Consult to Occupational Therapy Evaluate & Treat Comment: Generalized weakness, frequent fall, morbid obesit Physician Instructions: Evaluate and treat Consult to Physical Therapy Evaluate & Treat Comment: Generalized weakness, frequent fall, morbid obesit Physician Instructions: Evaluate and Treat 01/10/20 21:41 Consult to Respiratory Therapy Evaluate & Treat Comment: Morbid obesity, NABILA, CHF Physician Instructions: Evaluate and treat 01/12/20 07:26 Consult to Wound Care Routine Comment: Consulting Provider: [facility] Discharge provider: Hakeem Camarena DO Summary Hospital Course Discharge Diagnosis: Please see hospital course by problem list noted below. Hospital Course: Lucila Hawkins is a 69-year-old female with a past medical history significant for persistent atrial fibrillation anticoagulated on warfarin, congestive heart failure with preserved ejection fraction, diabetes mellitus type II, non-insulin using with neuropathy, hypertension, hyperlipidemia, peripheral vascular disease with chronic venous stasis ulcers followed by wound care at [facility], morbid obesity and obstructive sleep apnea who presented to the emergency department for multiple falls today secondary to generalized weakness requiring assistance of paramedics. 1. Acute kidney injury, present on admission. Improving. -Secondary to pre-renal azotemia (FENA 0.7) from over diuresis and dehydration from home furosemide 40 mg twice daily and reports decreased oral fluid intake . -Initial creatinine 2.6 and BUN 69. Baseline creatinine 0.9 on 11/19/2019. Creatinine improving and now stable around 1.4. Would repeat BMP sometime next week. -Continued gentle IV fluid hydration with normal saline 0.45% at 75 cc/hour then discontinued as appears to be hydrated. -Held lisinopril and furosemide while admitted and will continue to hold given Cr stabilizing at 1.4. Consider restarting furosemide first although she still appears euvolemic. Blood pressures have remained around the upper limit of normal. 2. Peripheral vascular disease with infected venous stasis ulcerations and pain with opiate dependence, chronic, present on admision. Stable -Patient with bilateral venous stasis ulcers and skin lesions followed by wound care clinic at [facility]. -Patient reports worsening pain with infected appearing ulcers and no obvious cellulitic changes. ESR elevated at 62 which is elevated once age adjusted (> 40 abnormal) and CRP 1.2 is not elevated once age adjusted (> 2). Wound culture grew Enterococcus faecalis and Acinetobacter baumanii with variable sensitivities. Discussed case with on-call Infectious Disease for [facility] who recommended combination of cefepime 1 g every 24 hours and ampicillin 2 g every 8 hours renally dosed and to have lab test Enterococcus sensitivity for levofloxacin. Both were sensative to levaquin so will start this medication with doxycycline to prevent Acinetobacter baumanii resistance to fluoroquinolones and anti-inflammatory effect. -Consulted wound care, Julianne Yang, and we appreciate his time and recommendations. Continue wound care per nursing and wound care physicians orders, increased frequency to daily. Pre-medication required prior to dressing changes. -Continue hydrocodone 5-10 mg every 6 hours as needed for pain. Instructions for Bilateral lower extremity wounds: 1. premedicate with pain medication prior to dressing changes 1. Clean wounds with normal saline and pat dry. 2. Lay hydrofiber dressing such as Aquacel Ag Extra onto wounds. 3. Cover with superabsorbent dressing such as Mextra Superabsorbent. 4. Wrap with rolled gauze such as Kerlix 5. Retain with tubular elastic netting 6. Change dressing daily and prn detachment or saturation. 3. Metabolic acidosis, secondary to acute kidney injury and infected venous stasis ulcers, present on admission. Resolved. -Patient was acidotic on chemistries with a CO of 17. ABG demonstrated metabolic acidosis with: pH of 7.28, pCO2 of 39, PO2 71 and HCO3 18. Repeat ABG demonstrates near resolution with IV fluid hydration as above. Discharge BMP improved after hydration to CO2 of 22. 4. Persistent atrial fibrillation, present on admission. Stable. -Patient reports intermittent palpitations and irregular heartbeat. -EKG demonstrated atrial fibrillation without acute ischemic changes such as ST elevation or depression. -Continue home diltiazem ER 240 mg and metoprolol succinate 25 mg daily. -INR supratherapeutic at 3.6. Held home regimen of warfarin temporarily. To resume tonight as discharge INR 2.7. Previous regimen of 7.5 mg and 10 mg was decreased to 5 mg daily in setting of levaquin use. Continue to monitor INR while on levaquin as a dose adjustment may be necessary. 5. Elevated troponin of unclear significance, acute, present on admission. Stable. -Patient denies chest pain or ACS symptoms. -EKG demonstrated atrial fibrillation without acute ischemic changes such as ST elevation or depression. Echocardiogram technically difficult due to body habitus and zelda intertrigo, therefore, unable to assess wall motion. -Initial troponin slightly elevated at 0.043 and repeat unchanged 0.44 in the setting of GARRISON. 6. Frequent falls with generalized weakness, super morbid obesity and deconditioning, chronic, present on admission. Active. -Patient lives alone with assistance of home health a few hours per day and uses a walker for ambulation. Patient reports increased generalized weakness which could be secondary to dehydration, metabolic acidosis or use of CBD. May also have worsening venous disease. -Discharge to SNFT. 7. Diabetes mellitus type 2, non-insulin using and diet controlled, with neuropathy, present on admission. Stable. -Hemoglobin A1C is 6.1% indicative of excellent glycemic control in the range of prediabetes. Patient is not currently medically treated and diet controlled. -Continue [facility] blood glucose checks and low dose correctional scale insulin. -Continue heart healthy/carbohydrate controlled diet. 8. Super morbid obesity with zelda intertrigo, chronic, present on admission. Stable. -BMI of 57.3. -Counseled the patient on lifestyle modification including diet and exercise. -Consulted dietitian and we appreciate her time and recommendations. 9. Heart failure with preserved EF, chronic, present on admission. Stable. -Does not represent CHF exacerbation. -Held furosemide and lisinopril as above. Continue metoprolol as above. -Continued gentle IV fluid hydration as above. 10. History of NABILA and OHS not on CPAP/BiPAP due to non-complian, chronic, present on admission. Stable. -Counseled regarding risk of not treating NABILA/OHS. Code status: Full code, patient designates her daughter Gege to be her surrogate decision maker. Disposition: Transfer to SNF. Time Spent with Patient Time spent: Greater than 30 minutes Exam Vital Signs (past 8 hours): - 01/14/20 04:00 01/14/20 08:00 Temperature 97.8 F 97.2 F L Pulse Rate 70 88 Respiratory Rate 18 19 Blood Pressure 118/68 139/105 H Pulse Oximetry 96 97 Oxygen Delivery Method Room Air Oxygen Flow Rate 0 Narrative Exam Narrative: GENERAL APPEARANCE: well developed, super morbidly obese with BMI of 57.3, resting quietly in recliner chair in no acute distress. HEENT: Contusion left cheek, PERRLA, conjunctiva clear, EOMs intact without nystagmus, no sinus tenderness to percussion, no rhinorrhea or epistaxis, mucous membranes are moist and pink without lesions or exudate. NECK/THYROID: neck supple, nontender palpation, no step-offs, no JVD, no carotid bruit, no thyromegaly, trachea midline. LYMPH NODES: no cervical or supraclavicular lymphadenopathy. SKIN: [place], warm and dry, ecchymosis bilateral arms, venous stasis changes bilateral lower legs with weeping right anterior left posterior leg HEART: Irregularly irregular rhythm, S1-S2, 1/6 systolic murmur, no rubs or gallops, brisk capillary refill, 1+ pedal edema LUNGS: clear to auscultation bilaterally, no coarseness crackles or wheezing, no cough present CHEST: Symmetrical movement, no accessory muscle use, good tidal volume. ABDOMEN: Soft, obese, exam limited by body habitus, no abdominal tenderness on palpation, active bowel tones. EXTREMITIES: moves all extremities, strength is 4/5 and symmetrical, no deformities or joint effusions. NEUROLOGIC: AAO x3, no focal neurologic deficits, cranial nerves II-XII grossly intact, bilateral neuropathy distal to the ankles, hearing grossly normal to speech. PSYCH: Drowsy, Fair eye contact, cooperative with stable behavior. Objective Labs Result Diagrams: 01/14/20 04:18 01/14/20 04:18 Labs: Laboratory Results - last 24 hr 01/14/20 01/14/20 01/14/20 04:18 04:18 04:18 WBC 6.2 RBC 3.60 L Hgb 10.3 L Hct 31.9 L MCV 88.7 MCH 28.8 MCHC 32.4 RDW 17.2 H Plt Count 214 Neut % (Auto) 75.9 H Lymph % (Auto) 10.4 L Graham % (Auto) 9.9 Eos % (Auto) 3.5 Baso % (Auto) 0.3 Neut # (Auto) 4700 Lymph # (Auto) 600 L Graham # (Auto) 600 Eos # (Auto) 200 Baso # (Auto) 0 PT 30.5 H D INR 2.7 H Sodium 139 Potassium 4.4 Chloride 109 H Carbon Dioxide 22 BUN 38 H Creatinine 1.46 H Estimated GFR 35.3 L BUN/Creatinine Ratio 26.0 H Glucose 87 Calcium 9.0 Discharge Plan Discharge Plan Patient Disposition: SNF Transfer to: [facility] and [facility] Discharge comment: Lucila Hawkins is a 69-year-old female with a past medical history significant for persistent atrial fibrillation anticoagulated on warfarin, congestive heart failure with preserved ejection fraction, diabetes mellitus type II, non-insulin using with neuropathy, hypertension, hyperlipidemia, peripheral vascular disease with chronic venous stasis ulcers followed by wound care at [facility], morbid obesity and obstructive sleep apnea who presented to the emergency department for multiple falls today secondary to generalized weakness requiring assistance of paramedics. 1. Acute kidney injury, present on admission. Improving. -Secondary to pre-renal azotemia (FENA 0.7) from over diuresis and dehydration from home furosemide 40 mg twice daily and reports decreased oral fluid intake . -Initial creatinine 2.6 and BUN 69. Baseline creatinine 0.9 on 11/19/2019. Creatinine improving and now stable around 1.4. Would repeat BMP sometime next week. -Continued gentle IV fluid hydration with normal saline 0.45% at 75 cc/hour then discontinued as appears to be hydrated. -Held lisinopril and furosemide while admitted and will continue to hold given Cr stabilizing at 1.4. Consider restarting furosemide first although she still appears euvolemic. Blood pressures have remained around the upper limit of normal. 2. Peripheral vascular disease with infected venous stasis ulcerations and pain with opiate dependence, chronic, present on admision. Stable -Patient with bilateral venous stasis ulcers and skin lesions followed by wound care clinic at [facility]. -Patient reports worsening pain with infected appearing ulcers and no obvious cellulitic changes. ESR elevated at 64 which is elevated once age adjusted (> 40 abnormal) and CRP 1.2 is not elevated once age adjusted (> 2). Wound culture grew Enterococcus faecalis and Acinetobacter baumanii with variable sensitivities. Discussed case with on-call Infectious Disease for [facility] who recommended combination of cefepime 1 g every 24 hours and ampicillin 2 g every 8 hours renally dosed and to have lab test Enterococcus sensitivity for levofloxacin. Both were sensative to levaquin so will start this medication with doxycycline to prevent Acinetobacter baumanii resistance to fluoroquinolones and anti-inflammatory effect. -Consulted wound care, Julianne Yang, and we appreciate his time and recommendations. Continue wound care per nursing and wound care physicians orders, increased frequency to daily. Pre-medication required prior to dressing changes. -Continue hydrocodone 5-10 mg every 6 hours as needed for pain. Instructions for Bilateral lower extremity wounds: 1. premedicate with pain medication prior to dressing changes 1. Clean wounds with normal saline and pat dry. 2. Lay hydrofiber dressing such as Aquacel Ag Extra onto wounds. 3. Cover with superabsorbent dressing such as Mextra Superabsorbent. 4. Wrap with rolled gauze such as Kerlix 5. Retain with tubular elastic netting 6. Change dressing daily and prn detachment or saturation. 3. Metabolic acidosis, secondary to acute kidney injury and infected venous stasis ulcers, present on admission. Resolved. -Patient was acidotic on chemistries with a CO of 17. ABG demonstrated metabolic acidosis with: pH of 7.28, pCO2 of 39, PO2 71 and HCO3 18. Repeat ABG demonstrates near resolution with IV fluid hydration as above. Discharge BMP improved after hydration to CO2 of 22. 4. Persistent atrial fibrillation, present on admission. Stable. -Patient reports intermittent palpitations and irregular heartbeat. -EKG demonstrated atrial fibrillation without acute ischemic changes such as ST elevation or depression. -Continue home diltiazem ER 240 mg and metoprolol succinate 25 mg daily. -INR supratherapeutic at 3.6. Held home regimen of warfarin temporarily. To resume tonight as discharge INR 2.7. Previous regimen of 7.5 mg and 10 mg was decreased to 5 mg daily in setting of levaquin use. Continue to monitor INR while on levaquin as a dose adjustment may be necessary. 5. Elevated troponin of unclear significance, acute, present on admission. Stable. -Patient denies chest pain or ACS symptoms. -EKG demonstrated atrial fibrillation without acute ischemic changes such as ST elevation or depression. Echocardiogram technically difficult due to body habitus and zelda intertrigo, therefore, unable to assess wall motion. -Initial troponin slightly elevated at 0.043 and repeat unchanged 0.44 in the setting of GARRISON. 6. Frequent falls with generalized weakness, super morbid obesity and deconditioning, chronic, present on admission. Active. -Patient lives alone with assistance of home health a few hours per day and uses a walker for ambulation. Patient reports increased generalized weakness which could be secondary to dehydration, metabolic acidosis or use of CBD. May also have worsening venous disease. -Discharge to SNFT. 7. Diabetes mellitus type 2, non-insulin using and diet controlled, with neuropathy, present on admission. Stable. -Hemoglobin A1C is 6.1% indicative of excellent glycemic control in the range of prediabetes. Patient is not currently medically treated and diet controlled. -Continue [facility] blood glucose checks and low dose correctional scale insulin. -Continue heart healthy/carbohydrate controlled diet. 8. Super morbid obesity with zelda intertrigo, chronic, present on admission. Stable. -BMI of 57.3. -Counseled the patient on lifestyle modification including diet and exercise. -Consulted dietitian and we appreciate her time and recommendations. 9. Heart failure with preserved EF, chronic, present on admission. Stable. -Does not represent CHF exacerbation. -Held furosemide and lisinopril as above. Continue metoprolol as above. -Continued gentle IV fluid hydration as above. 10. History of NABILA and OHS not on CPAP/BiPAP due to non-complian, chronic, present on admission. Stable. -Counseled regarding risk of not treating NABILA/OHS. Code status: Full code, patient designates her daughter Gege to be her surrogate decision maker. Disposition: Transfer to SNF. Discharge orders & Medications Prescriptions: New acetaminophen 325 mg Tablet 650 mg PO Q6HR PRN (Reason: Fever/Mild Pain (1-3)) 30 Days Qty: 5 RF: 0 hydrocodone-acetaminophen 5-325 mg Tablet 1 - 2 tab PO Q4H PRN (Reason: Pain, Severe (7-10)) 7 Days Qty: 30 RF: 0 warfarin [Coumadin] 5 mg Tablet 5 mg PO SuTuThSa@1700 7 Days Qty: 7 RF: 0 warfarin [Coumadin] 5 mg Tablet 5 mg PO MoWeFr@1700 7 Days RF: 0 doxycycline hyclate 100 mg Tablet 100 mg PO BID 6 Days Qty: 12 RF: 0 lidocaine HCl 2 % Jelly 1 ml topical PRN PRN (Reason: Pain, Mild (1-3)) 30 Days Qty: 5 RF: 0 levofloxacin 250 mg Tablet 750 mg PO Q48H 6 Days Qty: 9 RF: 0 nystatin [Nystop] 100,000 unit/gram Powder 1 applic topical BID 30 Days Qty: 5 RF: 0 loratadine 10 mg Tablet 10 mg PO DAILY PRN (Reason: Itching) 30 Days Qty: 30 RF: 0 probenecid 500 mg Tablet 250 mg PO BID 14 Days Qty: 14 RF: 0 Continued (DME) Glucose: Home Monitor See Rx Instructions .Route .MEDSUPPLY Qty: 1 RF: 0 (DME) Glucose: Test Strips See Rx Instructions .Route .MEDSUPPLY Qty: 100 RF: 3 diltiazem HCl [Cartia XT] 240 mg capsule,extended release 24hr 240 mg PO DAILY Qty: 90 RF: 3 lorazepam 2 mg tablet 2 mg PO BEDTIME Qty: 30 RF: 5 metoprolol succinate 25 mg tablet extended release 24 hr 25 mg PO DAILY Qty: 90 RF: 3 Discontinued lisinopril 40 mg tablet 40 mg PO BEDTIME Qty: 90 RF: 3 warfarin 10 mg tablet 10 mg PO SUTUTHSA Qty: 60 RF: 1 furosemide 40 mg tablet 40 mg PO BID Qty: 60 RF: 5 potassium chloride 20 mEq tablet extended release 20 meq PO BID Qty: 60 RF: 5 warfarin 7.5 mg tablet 7.5 mg PO MOWEFR Qty: 60 RF: 1 hydrocodone-acetaminophen 5-325 mg tablet 2 tab PO BID PRN (Reason: Pain (Scale Score 7-10)) RF: 0 Follow up/Referrals: Dillon Shelton MD [Primary Care Provider] - Discharge Health Status Precautions: Harris Diet/Activity/Treatments Diet: Diet as Tolerated Activity: As tolerated [facility] Reason for rehabilitation: Post-operative therapy Rehab type: Physical therapy Discharge Data Primary Care Provider: Dillon Shelton
[2020-01-14] MEDS: DOXYCYCLINE HYCLATE 100 MG TABLET PO ×2 (11:34→21:56)
[2020-01-14] MEDS: NYSTATIN POWDER 15GM 1 APPLIC TOP ×2 (12:34→21:25)
[2020-01-14] MEDS: SODIUM CHLORIDE 0.9% FLUSH 10 ML IV ×2 (12:35→22:06)
[2020-01-14 13:52] LABS: COVID19 -Nasal RAPID Negative (Negative)
--- NOTE | 2020-01-14 13:58 | PT-IP ANOTE ---
Pt refused PT x3 today d/t high reported pain and fatigue.
--- NOTE | 2020-01-14 14:28 | PM.PN.1 ---
Subjective Subjective Date Patient Seen: 01/14/20 Time Patient Seen: 14:34 Interval history: Patient developed nausea and vomiting prior to discharge to SNF which was planned for today, unwilling to get COVID testing at this moment. Dressings changed this morning with improvement in erythema and purulence. Nausea and vomiting likely due to medications required for dressing change on an empty stomach with the addition of antibiotics. Will hold on discharge at this time, with planned discharge for tomorrow for SNF. Will treat with anti-emetics and continue to reassess. Exam Vital Signs (past 8 hours): - 01/14/20 08:00 01/14/20 12:00 Temperature 97.2 F L 97.7 F Pulse Rate 88 70 Respiratory Rate 19 20 Blood Pressure 139/105 H 112/50 L Pulse Oximetry 97 95 Oxygen Delivery Method Room Air Oxygen Flow Rate 0 Narrative Exam Narrative: GENERAL APPEARANCE: well developed, super morbidly obese with BMI of 57.9, resting in bed without acute distress but in obvious pain during dressing changes. HEENT: Contusion left cheek, PERRLA, conjunctiva clear, EOMs intact without nystagmus, no sinus tenderness to percussion, no rhinorrhea or epistaxis, mucous membranes are moist and pink without lesions or exudate. NECK/THYROID: neck supple, nontender palpation, no step-offs, no JVD, no carotid bruit, no thyromegaly, trachea midline. LYMPH NODES: no cervical or supraclavicular lymphadenopathy. SKIN: [place], warm and dry, ecchymosis bilateral arms, venous stasis changes bilateral lower legs with weeping bilateral lower leg. Venous ulcerations with improved circumferential erythema around the calf bilaterally, mild purulence improved with cleaning and dressing changes. Area is tender. HEART: Irregularly irregular rhythm, S1-S2, no murmur, no rubs or gallops, brisk capillary refill, 1+ pedal edema LUNGS: clear to auscultation bilaterally, no coarseness crackles or wheezing, no cough present CHEST: Symmetrical movement, no accessory muscle use, good tidal volume. ABDOMEN: Soft, obese, exam limited by body habitus, no abdominal tenderness on palpation, active bowel tones. EXTREMITIES: moves all extremities, strength is 4/5 and symmetrical, no deformities or joint effusions. NEUROLOGIC: AAO x3, no focal neurologic deficits, cranial nerves II-XII grossly intact, bilateral neuropathy distal to the ankles, hearing grossly normal to speech. PSYCH: Drowsy, Fair eye contact, cooperative with stable behavior. Objective Labs Result Diagrams: 01/14/20 04:18 01/14/20 04:18 Labs: Laboratory Results - last 24 hr 01/14/20 01/14/20 01/14/20 04:18 04:18 04:18 WBC 6.2 RBC 3.60 L Hgb 10.3 L Hct 31.9 L MCV 88.7 MCH 28.8 MCHC 32.4 RDW 17.2 H Plt Count 214 Neut % (Auto) 75.9 H Lymph % (Auto) 10.4 L [place] % (Auto) 9.9 Eos % (Auto) 3.5 Baso % (Auto) 0.3 Neut # (Auto) 4700 Lymph # (Auto) 600 L [place] # (Auto) 600 Eos # (Auto) 200 Baso # (Auto) 0 PT 30.5 H D INR 2.7 H Sodium 139 Potassium 4.4 Chloride 109 H Carbon Dioxide 22 BUN 38 H Creatinine 1.46 H Estimated GFR 35.3 L BUN/Creatinine Ratio 26.0 H Glucose 87 Calcium 9.0 COVID-19 PCR 01/14/20 12:53 WBC RBC Hgb Hct MCV MCH MCHC RDW Plt Count Neut % (Auto) Lymph % (Auto) [place] % (Auto) Eos % (Auto) Baso % (Auto) Neut # (Auto) Lymph # (Auto) [place] # (Auto) Eos # (Auto) Baso # (Auto) PT INR Sodium Potassium Chloride Carbon Dioxide BUN Creatinine Estimated GFR BUN/Creatinine Ratio Glucose Calcium COVID-19 PCR Negative Assessment & Plan Assessment & Plan narrative: Lucila Hawkins is a 69-year-old female with a past medical history significant for persistent atrial fibrillation anticoagulated on warfarin, congestive heart failure with preserved ejection fraction, diabetes mellitus type II, non-insulin using with neuropathy, hypertension, hyperlipidemia, peripheral vascular disease with chronic venous stasis ulcers followed by wound care at [place], morbid obesity and obstructive sleep apnea who presented to the emergency department for multiple falls today secondary to generalized weakness requiring assistance of paramedics. 1. Acute kidney injury, present on admission. Improving. -Secondary to pre-renal azotemia (FENA 0.7) from over diuresis and dehydration from home furosemide 40 mg twice daily and reports decreased oral fluid intake . -Initial creatinine 2.6 and BUN 69. Baseline creatinine 0.9 on 11/19/2019. Creatinine improving and now stable around 1.4. Would repeat BMP sometime next week. -Continued gentle IV fluid hydration with normal saline 0.45% at 75 cc/hour then discontinued as appears to be hydrated. -Held lisinopril and furosemide while admitted and will continue to hold given Cr stabilizing at 1.4. Consider restarting furosemide first although she still appears euvolemic. Blood pressures have remained around the upper limit of normal. 2. Peripheral vascular disease with infected venous stasis ulcerations and pain with opiate dependence, chronic, present on admision. Stable -Patient with bilateral venous stasis ulcers and skin lesions followed by wound care clinic at [place]. -Patient reports worsening pain with infected appearing ulcers and no obvious cellulitic changes. ESR elevated at 62 which is elevated once age adjusted (> 40 abnormal) and CRP 1.2 is not elevated once age adjusted (> 2). Wound culture grew Enterococcus faecalis and Acinetobacter baumanii with variable sensitivities. Discussed case with on-call Infectious Disease for [facility] who recommended combination of cefepime 1 g every 24 hours and ampicillin 2 g every 8 hours renally dosed and to have lab test Enterococcus sensitivity for levofloxacin. Both were sensative to levaquin so will start this medication with doxycycline to prevent Acinetobacter baumanii resistance to fluoroquinolones and anti-inflammatory effect. -Consulted wound care, Julianne Yang, and we appreciate his time and recommendations. Continue wound care per nursing and wound care physicians orders, increased frequency to daily. Pre-medication required prior to dressing changes. -Continue hydrocodone 5-10 mg every 6 hours as needed for pain. Instructions for Bilateral lower extremity wounds: 1. premedicate with pain medication prior to dressing changes 1. Clean wounds with normal saline and pat dry. 2. Lay hydrofiber dressing such as Aquacel Ag Extra onto wounds. 3. Cover with superabsorbent dressing such as Mextra Superabsorbent. 4. Wrap with rolled gauze such as Kerlix 5. Retain with tubular elastic netting 6. Change dressing daily and prn detachment or saturation. 3. Metabolic acidosis, secondary to acute kidney injury and infected venous stasis ulcers, present on admission. Resolved. -Patient was acidotic on chemistries with a CO of 17. ABG demonstrated metabolic acidosis with: pH of 7.28, pCO2 of 39, PO2 71 and HCO3 18. Repeat ABG demonstrates near resolution with IV fluid hydration as above. Discharge BMP improved after hydration to CO2 of 22. 4. Persistent atrial fibrillation, present on admission. Stable. -Patient reports intermittent palpitations and irregular heartbeat. -EKG demonstrated atrial fibrillation without acute ischemic changes such as ST elevation or depression. -Continue home diltiazem ER 240 mg and metoprolol succinate 25 mg daily. -INR supratherapeutic at 3.6. Held home regimen of warfarin temporarily. To resume tonight as discharge INR 2.7. Previous regimen of 7.5 mg and 10 mg was decreased to 5 mg daily in setting of levaquin use. Continue to monitor INR while on levaquin as a dose adjustment may be necessary. 5. Elevated troponin of unclear significance, acute, present on admission. Stable. -Patient denies chest pain or ACS symptoms. -EKG demonstrated atrial fibrillation without acute ischemic changes such as ST elevation or depression. Echocardiogram technically difficult due to body habitus and zelda intertrigo, therefore, unable to assess wall motion. -Initial troponin slightly elevated at 0.043 and repeat unchanged 0.44 in the setting of [place]. 6. Frequent falls with generalized weakness, super morbid obesity and deconditioning, chronic, present on admission. Active. -Patient lives alone with assistance of home health a few hours per day and uses a walker for ambulation. Patient reports increased generalized weakness which could be secondary to dehydration, metabolic acidosis or use of CBD. May also have worsening venous disease. -Discharge to SNFT. 7. Diabetes mellitus type 2, non-insulin using and diet controlled, with neuropathy, present on admission. Stable. -Hemoglobin A1C is 6.1% indicative of excellent glycemic control in the range of prediabetes. Patient is not currently medically treated and diet controlled. -Continue [facility] blood glucose checks and low dose correctional scale insulin. -Continue heart healthy/carbohydrate controlled diet. 8. Super morbid obesity with zelda intertrigo, chronic, present on admission. Stable. -BMI of 57.3. -Counseled the patient on lifestyle modification including diet and exercise. -Consulted dietitian and we appreciate her time and recommendations. 9. Heart failure with preserved EF, chronic, present on admission. Stable. -Does not represent CHF exacerbation. -Held furosemide and lisinopril as above. Continue metoprolol as above. -Continued gentle IV fluid hydration as above. 10. History of NABILA and OHS not on CPAP/BiPAP due to non-complian, chronic, present on admission. Stable. -Counseled regarding risk of not treating NABILA/OHS. 11. nausea/vomiting - likely multifactorial in setting of dressing changes, pain medications / opioids on an empty stomach, and new oral antibiotics. - will continue anti-emetics and continue to reassess. Code status: Full code, patient designates her daughter Gege to be her surrogate decision maker. Disposition: Transfer to SNF once nausea/vomiting improve, likely tomorrow.
--- NOTE | 2020-01-14 14:33 | OT.IP.TRT ---
Current Diagnoses Acute kidney failure, unspecified (01/10/20) Occupational Therapy Treatment Note M2 OT-IP Current Condition Start: 01/12/20 11:26 Freq: Status: Active Protocol: Document 01/12/20 10:25 [facility] (Rec: 01/12/20 11:48 [facility] [id number]) Occupational Therapy Current Condition Current Condition Evaluation Date 01/12/20 Treatment Diagnosis S/p fall, acute kidney injury, decreased mobility Diagnosis Onset Date 01/10/20 M3 OT- IP Subjective and Pain Start: 01/12/20 11:26 Freq: Status: Active Protocol: Document 01/14/20 14:32 [facility] (Rec: 01/14/20 14:33 [facility] [id number]) OT- Subjective Occupational Therapy Visit Type Type Administrative Note Notes Per pt and nursing, pt now planned for discharge tomorrow to SNF. Assisted with repositioning in bed but pt declined further activity at this time stating that she doesn't feel well today. Will continue to follow.
--- NOTE | 2020-01-14 14:37 | CM.DANOTE ---
DCP/Continued: Received notification from [place] that patient authorized for SNF stay at [facility]. Placed call to admit at [facility] this AM. They report that they can accept patient today but that she would need new COVID test. Spoke with provider in AM rounds, initial plan was for patient to discharge to [facility] at 2:00pm today. Unfortunately, patient starting vomiting around noon. Therefore, discharge cancelled and expected tomorrow. [facility] aware and have tentative plan to pick patient up at approximately 11:00AM. FACILITY REHAB DIRECTOR met with patient and daughter/Gege at bedside. Both aware and agreeable to plan. Daughter inquiring about state assistance with caregivers when patient goes home. Patient reports that Medicaid/[employer] have already been started. Encouraged daughter and patient to follow up with home and community on Thursday01-16-20. In the meantime, will fax expedited [employer] referral on day of discharge. Daughter appreciative. P: [facility] once medically stable. [place] has approved. Orders, PASSR, and copy of script faxed to [facility] today. Will need to resend if any changes made. In addition, COVID test currently pending. [facility] will need prior to acceptance. AYLA Major
--- NOTE | 2020-01-14 15:49 | PC.NURSE ---
Nursing AM PO ABX given today and Pt noted with nausea and tearfulness most of day. Frustrated about Having to get sent to [facility] Reassured with current needs and dressing changes required, she was safest at a short stay rehab. Goal remains to go home when safely able. Pt with nausea and emesis this afternoon. Medicated and d/c cancelled for today. Plan for tomorrow AM. Premedicated with dilaudid for re-wrapping of BLE's. This dressing change will be daily as removal this am took an hour. BLE's left PHLEBOTOMIST PRN for most of this shift d/t pain and active bleeding. Dr Camarena aware. New photos taken of BLE leg wounds this AM. NOTE-the aquacell was substantially easier to remove with saline soak to dried areas. Chucks pad to bed for weeping. PIV ÁNGEL Kirkpatrick AC
[2020-01-14] MEDS: INSULIN ASPART 100 UNIT/ML INSULN PEN SUBCUT (17:06)
[2020-01-14] MEDS: WARFARIN 5 MG TABLET PO (17:11)
--- NOTE | 2020-01-14 18:12 | PC.NURSE ---
1800- Patient states she has severe burning pain to both lower extremities since her dressing change today. Her feet and ankles feel hot. Dressing taken down to observe the tissue and visually the wounds do not appear swollen or more erythemic. Patient has been medicated. Will monitor.
--- NOTE | 2020-01-14 21:19 | PC.NURSE ---
2014 - This DATABASE DEVELOPER and an RN assisted pt up to bedside commode with gait belt and FWW. While assisting I noticed a bruise on her right gluteal toward the top. Notified her RN.
[2020-01-15] MEDS: HYDROCODONE/ACET 5/325 TABLET 2 TAB PO ×3 (01:29→10:20)
--- NOTE | 2020-01-15 01:39 | PC.NURSE ---
Addendum entered by Tiffani Woody R.N. 01/15/20 06:41: States pain is again 10/10; medicated with Vicodin Original Note: Patient is alert and oriented. Breath sounds diminished but CTA with RA sat of 97%. HR irregular; telemetry reading was afib CVR. Denies nausea. BT hypoactive; abdomen is soft. Voiding on BSC; denies dysuria, frequency or urgency. Moving self in bed but staff assist as needed. Getting up to BSC with 1-2 assist and walker. Complains of 10/10 bilateral LE pain so medicated with Vicodin. Dressings to bilateral LE are CDI. Legs are elevated on pillows and foot of bed also elevated. Fall risk score is high and bed alarm is activated.
[2020-01-15 04:44] VITALS: BP 118/57; PULSE 81; RESP 18; TEMP 36.6; O2SAT 93
[2020-01-15 05:14] LABS: Add Manual Diff / Slide Review NO; Basophils Absolute Auto 0 /uL (0-100); Basophils Percent Auto 0.4 % (0-2); Eosinophils Absolute Auto 100 /uL (0-450); Eosinophils Percent Auto 1.8 % (2-4); Hematocrit 30.5 % (36-46); Hemoglobin 9.9 g/dL (12.0-16.0); Lymphocytes Absolute Auto 600 /uL (1100-4500); Lymphocytes Percent Auto 8.3 % (25-40); Mean Corpuscular HGB Conc 32.5 % (30-36); Mean Corpuscular Hemoglobin 28.9 PG (26-34); Mean Corpuscular Volume 88.9 fL (80-100); Monocytes Absolute Auto 700 /uL (0-900); Monocytes Percent Auto 8.8 % (3-14); Neutrophils Absolute Auto 6100 /uL (1500-7000); Neutrophils Percent Auto 80.7 % (50-75); Platelet Count 247 X10^3/uL (150-400); Red Blood Cell Count 3.43 X10^6/uL (4.0-5.2); Red Cell Distribution Width 17.4 % (11.6-14.8); White Blood Cell Count 7.5 X10^3/uL (4.5-11.0)
[2020-01-15 05:20] LABS: INR 2.5 (0.9-1.3); Prothrombin Time 28.4 SECONDS (10.1-12.7)
[2020-01-15 05:25] LABS: BUN Creatinine Ratio 24.5 (6-22); Blood Urea Nitrogen 35 mg/dL (7-17); Calcium 9.1 mg/dL (8.4-10.2); Carbon Dioxide 23 mmol/L (22-32); Chloride 109 mmol/L (98-107); Estimated Glomerular Filt Rate 36.2 mL/min (>60); Glucose 90 mg/dL (80-110); HEMOLYSIS < 15 (0-50); Potassium 4.7 mmol/L (3.4-5.1); Sodium 138 mmol/L (137-145)
[2020-01-15 08:00] VITALS: BP 115/51; PULSE 89; RESP 21; TEMP 36.3; O2SAT 95
[2020-01-15] MEDS: ASPIRIN EC 81 MG TABLET PO (09:09)
[2020-01-15] MEDS: levoFLOXacin 250 MG TABLET 750 MG PO (09:10)
[2020-01-15 09:11] VITALS: BP 109/74; PULSE 89
[2020-01-15] MEDS: dilTIAZem CD 240 MG CAP PO (09:11)
[2020-01-15] MEDS: PROBENECID 500 MG TABLET 250 MG PO (09:11)
[2020-01-15] MEDS: METOPROLOL ER 25 MG TABLET PO (09:11)
[2020-01-15] MEDS: NYSTATIN POWDER 15GM 1 APPLIC TOP (09:11)
[2020-01-15] MEDS: SODIUM CHLORIDE 0.9% FLUSH 10 ML IV (09:12)
--- NOTE | 2020-01-15 09:14 | PM.DS.1 ---
History of Present Illness History of Present Illness Date Patient Seen: 01/15/20 Time Patient Seen: 09:14 Chief complaint: weakness / falls Narrative: As per GUANAKITO Osorio: Ms. Lucila Hawkins is a 69-year-old female with history significant for atrial fibrillation anticoagulated on Coumadin, congestive heart failure with preserved ejection fraction, diabetes with neuropathy, hypertension, hyperlipidemia, peripheral vascular disease chronic leg ulcers, morbid obesity and obstructive sleep apnea presents to the emergency department after calling EMS 3 times for falls today. The patient reports being unsteady on her feet and typically ambulates with a walker. She has been having increased pain in her lower extremities for which she takes [place] 5/325 twice daily. Pain is not been controlled and she has added CBD while for pain. She states her falls were nonsyncopal and denies complaints of striking her head, neck or back pain. She describes generalized weakness and being unable to get up unassisted. She is on chronic Lasix therapy for CHF and bilateral lower extremity venous stasis leg ulcers which she states are actually looking better. She denies complaints of fevers or chills and has no known COVID-19 exposures. She denies complaints of chest pain and has intermittent palpitations. She reports no complaints of shortness of breath and sleeps in a recliner. She has no cough or wheezing. Denies complaints of abdominal pain, nausea vomiting. She had mild constipation in the last week but that has since resolved. She endorses urinary frequency and urgency on Lasix therapy. The patient lives alone in a 2 bedroom house with assistance of home health for a few hours per day. Upon arrival to the emergency department the patient has a temperature 97.5?, heart rate of 102, blood pressure 124/89, respiratory rate of 32 saturating 98% on room air. Chest x-ray is obtained which demonstrates cardiomegaly without evidence of pulmonary edema. Twelve lead EKG is obtained finding atrial fibrillation with a rapid ventricular response at 101 with unifocal PVCs, QRS is 82 milliseconds and QTC is 446 milliseconds, no evidence of ischemia with Q-waves in V1 and V2. On laboratory analysis the patient has white count of 9.2 with elevated neutrophils at 83.5%, hemoglobin 10.9, hematocrit of 33.4 and platelets of 239. She has a PT of 25.2 with an INR of 2.2 and a PTT of 40. She has a sodium 140 and chloride of 108 potassium 4.6, BUN of 69 and a creatinine of 2.6. Her EGFR is 18.1 with a BUN creatinine ratio of 26.5. Her her total bilirubin 0.4, AST 34, ALT 18 and alkaline phosphatase is 98. Her total CK is 246, and be fraction is 4.16 with an index of 1.7%. Her troponin is elevated at 0.043. Her BMP is 1110. Her urine is not infected with trace protein. In the ER the patient was started on normal saline 125 cc/hour and given [place] 5/325 x1 for leg pain. The patient is admitted to the medicine service for generalized weakness, falls and acute kidney injury. Discharge Providers Provider Date of admission: 01/10/20 20:20 Discharge Date: 01/15/20 Primary care physician: Dillon Shelton MD Consults: 01/10/20 18:23 Consult to MEDICAID BILLING SPECIALIST - District Medical Examiner Stat Comment: MEDICAID BILLING SPECIALIST Consult: [facility] Res Need 01/10/20 21:39 Consult to Dietitian, Adult Routine Comment: Reason For Exam: Morbid obesity, diabetic, CHF, lymphedema 01/10/20 21:40 Consult to Discharge Planning Routine Comment: Consult to Occupational Therapy Evaluate & Treat Comment: Generalized weakness, frequent fall, morbid obesit Physician Instructions: Evaluate and treat Consult to Physical Therapy Evaluate & Treat Comment: Generalized weakness, frequent fall, morbid obesit Physician Instructions: Evaluate and Treat 01/10/20 21:41 Consult to Respiratory Therapy Evaluate & Treat Comment: Morbid obesity, NABILA, CHF Physician Instructions: Evaluate and treat 01/12/20 07:26 Consult to Wound Care Routine Comment: Consulting Provider: [facility] Discharge provider: Hakeem Camarena DO Summary Hospital Course Discharge Diagnosis: Please see hospital course by problem list noted below. Hospital Course: Lucila Hawkins is a 69-year-old female with a past medical history significant for persistent atrial fibrillation anticoagulated on warfarin, congestive heart failure with preserved ejection fraction, diabetes mellitus type II, non-insulin using with neuropathy, hypertension, hyperlipidemia, peripheral vascular disease with chronic venous stasis ulcers followed by wound care at [facility], morbid obesity and obstructive sleep apnea who presented to the emergency department for multiple falls today secondary to generalized weakness requiring assistance of paramedics. 1. Acute kidney injury, present on admission. Improving. -Secondary to pre-renal azotemia (FENA 0.7) from over diuresis and dehydration from home furosemide 40 mg twice daily and reports decreased oral fluid intake . -Initial creatinine 2.6 and BUN 69. Baseline creatinine 0.9 on 11/19/2019. Creatinine improving and now stable around 1.4. Would repeat BMP sometime next week. -Continued gentle IV fluid hydration with normal saline 0.45% at 75 cc/hour then discontinued as appears to be hydrated. -Held lisinopril and furosemide while admitted and will continue to hold given Cr stabilizing at 1.4. Consider restarting furosemide first although she still appears euvolemic. Blood pressures have remained around the upper limit of normal. 2. Peripheral vascular disease with infected venous stasis ulcerations and pain with opiate dependence, chronic, present on admision. Stable -Patient with bilateral venous stasis ulcers and skin lesions followed by wound care clinic at [facility]. -Patient reports worsening pain with infected appearing ulcers and no obvious cellulitic changes. ESR elevated at 62 which is elevated once age adjusted (> 40 abnormal) and CRP 1.2 is not elevated once age adjusted (> 2). Wound culture grew Enterococcus faecalis and Acinetobacter baumanii with variable sensitivities. Discussed case with on-call Infectious Disease for [facility] who recommended combination of cefepime 1 g every 24 hours and ampicillin 2 g every 8 hours renally dosed and to have lab test Enterococcus sensitivity for levofloxacin. Both were sensative to levaquin so will start this medication with doxycycline to prevent Acinetobacter baumanii resistance to fluoroquinolones and anti-inflammatory effect. -Consulted wound care, Julianne Yang, and we appreciate his time and recommendations. Continue wound care per nursing and wound care physicians orders, increased frequency to daily. Pre-medication required prior to dressing changes. -Continue hydrocodone 5-10 mg every 6 hours as needed for pain. Instructions for Bilateral lower extremity wounds: 1. premedicate with pain medication prior to dressing changes 1. Clean wounds with normal saline and pat dry. 2. Lay hydrofiber dressing such as Aquacel Ag Extra onto wounds. 3. Cover with superabsorbent dressing such as Mextra Superabsorbent. 4. Wrap with rolled gauze such as Kerlix 5. Retain with tubular elastic netting 6. Change dressing daily and prn detachment or saturation. 3. Metabolic acidosis, secondary to acute kidney injury and infected venous stasis ulcers, present on admission. Resolved. -Patient was acidotic on chemistries with a CO of 17. ABG demonstrated metabolic acidosis with: pH of 7.28, pCO2 of 39, PO2 71 and HCO3 18. Repeat ABG demonstrates near resolution with IV fluid hydration as above. Discharge BMP improved after hydration to CO2 of 22. 4. Persistent atrial fibrillation, present on admission. Stable. -Patient reports intermittent palpitations and irregular heartbeat. -EKG demonstrated atrial fibrillation without acute ischemic changes such as ST elevation or depression. -Continue home diltiazem ER 240 mg and metoprolol succinate 25 mg daily. -INR supratherapeutic at 3.6. Held home regimen of warfarin temporarily. To resume tonight as discharge INR 2.7. Previous regimen of 7.5 mg and 10 mg was decreased to 5 mg daily in setting of levaquin use. Continue to monitor INR while on levaquin as a dose adjustment may be necessary. 5. Elevated troponin of unclear significance, acute, present on admission. Stable. -Patient denies chest pain or ACS symptoms. -EKG demonstrated atrial fibrillation without acute ischemic changes such as ST elevation or depression. Echocardiogram technically difficult due to body habitus and zelda intertrigo, therefore, unable to assess wall motion. -Initial troponin slightly elevated at 0.043 and repeat unchanged 0.44 in the setting of GARRISON. 6. Frequent falls with generalized weakness, super morbid obesity and deconditioning, chronic, present on admission. Active. -Patient lives alone with assistance of home health a few hours per day and uses a walker for ambulation. Patient reports increased generalized weakness which could be secondary to dehydration, metabolic acidosis or use of CBD. May also have worsening venous disease. -Discharge to SNFT. 7. Diabetes mellitus type 2, non-insulin using and diet controlled, with neuropathy, present on admission. Stable. -Hemoglobin A1C is 6.1% indicative of excellent glycemic control in the range of prediabetes. Patient is not currently medically treated and diet controlled. -Continue [facility] blood glucose checks and low dose correctional scale insulin. -Continue heart healthy/carbohydrate controlled diet. 8. Super morbid obesity with zelda intertrigo, chronic, present on admission. Stable. -BMI of 57.3. -Counseled the patient on lifestyle modification including diet and exercise. -Consulted dietitian and we appreciate her time and recommendations. 9. Heart failure with preserved EF, chronic, present on admission. Stable. -Does not represent CHF exacerbation. -Held furosemide and lisinopril as above. Continue metoprolol as above. -Continued gentle IV fluid hydration as above. 10. History of NABILA and OHS not on CPAP/BiPAP due to non-complian, chronic, present on admission. Stable. -Counseled regarding risk of not treating NABILA/OHS. 11. nausea/vomiting - likely multifactorial in setting of dressing changes, pain medications / opioids on an empty stomach, and new oral antibiotics. -patients symptoms resolved by the following day and she was transferred to SNF. Code status: Full code, patient designates her daughter Gege to be her surrogate decision maker. Disposition: Transfer to SNF. Time Spent with Patient Time spent: Greater than 30 minutes Exam Vital Signs (past 8 hours): - 01/15/20 04:44 01/15/20 08:00 01/15/20 09:11 Temperature 97.9 F 97.4 F L Pulse Rate 81 89 89 Respiratory Rate 18 21 Blood Pressure 118/57 L 115/51 L 109/74 Pulse Oximetry 93 95 Oxygen Delivery Method Room Air Oxygen Flow Rate 0 Narrative Exam Narrative: GENERAL APPEARANCE: well developed, super morbidly obese with BMI of 57.9, resting in bed without acute distress but in obvious pain during dressing changes. HEENT: Contusion left cheek, PERRLA, conjunctiva clear, EOMs intact without nystagmus, no sinus tenderness to percussion, no rhinorrhea or epistaxis, mucous membranes are moist and pink without lesions or exudate. NECK/THYROID: neck supple, nontender palpation, no step-offs, no JVD, no carotid bruit, no thyromegaly, trachea midline. LYMPH NODES: no cervical or supraclavicular lymphadenopathy. SKIN: [place], warm and dry, ecchymosis bilateral arms, venous stasis changes bilateral lower legs with weeping bilateral lower leg. Venous ulcerations with improved circumferential erythema around the calf bilaterally, mild purulence improved with cleaning and dressing changes. Area is tender. HEART: Irregularly irregular rhythm, S1-S2, no murmur, no rubs or gallops, brisk capillary refill, 1+ pedal edema LUNGS: clear to auscultation bilaterally, no coarseness crackles or wheezing, no cough present CHEST: Symmetrical movement, no accessory muscle use, good tidal volume. ABDOMEN: Soft, obese, exam limited by body habitus, no abdominal tenderness on palpation, active bowel tones. EXTREMITIES: moves all extremities, strength is 4/5 and symmetrical, no deformities or joint effusions. NEUROLOGIC: AAO x3, no focal neurologic deficits, cranial nerves II-XII grossly intact, bilateral neuropathy distal to the ankles, hearing grossly normal to speech. PSYCH: Drowsy, Fair eye contact, cooperative with stable behavior. Objective Labs Result Diagrams: 01/15/20 04:53 01/15/20 04:53 Labs: Laboratory Results - last 24 hr 01/14/20 01/15/20 01/15/20 12:53 04:53 04:53 WBC 7.5 RBC 3.43 L Hgb 9.9 L Hct 30.5 L MCV 88.9 MCH 28.9 MCHC 32.5 RDW 17.4 H Plt Count 247 Neut % (Auto) 80.7 H Lymph % (Auto) 8.3 L Falls % (Auto) 8.8 Eos % (Auto) 1.8 L Baso % (Auto) 0.4 Neut # (Auto) 6100 Lymph # (Auto) 600 L Falls # (Auto) 700 Eos # (Auto) 100 Baso # (Auto) 0 PT 28.4 H INR 2.5 H Sodium Potassium Chloride Carbon Dioxide BUN Creatinine Estimated GFR BUN/Creatinine Ratio Glucose Calcium COVID-19 PCR Negative 01/15/20 04:53 WBC RBC Hgb Hct MCV MCH MCHC RDW Plt Count Neut % (Auto) Lymph % (Auto) Falls % (Auto) Eos % (Auto) Baso % (Auto) Neut # (Auto) Lymph # (Auto) Falls # (Auto) Eos # (Auto) Baso # (Auto) PT INR Sodium 138 Potassium 4.7 Chloride 109 H Carbon Dioxide 23 BUN 35 H Creatinine 1.43 H Estimated GFR 36.2 L BUN/Creatinine Ratio 24.5 H Glucose 90 Calcium 9.1 COVID-19 PCR Discharge Plan Discharge Plan Patient Disposition: SNF Transfer to: [facility] Discharge comment: Lucila Hawkins is a 69-year-old female with a past medical history significant for persistent atrial fibrillation anticoagulated on warfarin, congestive heart failure with preserved ejection fraction, diabetes mellitus type II, non-insulin using with neuropathy, hypertension, hyperlipidemia, peripheral vascular disease with chronic venous stasis ulcers followed by wound care at [facility], morbid obesity and obstructive sleep apnea who presented to the emergency department for multiple falls today secondary to generalized weakness requiring assistance of paramedics. 1. Acute kidney injury, present on admission. Improving. -Secondary to pre-renal azotemia (FENA 0.7) from over diuresis and dehydration from home furosemide 40 mg twice daily and reports decreased oral fluid intake . -Initial creatinine 2.6 and BUN 69. Baseline creatinine 0.9 on 11/19/2019. Creatinine improving and now stable around 1.4. Would repeat BMP sometime next week. -Continued gentle IV fluid hydration with normal saline 0.45% at 75 cc/hour then discontinued as appears to be hydrated. -Held lisinopril and furosemide while admitted and will continue to hold given Cr stabilizing at 1.4. Consider restarting furosemide first although she still appears euvolemic. Blood pressures have remained around the upper limit of normal. 2. Peripheral vascular disease with infected venous stasis ulcerations and pain with opiate dependence, chronic, present on admision. Stable -Patient with bilateral venous stasis ulcers and skin lesions followed by wound care clinic at [facility]. -Patient reports worsening pain with infected appearing ulcers and no obvious cellulitic changes. ESR elevated at 64 which is elevated once age adjusted (> 40 abnormal) and CRP 1.2 is not elevated once age adjusted (> 2). Wound culture grew Enterococcus faecalis and Acinetobacter baumanii with variable sensitivities. Discussed case with on-call Infectious Disease for [facility] who recommended combination of cefepime 1 g every 24 hours and ampicillin 2 g every 8 hours renally dosed and to have lab test Enterococcus sensitivity for levofloxacin. Both were sensative to levaquin so will start this medication with doxycycline to prevent Acinetobacter baumanii resistance to fluoroquinolones and anti-inflammatory effect. -Consulted wound care, Julianne Yang, and we appreciate his time and recommendations. Continue wound care per nursing and wound care physicians orders, increased frequency to daily. Pre-medication required prior to dressing changes. -Continue hydrocodone 5-10 mg every 6 hours as needed for pain. Instructions for Bilateral lower extremity wounds: 1. premedicate with pain medication prior to dressing changes 1. Clean wounds with normal saline and pat dry. 2. Lay hydrofiber dressing such as Aquacel Ag Extra onto wounds. 3. Cover with superabsorbent dressing such as Mextra Superabsorbent. 4. Wrap with rolled gauze such as Kerlix 5. Retain with tubular elastic netting 6. Change dressing daily and prn detachment or saturation. 3. Metabolic acidosis, secondary to acute kidney injury and infected venous stasis ulcers, present on admission. Resolved. -Patient was acidotic on chemistries with a CO of 17. ABG demonstrated metabolic acidosis with: pH of 7.28, pCO2 of 39, PO2 71 and HCO3 18. Repeat ABG demonstrates near resolution with IV fluid hydration as above. Discharge BMP improved after hydration to CO2 of 22. 4. Persistent atrial fibrillation, present on admission. Stable. -Patient reports intermittent palpitations and irregular heartbeat. -EKG demonstrated atrial fibrillation without acute ischemic changes such as ST elevation or depression. -Continue home diltiazem ER 240 mg and metoprolol succinate 25 mg daily. -INR supratherapeutic at 3.6. Held home regimen of warfarin temporarily. To resume tonight as discharge INR 2.7. Previous regimen of 7.5 mg and 10 mg was decreased to 5 mg daily in setting of levaquin use. Continue to monitor INR while on levaquin as a dose adjustment may be necessary. 5. Elevated troponin of unclear significance, acute, present on admission. Stable. -Patient denies chest pain or ACS symptoms. -EKG demonstrated atrial fibrillation without acute ischemic changes such as ST elevation or depression. Echocardiogram technically difficult due to body habitus and zelda intertrigo, therefore, unable to assess wall motion. -Initial troponin slightly elevated at 0.043 and repeat unchanged 0.44 in the setting of GARRISON. 6. Frequent falls with generalized weakness, super morbid obesity and deconditioning, chronic, present on admission. Active. -Patient lives alone with assistance of home health a few hours per day and uses a walker for ambulation. Patient reports increased generalized weakness which could be secondary to dehydration, metabolic acidosis or use of CBD. May also have worsening venous disease. -Discharge to SNFT. 7. Diabetes mellitus type 2, non-insulin using and diet controlled, with neuropathy, present on admission. Stable. -Hemoglobin A1C is 6.1% indicative of excellent glycemic control in the range of prediabetes. Patient is not currently medically treated and diet controlled. -Continue [facility] blood glucose checks and low dose correctional scale insulin. -Continue heart healthy/carbohydrate controlled diet. 8. Super morbid obesity with zelda intertrigo, chronic, present on admission. Stable. -BMI of 57.3. -Counseled the patient on lifestyle modification including diet and exercise. -Consulted dietitian and we appreciate her time and recommendations. 9. Heart failure with preserved EF, chronic, present on admission. Stable. -Does not represent CHF exacerbation. -Held furosemide and lisinopril as above. Continue metoprolol as above. -Continued gentle IV fluid hydration as above. 10. History of NABILA and OHS not on CPAP/BiPAP due to non-complian, chronic, present on admission. Stable. -Counseled regarding risk of not treating NABILA/OHS. Code status: Full code, patient designates her daughter Gege to be her surrogate decision maker. Disposition: Transfer to SNF. Discharge orders & Medications Prescriptions: New acetaminophen 325 mg Tablet 650 mg PO Q6HR PRN (Reason: Fever/Mild Pain (1-3)) 30 Days Qty: 5 RF: 0 hydrocodone-acetaminophen 5-325 mg Tablet 1 - 2 tab PO Q4H PRN (Reason: Pain, Severe (7-10)) 7 Days Qty: 30 RF: 0 warfarin [Coumadin] 5 mg Tablet 5 mg PO SuTuThSa@1700 7 Days Qty: 7 RF: 0 warfarin [Coumadin] 5 mg Tablet 5 mg PO MoWeFr@1700 7 Days RF: 0 doxycycline hyclate 100 mg Tablet 100 mg PO BID 6 Days Qty: 12 RF: 0 lidocaine HCl 2 % Jelly 1 ml topical PRN PRN (Reason: Pain, Mild (1-3)) 30 Days Qty: 5 RF: 0 levofloxacin 250 mg Tablet 750 mg PO Q48H 6 Days Qty: 9 RF: 0 nystatin [Nystop] 100,000 unit/gram Powder 1 applic topical BID 30 Days Qty: 5 RF: 0 loratadine 10 mg Tablet 10 mg PO DAILY PRN (Reason: Itching) 30 Days Qty: 30 RF: 0 probenecid 500 mg Tablet 250 mg PO BID 14 Days Qty: 14 RF: 0 Continued (DME) Glucose: Home Monitor See Rx Instructions .Route .MEDSUPPLY Qty: 1 RF: 0 (DME) Glucose: Test Strips See Rx Instructions .Route .MEDSUPPLY Qty: 100 RF: 3 diltiazem HCl [Cartia XT] 240 mg capsule,extended release 24hr 240 mg PO DAILY Qty: 90 RF: 3 lorazepam 2 mg tablet 2 mg PO BEDTIME Qty: 30 RF: 5 metoprolol succinate 25 mg tablet extended release 24 hr 25 mg PO DAILY Qty: 90 RF: 3 Discontinued lisinopril 40 mg tablet 40 mg PO BEDTIME Qty: 90 RF: 3 warfarin 10 mg tablet 10 mg PO SUTUTHSA Qty: 60 RF: 1 furosemide 40 mg tablet 40 mg PO BID Qty: 60 RF: 5 potassium chloride 20 mEq tablet extended release 20 meq PO BID Qty: 60 RF: 5 warfarin 7.5 mg tablet 7.5 mg PO MOWEFR Qty: 60 RF: 1 hydrocodone-acetaminophen 5-325 mg tablet 2 tab PO BID PRN (Reason: Pain (Scale Score 7-10)) RF: 0 Follow up/Referrals: Dillon Shelton MD [Primary Care Provider] - Discharge Health Status Precautions: [place] Diet/Activity/Treatments Diet: Diet as Tolerated Activity: As tolerated Special Rehabilitation [facility] Reason for rehabilitation: Post-operative therapy Rehab type: Physical therapy Discharge Data Primary Care Provider: Dillon Shelton Discharges patient from system. Discharge Date/Time: 01/15/20 11:20
[2020-01-15] MEDS: DOXYCYCLINE HYCLATE 100 MG TABLET PO (09:38)
--- NOTE | 2020-01-15 10:59 | PT-IP ANOTE ---
10:55 am pt unavailable. Nursing with pt dressing LEs. Will transfer at 11:00 to [facility]
--- NOTE | 2020-01-15 11:39 | PC.NURSE ---
1120: Patient [facility], via by their staff. Pre medicated prior to dressing change as ordered. Dressing changed to BLE venous stasis ulcers as ordered by Dr. Whitaker. SL removed. Report given to Misa DAVIES at [facility]. Daughter Keira at bedside providing supportive care, and updated regarding disposition and plan of care.
--- NOTE | 2020-01-20 09:52 | P.CONS_ITS ---
History of Present Illness Consult details Date Patient Seen: 01/12/20 Time Patient Seen: 17:15 Chief complaint: weakness / falls Reason for consult: Advice regarding dressings/treatment of BLE wounds. Requesting provider: Cheryl Hoskins Narrative: 69-year-old female with chronic, painful, bilateral LE ulcers in the context of venous insufficiency. She is under the care of providers at [facility] in [place]. History that patient able to provide is unclear with regards to the treatment (eg. dressings, compression, debridement) she receives there and by home health nurse. She has a difficult time elevating her legs due to body habitus and leg pain. She takes furosemide for LE edema. She typically ambulates with a walker. Sleeps in a recliner. Meds Home Medications and Allergies Home Medications Medication Instructions Recorded Confirmed Type Glucose: Home Monitor #1 ea 04/29/18 01/10/20 Rx Glucose: Test Strips #100 each 06/09/18 01/10/20 Rx diltiazem HCl 240 mg 240 mg PO DAILY #90 cap 07/26/19 01/10/20 Rx capsule,extended release 24 hr lorazepam 2 mg tablet 2 mg PO BEDTIME #30 tab 09/21/19 01/10/20 Rx metoprolol succinate 25 mg 25 mg PO DAILY #90 tab 09/28/19 01/10/20 Rx tablet,extended release 24 hr acetaminophen 650 mg PO Q6HR PRN 30 Days #5 tab 01/14/20 Rx hydrocodone-acetaminophen 1 - 2 tab PO Q4H PRN 7 Days #30 tab 01/14/20 Rx lidocaine HCl 1 ml TOPICAL PRN PRN 30 Days #5 ml 01/14/20 Rx loratadine 10 mg PO DAILY PRN 30 Days #30 tab 01/14/20 Rx nystatin [Nystop] 1 applic TOPICAL BID 30 Days #5 01/14/20 Rx gram probenecid 250 mg PO BID 14 Days #14 tab 01/14/20 Rx warfarin [Coumadin] 5 mg PO MoWeFr@1700 7 Days tab 01/14/20 Rx warfarin [Coumadin] 5 mg PO SuTuThSa@1700 7 Days #7 tab 01/14/20 Rx Allergies Allergy/AdvReac Type Severity Reaction Status Date / Time latex Allergy Intermediate skin Verified 01/10/20 20:22 blistering Sulfa (Sulfonamide Allergy Intermediate PATIENT Verified 01/10/20 20:22 Antibiotics) CAN'T REMEMBER IT WAS SO LONG AGO gabapentin [GABAPENTIN] AdvReac Intermediate Bodyaches, Verified 01/10/20 20:22 muscle aches pregabalin [From Lyrica] AdvReac Intermediate Muscle Pain Verified 01/10/20 20:22 duloxetine [DULOXETINE] AdvReac Unknown nausea and Verified 01/10/20 20:22 vomiting Review of Systems Review of Systems ROS: Yes All systems reviewed with the patient and are negative except as other paredes documented Constitutional Constitutional: Denies chills, Reports fatigue, Denies fever(s), Reports frequent falls and Denies night sweats ENT Ears, Nose, Mouth, and Throat: Yes dizziness Cardiovascular Cardiovascular: Denies chest pain, Reports pedal edema, Reports leg ulcers, Reports leg edema, Denies dyspnea, Denies orthopnea and Denies paroxysmal nocturnal dyspnea Respiratory Respiratory: Denies cough, Denies dyspnea and Denies wheezing Integumentary/Breasts Skin/Breast: Reports wounds (bilateral lower extremities. Painful, especially when touched.) Neurologic Neurologic: Reports dizziness and Reports frequent falls Psychiatric Psychiatric: Reports difficulty concentrating Endocrine Endocrine: Reports fatigue Hematologic/Lymphatic Hematologic/Lymphatic: Reports easy bruising Allergic/Immunologic Allergic/Immunologic: Denies wheezing Exam Vital Signs (past 8 hours): Oxygen Delivery Method Room Air Oxygen Flow Rate 0 Const General: cooperative, well developed, No acute distress and lethargic Nutritional Appearance: obese morbidly obese Orientation: alert, awake and oriented x3 HENMT Head: normal to inspection and normocephalic Ears: hearing grossly normal bilaterally Nose: external nose normal Face and sinus: normal facial exam Eyes Sclera: sclerae normal Pupils: PERRL Resp Effort & Inspection: normal respiratory effort, able to speak in complete sentences, no audible wheezes, no cough and symmetric chest movement Cardio Rate: regular rate Rhythm: abnormal rhythm Pulses: radial pulses present GI Inspection: non-distended and obesity Palpation: soft Skin Other: Bilateral venous stasis changes and distal LE edema noted, each with an open wound associated with friability and the presence of purulent yellow drainage, TTP, periulcer increased warmth to palpation, and erythema. Neuro General: patient alert, patient awake, patient oriented x3 and moves all extremities Cognition: normal cognition Speech: speech normal Motor: muscle tone normal throughout Sensory Exam: lower extremity (B feet with loss of protective sensation) Extrem General: capillary refill normal, No clubbing, No cyanosis, edema and pedal edema Psych Appearance: grossly normal Mental Status: other (drowsy) Speech and Movement: speech and movement normal Mood: congruent mood and other (drowsy) Affect: normal affect Attitude: cooperative Objective Labs Result Diagrams: 01/15/20 04:53 01/15/20 04:53 Labs: Labs reviewed: ESR elevated at 64. Otherwise, WBC, ESR, CRP, lactate, procalcitonin all without significant abnormality when adjusted for age. Wound culture revieweed: Grew Enterococcus faecalis and Acinetobacter baumanii with variable sensitivities. Assessment & Plan Assessment & Plan narrative: Assessment: Bilateral LE venous insufficiency ulcerations associated with infection. Plan: Recommend antibiotic therapy to treat infection. Hospitalist to discuss results of c&s with I.D. services. Encourage patient to elevate legs to minimize edema. Recommended dressings: 1. Clean wounds with normal saline and pat dry. 2. Lay hydrofiber dressing such as Aquacel Ag Extra onto wounds. 3. Cover with superabsorbent dressing such as Mextra Superabsorbent. 4. Wrap with rolled gauze such as Kerlix 5. Retain with tubular elastic netting 6. Change dressing daily and prn detachment or saturation.
== END 2020-01-15 11:20 | DRG 683 ==
LOC: ED 19:51 → AC 20:20
PROVIDERS: Internal Medicine; Admitting Provider Nurse Practitioner Adult Health; Emergency Provider Emergency Medicine; PCP Student in an Organized Health Care Education/Training Program; Referring Provider Emergency Medicine; Visit Provider Nurse Practitioner Adult Health
DX: N17.9 Acute kidney failure, unspecified (principal); E87.2 Acidosis; Z68.43 Body mass index [BMI] 50.0-59.9, adult; I48.19 Other persistent atrial fibrillation; L97.919 Non-pressure chronic ulcer of unspecified part of right lower leg with unspecified severity; L97.929 Non-pressure chronic ulcer of unspecified part of left lower leg with unspecified severity; I50.32 Chronic diastolic (congestive) heart failure; E11.622 Type 2 diabetes mellitus with other skin ulcer; E11.40 Type 2 diabetes mellitus with diabetic neuropathy, unspecified; E66.01 Morbid (severe) obesity due to excess calories; Z71.3 Dietary counseling and surveillance; Z79.01 Long term (current) use of anticoagulants; I11.0 Hypertensive heart disease with heart failure; G47.33 Obstructive sleep apnea (adult) (pediatric); L08.89 Other specified local infections of the skin and subcutaneous tissue; R11.2 Nausea with vomiting, unspecified; E78.5 Hyperlipidemia, unspecified; R79.89 Other specified abnormal findings of blood chemistry; R29.6 Repeated falls; B96.89 Other specified bacterial agents as the cause of diseases classified elsewhere; R53.1 Weakness; Z79.891 Long term (current) use of opiate analgesic; Z11.59 Encounter for screening for other viral diseases
CPT/HCPCS: 36415; 36600; 71045; 80048; 80053; 80061; 80069; 81001; 82550; 82553; 82570; 82805; 82962; 83036; 83605; 83690; 83735; 83880; 83935; 84145; 84300; 84443; 84484; 84550; 85025; 85610; 85651; 85730; 86140; 87070; 87075; 87077; 87185; 87186; 87205; 87635; 93005; 93010; 93306; 94762; 96360; 97110; 97116; 97162; 97165; 97530; 97535; 99284; J0290; J0692; J1170; J7050

== ENCOUNTER → 2020-01-16 13:54 | Outpatient (ROUT) | payer OTHER, SELFPAY ==
[2020-01-10 21:27] VITALS: BMI 48.8
[2020-01-16 14:11] LABS: INR 2.9 (0.9-1.3); Prothrombin Time 33.1 SECONDS (10.1-12.7)
== END ==
PROVIDERS: Visit Provider Nurse Practitioner
DX: I48.91 Unspecified atrial fibrillation (principal)
CPT/HCPCS: 85610

== ENCOUNTER → 2020-01-20 11:34 | Outpatient (ROUT) | payer OTHER, SELFPAY ==
[2020-01-10 21:27] VITALS: BMI 48.8
[2020-01-20 11:50] LABS: Prothrombin Time 69.6 SECONDS (10.1-12.7)
[2020-01-20 11:52] LABS: INR 6.1 (0.9-1.3)
== END ==
PROVIDERS: Visit Provider Internal Medicine
DX: I48.0 Paroxysmal atrial fibrillation (principal)
CPT/HCPCS: 85610

== ENCOUNTER → 2020-01-23 13:15 | Outpatient (ROUT) | payer OTHER, SELFPAY ==
[2020-01-10 21:27] VITALS: BMI 48.8
[2020-01-23 13:43] LABS: INR 1.5 (0.9-1.3); Prothrombin Time 17.5 SECONDS (10.1-12.7)
== END ==
PROVIDERS: Visit Provider Internal Medicine
DX: I48.91 Unspecified atrial fibrillation (principal)
CPT/HCPCS: 85610

== ENCOUNTER → 2020-01-25 11:13 | Outpatient (ROUT) | payer OTHER, SELFPAY ==
[2020-01-10 21:27] VITALS: BMI 48.8
[2020-01-26 16:36] LABS: COVID19 Sendout Not Detected (Not Detected)
== END ==
PROVIDERS: Visit Provider Internal Medicine
DX: Z11.59 Encounter for screening for other viral diseases (principal)
CPT/HCPCS: 87635

== ENCOUNTER → 2020-01-27 09:11 | Outpatient (ROUT) | payer OTHER, MEDICAID, SELFPAY ==
[2020-01-10 21:27] VITALS: BMI 48.8
[2020-01-27 09:27] LABS: INR 1.6 (0.9-1.3); Prothrombin Time 17.8 SECONDS (10.1-12.7)
[2020-01-27 09:30] LABS: BUN Creatinine Ratio 16.7 (6-22); Blood Urea Nitrogen 16 mg/dL (7-17); Calcium 8.9 mg/dL (8.4-10.2); Carbon Dioxide 30 mmol/L (22-32); Chloride 103 mmol/L (98-107); Estimated Glomerular Filt Rate 57.3 mL/min (>60); Glucose 103 mg/dL (80-110); HEMOLYSIS < 15 (0-50); Potassium 4.2 mmol/L (3.4-5.1); Sodium 138 mmol/L (137-145)
[2020-01-27 09:36] LABS: Vancomycin Trough 18.6 ug/mL (10-20)
== END ==
PROVIDERS: Visit Provider Nurse Practitioner
DX: I48.91 Unspecified atrial fibrillation (principal); I10 Essential (primary) hypertension
CPT/HCPCS: 80048; 80202; 85610

== ENCOUNTER 2020-02-04 02:30 | Observation (INO) | payer OTHER, SELFPAY ==
[2020-01-10 21:27] VITALS: BMI 48.8
--- NOTE | 2020-02-04 02:40 | DI.RAD.S_ITS ---
PROCEDURE: XR CHEST 1V INDICATIONS: respiratory distress TECHNIQUE: One view of the chest was acquired. COMPARISON: [facility], CR, XR CHEST 1V, 01/10/2020, 19:41. FINDINGS: Surgical changes and devices: None. Lungs and pleura: Probable pulmonary edema. No pleural effusions or pneumothorax. Mediastinum: Mediastinal contours appear normal. Unchanged cardiomegaly. Bones and chest wall: No suspicious bony lesions. Overlying soft tissues appear unremarkable. IMPRESSION: Probable congestive heart failure exacerbation. Dictated by: Ahmet Ko M.D. on 02/04/2020 at 8:16 Approved by: Ahmet Ko M.D. on 02/04/2020 at 8:17
[2020-02-04 02:50] LABS: HCO3 ABG 30 mmol/L (22-26); Oxygen Saturation ABG 93 % (95-100); PO2 ABG 75 mmHg (80-100); TCO2 ABG 32 mmol/L (21-31); pH ABG 7.33 (7.35-7.45)
[2020-02-04 02:51] VITALS: BP 155/78; PULSE 116; RESP 24; TEMP 35.8; O2SAT 94
[2020-02-04 02:52] LABS: Fractionated Inspired Oxygen 32
[2020-02-04 02:59] LABS: Add Manual Diff / Slide Review NO; Basophils Absolute Auto 100 /uL (0-100); Basophils Percent Auto 0.9 % (0-2); Eosinophils Absolute Auto 200 /uL (0-450); Eosinophils Percent Auto 3.8 % (2-4); Hematocrit 31.3 % (36-46); Hemoglobin 10.1 g/dL (12.0-16.0); Lymphocytes Absolute Auto 600 /uL (1100-4500); Lymphocytes Percent Auto 9.8 % (25-40); Mean Corpuscular HGB Conc 32.2 % (30-36); Mean Corpuscular Hemoglobin 29.1 PG (26-34); Mean Corpuscular Volume 90.5 fL (80-100); Monocytes Absolute Auto 600 /uL (0-900); Monocytes Percent Auto 9.7 % (3-14); Neutrophils Absolute Auto 4500 /uL (1500-7000); Neutrophils Percent Auto 75.8 % (50-75); Platelet Count 276 X10^3/uL (150-400); Red Blood Cell Count 3.45 X10^6/uL (4.0-5.2); Red Cell Distribution Width 17.8 % (11.6-14.8); White Blood Cell Count 5.9 X10^3/uL (4.5-11.0)
--- NOTE | 2020-02-04 03:02 | ED_ITS ---
HPI - Altered Mental Status General Chief Complaint: Altered Mental Status Stated Complaint: Altered mental status Time Seen by Provider: 02/04/20 02:32 Source: EMS Mode of arrival: EMS Limitations: altered mental status History of Present Illness HPI narrative: 69-year-old woman with a history of atrial fibrillation, congestive heart failure, peripheral vascular disease with chronic lower extremity ulcers, sleep apnea, hypertension, hyperlipidemia diabetes with neuropathy currently living is intermediate facility after hospitalization in late December. Her wound care has been improving the chronic venous stasis ulcers and she apparently had been doing well until this evening when staff checked on her and felt that she was sleeping a bit too soundly eventually unable to arouse her at all and 911 was called. She does use of chronic opioids for pain and her last Vicodin does was 9:00 p.m.. On presentation to the emergency department she is responsive only to pain. Does not open her eyes non purposeful movement of all extremities no obvious trauma. Pupils are 4-5 mm and reactive. Decreased respiratory effort. Urinary incontinence intermediate care staff report that she is only at the facility for IV antibiotics and wound care, she reportedly is quite independent. Related Data Home Medications Medication Instructions Recorded Confirmed Adult Probiotic 3,000 mmu cells PO DAILY 02/04/20 02/04/20 Benadryl Itch Stopping 1 applic TOPICAL QID PRN 02/04/20 02/04/20 ProSource 1 ea PO 1500 02/04/20 02/04/20 bisacodyl 5 mg PO DAILY PRN 02/04/20 02/04/20 bisacodyl 10 mg [place] DAILY PRN 02/04/20 02/04/20 furosemide 20 mg PO DAILY 02/04/20 02/04/20 hydrocodone-acetaminophen 1 tab PO Q4H PRN 02/04/20 02/04/20 hydrocodone-acetaminophen 2 tab PO Q4H PRN 02/04/20 02/04/20 nystatin 1 applic TOPICAL BID 02/04/20 02/04/20 polyethylene glycol 3350 [Miralax] 17 g PO DAILY PRN 02/04/20 02/04/20 probenecid 250 mg PO BID 02/04/20 02/04/20 vancomycin HCl in water 1.5 g IV Q24H 02/04/20 02/04/20 warfarin See Rx Instructions .ROUTE .COMPLEX 02/04/20 02/04/20 warfarin See Rx Instructions .ROUTE .COMPLEX 02/04/20 02/04/20 Previous Rx's Medication Instructions Recorded Glucose: Home Monitor #1 ea 04/29/18 Glucose: Test Strips #100 each 06/09/18 diltiazem HCl 240 mg 240 mg PO DAILY #90 cap 07/26/19 capsule,extended release 24 hr lorazepam 2 mg tablet 2 mg PO BEDTIME #30 tab 09/21/19 metoprolol succinate 25 mg 25 mg PO DAILY #90 tab 09/28/19 tablet,extended release 24 hr acetaminophen 650 mg PO Q6HR PRN 30 Days #5 tab 01/14/20 lidocaine HCl 1 ml TOPICAL PRN PRN 30 Days #5 ml 01/14/20 loratadine 10 mg PO DAILY PRN 30 Days #30 tab 01/14/20 Allergies Allergy/AdvReac Type Severity Reaction Status Date / Time latex Allergy Intermediate skin Verified 02/04/20 03:42 blistering Sulfa (Sulfonamide Allergy Intermediate PATIENT Verified 02/04/20 03:42 Antibiotics) CAN'T REMEMBER IT WAS SO LONG AGO gabapentin [GABAPENTIN] AdvReac Intermediate Bodyaches, Verified 02/04/20 03:42 muscle aches pregabalin [From Lyrica] AdvReac Intermediate Muscle Pain Verified 02/04/20 03:42 duloxetine [DULOXETINE] AdvReac Unknown nausea and Verified 02/04/20 03:42 vomiting Review of Systems Review of Systems ROS Unobtainable: Unobtainable due to mental status/LOC Patient History Medical History Atrial fibrillation (Chronic 12/2011) Diabetes (Chronic Unknown) Essential hypertension (Chronic) Foot pain (Resolved Unknown) Foot ulcer (Resolved 08/2016) Gout (Chronic Unknown) Heart murmur (Chronic Unknown) Hypertension (Chronic Unknown) Mixed hyperlipidemia (Chronic 01/30/00) Morbid obesity with body mass index (BMI) of 50.0 to 59.9 in adult (Chronic) Obstructive sleep apnea syndrome (Chronic) Osteoarthritis (Chronic Unknown) 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 Brother No problems noted. Sister Fibromyalgia Social History household members: none Smoking Status: Never smoker second hand exposure: No alcohol intake: never substance use type: does not use Smoking Status: Never smoker alcohol intake frequency: 0-2 drinks per day Substance Use Type: does not use Exam Narrative Exam Narrative: General: Moaning, nonpurposeful movement all extremities, withdraws from pain not following any commands decreased respiratory effort. No diaphoresis skin is not flushed nor warm to the touch HEENT: Pupils 4-5 mm and bilaterally reactive, no head or neck trauma Neck: Supple no JVD Chest: Poor respiratory effort, minimal wheezing, body habitus makes thorough exam more challenging Cardiac: Atrial fibrillation rate in the 100s no murmurs are appreciated Abdomen: Morbidly obese with multiple layers to her pannus. Skin: Exceptionally well cared for skin. There is no skin breakdown no erythema no smell to any of her multiple folds. Lower extremities with dressings on chronic ulcers. Neurologic: Grossly altered Extremities: 2+ lower extremity edema. Ulcer on the posterior right calf healing nicely with no erythema. Dressing on the dorsum of the left foot similar findings. Psych: Acutely altered 3:05 a.m. Acute change to mental status and seems to simply wake-up. Will now answer simple focused questions. Believe she is at [facility]. Complaining of ankle and foot pain Initial Vital Signs Initial Vital Signs: Vital Signs Temperature 96.5 F L 02/04/20 02:51 Pulse Rate 116 H 02/04/20 02:51 Respiratory Rate 24 02/04/20 02:51 Blood Pressure 155/78 H 02/04/20 02:51 Pulse Oximetry 94 02/04/20 02:51 Course Orders Ordered: Discontinued Medications Acetaminophen (Tylenol) 650 mg PO Q6HR PRN PRN Reason: Fever/Mild Pain (1-3) Hydrocodone Bitart/Acetaminophen ([place] 5/325) 1 tab PO NOW ONE Stop: 02/04/20 04:25 Last Admin: 02/04/20 04:31 Dose: Not Given Documented by: MUNDO Diltiazem HCl (Cardizem Cd) 240 mg PO DAILY [facility] Last Admin: 02/04/20 08:21 Dose: 240 mg Documented by: JOHANA Furosemide (Lasix) 40 mg IV NOW ONE Stop: 02/04/20 05:53 Last Admin: 02/04/20 06:28 Dose: 40 mg Documented by: PARISH Heparin Sodium (Porcine) (Heparin) 5,000 unit SUBCUT BID [facility] Metoprolol Succinate (Toprol Xl) 25 mg PO DAILY [facility] Last Admin: 02/04/20 08:20 Dose: 25 mg Documented by: JOHANA Naloxone HCl (Narcan) 0.2 mg IV Q2MIN PRN PRN Reason: Opiate Reversal Ondansetron HCl (Zofran) 4 mg IV Q8HR PRN PRN Reason: Nausea And Vomiting Warfarin Sodium (Coumadin) 3.5 mg PO 1700 MURRAY Warfarin Sodium (Coumadin) 4 mg PO 1700 [facility] Vital Signs Vital signs: Vital Signs - 8 hr 02/04/20 02:51 Temperature 96.5 F L Pulse Rate 116 H Respiratory Rate 24 Blood Pressure 155/78 H Pulse Oximetry 94 MDM - Altered Mental Status Medical Records Attestation: I reviewed the patient's medical records. Lab Data Attestation: I reviewed the patient's lab results. Result diagrams: 02/04/20 02:45 02/04/20 07:23 Labs: Lab Results 02/04/20 02/04/20 02/04/20 Range/Units 02:44 02:45 02:45 WBC 5.9 (4.5-11.0) X10^3/uL RBC 3.45 L (4.0-5.2) X10^6/uL Hgb 10.1 L (12.0-16.0) g/dL Hct 31.3 L (36-46) % MCV 90.5 (80-100) fL MCH 29.1 (26-34) PG MCHC 32.2 (30-36) % RDW 17.8 H (11.6-14.8) % Plt Count 276 (150-400) X10^3/uL Neut % (Auto) 75.8 H (50-75) % Lymph % (Auto) 9.8 L (25-40) % [place] % (Auto) 9.7 (3-14) % Eos % (Auto) 3.8 (2-4) % Baso % (Auto) 0.9 (0-2) % Neut # (Auto) 4500 (8865-3424) /uL Lymph # (Auto) 600 L (0792-3966) /uL [place] # (Auto) 600 (0-900) /uL Eos # (Auto) 200 (0-450) /uL Baso # (Auto) 100 (0-100) /uL PT (10.1-12.7) SECONDS INR (0.9-1.3) APTT (26.4-36.2) SECONDS ABG pH 7.33 L (7.35-7.45) ABG pCO2 57.0 H (35-45) mmHg ABG pO2 75 L (80-100) mmHg ABG HCO3 30 H (22-26) mmol/L ABG Total CO2 32 H (21-31) mmol/L ABG O2 Saturation 93 L (95-100) % ABG Base Excess 4.0 H (-2-2) mmol/L FiO2 32 Sodium 138 (137-145) mmol/L Potassium 3.9 (3.4-5.1) mmol/L Chloride 102 (98-107) mmol/L Carbon Dioxide 34 H (22-32) mmol/L BUN 22 H (7-17) mg/dL Creatinine 1.22 H (0.52-1.04) mg/dL Estimated GFR 43.4 L (>60) mL/min BUN/Creatinine Ratio 18.0 (6-22) Glucose 106 (80-110) mg/dL Calcium 8.7 (8.4-10.2) mg/dL Magnesium (1.6-2.3) mg/dL Total Bilirubin 0.5 (0.2-1.3) mg/dL AST 37 H (14-36) IU/L ALT 21 (<35) IU/L Alkaline Phosphatase 104 (38-126) U/L Ammonia (9-30) umol/L Troponin I 0.016 (0.01-0.034) ng/mL NT-Pro-B Natriuret Pep 3430 H (<125) pg/mL Total Protein 7.3 (6.3-8.2) g/dL Albumin 3.6 (3.5-5.0) g/dL Globulin 3.7 (1.7-4.1) g/dL Albumin/Globulin Ratio 1.0 (1.0-2.8) Lipase 109 (23-300) U/L Procalcitonin (<0.5) ng/mL Prolactin (3.0-18.6) ng/mL COVID-19 PCR (Negative) 02/04/20 02/04/20 02/04/20 Range/Units 02:45 02:45 02:45 WBC (4.5-11.0) X10^3/uL RBC (4.0-5.2) X10^6/uL Hgb (12.0-16.0) g/dL Hct (36-46) % MCV (80-100) fL MCH (26-34) PG MCHC (30-36) % RDW (11.6-14.8) % Plt Count (150-400) X10^3/uL Neut % (Auto) (50-75) % Lymph % (Auto) (25-40) % [place] % (Auto) (3-14) % Eos % (Auto) (2-4) % Baso % (Auto) (0-2) % Neut # (Auto) (0087-1093) /uL Lymph # (Auto) (8245-3068) /uL [place] # (Auto) (0-900) /uL Eos # (Auto) (0-450) /uL Baso # (Auto) (0-100) /uL PT (10.1-12.7) SECONDS INR (0.9-1.3) APTT (26.4-36.2) SECONDS ABG pH (7.35-7.45) ABG pCO2 (35-45) mmHg ABG pO2 (80-100) mmHg ABG HCO3 (22-26) mmol/L ABG Total CO2 (21-31) mmol/L ABG O2 Saturation (95-100) % ABG Base Excess (-2-2) mmol/L FiO2 Sodium (137-145) mmol/L Potassium (3.4-5.1) mmol/L Chloride (98-107) mmol/L Carbon Dioxide (22-32) mmol/L BUN (7-17) mg/dL Creatinine (0.52-1.04) mg/dL Estimated GFR (>60) mL/min BUN/Creatinine Ratio (6-22) Glucose (80-110) mg/dL Calcium (8.4-10.2) mg/dL Magnesium 2.3 (1.6-2.3) mg/dL Total Bilirubin (0.2-1.3) mg/dL AST (14-36) IU/L ALT (<35) IU/L Alkaline Phosphatase (38-126) U/L Ammonia (9-30) umol/L Troponin I (0.01-0.034) ng/mL NT-Pro-B Natriuret Pep (<125) pg/mL Total Protein (6.3-8.2) g/dL Albumin (3.5-5.0) g/dL Globulin (1.7-4.1) g/dL Albumin/Globulin Ratio (1.0-2.8) Lipase (23-300) U/L Procalcitonin < 0.05 (<0.5) ng/mL Prolactin 10.3 (3.0-18.6) ng/mL COVID-19 PCR (Negative) 02/04/20 02/04/20 02/04/20 Range/Units 02:45 02:45 03:05 WBC (4.5-11.0) X10^3/uL RBC (4.0-5.2) X10^6/uL Hgb (12.0-16.0) g/dL Hct (36-46) % MCV (80-100) fL MCH (26-34) PG MCHC (30-36) % RDW (11.6-14.8) % Plt Count (150-400) X10^3/uL Neut % (Auto) (50-75) % Lymph % (Auto) (25-40) % [place] % (Auto) (3-14) % Eos % (Auto) (2-4) % Baso % (Auto) (0-2) % Neut # (Auto) (1529-6414) /uL Lymph # (Auto) (7040-4921) /uL [place] # (Auto) (0-900) /uL Eos # (Auto) (0-450) /uL Baso # (Auto) (0-100) /uL PT 20.6 H (10.1-12.7) SECONDS INR 1.8 H (0.9-1.3) APTT 34 D (26.4-36.2) SECONDS ABG pH (7.35-7.45) ABG pCO2 (35-45) mmHg ABG pO2 (80-100) mmHg ABG HCO3 (22-26) mmol/L ABG Total CO2 (21-31) mmol/L ABG O2 Saturation (95-100) % ABG Base Excess (-2-2) mmol/L FiO2 Sodium (137-145) mmol/L Potassium (3.4-5.1) mmol/L Chloride (98-107) mmol/L Carbon Dioxide (22-32) mmol/L BUN (7-17) mg/dL Creatinine (0.52-1.04) mg/dL Estimated GFR (>60) mL/min BUN/Creatinine Ratio (6-22) Glucose (80-110) mg/dL Calcium (8.4-10.2) mg/dL Magnesium (1.6-2.3) mg/dL Total Bilirubin (0.2-1.3) mg/dL AST (14-36) IU/L ALT (<35) IU/L Alkaline Phosphatase (38-126) U/L Ammonia (9-30) umol/L Troponin I (0.01-0.034) ng/mL NT-Pro-B Natriuret Pep (<125) pg/mL Total Protein (6.3-8.2) g/dL Albumin (3.5-5.0) g/dL Globulin (1.7-4.1) g/dL Albumin/Globulin Ratio (1.0-2.8) Lipase (23-300) U/L Procalcitonin (<0.5) ng/mL Prolactin (3.0-18.6) ng/mL COVID-19 PCR Negative (Negative) 02/04/20 Range/Units 04:25 WBC (4.5-11.0) X10^3/uL RBC (4.0-5.2) X10^6/uL Hgb (12.0-16.0) g/dL Hct (36-46) % MCV (80-100) fL MCH (26-34) PG MCHC (30-36) % RDW (11.6-14.8) % Plt Count (150-400) X10^3/uL Neut % (Auto) (50-75) % Lymph % (Auto) (25-40) % [place] % (Auto) (3-14) % Eos % (Auto) (2-4) % Baso % (Auto) (0-2) % Neut # (Auto) (5501-2403) /uL Lymph # (Auto) (8075-8454) /uL [place] # (Auto) (0-900) /uL Eos # (Auto) (0-450) /uL Baso # (Auto) (0-100) /uL PT (10.1-12.7) SECONDS INR (0.9-1.3) APTT (26.4-36.2) SECONDS ABG pH (7.35-7.45) ABG pCO2 (35-45) mmHg ABG pO2 (80-100) mmHg ABG HCO3 (22-26) mmol/L ABG Total CO2 (21-31) mmol/L ABG O2 Saturation (95-100) % ABG Base Excess (-2-2) mmol/L FiO2 Sodium (137-145) mmol/L Potassium (3.4-5.1) mmol/L Chloride (98-107) mmol/L Carbon Dioxide (22-32) mmol/L BUN (7-17) mg/dL Creatinine (0.52-1.04) mg/dL Estimated GFR (>60) mL/min BUN/Creatinine Ratio (6-22) Glucose (80-110) mg/dL Calcium (8.4-10.2) mg/dL Magnesium (1.6-2.3) mg/dL Total Bilirubin (0.2-1.3) mg/dL AST (14-36) IU/L ALT (<35) IU/L Alkaline Phosphatase (38-126) U/L Ammonia < 9 L (9-30) umol/L Troponin I (0.01-0.034) ng/mL NT-Pro-B Natriuret Pep (<125) pg/mL Total Protein (6.3-8.2) g/dL Albumin (3.5-5.0) g/dL Globulin (1.7-4.1) g/dL Albumin/Globulin Ratio (1.0-2.8) Lipase (23-300) U/L Procalcitonin (<0.5) ng/mL Prolactin (3.0-18.6) ng/mL COVID-19 PCR (Negative) Point of Care Testing Glucose POC 103 Imaging Data Chest x-ray: Attestation: I personally reviewed and interpreted this imaging study as follows: My Impression: Poor positioning and difficult view Cardiomegaly with possible increase in interstitial findings possible right- sided pleural effusion with blunting of the costophrenic angle. With position and poor inspiratory effort taken into account this is minimally changed from study on January 09. No pneumothorax, no obvious infiltrate ECG Data Attestation: I personally reviewed and interpreted this ECG as follows: Interpretation: Atrial fibrillation at a rate of 90 Normal axis Poor R-wave progression, nonspecific ST T wave changes No acute ischemic findings MDM Narrative Medical decision making narrative: 69-year-old woman with chronic venous stasis ulcers currently on IV antibiotics and aggressive wound care with altered mental status. Seemingly normal at 9:00 a.m. last night when she had her usual Vicodin. When checked on around 1:00 a.m. she was quite sleepy in by to even more so enough that staff for concerned and she was transported to the emergency department. Labs are initially unremarkable with a normal white blood cell count, her procalcitonin is low suggesting no acute infection. Lactic acid is unremarkable suggesting no sepsis. There is no evidence of acute renal failure. She does have mild volume overload as evidenced by an elevated pro BNP and suggested on chest x-ray. CT scan does not show any acute changes, intracranial hemorrhages and clinically she does not have localizing sign suggesting a stroke. Decreased respiratory effort initially cause some concern for inadvertent opiate overdose however all of her medications are dispensed she does not have ad travis access to any of her Vicodin and pupils were far more dilated than an acute opiate overdose would suggest. Possiblilty of benzo overdose remains, however there has been no change to her regular dose. MAR review 2mg Ativan at 6pm (chronic and usual med for her). Last documented narcotic was 13:45, 2 pills. With decreased respiratory effort and mild hypercarbia BiPAP was considered initially (code status is DNR DNI) however she was to altered for safe use of BiPAP. Considered high-flow oxygen that she was doing nicely with 2 L nasal cannula and better respiratory effort. Prior notes indicate that she does have home BiPAP due to her sleep apnea and refuses to use it. Prolactin will be added to original blood draw and ammonia level will be sent. Patient does continue to become more alert and somewhat combative but still is significantly altered. She continues to moan that she is hurting in her legs and it is 7-1/2 hours since her last 5 mg of hydrocodone in the setting of receiving hydrocodone regularly. Care is reviewed with GUANAKITO Mackey hospitalist who will admit the patient for further observation Discharge Plan Departure Patient Disposition: Admitted as Observation Clinical Impression: Morbid obesity with body mass index (BMI) of 50.0 to 59.9 in adult, Obstructive sleep apnea syndrome, Type 2 diabetes mellitus with diabetic neuropathy, witho ut long-term current use of insulin, Uncomplicated opioid dependence Altered mental status Qualifiers: Altered mental status type: unspecified Qualified Code(s): R41.82 - Altered mental status, unspecified Atrial fibrillation Qualifiers: Atrial fibrillation type: longstanding persistent Qualified Code(s): I48.11 - Longstanding persistent atrial fibrillation Congestive heart failure Qualifiers: Heart failure type: unspecified Heart failure chronicity: chronic Qualified Code(s): I50.9 - Heart failure, unspecified Discharge Date/Time: 02/04/20 06:06 Admit Date/Time: 02/04/20 05:03 Admit Provider: Hakeem Mendieta
--- NOTE | 2020-02-04 03:03 | DI.CT.S_ITS ---
PROCEDURE: CT HEAD/BRAIN WO CON INDICATIONS: altered mental status TECHNIQUE: Noncontrast 4.5 mm thick angled axial sections acquired from the foramen magnum to the vertex, with coronal and sagittal reformats. For radiation dose reduction, the following was used: automated exposure control, adjustment of mA and/or kV according to patient size. COMPARISON: [facility], CT, CT HEAD/BRAIN WO CON, 11/19/2019, 3:48. FINDINGS: Image quality: Excellent. CSF spaces: Basal cisterns are patent. No extra-axial fluid collections. The ventricles are symmetric in size and shape. Brain: No intracranial bleeds or masses. There is cerebral volume loss for age, with resultant ventricular and sulcal prominence. There are moderate periventricular and deep white matter chronic small vessel ischemic changes. There is intracranial internal carotid artery atherosclerosis. Skull and face: Calvarium and visualized facial bones appear intact, without suspicious lesions. Sinuses: Visualized sinuses and mastoids are clear. IMPRESSION: 1. Age related volume loss and moderate small vessel ischemic change. 2. No evidence acute stroke, hemorrhage, or mass. Comment: Final report is concordant with preliminary interpretation provided by [facility]. Dictated by: Ahmet Ko M.D. on 02/04/2020 at 7:49 Approved by: Ahmet Ko M.D. on 02/04/2020 at 7:51
--- NOTE | 2020-02-04 03:09 | PC.NURSE ---
After Covid swab pt is now awake and responsive. Pt reports only taking narcotics that were prescribed and given to her in the facility. Pt now opens eyes, responds to questioning, complaints of pain and cold.
[2020-02-04 03:12] LABS: Alanine Aminotransferase 21 IU/L (<35); Albumin 3.6 g/dL (3.5-5.0); Alkaline Phosphatase 104 U/L (38-126); Aspartate Aminotransferase 37 IU/L (14-36); Bilirubin Total 0.5 mg/dL (0.2-1.3); Blood Urea Nitrogen 22 mg/dL (7-17); Calcium 8.7 mg/dL (8.4-10.2); Carbon Dioxide 34 mmol/L (22-32); Chloride 102 mmol/L (98-107); Estimated Glomerular Filt Rate 43.4 mL/min (>60); Globulin 3.7 g/dL (1.7-4.1); Glucose 106 mg/dL (80-110); HEMOLYSIS < 15 (0-50); Lipase 109 U/L (23-300); Potassium 3.9 mmol/L (3.4-5.1); Sodium 138 mmol/L (137-145); Total Protein 7.3 g/dL (6.3-8.2)
[2020-02-04 03:24] LABS: NT-proBNP (BNP-Adult 18+) 3430 pg/mL (<125); Troponin I 0.016 ng/mL (0.01-0.034)
[2020-02-04 03:28] LABS: Procalcitonin < 0.05 ng/mL (<0.5)
[2020-02-04 03:29] LABS: COVID19 -Nasal RAPID Negative (Negative)
--- NOTE | 2020-02-04 03:41 | PC.NURSE ---
Attemtp to place flores unsuccessful d/t body habitus
--- NOTE | 2020-02-04 04:34 | PC.NURSE ---
Pt is awake, taking off SPO2 and leads, requesting to get up and leave. Pt refused pain medication although pt has been c/o pain throughout ED stay. Pt is requesting to speak to her PCP. Pt is amenable to being transferred to the floor.
[2020-02-04 04:38] LABS: Magnesium 2.3 mg/dL (1.6-2.3)
[2020-02-04 04:39] LABS: Ammonia (NH3) < 9 umol/L (9-30)
[2020-02-04 04:45] LABS: Prolactin 10.3 ng/mL (3.0-18.6)
--- NOTE | 2020-02-04 05:07 | P.HP_ITS ---
History of Present Illness History of Present Illness Date Patient Seen: 02/04/20 Chief complaint: Altered mental status Narrative: Ms. Lucila Hawkins is a 69-year-old female with history significant for atrial fibrillation anticoagulated on Coumadin, congestive heart failure with preserved ejection fraction, diet controlled diabetes with neuropathy, hypertension, hyperlipidemia, peripheral vascular disease chronic leg ulcers, morbid obesity and obstructive sleep apnea presents to the emergency department having found the [place] [facility] with altered mental status. Patient has been residing at senior living facility following frequent falls at home and hospitalization from 01/10-01/14/2020 when she is admitted for atrial fibrillation diabetes acute kidney injury in venous stasis ulcers in self-care deficit. Per report the patient has been independent at the [place] [facility] until this evening. The patient received lorazepam 2 mg at 6:00 p.m. today and last Donnellson was 2 tablets of 3/325 mg administered at 1:48 p.m. notation from [facility] noted 0125 the patient was found to have an O2 saturation of 74% with a pulse of 112, not arousable and mumbling. Blood sugar check at that time was 139. After blowing oxygen the patient was able to follow simple commands but remains confused and not at baseline. The patient is uncooperative and unwilling to provide any subjective information. Upon arrival to the ER the patient is afebrile with temperature 96.5?, heart rate 116, blood pressure 155/78, respirations of 24 saturating 94% on 4 L per nasal cannula. A CT of the head obtained which is negative and chest x-ray of stained is poor inspiration with questionable upon pulmonary edema. On laboratory analysis the patient has white count of 5.9, hemoglobin of 10.1, hematocrit of 31.3, platelets of 276. Her chemistries with normal limits and has a potassium of 3.9 and a BUN of 22 and creatinine 1.22. Her nonfasting glucose is 106. She has a bilirubin of 0.5, AST of 37, ALT of 21 and alkaline phosphatase 104. Arterial blood class obtained which finds a pH of 7.33, pCO2 57, PO2 75, HC03 30 and a base excess of 4 on 32% FiO2. Her proBNP is a 3430, troponin is 0.016. Procalcitonin is less than 0.05. Ammonia is less than 9 and prolactin is normal. Covered screening is negative. The patient presents with no lateralizing symptoms in the ER and pupils are 4-5 mm bilaterally with spontaneous movement of all extremities. In the ER the patient did receive 1 Donnellson. The patient is admitted to the medicine service for altered mental status likely secondary to acute respiratory failure with hypoxemia. Patient History Medical History Atrial fibrillation (Chronic 12/2011) Diabetes (Chronic Unknown) Essential hypertension (Chronic) Foot pain (Resolved Unknown) Foot ulcer (Resolved 08/2016) Gout (Chronic Unknown) Heart murmur (Chronic Unknown) Hypertension (Chronic Unknown) Mixed hyperlipidemia (Chronic 01/30/00) Morbid obesity with body mass index (BMI) of 50.0 to 59.9 in adult (Chronic) Obstructive sleep apnea syndrome (Chronic) Osteoarthritis (Chronic Unknown) 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) Peripheral neuropathy (Chronic Unknown) PVD (peripheral vascular disease) (Chronic Unknown) Type 2 diabetes mellitus with diabetic neuropathy, without long-term current use of insulin (Chronic) Umbilical hernia (Chronic) Surgical History History of angioplasty (Resolved 10/2016) Family & Social History Family History Father Heart attack Mother Stroke Brother No problems noted. Brother No problems noted. Sister Fibromyalgia Social History: household members none Tobacco & Substance use: Smoking Status Never smoker alcohol intake never alcohol intake frequency 0-2 drinks per day Substance Use Type does not use Meds Home Medications and Allergies Home Medications Medication Instructions Recorded Confirmed Type Glucose: Home Monitor #1 ea 04/29/18 01/10/20 Rx Glucose: Test Strips #100 each 06/09/18 01/10/20 Rx diltiazem HCl 240 mg 240 mg PO DAILY #90 cap 07/26/19 01/10/20 Rx capsule,extended release 24 hr lorazepam 2 mg tablet 2 mg PO BEDTIME #30 tab 09/21/19 01/10/20 Rx metoprolol succinate 25 mg 25 mg PO DAILY #90 tab 09/28/19 01/10/20 Rx tablet,extended release 24 hr acetaminophen 650 mg PO Q6HR PRN 30 Days #5 tab 01/14/20 Rx lidocaine HCl 1 ml TOPICAL PRN PRN 30 Days #5 ml 01/14/20 Rx loratadine 10 mg PO DAILY PRN 30 Days #30 tab 01/14/20 Rx nystatin [Nystop] 1 applic TOPICAL BID 30 Days #5 01/14/20 Rx gram Allergies Allergy/AdvReac Type Severity Reaction Status Date / Time latex Allergy Intermediate skin Verified 02/04/20 03:42 blistering Sulfa (Sulfonamide Allergy Intermediate PATIENT Verified 02/04/20 03:42 Antibiotics) CAN'T REMEMBER IT WAS SO LONG AGO gabapentin [GABAPENTIN] AdvReac Intermediate Bodyaches, Verified 02/04/20 03:42 muscle aches pregabalin [From Lyrica] AdvReac Intermediate Muscle Pain Verified 02/04/20 03:42 duloxetine [DULOXETINE] AdvReac Unknown nausea and Verified 02/04/20 03:42 vomiting Review of Systems Review of Systems ROS: Yes unobtainable due to mental status (Patient is uncooperative and unwilling to provide information) Exam Vital Signs (past 8 hours): - 02/04/20 02:51 Temperature 96.5 F L Pulse Rate 116 H Respiratory Rate 24 Blood Pressure 155/78 H Pulse Oximetry 94 Oxygen Delivery Method Nasal Cannula Oxygen Flow Rate 4 Narrative Exam Narrative: GENERAL APPEARANCE: well developed, super morbid obesity, lying supine in bed no acute distress. HEENT: Blue discoloration left cheek, PERRLA, conjunctiva clear, EOMs intact without nystagmus, no rhinorrhea or epistaxis, mucous membranes are moist and pink without lesions or exudate. NECK/THYROID: neck supple, no JVD, no carotid bruit, no thyromegaly, trachea midline. LYMPH NODES: no cervical or supraclavicular lymphadenopathy. SKIN: [place], warm and dry. HEART: Irregularly irregular rhythm, S1-S2, 1/6 systolic murmur, no rubs or gallops, brisk capillary refill, 1+ pedal edema LUNGS: Breath sounds diminished but clear on auscultation bilaterally, no coarseness crackles or wheezing, no cough present, 4-5 word dyspnea CHEST: Symmetrical movement, no accessory muscle use, shallow tidal volume. ABDOMEN: Soft, obese, exam limited by body habitus, no abdominal tenderness on palpation, active bowel tones. EXTREMITIES: moves all extremities, strength is 4/5 and symmetrical, no deformities or joint effusions. NEUROLOGIC: AAO to person and place with no focal neurologic deficits, bilateral neuropathy distal to the ankles, hearing grossly normal to speech. PSYCH: Uncooperative, lung of monitors and oxygen, easily agitated. Objective Labs Result Diagrams: 02/04/20 02:45 02/04/20 02:45 Labs: Laboratory Results - last 24 hr 02/04/20 02/04/20 02/04/20 02:44 02:45 02:45 WBC 5.9 RBC 3.45 L Hgb 10.1 L Hct 31.3 L MCV 90.5 MCH 29.1 MCHC 32.2 RDW 17.8 H Plt Count 276 Neut % (Auto) 75.8 H Lymph % (Auto) 9.8 L Snyder % (Auto) 9.7 Eos % (Auto) 3.8 Baso % (Auto) 0.9 Neut # (Auto) 4500 Lymph # (Auto) 600 L Snyder # (Auto) 600 Eos # (Auto) 200 Baso # (Auto) 100 ABG pH 7.33 L ABG pCO2 57.0 H ABG pO2 75 L ABG HCO3 30 H ABG Total CO2 32 H ABG O2 Saturation 93 L ABG Base Excess 4.0 H FiO2 32 Sodium 138 Potassium 3.9 Chloride 102 Carbon Dioxide 34 H BUN 22 H Creatinine 1.22 H Estimated GFR 43.4 L BUN/Creatinine Ratio 18.0 Glucose 106 Calcium 8.7 Magnesium Total Bilirubin 0.5 AST 37 H ALT 21 Alkaline Phosphatase 104 Ammonia Troponin I 0.016 NT-Pro-B Natriuret Pep 3430 H Total Protein 7.3 Albumin 3.6 Globulin 3.7 Albumin/Globulin Ratio 1.0 Lipase 109 Procalcitonin Prolactin COVID-19 PCR 02/04/20 02/04/20 02/04/20 02:45 02:45 02:45 WBC RBC Hgb Hct MCV MCH MCHC RDW Plt Count Neut % (Auto) Lymph % (Auto) Snyder % (Auto) Eos % (Auto) Baso % (Auto) Neut # (Auto) Lymph # (Auto) Snyder # (Auto) Eos # (Auto) Baso # (Auto) ABG pH ABG pCO2 ABG pO2 ABG HCO3 ABG Total CO2 ABG O2 Saturation ABG Base Excess FiO2 Sodium Potassium Chloride Carbon Dioxide BUN Creatinine Estimated GFR BUN/Creatinine Ratio Glucose Calcium Magnesium 2.3 Total Bilirubin AST ALT Alkaline Phosphatase Ammonia Troponin I NT-Pro-B Natriuret Pep Total Protein Albumin Globulin Albumin/Globulin Ratio Lipase Procalcitonin < 0.05 Prolactin 10.3 COVID-19 PCR 02/04/20 02/04/20 03:05 04:25 WBC RBC Hgb Hct MCV MCH MCHC RDW Plt Count Neut % (Auto) Lymph % (Auto) Snyder % (Auto) Eos % (Auto) Baso % (Auto) Neut # (Auto) Lymph # (Auto) Snyder # (Auto) Eos # (Auto) Baso # (Auto) ABG pH ABG pCO2 ABG pO2 ABG HCO3 ABG Total CO2 ABG O2 Saturation ABG Base Excess FiO2 Sodium Potassium Chloride Carbon Dioxide BUN Creatinine Estimated GFR BUN/Creatinine Ratio Glucose Calcium Magnesium Total Bilirubin AST ALT Alkaline Phosphatase Ammonia < 9 L Troponin I NT-Pro-B Natriuret Pep Total Protein Albumin Globulin Albumin/Globulin Ratio Lipase Procalcitonin Prolactin COVID-19 PCR Negative Assessment & Plan Assessment & Plan narrative: This is a 69-year-old female patient presents to the ER from senior living facility with altered mental status. Patient is on opiates and received Donnellson at 9:00 p.m.. Staff checked the patient and found her to be altered in called 911. 1. Altered mental status, acute, present on admission, active -patient transported to the ER being minimally arousable only to noxious pain upon arrival. Patient was [place] increasing level of consciousness becoming uncooperative and belligerent reported by staff as inconsistent with her baseline behavior. -no evidence of infection with normal white count, ammonia is negative, procalc itonin is negative, prolactin is negative, patient is not acidotic and troponin is negative. Unable to obtain urine for tox screen the patient has been in senior living facility. -at this time altered mental status believed to be related to respiratory failure and hypercarbia. 2. Acute respiratory failure with hypoxemia and hypercarbia, present on admission, active. -patient has increased respiratory rate at 24 the ER without oxygen saturation 94% on 4 liters/minute nasal cannula -ABG in the ER reveals a pH of 7.33, pCO2 57, PO2 of 75, bicarbonate 30 with a base excess of 4 on 32% FiO2. -poor quality chest x-ray with poor inspiration, patient does have elevated proBNP at 3430. -patient with history of sleep apnea and noncompliant with CPAP at home. -request respiratory therapy to consult evaluate and treat. -ordered BiPAP 3. Heart failure with preserved EF, chronic, present on admission. -likely contributory to acute respiratory failure with and elevated proBNP of 3430. -most recent echocardiogram completed on 01/10/2020 with an EF of 50-55%. LV with normal size and function, RV with normal size and function. -ordered furosemide 40 mg 1 time, will continue Lasix 20 mg daily thereafter. 4. Peripheral vascular disease with infected venous stasis ulcerations and pain with opiate dependence, chronic, present on admision. Stable -Patient with bilateral venous stasis ulcers and skin lesions followed by wound care clinic at [facility]. -patient wounds bilateral lower extremities are healing, will continue the wound care plan with: 1. Clean wounds with normal saline and pat dry. 2. Lay hydrofiber dressing such as Aquacel Ag Extra onto wounds. 3. Cover with superabsorbent dressing such as Mextra Superabsorbent. 4. Wrap with rolled gauze such as Kerlix 5. Retain with tubular elastic netting 6. Change dressing daily and prn detachment or saturation. 5. Persistent atrial fibrillation, present on admission. Stable. -12 lead EKG reveals atrial fibrillation with a controlled rate with ventricular rate 90, low voltage with artifact. No apparent ST or T-wave changes noted. -EKG demonstrated atrial fibrillation without acute ischemic changes such as ST elevation or depression. -Continue home diltiazem ER 240 mg and metoprolol succinate 25 mg daily. 6. Diabetes mellitus type 2, non-insulin using and diet controlled, with neuropathy, present on admission. Stable. -Hemoglobin A1C 4 weeks ago is 6.1% indicative of excellent glycemic control in the range of prediabetes. Patient is not currently medically treated and diet controlled. -fingerstick blood glucose checks and low dose correctional scale insulin. -heart healthy/carbohydrate controlled diet. 7. Super morbid obesity, chronic, present on admission. Stable. -requested dietitian consult VTE prophylaxis: Patient anticoagulated on warfarin. IV fluid: Saline lock Diet: Heart healthy/small constant carbohydrate Code status: Full Code, the patient's daughter Gege is her surrogate decision maker. Upon arrival to the floor the patient is responsive to verbal stimulus uncooperative is stating her desire to return to her [place] [facility]. The patient is admitted observation status and appears to be rapidly improving. Scores GCS [place] coma scale eye opening: Spontaneous [place] coma scale verbal response: Confused [place] coma scale motor response: Obey commands [place] coma scale total score: 14
[2020-02-04 05:48] VITALS: BP 184/93; PULSE 82; RESP 10; TEMP 36.9; O2SAT 78
[2020-02-04 06:04] LABS: INR 1.8 (0.9-1.3); Prothrombin Time 20.6 SECONDS (10.1-12.7)
[2020-02-04 06:12] LABS: PTT Partial Thromboplastin Tim 34 SECONDS (26.4-36.2)
[2020-02-04] MEDS: FUROSEMIDE 40 MG/4 ML VIAL IV (06:28)
[2020-02-04 06:34] VITALS: BMI 58.5
[2020-02-04 07:28] LABS: Appearance Urine UA SL CLOUDY; Bilirubin Urine UA NEGATIVE (NEGATIVE); Color Urine UA YELLOW; Glucose Urine UA NEGATIVE (Negative); Ketones Urine UA NEGATIVE (NEGATIVE); Leukocyte Esterase Urine UA NEGATIVE (NEGATIVE); Nitrite Urine UA NEGATIVE (Negative); Occult Blood Urine UA 2+ (Negative); Protein Urine UA NEGATIVE (Negative); Urobilinogen Urine UA 0.2 E.U./dL (0.2)
--- NOTE | 2020-02-04 07:29 | PC.NURSE ---
Admit Note-Patient brought to room 227 via T[facility] sorto3, states I'm angry and don't want to be here Intermittently taking O2 and and oximeter off, denies pain. Lower leg dressings intact, patient refuses to have them removed for assessment. Refuses to have surveillance system monitor on at this time. 40 mg IV Lasix given x1 as ordered. 1-2 person assist to BSC, urine is cloudy, sample sent to lab. See assessment notes.
[2020-02-04 07:46] LABS: pH Urine UA 5.5 (4.5-8.0)
[2020-02-04 07:52] LABS: Amorphous Sediment Urine 2+; Bacteria Urine Few (2-10); Hyaline Casts Urine 0-1/LPF; RBC Urine 1-5/HPF (0-5/HPF); Squamous Epithelial Cell Urine 10-30 /HPF (0-5/HPF); WBC Urine 0-1/HPF (0-5/HPF)
[2020-02-04 07:53] LABS: BUN Creatinine Ratio 18.8 (6-22); Blood Urea Nitrogen 22 mg/dL (7-17); Calcium 8.7 mg/dL (8.4-10.2); Carbon Dioxide 33 mmol/L (22-32); Chloride 101 mmol/L (98-107); Estimated Glomerular Filt Rate 45.6 mL/min (>60); Glucose 110 mg/dL (80-110); HEMOLYSIS < 15 (0-50); Potassium 4.2 mmol/L (3.4-5.1); Sodium 141 mmol/L (137-145)
[2020-02-04 07:53] LABS: Culture Indicated Urine Cult Not Indicated
[2020-02-04 07:55] VITALS: PULSE 95; RESP 18; O2SAT 96
--- NOTE | 2020-02-04 08:00 | PC.NURSE ---
Addendum entered by Sandhya Rubi R.N. 02/04/20 14:51: update: pt has no peripheral iv access and has only single lumen picc line which was left intact Addendum entered by Sandhya Rubi R.N. 02/04/20 14:43: pt prepared for discharge to [facility]- report called and iv lines removed as well as telemetry off- plan is for pick and shovel man at 1615 with new orders for 02 @ 2l nc at all times and pts need for sleep study to be scheduled Addendum entered by Sandhya Rubi R.N. 02/04/20 10:22: pts daughter here and explained plan of care to her- she was tearful but understands- pt much more compliant Addendum entered by Sandhya Rubi R.N. 02/04/20 10:13: pt calmed down after speaking to her brother and allowed staff to place station helper and o2 - she is voiding well from iv lasix given earlier and mostly ignored staff upon rounds- no new orders at this time- she did take po rx this am ( dilt/metoprolol) Original Note: pt rude and cantakerous to staff- refusing to put on tele monitor, demanding telephone calls be made( which were by this RN)yelling @ phone in room and generally dissatisfied with any attempt to provide care or comfort to her
[2020-02-04] MEDS: METOPROLOL ER 25 MG TABLET PO (08:20)
[2020-02-04] MEDS: dilTIAZem CD 240 MG CAP PO (08:21)
[2020-02-04 08:35] LABS: D Dimer 350 ng/mL (<230)
[2020-02-04 08:54] VITALS: BP 146/89; PULSE 94; RESP 20; O2SAT 96
[2020-02-04 09:44] VITALS: PULSE 92
--- NOTE | 2020-02-04 10:20 | PT.IIE ---
Surgical History (Last Reviewed 02/04/20 @ 05:58 by GUANAKITO Osorio) History of angioplasty (Resolved 10/2016) Medical History (Last Reviewed 02/04/20 @ 05:58 by GUANAKITO Osorio) Atrial fibrillation (Chronic 12/2011) Diabetes (Chronic Unknown) Essential hypertension (Chronic) Foot pain (Resolved Unknown) Foot ulcer (Resolved 08/2016) Gout (Chronic Unknown) Heart murmur (Chronic Unknown) Hypertension (Chronic Unknown) Mixed hyperlipidemia (Chronic 01/30/00) Morbid obesity with body mass index (BMI) of 50.0 to 59.9 in adult (Chronic) Obstructive sleep apnea syndrome (Chronic) Osteoarthritis (Chronic Unknown) 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) Peripheral neuropathy (Chronic Unknown) PVD (peripheral vascular disease) (Chronic Unknown) Type 2 diabetes mellitus with diabetic neuropathy, without long-term current use of insulin (Chronic) Umbilical hernia (Chronic) Physical Therapy Inpatient Evaluation/Re-Eval M1 PT/OT-IP Prior Functional Status Start: 02/04/20 12:51 Freq: NEEDED Status: Active Protocol: Document 02/04/20 10:20 AB (Rec: 02/04/20 13:38 AB [id number]) Medical Review Prior Functional Status Medical History Reviewed Yes Communication able to make needs known Mobility and Gait pt was hospitalized last 01/09 for kidney injury and a- fib and was d/c'd to [facility] rehab for wound care. Pt now back to the hospital due to altered mental status. daughter stated that pt was modified independent usign [id number] prior to december hospitalization. Social History Household Members none Living Arrangements House Number of Floors (Floors) One Floor Number of Stairs To Enter/Railing? ramp to enter Home Environment Tub/Shower,Ramp Home Equipment Four Wheel Walker,Tub Transfer Bench,Hand Held Shower,Grab Bars Near Toilet Additional Social History Comment stated that she has friends/ family that assists her with meals/groceries states that she usually sleeps on her recliner stated that her son will be converting her tub shower into a walk in showerk install a bidet on the toilet and will put in rails on her bed M2 PT-IP Current Condition Start: 02/04/20 12:51 Freq: NEEDED Status: Active Protocol: Document 02/04/20 10:20 AB (Rec: 02/04/20 13:38 AB [email or web address]) Physical Therapy Current Condition Current Condition Evaluation Date 02/04/20 Treatment Diagnosis acute respiratory failure; AMS ; difficulty in walking Onset Date 02/04/20 Precautions Other Precautions 02 sat M3 PT-IP Subjective Start: 02/04/20 12:51 Freq: NEEDED Status: Active Protocol: Document 02/04/20 10:20 AB (Rec: 02/04/20 13:38 AB [email or web address]) Subjective Physical Therapy Visit Type Type Initial Evaluation Visit Start Time 10:20 Visit Stop Time 10:42 Total Visit Minutes 22 Number of METAL FURNITURE POLISHER Visits 0 Physical Therapy Visit Comments Patient Comments pt requires encouragement to participate; daughter in room tries to encourage pt as well Therapy Pain Assessment Pain Present Pain Present Denied Pain M4 PT-IP Mobility and Gait Start: 02/04/20 12:51 Freq: NEEDED Status: Active Protocol: Document 02/04/20 10:20 AB (Rec: 02/04/20 13:38 AB [email or web address]) PT-Bed Mobility Assessment Supine to Sit Supine to Sit Maximum Assistance,Head of Bed Elevated,Bedrails PT-Transfer Assessment Sit to and From Stand Sit to and from Stand Minimal Assistance,1 Person Assistance,Use of Upper Extremities Equipment Transfer Assistive Device Gait Belt,Front Wheeled Walker Orthotic/Prosthetic Devices or Brace: No Transfers Transfer Destination Toilet Transfer Technique Stand Step Pivot Transfer Ability Level of Assist Minimal Assistance,1 Person Assistance,Use of Upper Extremities Comments Mobility Comments daughter in room with pt. pt initially refusing to get out of bed. encouraged pt. daughter told pt to also try. pt completed supine to sit max A and cues. pt is with confusion and get agitated easily. pt was able to sit on EOB SBA. initially refused for O2 sat to be checked but agreed. O2 sat prior to getting up 94% with 2L/min O2 but O2 sat decreased to 84% after bed mobility. cued pt for deep breathing. O2 sat increased to 90% after ~ 30 sec. pt requested to use the toilet. completed sit to stand min A and step transfer using FWW min A to bedside commode. pt completed sit to stand from bedside commode min A and took a few steps to the chair min A. positioned pt on chair. Pt can be resistant to care. Left pt with NAC. Gait Assessment Comments Gait Comments able to take steps during transfer PT-Balance Assessment Sitting Balance and Reactions Static Sitting Balance Ability Good Dynamic Sitting Balance Ability Good Standing Balance and Reactions Static Standing Balance Ability Fair Dynamic Standing Balance Ability Fair Device Used FWW M5 PT-IP Objective Assessments Start: 02/04/20 12:51 Freq: NEEDED Status: Active Protocol: Document 02/04/20 10:20 AB (Rec: 02/04/20 13:38 AB [email or web address]) Orientation Orientation/Cognition Level of Alertness Confusional State Orientation Name Safety Awareness Decreased Safety Awareness Memory Description Short Term Impaired Strength Comments Strength Comments not formally tested as pt is resistive and agitated M6 PT-IP Treatment Start: 02/04/20 12:51 Freq: NEEDED Status: Active Protocol: Document 02/04/20 10:20 AB (Rec: 02/04/20 13:38 AB [email or web address]) Physical Therapy Treatment Education Education Provided Safety M7 PT-IP Assessment and Plan Start: 02/04/20 12:51 Freq: NEEDED Status: Active Protocol: Document 02/04/20 10:20 AB (Rec: 02/04/20 13:38 AB [email or web address]) PT Summary Assessment and Plan Potential Rehabilitation Potential Fair Status of Condition at Evaluation Evolving Summary Impairments Pain,ROM,Strength,Balance, Coordination,Sensation,Tone, Cognition,Bed Mobility, Transfers,Gait,Activity Tolerance Assessment Summary pt requires min A with transfers and max A with bed mobility. pt will require SNF rehab to improve strength and mobility. Goals Bed Mobility Goal Standby Assistance Transfer Goal Standby Assistance,Front Wheeled Walker Gait Goal Standby Assistance,Front Wheel Walker Gait Distance 50 Days to Meet Goals 5 Frequency of Treatment Frequency Of Treatment Once a Day Treatment Plan Physical Therapy Treatment Plan Bed Mobility Training,Transfer Training,Gait Training, Therapeutic Exercise,Balance Retraining,Discharge Planning, Hot or Cold Pack,Neuromuscular Re-ed,Coordination Retraining Recommendations To Nursing Amount of Assist Needed 1 Person Assist Discharge Recommendations PT Discharge Recommendations SNF Rehab Transportation Needs at Discharge Wheelchair/Cabulance
--- NOTE | 2020-02-04 10:35 | CM.DANOTE ---
DCP: Case received, EMR reviewed. Patient was sleeping. Was able to obtain information from October at [facility] regarding her baseline status and care needs at facility. DCP assessment completed with information currently available. Patient is a 69 year old female who admitted this morning to the care of the hospitalist team. PCP: She is currently under [facility]'s provider. Payer: confirmed: [facility]. Patient came to the hospital via ambulance from [facility] due to decreased mental status. She had been difficult to rouse. Patient's oxygen level had been in the 70s, secondary to acute respiratory failure. Patient has history of a-fib, and chronic venous status wounds that are being treated at the facility. Patient had been here in December, and was sent to [facility] for rehab, while family was working on [facility] caregivers. Patient is also getting IV ABO at [facility] for wounds. Isabella at [facility] mentioned that patient has been mobile in facility. They will accept patient back when stable. Called Jacqueline Friend at [employer] and left her a message inquiring if patient would need a new authorization to go back to [facility]. Jacqueline called back later and left a message indicating that if she has not been here for a midnight, would not need a new authorization. Patient came in early this morning. Discussed at team rounds. Patient may be going back to [facility] on oxygen for night time use. She will also need a sleep study. Updated Isabella at [facility] who confirmed that they can accept her back today. Will plan on coordinating a time after Dr. Lucio sees patient. Updated her on insurance, as well. P: DCP to continue to follow. Patient may need a new PASSR before going back to [facility]. Medications are also being adjusted, secondary to possibility of medication having some cause of respiratory issues. Rose Garcia RN/Civil Project Engineer
[2020-02-04 12:17] VITALS: BP 146/86; PULSE 86; RESP 29; O2SAT 95
--- NOTE | 2020-02-04 13:07 | OT.IPNOTE ---
Pt going back to skilled rehab today. Nursing states pt just got settled back into bed just now. Therefore defer to skilled OT needs.
--- NOTE | 2020-02-04 14:50 | CM.DPC ---
Addendum entered by Rose Garcia R.N. 02/04/20 15:49: Gave pm nurse, Feli, phone number for Isabella at [facility] in case transportation does not arrive, since she is being picked up after 1600 Original Note: DCP Cont: Patient is to be discharged back to [facility] today. As stated in this case repairer's previous note, since patient has not spent a midnight here, no new [place] authorization will be needed. Dr. Lucio is conducting discharge orders, and has not noted any new confusion. Patient is on occasion resistant to care. Dr. Lucio will include orders for continuous oxygen at 2 liters, with suggestion of sleep study. Updated Isabella at [facility]. Confirmed that the soonest that they can pick her up is between [id number]. Nurse, Sandhya, is aware. Gave her back line phone number for report at [facility]. Printed out negative COVID results, and med sheets were signed. Included oxygen orders. Faxed to [facility], pending completed discharge summary. 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 Rose Garcia RN/Cattle Dealer
--- NOTE | 2020-02-04 16:21 | PC.NURSE ---
1630 Pt discharged to [facility] via wheelchair, on 2LNC O2, with all belongings. Tolerated ambulation to wheelchair with no difficulties. Discharge packet given to driver starting gate, no further pt contact at this time.
== END 2020-02-04 16:30 ==
LOC: ED 04:21 → AC 05:10 → ICU 06:30 → AC 12:45 → ICU 12:45
PROVIDERS: Internal Medicine; Admitting Provider Nurse Practitioner Adult Health; Emergency Provider Emergency Medicine; Referring Provider Emergency Medicine; Visit Provider Nurse Practitioner Adult Health
DX: J96.02 Acute respiratory failure with hypercapnia (principal); J96.01 Acute respiratory failure with hypoxia; I50.9 Heart failure, unspecified; I11.0 Hypertensive heart disease with heart failure; I73.9 Peripheral vascular disease, unspecified; E78.5 Hyperlipidemia, unspecified; E11.41 Type 2 diabetes mellitus with diabetic mononeuropathy; E66.01 Morbid (severe) obesity due to excess calories; Z68.43 Body mass index [BMI] 50.0-59.9, adult; G47.33 Obstructive sleep apnea (adult) (pediatric); I48.11 Longstanding persistent atrial fibrillation; F11.20 Opioid dependence, uncomplicated; Z11.59 Encounter for screening for other viral diseases; Z79.01 Long term (current) use of anticoagulants
CPT/HCPCS: 36415; 36600; 70450; 71045; 80048; 80053; 81001; 82140; 82805; 82962; 83690; 83735; 83880; 84145; 84146; 84484; 85025; 85379; 85610; 85730; 87040; 87635; 93005; 96374; 97162; 99284; 99285; G0378; J1940

== ENCOUNTER → 2020-02-06 13:28 | Outpatient (ROUT) | payer OTHER, MEDICAID, SELFPAY ==
[2020-02-04 06:34] VITALS: BMI 58.5
[2020-02-06 15:09] LABS: BUN Creatinine Ratio 18.8 (6-22); Blood Urea Nitrogen 21 mg/dL (7-17); Calcium 8.4 mg/dL (8.4-10.2); Carbon Dioxide 34 mmol/L (22-32); Chloride 101 mmol/L (98-107); Glucose 107 mg/dL (80-110); HEMOLYSIS < 15 (0-50); Potassium 4.1 mmol/L (3.4-5.1); Sodium 140 mmol/L (137-145)
[2020-02-06 15:13] LABS: Vancomycin Trough 17.3 ug/mL (10-20)
[2020-02-06 20:49] LABS: BUN Creatinine Ratio 19.5 (6-22); Blood Urea Nitrogen 23 mg/dL (7-17); Calcium 8.4 mg/dL (8.4-10.2); Carbon Dioxide 36 mmol/L (22-32); Chloride 101 mmol/L (98-107); Estimated Glomerular Filt Rate 45.2 mL/min (>60); Glucose 109 mg/dL (80-110); HEMOLYSIS < 15 (0-50); Potassium 4.3 mmol/L (3.4-5.1); Sodium 141 mmol/L (137-145)
[2020-02-06 20:53] LABS: Vancomycin Trough 14.9 ug/mL (10-20)
== END ==
PROVIDERS: Visit Provider Internal Medicine
DX: Z79.899 Other long term (current) drug therapy (principal)
CPT/HCPCS: 80048; 80202

== ENCOUNTER → 2020-02-08 11:16 | Outpatient (ROUT) | payer OTHER, SELFPAY ==
[2020-02-04 06:34] VITALS: BMI 58.5
[2020-02-08 11:24] LABS: INR 1.9 (0.9-1.3)
== END ==
PROVIDERS: Visit Provider Internal Medicine
DX: I48.91 Unspecified atrial fibrillation (principal)
CPT/HCPCS: 85610

== ENCOUNTER 2020-03-09 15:48 | Observation (INO) | payer OTHER, SELFPAY ==
[2020-03-09] VITALS (13 sets, daily range): BP systolic 128–159; BP diastolic 69–80; PULSE 93–120; RESP 19–41; TEMP 36.2–36.7; O2SAT 95–100; BMI 57.2; BMI 56.2
--- NOTE | 2020-03-09 16:49 | ED.EXTPRO ---
HPI - Extremity Problem <Xuan Dye, DO - Last Filed: 03/09/20 19:46> General Chief complaint: Extremity Problem,Nontraumatic Stated complaint: INFECTION OF RIGHT LEG Time Seen by Provider: 03/09/20 16:26 Source: patient Mode of arrival: Wheelchair Limitations: no limitations Related Data Home Medications Medication Instructions Recorded Confirmed Adult Probiotic 3,000 mmu cells PO DAILY 02/04/20 02/16/20 Benadryl Itch Stopping 1 applic TOPICAL QID PRN 02/04/20 02/16/20 ProSource 1 ea PO 1500 02/04/20 02/16/20 bisacodyl 10 mg MI DAILY PRN 02/04/20 02/16/20 furosemide 40 mg PO DAILY 02/04/20 03/09/20 nystatin 1 applic TOPICAL BID 02/04/20 02/16/20 polyethylene glycol 3350 [Miralax] 17 g PO DAILY PRN 02/04/20 02/16/20 lisinopril 40 mg PO DAILY 03/09/20 03/09/20 warfarin 7.5 mg PO DAILY 03/09/20 03/09/20 Previous Rx's Medication Instructions Recorded Glucose: Home Monitor #1 ea 04/29/18 Glucose: Test Strips #100 each 06/09/18 diltiazem HCl 240 mg 240 mg PO DAILY #90 cap 07/26/19 capsule,extended release 24 hr lorazepam 2 mg tablet 2 mg PO BEDTIME #30 tab 09/21/19 metoprolol succinate 25 mg 25 mg PO DAILY #90 tab 09/28/19 tablet,extended release 24 hr probenecid 500 mg tablet 250 mg PO BID #60 tab 02/16/20 warfarin 1 mg tablet 1 mg PO DAILY #90 tab 02/16/20 hydrocodone 5 mg-acetaminophen 325 1 tab PO DAILY PRN #60 tab 02/23/20 mg tablet Allergies Allergy/AdvReac Type Severity Reaction Status Date / Time latex Allergy Intermediate skin Verified 02/16/20 13:22 blistering Sulfa (Sulfonamide Allergy Intermediate PATIENT Verified 02/16/20 13:22 Antibiotics) CAN'T REMEMBER IT WAS SO LONG AGO gabapentin [GABAPENTIN] AdvReac Intermediate Bodyaches, Verified 02/16/20 13:22 muscle aches pregabalin [From Lyrica] AdvReac Intermediate Muscle Pain Verified 02/16/20 13:22 duloxetine [DULOXETINE] AdvReac Unknown nausea and Verified 02/16/20 13:22 vomiting <Angely Meza MD - Last Filed: 03/09/20 22:14> History of Present Illness HPI Narrative: 69-year-old woman with history of morbid obesity, AFib on Coumadin, congestive heart failure, diabetes, hypertension, hyperlipidemia, sleep apnea, peripheral vascular disease with chronic leg ulcers that have been followed at [facility]. A week ago home health came to help with dressing changes but had no supplies and left the wound open. She is concerned that began to get infected at that point. Over the ensuing week she has had increasing pain, debris around the wound, redness and general malaise. She denies any fevers, vomiting, diarrhea. She is at her baseline dyspnea and stable on 2 L of her baseline oxygen level, no complaints of palpitations or chest pain. No syncope or dizziness. She notes increasing weakness overall but no focal or localizing deficits. <Angely Meza MD - Last Filed: 03/09/20 22:14> Review of Systems Narrative: Pertinent positive and negative findings as per HPI Remainder of review of systems is otherwise unremarkable for Constitutional: Fevers, chills, ENT: No sore throat, neck pain, ear pain CV: Chest pain, palpitations, Respiratory: Cough, wheeze (at baseline) GI: Nausea, vomiting, diarrhea, : Dysuria, hematuria, flank pain Neuro: Syncope, dizziness, tingling Patient History <Xuan Dye DO - Last Filed: 03/09/20 19:46> Medical History Atrial fibrillation (Chronic 12/2011) Diabetes (Chronic Unknown) Essential hypertension (Chronic) Foot pain (Resolved Unknown) Foot ulcer (Resolved 08/2016) Gout (Chronic Unknown) Heart murmur (Chronic Unknown) Hypertension (Chronic Unknown) Mixed hyperlipidemia (Chronic 01/30/00) Morbid obesity with body mass index (BMI) of 50.0 to 59.9 in adult (Chronic) Obstructive sleep apnea syndrome (Chronic) Osteoarthritis (Chronic Unknown) 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 Brother No problems noted. Sister Fibromyalgia Social History household members: none Smoking Status: Never smoker second hand exposure: No alcohol intake: never substance use type: does not use Smoking Status: Never smoker alcohol intake frequency: 0-2 drinks per day Substance Use Type: does not use Exam <Xuan Dye DO - Last Filed: 03/09/20 19:46> Initial Vital Signs Initial Vital Signs: Vital Signs Pulse Rate 120 H 03/09/20 16:03 Pulse Oximetry 100 03/09/20 16:03 <Angely Meza MD - Last Filed: 03/09/20 22:14> Narrative Exam Narrative: General: Morbidly obese, chronically ill-appearing but Able to give a complete and coherent history. HEENT: Moist mucous membranes, normal sclera with reactive pupils, Neck: supple, no tenderness to palpation Respiratory: Lungs are clear to auscultation, no wheezing no rales no rhonchi. Full and symmetrical air movement Cardiac: Irregular mildly tachycardic with no murmurs no bruits Abdomen: Obese with large pannus, nontender good bowel tones, no flank pain. She also has a large pudendal pannus. Skin: Bilateral lower extremity chronic venous stasis changes with erythema and 1+ edema. On the right side erythema is significantly more and the 4 x 4 cm ulceration on the back of her calf remains shallow but is developing more of an eschar mild drainage without significant odor and there is cellulitic erythema extending more proximal. Please see photographs included in the stocking Neurologic: Grossly neurologically intact with no obvious asymmetries or abnormalities Extremities: Peripheral neuropathy with hyperesthesias bilaterally. Psych: Cooperative, appropriate insight and affect Initial Vital Signs Initial Vital Signs: Vital Signs Pulse Rate 120 H 03/09/20 16:03 Pulse Oximetry 100 03/09/20 16:03 Course <DO Sean Ying Last Filed: 03/09/20 19:46> Orders Ordered: ED Orders 03/09/20 16:24 Complete Blood Count AUTO DIFF Stat Comprehensive Metabolic Panel Stat Lactate (Lactic Acid) Stat Partial Thromboplastin Time Stat Procalcitonin Stat Prothrombin Time INR Stat 03/09/20 17:00 Wound Culture and Gram Stain Stat 03/09/20 17:45 Blood Culture Stat 03/09/20 18:30 Urine Culture Stat Urine Microscopic Stat 03/09/20 18:51 COVID19 -ED/INPAT/OR/L&D Stat 03/09/20 19:28 XR tibia fibula RT 2V Stat Acetaminophen (Tylenol) 650 mg PO Q6HR PRN PRN Reason: Fever/Mild Pain (1-3) Diltiazem HCl (Cardizem Cd) 240 mg PO DAILY [facility] Enoxaparin Sodium (Lovenox) 40 mg SUBCUT DAILY [facility] Last Admin: 03/09/20 21:56 Dose: 40 mg Documented by: ANJELICA Sodium Chloride (Normal Saline 0.9%) 1,000 mls @ 75 mls/hr IV CONT [facility] Stop: 03/10/20 09:34 Last Admin: 03/09/20 21:31 Dose: 75 mls/hr Documented by: ANJELICA Levofloxacin (Levaquin) 750 mg PO 1800 [facility] Metoprolol Succinate (Toprol Xl) 25 mg PO DAILY [facility] Naloxone HCl (Narcan) 0.2 mg IV Q2MIN PRN PRN Reason: Opiate Reversal Ondansetron HCl (Zofran) 4 mg IV Q6HR PRN PRN Reason: Nausea And Vomiting Oxycodone/Acetaminophen (Percocet 5/325) 1 tab PO Q4HR PRN PRN Reason: Pain, Moderate (4-6) Last Admin: 03/09/20 21:32 Dose: 1 tab Documented by: ANJELICA Sennosides (Senna) 17.2 mg PO BEDTIME [facility] Last Admin: 03/09/20 21:31 Dose: 17.2 mg Documented by: ANJELICA Discontinued Medications Hydrocodone Bitart/Acetaminophen ([place] 5/325) 2 tab PO NOW ONE Stop: 03/09/20 19:24 Last Admin: 03/09/20 19:35 Dose: 2 tab Documented by: BLAIR Diltiazem HCl (Cardizem Cd) 360 mg PO DAILY [facility] Enoxaparin Sodium (Lovenox) 40 mg SUBCUT DAILY [facility] Furosemide (Lasix) 40 mg IV NOW ONE Stop: 03/09/20 17:08 Last Admin: 03/09/20 17:25 Dose: 40 mg Documented by: LINUS Levofloxacin (Levaquin) 750 mg in 150 mls @ 100 mls/hr IV NOW ONE Stop: 03/09/20 20:08 Last Infusion: 03/09/20 20:41 Dose: 0 mls/hr Documented by: Admin: 03/09/20 18:50 Dose: 100 mls/hr Documented by: LINUS Warfarin Sodium (Coumadin) 4 mg PO NOW ONE Stop: 03/09/20 20:46 Last Admin: 03/09/20 21:50 Dose: Not Given Documented by: Admin: 03/09/20 21:39 Dose: Not Given Documented by: ANJELICA Vital Signs Vital signs: Vital Signs - 8 hr 03/09/20 16:03 03/09/20 16:04 03/09/20 16:05 Temperature 98.0 F Pulse Rate 120 H 120 H 100 H Respiratory Rate 24 Blood Pressure 139/80 139/80 Pulse Oximetry 100 100 100 03/09/20 16:30 03/09/20 17:00 03/09/20 17:11 Temperature Pulse Rate 97 H 93 H 106 H Respiratory Rate Blood Pressure 159/69 H Pulse Oximetry 99 95 98 03/09/20 17:30 03/09/20 18:00 03/09/20 18:31 Temperature Pulse Rate 109 H 105 H 107 H Respiratory Rate 24 Blood Pressure Pulse Oximetry 97 95 03/09/20 19:00 03/09/20 19:30 Temperature Pulse Rate 106 H 115 H Respiratory Rate 41 H 30 H Blood Pressure Pulse Oximetry 99 99 <Angely Meza MD - Last Filed: 03/09/20 22:14> Orders Ordered: ED Orders 03/09/20 16:24 Complete Blood Count AUTO DIFF Stat Comprehensive Metabolic Panel Stat Lactate (Lactic Acid) Stat Partial Thromboplastin Time Stat Procalcitonin Stat Prothrombin Time INR Stat 03/09/20 17:00 Wound Culture and Gram Stain Stat 03/09/20 17:45 Blood Culture Stat 03/09/20 18:30 Urine Culture Stat Urine Microscopic Stat 03/09/20 18:51 COVID19 -ED/INPAT/OR/L&D Stat 03/09/20 19:28 XR tibia fibula RT 2V Stat Acetaminophen (Tylenol) 650 mg PO Q6HR PRN PRN Reason: Fever/Mild Pain (1-3) Diltiazem HCl (Cardizem Cd) 240 mg PO DAILY [facility] Enoxaparin Sodium (Lovenox) 40 mg SUBCUT DAILY [facility] Last Admin: 03/09/20 21:56 Dose: 40 mg Documented by: ANJELICA Sodium Chloride (Normal Saline 0.9%) 1,000 mls @ 75 mls/hr IV CONT [facility] Stop: 03/10/20 09:34 Last Admin: 03/09/20 21:31 Dose: 75 mls/hr Documented by: ANJELICA Levofloxacin (Levaquin) 750 mg PO 1800 [facility] Metoprolol Succinate (Toprol Xl) 25 mg PO DAILY [facility] Naloxone HCl (Narcan) 0.2 mg IV Q2MIN PRN PRN Reason: Opiate Reversal Ondansetron HCl (Zofran) 4 mg IV Q6HR PRN PRN Reason: Nausea And Vomiting Oxycodone/Acetaminophen (Percocet 5/325) 1 tab PO Q4HR PRN PRN Reason: Pain, Moderate (4-6) Last Admin: 03/09/20 21:32 Dose: 1 tab Documented by: ANJELICA Sennosides (Senna) 17.2 mg PO BEDTIME [facility] Last Admin: 03/09/20 21:31 Dose: 17.2 mg Documented by: ANJELICA Discontinued Medications Hydrocodone Bitart/Acetaminophen ([place] 5/325) 2 tab PO NOW ONE Stop: 03/09/20 19:24 Last Admin: 03/09/20 19:35 Dose: 2 tab Documented by: BLAIR Diltiazem HCl (Cardizem Cd) 360 mg PO DAILY [facility] Enoxaparin Sodium (Lovenox) 40 mg SUBCUT DAILY [facility] Furosemide (Lasix) 40 mg IV NOW ONE Stop: 03/09/20 17:08 Last Admin: 03/09/20 17:25 Dose: 40 mg Documented by: LINUS Levofloxacin (Levaquin) 750 mg in 150 mls @ 100 mls/hr IV NOW ONE Stop: 03/09/20 20:08 Last Infusion: 03/09/20 20:41 Dose: 0 mls/hr Documented by: Admin: 03/09/20 18:50 Dose: 100 mls/hr Documented by: LINUS Warfarin Sodium (Coumadin) 4 mg PO NOW ONE Stop: 03/09/20 20:46 Last Admin: 03/09/20 21:50 Dose: Not Given Documented by: Admin: 03/09/20 21:39 Dose: Not Given Documented by: ANJELICA Consultations Consultation #1: Vital Signs Vital signs: Vital Signs - 8 hr 03/09/20 16:03 03/09/20 16:04 03/09/20 16:05 Temperature 98.0 F Pulse Rate 120 H 120 H 100 H Respiratory Rate 24 Blood Pressure 139/80 139/80 Pulse Oximetry 100 100 100 03/09/20 16:30 03/09/20 17:00 03/09/20 17:11 Temperature Pulse Rate 97 H 93 H 106 H Respiratory Rate Blood Pressure 159/69 H Pulse Oximetry 99 95 98 03/09/20 17:30 03/09/20 18:00 03/09/20 18:31 Temperature Pulse Rate 109 H 105 H 107 H Respiratory Rate 24 Blood Pressure Pulse Oximetry 97 95 03/09/20 19:00 03/09/20 19:30 Temperature Pulse Rate 106 H 115 H Respiratory Rate 41 H 30 H Blood Pressure Pulse Oximetry 99 99 MDM - Extremity (Nontraumatic) <Xuan Dye, DO - Last Filed: 03/09/20 19:46> Lab Data Result diagrams: 03/09/20 16:24 03/09/20 16:24 Labs: Lab Results 03/09/20 03/09/20 03/09/20 Range/Units 16:24 16:24 16:24 WBC 10.8 (4.5-11.0) X10^3/uL RBC 3.29 L (4.0-5.2) X10^6/uL Hgb 9.6 L (12.0-16.0) g/dL Hct 30.2 L (36-46) % MCV 91.8 (80-100) fL MCH 29.2 (26-34) PG MCHC 31.8 (30-36) % RDW 18.2 H (11.6-14.8) % Plt Count 336 (150-400) X10^3/uL Neut % (Auto) 84.4 H (50-75) % Lymph % (Auto) 6.3 L (25-40) % [place] % (Auto) 6.5 (3-14) % Eos % (Auto) 2.4 (2-4) % Baso % (Auto) 0.4 (0-2) % Neut # (Auto) 9100 H (0422-2372) /uL Lymph # (Auto) 700 L (7092-9332) /uL [place] # (Auto) 700 (0-900) /uL Eos # (Auto) 300 (0-450) /uL Baso # (Auto) 0 (0-100) /uL PT (10.1-12.7) SECONDS INR (0.9-1.3) APTT (26.4-36.2) SECONDS Sodium 143 (137-145) mmol/L Potassium 4.0 (3.4-5.1) mmol/L Chloride 103 (98-107) mmol/L Carbon Dioxide 33 H (22-32) mmol/L BUN 31 H (7-17) mg/dL Creatinine 1.28 H (0.52-1.04) mg/dL Estimated GFR 41.1 L (>60) mL/min BUN/Creatinine Ratio 24.2 H (6-22) Glucose 103 (80-110) mg/dL Lactate (0.7-2.1) mmol/L Calcium 8.9 (8.4-10.2) mg/dL Total Bilirubin 0.7 (0.2-1.3) mg/dL AST 26 (14-36) IU/L ALT 16 (<35) IU/L Alkaline Phosphatase 123 (38-126) U/L NT-Pro-B Natriuret Pep (<125) pg/mL Total Protein 7.7 (6.3-8.2) g/dL Albumin 3.8 (3.5-5.0) g/dL Globulin 3.9 (1.7-4.1) g/dL Albumin/Globulin Ratio 1.0 (1.0-2.8) Procalcitonin < 0.05 (<0.5) ng/mL Urine RBC (0-5/HPF) Urine WBC (0-5/HPF) Ur Squamous Epith Cells (0-5/HPF) Amorphous Sediment Urine Bacteria (None) Ur Culture Indicated? COVID-19 PCR (Negative) 03/09/20 03/09/20 03/09/20 Range/Units 16:24 16:24 16:24 WBC (4.5-11.0) X10^3/uL RBC (4.0-5.2) X10^6/uL Hgb (12.0-16.0) g/dL Hct (36-46) % MCV (80-100) fL MCH (26-34) PG MCHC (30-36) % RDW (11.6-14.8) % Plt Count (150-400) X10^3/uL Neut % (Auto) (50-75) % Lymph % (Auto) (25-40) % [place] % (Auto) (3-14) % Eos % (Auto) (2-4) % Baso % (Auto) (0-2) % Neut # (Auto) (1463-8071) /uL Lymph # (Auto) (7839-1471) /uL [place] # (Auto) (0-900) /uL Eos # (Auto) (0-450) /uL Baso # (Auto) (0-100) /uL PT 19.4 H (10.1-12.7) SECONDS INR 1.7 H (0.9-1.3) APTT 27 D (26.4-36.2) SECONDS Sodium (137-145) mmol/L Potassium (3.4-5.1) mmol/L Chloride (98-107) mmol/L Carbon Dioxide (22-32) mmol/L BUN (7-17) mg/dL Creatinine (0.52-1.04) mg/dL Estimated GFR (>60) mL/min BUN/Creatinine Ratio (6-22) Glucose (80-110) mg/dL Lactate 1.5 (0.7-2.1) mmol/L Calcium (8.4-10.2) mg/dL Total Bilirubin (0.2-1.3) mg/dL AST (14-36) IU/L ALT (<35) IU/L Alkaline Phosphatase (38-126) U/L NT-Pro-B Natriuret Pep 2430 H (<125) pg/mL Total Protein (6.3-8.2) g/dL Albumin (3.5-5.0) g/dL Globulin (1.7-4.1) g/dL Albumin/Globulin Ratio (1.0-2.8) Procalcitonin (<0.5) ng/mL Urine RBC (0-5/HPF) Urine WBC (0-5/HPF) Ur Squamous Epith Cells (0-5/HPF) Amorphous Sediment Urine Bacteria (None) Ur Culture Indicated? COVID-19 PCR (Negative) 03/09/20 03/09/20 Range/Units 18:30 18:51 WBC (4.5-11.0) X10^3/uL RBC (4.0-5.2) X10^6/uL Hgb (12.0-16.0) g/dL Hct (36-46) % MCV (80-100) fL MCH (26-34) PG MCHC (30-36) % RDW (11.6-14.8) % Plt Count (150-400) X10^3/uL Neut % (Auto) (50-75) % Lymph % (Auto) (25-40) % [place] % (Auto) (3-14) % Eos % (Auto) (2-4) % Baso % (Auto) (0-2) % Neut # (Auto) (3517-5359) /uL Lymph # (Auto) (6244-1556) /uL [place] # (Auto) (0-900) /uL Eos # (Auto) (0-450) /uL Baso # (Auto) (0-100) /uL PT (10.1-12.7) SECONDS INR (0.9-1.3) APTT (26.4-36.2) SECONDS Sodium (137-145) mmol/L Potassium (3.4-5.1) mmol/L Chloride (98-107) mmol/L Carbon Dioxide (22-32) mmol/L BUN (7-17) mg/dL Creatinine (0.52-1.04) mg/dL Estimated GFR (>60) mL/min BUN/Creatinine Ratio (6-22) Glucose (80-110) mg/dL Lactate (0.7-2.1) mmol/L Calcium (8.4-10.2) mg/dL Total Bilirubin (0.2-1.3) mg/dL AST (14-36) IU/L ALT (<35) IU/L Alkaline Phosphatase (38-126) U/L NT-Pro-B Natriuret Pep (<125) pg/mL Total Protein (6.3-8.2) g/dL Albumin (3.5-5.0) g/dL Globulin (1.7-4.1) g/dL Albumin/Globulin Ratio (1.0-2.8) Procalcitonin (<0.5) ng/mL Urine RBC None seen (0-5/HPF) Urine WBC 5-10/hpf H (0-5/HPF) Ur Squamous Epith Cells 1-5 /hpf (0-5/HPF) Amorphous Sediment 1+ Urine Bacteria Many (>30) H (None) Ur Culture Indicated? Specimen cultured COVID-19 PCR Negative (Negative) Point of Care Testing Glucose POC 109 Urine Dip Bedside Urine Glucose Negative Bedside Urine Bilirubin - Negative Bedside Urine Ketone - Negative Urine Specific [place] 1.020 Bedside Urine Occult Blood - Negative Bedside Urine pH 5.5 Bedside Urine Protein - Negative Bedside Urine Urobilinogen - Negative Bedside Urine Nitrite + Positive Bedside Urine Leukocytes - Negative Esterase <Angely Meza MD - Last Filed: 03/09/20 22:14> Lab Data Attestation: I reviewed the patient's lab results. Labs: Lab Results 03/09/20 03/09/20 03/09/20 Range/Units 16:24 16:24 16:24 WBC 10.8 (4.5-11.0) X10^3/uL RBC 3.29 L (4.0-5.2) X10^6/uL Hgb 9.6 L (12.0-16.0) g/dL Hct 30.2 L (36-46) % MCV 91.8 (80-100) fL MCH 29.2 (26-34) PG MCHC 31.8 (30-36) % RDW 18.2 H (11.6-14.8) % Plt Count 336 (150-400) X10^3/uL Neut % (Auto) 84.4 H (50-75) % Lymph % (Auto) 6.3 L (25-40) % [place] % (Auto) 6.5 (3-14) % Eos % (Auto) 2.4 (2-4) % Baso % (Auto) 0.4 (0-2) % Neut # (Auto) 9100 H (3164-3862) /uL Lymph # (Auto) 700 L (2722-5514) /uL [place] # (Auto) 700 (0-900) /uL Eos # (Auto) 300 (0-450) /uL Baso # (Auto) 0 (0-100) /uL PT (10.1-12.7) SECONDS INR (0.9-1.3) APTT (26.4-36.2) SECONDS Sodium 143 (137-145) mmol/L Potassium 4.0 (3.4-5.1) mmol/L Chloride 103 (98-107) mmol/L Carbon Dioxide 33 H (22-32) mmol/L BUN 31 H (7-17) mg/dL Creatinine 1.28 H (0.52-1.04) mg/dL Estimated GFR 41.1 L (>60) mL/min BUN/Creatinine Ratio 24.2 H (6-22) Glucose 103 (80-110) mg/dL Lactate (0.7-2.1) mmol/L Calcium 8.9 (8.4-10.2) mg/dL Total Bilirubin 0.7 (0.2-1.3) mg/dL AST 26 (14-36) IU/L ALT 16 (<35) IU/L Alkaline Phosphatase 123 (38-126) U/L NT-Pro-B Natriuret Pep (<125) pg/mL Total Protein 7.7 (6.3-8.2) g/dL Albumin 3.8 (3.5-5.0) g/dL Globulin 3.9 (1.7-4.1) g/dL Albumin/Globulin Ratio 1.0 (1.0-2.8) Procalcitonin < 0.05 (<0.5) ng/mL Urine RBC (0-5/HPF) Urine WBC (0-5/HPF) Ur Squamous Epith Cells (0-5/HPF) Amorphous Sediment Urine Bacteria (None) Ur Culture Indicated? COVID-19 PCR (Negative) 03/09/20 03/09/20 03/09/20 Range/Units 16:24 16:24 16:24 WBC (4.5-11.0) X10^3/uL RBC (4.0-5.2) X10^6/uL Hgb (12.0-16.0) g/dL Hct (36-46) % MCV (80-100) fL MCH (26-34) PG MCHC (30-36) % RDW (11.6-14.8) % Plt Count (150-400) X10^3/uL Neut % (Auto) (50-75) % Lymph % (Auto) (25-40) % [place] % (Auto) (3-14) % Eos % (Auto) (2-4) % Baso % (Auto) (0-2) % Neut # (Auto) (2212-4090) /uL Lymph # (Auto) (7270-4660) /uL [place] # (Auto) (0-900) /uL Eos # (Auto) (0-450) /uL Baso # (Auto) (0-100) /uL PT 19.4 H (10.1-12.7) SECONDS INR 1.7 H (0.9-1.3) APTT 27 D (26.4-36.2) SECONDS Sodium (137-145) mmol/L Potassium (3.4-5.1) mmol/L Chloride (98-107) mmol/L Carbon Dioxide (22-32) mmol/L BUN (7-17) mg/dL Creatinine (0.52-1.04) mg/dL Estimated GFR (>60) mL/min BUN/Creatinine Ratio (6-22) Glucose (80-110) mg/dL Lactate 1.5 (0.7-2.1) mmol/L Calcium (8.4-10.2) mg/dL Total Bilirubin (0.2-1.3) mg/dL AST (14-36) IU/L ALT (<35) IU/L Alkaline Phosphatase (38-126) U/L NT-Pro-B Natriuret Pep 2430 H (<125) pg/mL Total Protein (6.3-8.2) g/dL Albumin (3.5-5.0) g/dL Globulin (1.7-4.1) g/dL Albumin/Globulin Ratio (1.0-2.8) Procalcitonin (<0.5) ng/mL Urine RBC (0-5/HPF) Urine WBC (0-5/HPF) Ur Squamous Epith Cells (0-5/HPF) Amorphous Sediment Urine Bacteria (None) Ur Culture Indicated? COVID-19 PCR (Negative) 03/09/20 03/09/20 Range/Units 18:30 18:51 WBC (4.5-11.0) X10^3/uL RBC (4.0-5.2) X10^6/uL Hgb (12.0-16.0) g/dL Hct (36-46) % MCV (80-100) fL MCH (26-34) PG MCHC (30-36) % RDW (11.6-14.8) % Plt Count (150-400) X10^3/uL Neut % (Auto) (50-75) % Lymph % (Auto) (25-40) % [place] % (Auto) (3-14) % Eos % (Auto) (2-4) % Baso % (Auto) (0-2) % Neut # (Auto) (1112-2335) /uL Lymph # (Auto) (4850-5057) /uL [place] # (Auto) (0-900) /uL Eos # (Auto) (0-450) /uL Baso # (Auto) (0-100) /uL PT (10.1-12.7) SECONDS INR (0.9-1.3) APTT (26.4-36.2) SECONDS Sodium (137-145) mmol/L Potassium (3.4-5.1) mmol/L Chloride (98-107) mmol/L Carbon Dioxide (22-32) mmol/L BUN (7-17) mg/dL Creatinine (0.52-1.04) mg/dL Estimated GFR (>60) mL/min BUN/Creatinine Ratio (6-22) Glucose (80-110) mg/dL Lactate (0.7-2.1) mmol/L Calcium (8.4-10.2) mg/dL Total Bilirubin (0.2-1.3) mg/dL AST (14-36) IU/L ALT (<35) IU/L Alkaline Phosphatase (38-126) U/L NT-Pro-B Natriuret Pep (<125) pg/mL Total Protein (6.3-8.2) g/dL Albumin (3.5-5.0) g/dL Globulin (1.7-4.1) g/dL Albumin/Globulin Ratio (1.0-2.8) Procalcitonin (<0.5) ng/mL Urine RBC None seen (0-5/HPF) Urine WBC 5-10/hpf H (0-5/HPF) Ur Squamous Epith Cells 1-5 /hpf (0-5/HPF) Amorphous Sediment 1+ Urine Bacteria Many (>30) H (None) Ur Culture Indicated? Specimen cultured COVID-19 PCR Negative (Negative) Point of Care Testing Glucose POC 109 Urine Dip Bedside Urine Glucose Negative Bedside Urine Bilirubin - Negative Bedside Urine Ketone - Negative Urine Specific [place] 1.020 Bedside Urine Occult Blood - Negative Bedside Urine pH 5.5 Bedside Urine Protein - Negative Bedside Urine Urobilinogen - Negative Bedside Urine Nitrite + Positive Bedside Urine Leukocytes - Negative Esterase wound culture from wound 12/2019 Aerobic Culture for wounds Final 01/12/20-2019 Organism 1 Acinetobacter baumannii comple Growth MODERATE Organism 2 Enterococcus faecalis Growth HEAVY Beta Lactamase NEGATIVE * This is a corrected result. * A prior result that was reported as final has been changed. 1. Acinetobacter baumannii comple [facility].I.[facility]. RX --------- --- * Cefepime S * Ceftriaxone I * Ciprofloxacin S * Gentamicin S * Imipenem S * Levofloxacin S * Meropenem S * Tobramycin S * Trimethoprim/Sulfamethoxazole S * Piperacillin/Tazobactam I 2. Enterococcus faecalis M.I.C. RX --------- --- * Ampicillin S * Daptomycin S * Vancomycin S * Ciprofloxacin S * Gentamicin 500 S * Levofloxacin S * Linezolid S * Nitrofurantoin S * Streptomycin 2000 S * Tetracycline R Acinetobacter baumannii comple Enterococcus faecalis M.I.C. RX M.I.C. RX --------- --- --------- --- * Ampicillin S * Daptomycin S * Cefepime S * Vancomycin S * Ceftriaxone I * Ciprofloxacin S S * Gentamicin S * Gentamicin 500 S * Imipenem S * Levofloxacin S S * Linezolid S * Meropenem S * Nitrofurantoin S * Streptomycin 2000 S * Tetracycline R * Tobramycin S * Trimethoprim/Sulfamethoxazole S * Piperacillin/Tazobactam I Anaerobic Culture Final 01/11/20-1026 Imaging Data XR Right tib/fib soft tissue: My Impression: FINDINGS: Bones: No fractures or dislocations. No suspicious bony lesions. Diffuse osteopenia. No plain film evidence of osteomyelitis. Severe knee degenerative change. Soft tissues: No suspicious soft tissue calcifications or masses. Diffuse soft tissue edema. No obvious soft tissue gas. IMPRESSION: No plain film evidence of osteomyelitis. Diffuse edema. No gross soft tissue gas. Comment: If suspect necrotizing fasciitis, consider CT. Dictated by: Ahmet Ko M.D. on 03/09/2020 at 20:34 MDM Narrative Medical decision making narrative: 69-year-old woman with chronic peripheral venous stasis ulcers has been followed by wound care. Last week increasing pain redness. Right leg certainly is more red, larger posterior ulcer with eschar and slight debris, erythema is extending to the proximal calf and beyond the chronic venous stasis changes seen on the left side. In December cultures revealed Acinetobacter and Enterococcus both sensitive to Levaquin. Will begin Levaquin in the emergency department. Given the failed outpatient treatment with wound care, increasing pain and obvious infection, difficulty in taking care of herself at home keeping her leg elevated in dealing with her pain will recomm excepted is inpatient. End hospital admission with IV antibiotics and wound care until clearly improving. At this point there is no evidence of sepsis, osteomyelitis, underlying abscess or necrotizing fasciitis. She is anticoagulated for her atrial fibrillation and running in a rate around 100 without fever. 7:25pm Care is discussed with GUANAKITO Riggins, night hosptialist, excepted is inpatient. Patient is safe for transfer to the floor. Discharge Plan Departure Patient Disposition: Admitted as Observation Clinical Impression: Morbid obesity with body mass index (BMI) of 50.0 to 59.9 in adult, Lower extremity edema Cellulitis Qualifiers: Site of cellulitis: extremity Site of cellulitis of extremity: lower extremity Laterality: right Qualified Code(s): L03.115 - Cellulitis of right lower limb Atrial fibrillation Qualifiers: Atrial fibrillation type: unspecified chronic Qualified Code(s): I48.20 - Chronic atrial fibrillation, unspecified Venous stasis ulcer Qualifiers: Venous stasis ulcer site: calf Varicose vein presence: without varicose veins Laterality: right Non-pressure ulcer stage: limited to breakdown of skin Qualified Code(s): I87.2 - Venous insufficiency (chronic) (peripheral) Admit Date/Time: 03/09/20 19:37 Admit Provider: Ni Nieto
--- NOTE | 2020-03-09 17:16 | PC.NURSE ---
arrived to ER wearing oxygen at 2lnc continuous.
[2020-03-09] MEDS: FUROSEMIDE 40 MG/4 ML VIAL IV (17:25)
[2020-03-09 17:45] LABS: INR 1.7 (0.9-1.3); Prothrombin Time 19.4 SECONDS (10.1-12.7)
[2020-03-09 17:47] LABS: Add Manual Diff / Slide Review NO; Basophils Absolute Auto 0 /uL (0-100); Basophils Percent Auto 0.4 % (0-2); Eosinophils Absolute Auto 300 /uL (0-450); Eosinophils Percent Auto 2.4 % (2-4); Hematocrit 30.2 % (36-46); Hemoglobin 9.6 g/dL (12.0-16.0); Lymphocytes Absolute Auto 700 /uL (1100-4500); Lymphocytes Percent Auto 6.3 % (25-40); Mean Corpuscular HGB Conc 31.8 % (30-36); Mean Corpuscular Hemoglobin 29.2 PG (26-34); Mean Corpuscular Volume 91.8 fL (80-100); Monocytes Absolute Auto 700 /uL (0-900); Monocytes Percent Auto 6.5 % (3-14); Neutrophils Absolute Auto 9100 /uL (1500-7000); Neutrophils Percent Auto 84.4 % (50-75); Platelet Count 336 X10^3/uL (150-400); Red Blood Cell Count 3.29 X10^6/uL (4.0-5.2); Red Cell Distribution Width 18.2 % (11.6-14.8); White Blood Cell Count 10.8 X10^3/uL (4.5-11.0)
[2020-03-09 17:48] LABS: PTT Partial Thromboplastin Tim 27 SECONDS (26.4-36.2)
[2020-03-09 17:55] LABS: Lactate (Lactic Acid) 1.5 mmol/L (0.7-2.1)
[2020-03-09 17:57] LABS: Alanine Aminotransferase 16 IU/L (<35); Albumin 3.8 g/dL (3.5-5.0); Alkaline Phosphatase 123 U/L (38-126); Aspartate Aminotransferase 26 IU/L (14-36); BUN Creatinine Ratio 24.2 (6-22); Bilirubin Total 0.7 mg/dL (0.2-1.3); Blood Urea Nitrogen 31 mg/dL (7-17); Calcium 8.9 mg/dL (8.4-10.2); Carbon Dioxide 33 mmol/L (22-32); Chloride 103 mmol/L (98-107); Estimated Glomerular Filt Rate 41.1 mL/min (>60); Globulin 3.9 g/dL (1.7-4.1); Glucose 103 mg/dL (80-110); HEMOLYSIS < 15 (0-50); Sodium 143 mmol/L (137-145); Total Protein 7.7 g/dL (6.3-8.2)
[2020-03-09 18:12] LABS: Procalcitonin < 0.05 ng/mL (<0.5)
[2020-03-09] MEDS: levoFLOXacin 750 MG/150 ML PIGGYBACK 100 MG IV (18:50)
[2020-03-09 18:57] LABS: RBC Urine None Seen (0-5/HPF)
[2020-03-09 19:14] LABS: Amorphous Sediment Urine 1+; Bacteria Urine Many (>30); Culture Indicated Urine Specimen Cultured; Squamous Epithelial Cell Urine 1-5 /HPF (0-5/HPF); WBC Urine 5-10/HPF (0-5/HPF)
[2020-03-09 19:15] LABS: COVID19 -Nasal RAPID Negative (Negative)
--- NOTE | 2020-03-09 19:28 | DI.RAD.S_ITS ---
PROCEDURE: XR TIBIA FUBULA RT 2V INDICATIONS: soft tissue infection, ? air, ? osteo TECHNIQUE: 2 views of the tibia and fibula were acquired. COMPARISON: None. FINDINGS: Bones: No fractures or dislocations. No suspicious bony lesions. Diffuse osteopenia. No plain film evidence of osteomyelitis. Severe knee degenerative change. Soft tissues: No suspicious soft tissue calcifications or masses. Diffuse soft tissue edema. No obvious soft tissue gas. IMPRESSION: No plain film evidence of osteomyelitis. Diffuse edema. No gross soft tissue gas. Comment: If suspect necrotizing fasciitis, consider CT. Dictated by: Ahmet Ko M.D. on 03/09/2020 at 20:34 Approved by: Ahmet Ko M.D. on 03/09/2020 at 20:35
[2020-03-09] MEDS: HYDROCODONE/ACET 5/325 TABLET 2 TAB PO (19:35)
--- NOTE | 2020-03-09 20:46 | PC.NURSE ---
Pt was transfered to floor. IV levaquin continued to be infusing. Had only received 20 ml in ER. error in Jul stating levaquin was wasted but levaquin continued upon arrival to floor.
--- NOTE | 2020-03-09 20:49 | P.HP_ITS ---
History of Present Illness History of Present Illness Date Patient Seen: 03/09/20 Time Patient Seen: 20:00 Chief complaint: INFECTION OF RIGHT LEG Narrative: Lucila Hawkins is a 69-year-old female with history significant for atrial fibrillation anticoagulated on Coumadin, congestive heart failure with preserved ejection fraction, diet controlled diabetes with neuropathy, hypertension, hyperlipidemia, peripheral vascular disease chronic leg ulcers, morbid obesity and obstructive sleep apnea presents to the emergency department with an approximate 1 week history of worsening wounds on her legs particularly her right posterior lower leg. She has been going to the [place] wound care clinic and they set her up with home health wound care. Per the patient's caregiver Emmie, they came by without any dressing supplies, took off her dressings and then supposedly left her without any dressings. They feel like this is a flare up of her chronic venous stasis ulcerations to the point where it is infected. The patient is very uncomfortable and not that cooperative with providing a history partly out of being in pain and what appears to be short of breath. Rest of the history and her family and social history are to derive from prior admissions. She does endorse having a significant amount of lower extremity pain, back pain, she denies any fevers sweats or chills though her caregiver states she is always cold, she is on home oxygen with a history of hypoxia and hypercapnia, she denies abdominal pain but is concerned about enlargement of a pannus she states enlarges depending on when she takes lasix, urinary symptoms, diarrhea or constipation. She is on a pain contract with her PCP. Patient was admitted for acute renal failure on January 10 and discharged on January 14 to [facility] and remained there I believe until around February 07. She did return for an overnight stay in the middle of her due to altered mental status but was deemed safe for discharge back to the rehab facility the next day. She was then followed up by her PCP on February 15 with some modifications of her warfarin dosing as well as what appeared to be a lengthy discussion about the various referrals for home health wound care, physical therapy, sleep Medicine, among others. During her initial stay they did an echocardiogram which indicated a slightly reduced ejection fraction of 50-55% and mild aortic stenosis. In the ED she was administered a 1 time dose of IV Levaquin, a 1 time dose of IV furosemide 40 mg and an x-ray of her right lower leg did not reveal any concerns for necrotizing fasciitis or osteomyelitis. She presents with temperature of 97.1?, blood pressure 128/70, heart rate 98, respiratory rate of 19, oxygen saturation 98% on 2 L, she weighs 130.5 kg with a BMI 58.5. WBC is 10.8, RBC 3.29, hemoglobin 9.6, hematocrit 30.2, platelet count 336, her INR is subtherapeutic at 1.7, PT is 19.4, sodium 143, potassium 4.0, chloride 103, bicarb 33, BUN 31, creatinine is elevated over baseline at 1.28, with a GFR 41.1, glucose 103, lactate 1.5, calcium 8.9, liver enzymes within normal limits, proBNP is elevated at 24 30, procalcitonin is negative, UA indicates bacteria and wbc's and will be cultured, COVID-19 PCR is negative. Patient History Medical History Atrial fibrillation (Chronic 12/2011) Diabetes (Chronic Unknown) Essential hypertension (Chronic) Foot pain (Resolved Unknown) Foot ulcer (Resolved 08/2016) Gout (Chronic Unknown) Heart murmur (Chronic Unknown) Hypertension (Chronic Unknown) Mixed hyperlipidemia (Chronic 01/30/00) Morbid obesity with body mass index (BMI) of 50.0 to 59.9 in adult (Chronic) Obstructive sleep apnea syndrome (Chronic) Osteoarthritis (Chronic Unknown) 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) Peripheral neuropathy (Chronic Unknown) PVD (peripheral vascular disease) (Chronic Unknown) Type 2 diabetes mellitus with diabetic neuropathy, without long-term current use of insulin (Chronic) Umbilical hernia (Chronic) Surgical History History of angioplasty (Resolved 10/2016) Family & Social History Family History Father Heart attack Mother Stroke Brother No problems noted. Brother No problems noted. Sister Fibromyalgia Social History: household members none Safety & Behavioral: Feels Safe in Current Yes Environment Been Physically Hurt or No Threatened By a Person Tobacco & Substance use: Smoking Status Never smoker alcohol intake never alcohol intake frequency denies alcohol use Substance Use Type does not use Meds Home Medications and Allergies Home Medications Medication Instructions Recorded Confirmed Type Glucose: Home Monitor #1 ea 04/29/18 02/16/20 Rx Glucose: Test Strips #100 each 06/09/18 02/16/20 Rx diltiazem HCl 240 mg 240 mg PO DAILY #90 cap 07/26/19 02/16/20 Rx capsule,extended release 24 hr lorazepam 2 mg tablet 2 mg PO BEDTIME #30 tab 09/21/19 03/09/20 Rx metoprolol succinate 25 mg 25 mg PO DAILY #90 tab 09/28/19 03/09/20 Rx tablet,extended release 24 hr Adult Probiotic 3,000 mmu cells PO DAILY 02/04/20 02/16/20 History Benadryl Itch Stopping 1 applic TOPICAL QID PRN 02/04/20 02/16/20 History ProSource 1 ea PO 1500 02/04/20 02/16/20 History bisacodyl 10 mg MT DAILY PRN 02/04/20 02/16/20 History furosemide 40 mg PO DAILY 02/04/20 03/09/20 History nystatin 1 applic TOPICAL BID 02/04/20 02/16/20 History polyethylene glycol 3350 [Miralax] 17 g PO DAILY PRN 02/04/20 02/16/20 History probenecid 500 mg tablet 250 mg PO BID #60 tab 02/16/20 Rx warfarin 1 mg tablet 1 mg PO DAILY #90 tab 02/16/20 02/16/20 Rx hydrocodone 5 mg-acetaminophen 325 1 tab PO DAILY PRN #60 tab 02/23/20 03/09/20 Rx mg tablet lisinopril 40 mg PO DAILY 03/09/20 03/09/20 History warfarin 7.5 mg PO DAILY 03/09/20 03/09/20 History Allergies Allergy/AdvReac Type Severity Reaction Status Date / Time latex Allergy Intermediate skin Verified 02/16/20 13:22 blistering Sulfa (Sulfonamide Allergy Intermediate PATIENT Verified 02/16/20 13:22 Antibiotics) CAN'T REMEMBER IT WAS SO LONG AGO gabapentin [GABAPENTIN] AdvReac Intermediate Bodyaches, Verified 02/16/20 13:22 muscle aches pregabalin [From Lyrica] AdvReac Intermediate Muscle Pain Verified 02/16/20 13:22 duloxetine [DULOXETINE] AdvReac Unknown nausea and Verified 02/16/20 13:22 vomiting Review of Systems Review of Systems ROS: Yes All systems reviewed with the patient and are negative except as otherwise documented Exam Vital Signs (past 8 hours): - 03/09/20 16:03 03/09/20 16:04 03/09/20 16:05 Temperature 98.0 F Pulse Rate 120 H 120 H 100 H Respiratory Rate 24 Blood Pressure 139/80 139/80 Pulse Oximetry 100 100 100 03/09/20 16:30 03/09/20 17:00 03/09/20 17:11 Temperature Pulse Rate 97 H 93 H 106 H Respiratory Rate Blood Pressure 159/69 H Pulse Oximetry 99 95 98 03/09/20 17:30 03/09/20 18:00 03/09/20 18:31 Temperature Pulse Rate 109 H 105 H 107 H Respiratory Rate 24 Blood Pressure Pulse Oximetry 97 95 03/09/20 19:00 03/09/20 19:30 03/09/20 20:00 Temperature Pulse Rate 106 H 115 H 106 H Respiratory Rate 41 H 30 H 27 H Blood Pressure Pulse Oximetry 99 99 100 Oxygen Delivery Method Nasal Cannula Oxygen Flow Rate 2 Narrative Exam Narrative: Gen: Alert, oriented, disheveled appearing morbidly obese 69 y.o. female, complaining of pain and wanting to be transferred upstairs as soon as possible HEENT: normocephalic, atraumatic, conjunctiva clear, sclera non-icteric, oral mucosa pink and moist Neck: supple, full ROM, no JVD, trachea is midline Resp: Lungs CTA on 2 L of oxygen, non-labored breathing CV: RRR, no murmur or rubs Abd: Obese, difficult to palpate and auscultate with a pendulous pannus Skin: Generalized pallor, lower extremities with chronic venous stasis erythema, she appears to have several ulcerated areas with granulated areas posterior right calf Neuro: Alert and oriented X 4 w/no focal deficits. Speech clear and coherent. Extremities: moves all 4 extremities, is ambulatory, negative Francy?s sign Psyche: Irritable today Objective Labs Result Diagrams: 03/09/20 16:24 03/09/20 16:24 Labs: Laboratory Results - last 24 hr 03/09/20 03/09/20 03/09/20 16:24 16:24 16:24 WBC 10.8 RBC 3.29 L Hgb 9.6 L Hct 30.2 L MCV 91.8 MCH 29.2 MCHC 31.8 RDW 18.2 H Plt Count 336 Neut % (Auto) 84.4 H Lymph % (Auto) 6.3 L Starke % (Auto) 6.5 Eos % (Auto) 2.4 Baso % (Auto) 0.4 Neut # (Auto) 9100 H Lymph # (Auto) 700 L Starke # (Auto) 700 Eos # (Auto) 300 Baso # (Auto) 0 PT INR APTT Sodium 143 Potassium 4.0 Chloride 103 Carbon Dioxide 33 H BUN 31 H Creatinine 1.28 H Estimated GFR 41.1 L BUN/Creatinine Ratio 24.2 H Glucose 103 Lactate Calcium 8.9 Total Bilirubin 0.7 AST 26 ALT 16 Alkaline Phosphatase 123 Total Protein 7.7 Albumin 3.8 Globulin 3.9 Albumin/Globulin Ratio 1.0 Procalcitonin < 0.05 Urine RBC Urine WBC Ur Squamous Epith Cells Amorphous Sediment Urine Bacteria Ur Culture Indicated? COVID-19 PCR 03/09/20 03/09/20 03/09/20 16:24 16:24 18:30 WBC RBC Hgb Hct MCV MCH MCHC RDW Plt Count Neut % (Auto) Lymph % (Auto) Starke % (Auto) Eos % (Auto) Baso % (Auto) Neut # (Auto) Lymph # (Auto) Starke # (Auto) Eos # (Auto) Baso # (Auto) PT 19.4 H INR 1.7 H APTT 27 D Sodium Potassium Chloride Carbon Dioxide BUN Creatinine Estimated GFR BUN/Creatinine Ratio Glucose Lactate 1.5 Calcium Total Bilirubin AST ALT Alkaline Phosphatase Total Protein Albumin Globulin Albumin/Globulin Ratio Procalcitonin Urine RBC None seen Urine WBC 5-10/hpf H Ur Squamous Epith Cells 1-5 /hpf Amorphous Sediment 1+ Urine Bacteria Many (>30) H Ur Culture Indicated? Specimen cultured COVID-19 PCR 03/09/20 18:51 WBC RBC Hgb Hct MCV MCH MCHC RDW Plt Count Neut % (Auto) Lymph % (Auto) Starke % (Auto) Eos % (Auto) Baso % (Auto) Neut # (Auto) Lymph # (Auto) Starke # (Auto) Eos # (Auto) Baso # (Auto) PT INR APTT Sodium Potassium Chloride Carbon Dioxide BUN Creatinine Estimated GFR BUN/Creatinine Ratio Glucose Lactate Calcium Total Bilirubin AST ALT Alkaline Phosphatase Total Protein Albumin Globulin Albumin/Globulin Ratio Procalcitonin Urine RBC Urine WBC Ur Squamous Epith Cells Amorphous Sediment Urine Bacteria Ur Culture Indicated? COVID-19 PCR Negative Assessment & Plan Assessment & Plan narrative: Lucila Hawkins will be placed into observation for further evaluation management of her chronic venous stasis ulcers as well as an infection of the right lower leg and an asymptomatic urinary tract infection. Cellulitis of left lower leg, acute and present on admission -patient was administered 1 dose of IV Levaquin in the ED -choice of antibiotics based on recent and prior wound cultures which grew out a Acinetobacter baumannii, Enterococcus faecalis sensitive to Levaquin, enterococcus was senitive to Cefepime, both resistant to ceftriaxone. -Requested nursing wound care, and application of compression to both legs Venous stasis, chronic and present on admission -see nursing wound care above CHF exacerbation with a pro-BNP of 2430 -She received IV furosemide in the ED 40 mg X 1 -Continue monitoring for fluid overload -last echocardiogram was done on January 09 indicating a mildly reduced ejection fraction at 50-55% with mild aortic stenosis Atrial fibrillation, chronic, anticoagulated on warfarin and subtherapeutic INR of 1.7 -per the patient's caregiver, Emmie the patient had an increase in her warfarin dose to 7.5. I am unable to identify where she receives that dose based on her PCPs most recent note of February 15. -patient's caregiver stated that she took her evening's dose tonight. -she will also receive normal dose Lovenox 40 mg for VTE prophylaxis and her warfarin dose will be held until tomorrow morning when her actual dosing can be confirmed with her PCP -continue home dose of diltiazem extended release 240 mg p.o. daily -she will be monitored History of diet-controlled diabetes with a current A1c of 6.1 now in a prediabetic range -we will do glucose checks ACHS and she will have a carb controlled diet Essential hypertension, chronic -continue home dose of metoprolol succinate 25 mg p.o. daily History of hyperlipidemia -last lipid profile was done on January 11, 2020 and generally within normal limits -currently not on a statin Chronic continuous opioid dependence -she is under pain agreement with her PCP -due to her acute pain she will have Percocet 5/325 as needed Obstructive sleep apnea, chronic -RT to set up with a CPAP machine Abdominal pannus, chronic -It was assessed by Dr. Shelton who stated it was a panniculitis -Consider ultrasound or MRI in the am to assess Tinea corporus of right and left inguinal areas, chronic -She is ordered for both nystatin cream and powder apply tid Morbid obesity, present on admission VTE prophylaxis: Wells risk score: 0 Enoxaparin 40 mg subQ daily until therapeutic on warfarin Consults: none Patient is observation status as her stay is not likely to exceed 2 midnights. FEN: IV NS at 75 ml/hour X 1 bag , carb control diet, BMP and magnesium in the am. Dispo: unknown at this time Code Status: Limited per POLST dated 02/06/2020. Patient directs me to call her brother who is her medical POA. Scores Wells' Criteria for PE Clinical signs and symptoms of DVT: No PE is #1 Dx or equally likely: No Heart rate > 100: No Immobilization at least 3 days or surg in previous 4 weeks: No History of PE or DVT: No Hemoptysis: No Malignancy w/Treatment within 6 months or palliative: No Wells' PE Score total: 0
[2020-03-09 20:51] LABS: NT-proBNP (BNP-Adult 18+) 2430 pg/mL (<125)
[2020-03-09] MEDS: SENNOSIDES 8.6 MG TABLET 17.2 MG PO (21:31)
[2020-03-09] MEDS: SODIUM CHLORIDE 0.9% 1,000 ML 75 ML IV (21:31)
[2020-03-09] MEDS: OXYCODONE/ACETAMINOPHEN 5/325 TABLET 1 TAB PO (21:32)
[2020-03-09] MEDS: WARFARIN 2 MG TABLET 4 MG PO (21:34)
[2020-03-09] MEDS: ENOXAPARIN 40 MG/0.4 ML SYRINGE SUBCUT (21:56)
--- NOTE | 2020-03-09 22:45 | PC.NURSE ---
2229- Patient resting in bed. Bilateral leg wounds, with macerated weeping open areas. Medicated for pain per order. See ER admit note for pictures of wounds. AFib/CVR not new. Patient is alert and oriented.
[2020-03-10] VITALS (12 sets, daily range): BP systolic 97–140; BP diastolic 44–92; PULSE 63–97; RESP 16–20; TEMP 36.1–36.7; O2SAT 96–100
[2020-03-10] MEDS: NYSTATIN POWDER 15GM 1 APPLIC TOP ×3 (01:44→20:31)
[2020-03-10] MEDS: OXYCODONE/ACETAMINOPHEN 5/325 TABLET 1 TAB PO ×5 (01:45→19:20)
[2020-03-10 05:04] LABS: Add Manual Diff / Slide Review NO; Basophils Absolute Auto 0 /uL (0-100); Basophils Percent Auto 0.3 % (0-2); Eosinophils Absolute Auto 200 /uL (0-450); Eosinophils Percent Auto 1.8 % (2-4); Hematocrit 29.2 % (36-46); Hemoglobin 9.3 g/dL (12.0-16.0); Lymphocytes Absolute Auto 600 /uL (1100-4500); Lymphocytes Percent Auto 5.8 % (25-40); Mean Corpuscular HGB Conc 31.7 % (30-36); Mean Corpuscular Hemoglobin 28.8 PG (26-34); Mean Corpuscular Volume 90.9 fL (80-100); Monocytes Absolute Auto 800 /uL (0-900); Neutrophils Absolute Auto 8400 /uL (1500-7000); Neutrophils Percent Auto 84.1 % (50-75); Platelet Count 290 X10^3/uL (150-400); Red Blood Cell Count 3.22 X10^6/uL (4.0-5.2)
--- NOTE | 2020-03-10 05:08 | PC.NURSE ---
0200 Wound care provided per provider request. Shannan tidwell preferred, but we do not have those supplies here. BLE weeping edema, 4 open sores on the RLE. Applied non-adherent pads, ABD pad, krilex and YUAN wrap.
[2020-03-10 05:12] LABS: Prothrombin Time 23.2 SECONDS (10.1-12.7)
[2020-03-10 05:17] LABS: BUN Creatinine Ratio 25.4 (6-22); Blood Urea Nitrogen 30 mg/dL (7-17); Calcium 8.6 mg/dL (8.4-10.2); Carbon Dioxide 32 mmol/L (22-32); Chloride 102 mmol/L (98-107); Estimated Glomerular Filt Rate 45.2 mL/min (>60); Glucose 114 mg/dL (80-110); HEMOLYSIS < 15 (0-50); Potassium 3.8 mmol/L (3.4-5.1); Sodium 140 mmol/L (137-145)
[2020-03-10] MEDS: METOPROLOL ER 25 MG TABLET PO (08:34)
[2020-03-10] MEDS: dilTIAZem CD 240 MG CAP PO (08:38)
[2020-03-10] MEDS: NYSTATIN CREAM 30 GM 1 APPLIC TOP ×2 (08:38→20:39)
--- NOTE | 2020-03-10 09:54 | PT.IIE ---
Surgical History (Last Reviewed 03/09/20 @ 21:27 by GUANAKITO Riggins) History of angioplasty (Resolved 10/2016) Medical History (Last Reviewed 03/09/20 @ 21:27 by GUANAKITO Riggins) Atrial fibrillation (Chronic 12/2011) Diabetes (Chronic Unknown) Essential hypertension (Chronic) Foot pain (Resolved Unknown) Foot ulcer (Resolved 08/2016) Gout (Chronic Unknown) Heart murmur (Chronic Unknown) Hypertension (Chronic Unknown) Mixed hyperlipidemia (Chronic 01/30/00) Morbid obesity with body mass index (BMI) of 50.0 to 59.9 in adult (Chronic) Obstructive sleep apnea syndrome (Chronic) Osteoarthritis (Chronic Unknown) 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 Mobility and Gait Pt ambulates very limited distances with a 4WW. Activities of Daily Living and IADL's Pt has a locate technician that assists with showers, dressing , house chores and cleaning. Pt was able to perform toileting without assist. Prior Functional Level (Other details) Pt has 24 hour care in her home. Pt is on 2L O2 Social History Household Members other Living Arrangements House Number of Floors (Floors) One Floor Number of Stairs To Enter/Railing? Pt has a ramp to enter Home Environment Standard Height Toilet,Walk in Shower Home Equipment Shower Seat with Backrest,Hand Held Shower,Hospital Bed,Grab Bars Near Toilet,Grab Bars In Shower Employment Status Retired Additional Social History Comment Pt returned home after recent stay at SNF. M1 PT/OT-IP Prior Functional Status Start: 03/10/20 11:52 Freq: NEEDED Status: Active Protocol: Document 03/10/20 09:54 AB (Rec: 03/10/20 12:36 AB [id number]) Medical Review Prior Functional Status Medical History Reviewed Yes Communication able to make needs known Mobility and Gait pt stated that she needs assistance with bed mobility but able to ambulate using 4WW and able to toilet by herself but needs assistance with dressing and bathing. Activities of Daily Living and IADL's Has a caregiver that assists with showers, dressing, house chores and cleaning. Pt was able to perform toileting without assist. Prior Functional Level (Other details) Pt has 24/ care at home uses 2L/min O2 pt was just hospitalized last december and then also in january. stated that she went to [facility] rehab and went home and was just home for ~ 2 weeks prior and now back to the hospital Social History Household Members other Living Arrangements House Number of Floors (Floors) One Floor Number of Stairs To Enter/Railing? Pt has a ramp to enter Home Environment Standard Height Toilet,Walk in Shower Home Equipment Four Wheel Walker,Shower Seat with Backrest,Hand Held Shower ,Hospital Bed,Grab Bars Near Toilet,Grab Bars In Shower Employment Status Retired Additional Social History Comment has a hospital bed with rails M2 PT-IP Current Condition Start: 03/10/20 11:52 Freq: NEEDED Status: Active Protocol: Document 03/10/20 09:54 AB (Rec: 03/10/20 12:36 [id number]) Physical Therapy Current Condition Current Condition Evaluation Date 03/10/20 Treatment Diagnosis LE cellulitis; difficulty in walking Onset Date M3 PT-IP Subjective Start: 03/10/20 11:52 Freq: NEEDED Status: Active Protocol: Document 03/10/20 09:54 AB (Rec: 03/10/20 12:36 [id number]) Subjective Physical Therapy Visit Type Type Initial Evaluation Visit Start Time 09:54 Visit Stop Time 10:31 Total Visit Minutes 37 Number of SENIOR DEVOPS ENGINEER Visits 0 Physical Therapy Visit Comments Patient Comments pt is agreeable to do PT; requesting to go back to bed. M4 PT-IP Mobility and Gait Start: 03/10/20 11:52 Freq: NEEDED Status: Active Protocol: Document 03/10/20 09:54 AB (Rec: 03/10/20 12:36 [id number]) PT-Bed Mobility Assessment Sit to Supine Sit to Supine Standby Assistance Scooting Scooting to Edge of Bed Standby Assistance PT-Transfer Assessment Sit to and From Stand Sit to and from Stand Standby Assistance,Contact Guard Assistance,1 Person Assistance,Use of Upper Extremities Equipment Transfer Assistive Device Gait Belt,4 Wheeled Walker Orthotic/Prosthetic Devices or Brace: No Transfers Transfer Destination Bed Transfer Ability Level of Assist Standby Assistance,Contact Guard Assistance,1 Person Assistance,Use of Upper Extremities Comments Mobility Comments completed sit to stand SBA to CGA from chair. ambulated in room using 4WW ~ 25 ft SBA to CGA. requested to go back to bed and completed sit to supine SBA. requires mod A for repositioning in bed. call light and table placed within reach. Gait Assessment Gait Gait Assistance Required: Standby Assistance,Contact Guard Assist Distance (Feet) 25 Able to Maintain Weight Bearing Status Yes During Gait Assistive Devices Assistive Device Gait Belt,4 Wheeled Walker Orthotic/Prosthetic Devices or Brace: No Gait Deviations General Gait Pattern Antalgic,Decreased Stride Length,Decreased Feet Clearance,Step-to Gait Factors Limiting Gait Function Factors Limiting Gait Function Decreased Activity Tolerance, Decreased Strength,Poor Balance,Respiratory Distress PT-Balance Assessment Sitting Balance and Reactions Static Sitting Balance Ability Good Dynamic Sitting Balance Ability Good Standing Balance and Reactions Static Standing Balance Ability Fair Dynamic Standing Balance Ability Fair Device Used 4WW M5 PT-IP Objective Assessments Start: 03/10/20 11:52 Freq: NEEDED Status: Active Protocol: Document 03/10/20 09:54 AB (Rec: 03/10/20 12:36 AB [id number]) Orientation Orientation/Cognition Level of Alertness Alert Orientation Name,Age,Situation Language Function Ability No Deficits Noted Gross Range of Motion Lower Extremity ROM Assessment Within Functional Limits Strength Lower Extremity Strength Assessment Bilaterally Impaired Hip 3+/5 Knee 3+/5 Coordination Assessment Gross Coordination Gross Coordination WNL Sensation Assessment Sensation Gross Sensation WNL Muscle Tone Muscle Tone WNL Yes M6 PT-IP Treatment Start: 03/10/20 11:52 Freq: NEEDED Status: Active Protocol: Document 03/10/20 09:54 AB (Rec: 03/10/20 12:36 AB [id number]) Physical Therapy Treatment Education Education Provided Safety M7 PT-IP Assessment and Plan Start: 03/10/20 11:52 Freq: NEEDED Status: Active Protocol: Document 03/10/20 09:54 AB (Rec: 03/10/20 12:36 AB [id number]) PT Summary Assessment and Plan Potential Rehabilitation Potential Good Status of Condition at Evaluation Stable Summary Impairments Pain,ROM,Strength,Balance,Bed Mobility,Transfers,Gait, Activity Tolerance Assessment Summary Pt is requiring SBA to CGA with mobility and has 24/7 caregiver assist at home. pt may go home when medically stable . will benefit from homehealth PT to improve strength, activity tolerance and independence. Goals Bed Mobility Goal Independent Transfer Goal Independent,Four Wheeled Walker Gait Goal Independent,Four Wheel Walker Gait Distance 100 Days to Meet Goals 5 Frequency of Treatment Frequency Of Treatment Once a Day Treatment Plan Physical Therapy Treatment Plan Bed Mobility Training,Transfer Training,Gait Training, Therapeutic Exercise,Balance Retraining,Discharge Planning, Hot or Cold Pack,Neuromuscular Re-ed Recommendations To Nursing Amount of Assist Needed 1 Person Assist Discharge Recommendations PT Discharge Recommendations Home with 24/7 Assist,Home Health Transportation Needs at Discharge Private Vehicle
--- NOTE | 2020-03-10 10:43 | OT.IP.EVAL ---
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) Peripheral neuropathy (Chronic Unknown) PVD (peripheral vascular disease) (Chronic Unknown) Type 2 diabetes mellitus with diabetic neuropathy, without long-term current use of insulin (Chronic) Umbilical hernia (Chronic) Surgical History (Last Reviewed 03/09/20 @ 21:27 by GUANAKITO Riggins) History of angioplasty (Resolved 10/2016) Occupational Therapy Inpatient Evaluation/Re-Eval M1 PT/OT-IP Prior Functional Status Start: 03/10/20 11:27 Freq: NEEDED Status: Active Protocol: Document 03/10/20 11:28 CGR (Rec: 03/10/20 11:51 CGR [email or web address]) Medical Review Prior Functional Status Medical History Reviewed Yes Communication Pt is an effective verbal communicator. Mobility and Gait Pt ambulates very limited distances with a 4WW. Activities of Daily Living and IADL's Pt has a bolt man that assists with showers, dressing , house chores and cleaning. Pt was able to perform toileting without assist. Prior Functional Level (Other details) Pt has 24 hour care in her home. Pt is on 2L O2 Social History Household Members other Living Arrangements House Number of Floors (Floors) One Floor Number of Stairs To Enter/Railing? Pt has a ramp to enter Home Environment Standard Height Toilet,Walk in Shower Home Equipment Shower Seat with Backrest,Hand Held Shower,Hospital Bed,Grab Bars Near Toilet,Grab Bars In Shower Employment Status Retired Additional Social History Comment Pt returned home after recent stay at SNF. M2 OT-IP Current Condition Start: 03/10/20 11:27 Freq: Status: Active Protocol: Document 03/10/20 11:28 CGR (Rec: 03/10/20 11:51 CGR [email or web address]) Occupational Therapy Current Condition Current Condition Evaluation Date 03/10/20 Treatment Diagnosis Cellulitis Diagnosis Onset Date 03/09/20 Post Operative Precautions Other Precautions Pt is on contact precautions. M3 OT- IP Subjective and Pain Start: 03/10/20 11:27 Freq: Status: Active Protocol: Document 03/10/20 11:28 CGR (Rec: 03/10/20 11:51 CGR [email or web address]) OT- Subjective Occupational Therapy Visit Type Type Initial Evaluation Visit Start Time 10:00 Visit Stop Time 10:43 Total Visit Minutes 43 Notes Partial co-treat with P.T. Occupational Therapy Visit Comments Patient Comments I am trying to get better. OT Pain Assessment Pain When Pain Assessed At Rest Pain Present Pain Present Pain Reported Location bilateral legs Scale Used did not rate Management Techniques Modification of Treatment,Re- positioning M4 OT- IP ADL's Start: 03/10/20 11:27 Freq: Status: Active Protocol: Document 03/10/20 11:28 CGR (Rec: 03/10/20 11:51 CGR [email or web address]) OT [id number] Comments OT Self-Feeding Comments not meal time OT ADL-Grooming General Evaluation Grooming Ability Standby Assistance Areas Needing Assistance Face Washing Comments OT Grooming Comments set up for performing in bed OT ADL-Oral Care General Eval Oral Care Ability Standby Assistance Areas of Assistance Brushing Teeth Comments Oral Care Comments set up for performing seated in bed. OT ADL-Dressing General Eval Lower Body Dressing Ability Total Assistance Areas Needing Assistance Socks Comments OT Dressing Comments Pt states this is her baseline . Pt's caregiver performs dressing. OT ADL-Toileting Comments OT Toileting Comments Not performed, pt states she does not need to use the toilet at this time. OT ADL-Bathing Comments OT Bathing Comments Not performed, however, assisted nursing with cleaning of panus as 2 person assist required. Pt needed total assist. M5 OT- IP IADL's Start: 03/10/20 11:27 Freq: Status: Active Protocol: Document 03/10/20 11:28 CGR (Rec: 03/10/20 11:51 CGR [email or web address]) OT-Instrumental Activities of Daily Living Deficits IADL Deficits Identified No Deficits Home Safety Awareness Awareness of Need for Assistance at Home Good Awareness Ability to Problem Solve Emergency Able to Problem Solve Situations Medication Management Medication Management No Deficits Identified Money Management Money Management No Deficits Identified Meal Preparation Meal Preparation Caregiver Provides Assist Specialty Transformer Assembler Specialty Transformer Assembler Caregiver Provides Assist Driving Driving Comments 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 M6 OT- IP Functional Cognition Start: 03/10/20 11:27 Freq: Status: Active Protocol: Document 03/10/20 11:28 CGR (Rec: 03/10/20 11:51 CGR [email or web address]) Cognitive Factors Limiting Selfcare Function Cognitive Ability Level of Alertness Alert Patient Orientation Name,Age,Birthday,Month,Date, Year,Day of Week,Place, Situation Attention Span Ability Capable of Focused Attention, Capable of Sustained Attention Ability to Follow Commands Able to Follow Multi-Step Commands OT- Vision and Hearing OT- Hearing Assessment OT- Hearing Assessment WFL OT- Vision Assessment Visual Acuity Glasses All The Time Visual Attentiveness WFL Occular Pursuits WFL Visual Convergence WFL Vision Assessment Comments Pt states blurry vision since fall in December. Pt states she has an apointment set up to see her eye doctor. M7 OT- IP Mobility and Balance Start: 03/10/20 11:27 Freq: Status: Active Protocol: Document 03/10/20 11:28 CGR (Rec: 03/10/20 11:51 CGR [email or web address]) OT- Bed Mobility Assessment Rolling Type of Rolling Roll to Right Level of Assistance Standby Assistance Sit to Supine Sit to Supine Assist Standby Assistance Scooting Scooting to Edge of Bed Standby Assistance Scooting Up and Down in Bed Minimal Assistance OT-Transfer Assessment Sit to and From Stand Sit to and from Stand Standby Assistance,Contact Guard Assistance Transfers Transfer Ability Standby Assistance,Contact Guard Assistance Technique Transfer Destination Bed,Chair Transfer Technique Stand Step Pivot Devices Transfer Assistive Devices Gait Belt,4 Wheeled Walker OT- Gait Assessment Gait Gait Assistance Required: Standby Assistance,Contact Guard Assist Assistive Devices Assistive Device Gait Belt,4 Wheeled Walker OT- Balance Assessment Sitting Balance and Reactions Static Sitting Balance Ability Good Dynamic Sitting Balance Ability Good M8 OT- IP Objective Assessments Start: 03/10/20 11:27 Freq: Status: Active Protocol: Document 03/10/20 11:28 CGR (Rec: 03/10/20 11:51 CGR [email or web address]) OT Gross Range of Motion Upper Extremity Range of Motion Assessment Left Impaired ROM Impairments L shld very limited. OT Strength Upper Extremity Strength Assessment Within Functional Limits Comments Strength Comments grossly 4/5 except the L shld. OT- Coordination Assessment Upper Extremity Finger to Nose Test Within Functional Limits Finger Tapping Test Within Functional Limits OT-Muscle Tone Assessment Muscle Tone WNL Yes OT Sensation Assessment Edema Edema Absent M9 OT- IP Assessment and Plan Start: 03/10/20 11:27 Freq: Status: Active Protocol: Document 03/10/20 11:28 CGR (Rec: 03/10/20 11:51 CGR [email or web address]) OT Summary Assessment and Plan Potential Rehabilitation Potential Good Analytic Complexity at Evaluation Low Summary OT Impairments Pain,Range of Motion, Functional Mobility,Dressing, Toileting,Bathing,Toilet Transfers,Shower Transfers, Activity Tolerance Progress Towards Goals Slow Progress due to Activity Tolerance Assessment Summary Pt presents as a low complexity evaluation s/p admit for LE cellulitis. Pt is close to her baseline for ADLs and functional mobility but will benefit from therapy services to maintain strength while hospitalized. Pt will continue to benefit from OT services. Goals Grooming Goal Independent Toileting Goal Independent Toilet Transfer Goal Independent Days to Meet Goals 5 Frequency of Treatment Frequency Of Treatment Once a Day Treatment Plan OT Treatment Plan ADL Training,Functional Cognition Training,Functional Mobility,Patient/Family Education,Discharge Planning Other Treatment Recommendations and Next Activities to improve Treatment Focus endurance. Discharge Recommendations OT Discharge Recommendations Home with 15/12 Assist Transportation Needs at Discharge Private Vehicle
--- NOTE | 2020-03-10 10:49 | P.PN_ITS ---
Subjective Subjective Date Patient Seen: 03/10/20 Interval history: Lucila Hawkins is a 69-year-old female with a past medical history significant for persistent atrial fibrillation anticoagulated on warfarin, congestive heart failure with preserved ejection fraction, diabetes mellitus type II, non-insulin using and diet controlled with neuropathy, hypertension, hyperlipidemia, peripheral vascular disease with chronic venous stasis ulcers followed by wound care at [place], CKD stage 3, morbid obesity and obstructive sleep apnea not on CPAP who presented to the ED for increasing right leg pain with mild drainage and erythema around the wound and general malaise. The patient is resting in bedside chair comfortably. She endorses chronic pain of her legs especially with dressing change and palpation. She has no other complaints and denies headache, cough, shortness of breath, chest pain, abdominal pain, nausea, vomiting, fever, chills, dysuria, diarrhea or constipation. She is voiding and eliminating without difficulty. She is up ambulating without assistance. Exam Vital Signs (past 8 hours): - 03/10/20 07:55 03/10/20 08:00 03/10/20 08:34 Temperature 97.0 F L Pulse Rate 91 H Respiratory Rate 20 Blood Pressure 118/57 L 118/67 Pulse Oximetry 98 98 Oxygen Delivery Method Nasal Cannula Oxygen Flow Rate 2 Narrative Exam Narrative: General: Elderly female sitting in bedside chair comfortably, in no acute distress, well-developed, well-nourished, appropriately interactive. HEENT: Normocephalic, atraumatic. External ears without defect. Pupils equal, round, and reactive to light. Anicteric sclerae, moist conjunctivae, and no lid lag. Oropharynx free of erythema and cobble stoning with moist mucosa. Neck: Supple with full range of motion. No jugular venous distension. No lymphadenopathy or thyromegaly. Cardiovascular: Irregularly irregular without murmurs, rubs, or gallops appreciated. Pulmonary: Diminished throughout but clear to auscultation bilaterally without crackles, wheezes, or rhonchi. Normal respiratory effort with no use of accessory muscles. Abdomen: Soft, obese with large panniculus with panniculitis, bowel tones present, nontender, nondistended. Tatyana intertrigo in skin folds. Extremities: No clubbing or cyanosis. Mild lymphedema of bilateral legs with chronic venous stasis changes and chronic venous ulcers on right leg with woods rrounding cellulitis. Skin: Normal temperature, turgor, and texture; no rash, ulcers, or subcutaneous nodules appreciated. Neurological: Cranial nerves grossly intact. Psychiatric: Normal mood and affect. Alert and oriented to person, place, and time. Objective Labs Result Diagrams: 03/10/20 04:39 03/10/20 04:39 Labs: Laboratory Results - last 24 hr 03/09/20 03/09/20 03/09/20 16:24 16:24 16:24 WBC 10.8 RBC 3.29 L Hgb 9.6 L Hct 30.2 L MCV 91.8 MCH 29.2 MCHC 31.8 RDW 18.2 H Plt Count 336 Neut % (Auto) 84.4 H Lymph % (Auto) 6.3 L Emmons % (Auto) 6.5 Eos % (Auto) 2.4 Baso % (Auto) 0.4 Neut # (Auto) 9100 H Lymph # (Auto) 700 L Emmons # (Auto) 700 Eos # (Auto) 300 Baso # (Auto) 0 PT INR APTT Sodium 143 Potassium 4.0 Chloride 103 Carbon Dioxide 33 H BUN 31 H Creatinine 1.28 H Estimated GFR 41.1 L BUN/Creatinine Ratio 24.2 H Glucose 103 Lactate Calcium 8.9 Magnesium Total Bilirubin 0.7 AST 26 ALT 16 Alkaline Phosphatase 123 NT-Pro-B Natriuret Pep Total Protein 7.7 Albumin 3.8 Globulin 3.9 Albumin/Globulin Ratio 1.0 Procalcitonin < 0.05 Urine RBC Urine WBC Ur Squamous Epith Cells Amorphous Sediment Urine Bacteria Ur Culture Indicated? COVID-19 PCR 03/09/20 03/09/20 03/09/20 16:24 16:24 16:24 WBC RBC Hgb Hct MCV MCH MCHC RDW Plt Count Neut % (Auto) Lymph % (Auto) Emmons % (Auto) Eos % (Auto) Baso % (Auto) Neut # (Auto) Lymph # (Auto) Emmons # (Auto) Eos # (Auto) Baso # (Auto) PT 19.4 H INR 1.7 H APTT 27 D Sodium Potassium Chloride Carbon Dioxide BUN Creatinine Estimated GFR BUN/Creatinine Ratio Glucose Lactate 1.5 Calcium Magnesium Total Bilirubin AST ALT Alkaline Phosphatase NT-Pro-B Natriuret Pep 2430 H Total Protein Albumin Globulin Albumin/Globulin Ratio Procalcitonin Urine RBC Urine WBC Ur Squamous Epith Cells Amorphous Sediment Urine Bacteria Ur Culture Indicated? COVID-19 PCR 03/09/20 03/09/20 03/10/20 18:30 18:51 04:39 WBC 10.0 RBC 3.22 L Hgb 9.3 L Hct 29.2 L MCV 90.9 MCH 28.8 MCHC 31.7 RDW 18.0 H Plt Count 290 Neut % (Auto) 84.1 H Lymph % (Auto) 5.8 L Emmons % (Auto) 8.0 Eos % (Auto) 1.8 L Baso % (Auto) 0.3 Neut # (Auto) 8400 H Lymph # (Auto) 600 L Emmons # (Auto) 800 Eos # (Auto) 200 Baso # (Auto) 0 PT INR APTT Sodium Potassium Chloride Carbon Dioxide BUN Creatinine Estimated GFR BUN/Creatinine Ratio Glucose Lactate Calcium Magnesium Total Bilirubin AST ALT Alkaline Phosphatase NT-Pro-B Natriuret Pep Total Protein Albumin Globulin Albumin/Globulin Ratio Procalcitonin Urine RBC None seen Urine WBC 5-10/hpf H Ur Squamous Epith Cells 1-5 /hpf Amorphous Sediment 1+ Urine Bacteria Many (>30) H Ur Culture Indicated? Specimen cultured COVID-19 PCR Negative 03/10/20 03/10/20 04:39 04:39 WBC RBC Hgb Hct MCV MCH MCHC RDW Plt Count Neut % (Auto) Lymph % (Auto) Emmons % (Auto) Eos % (Auto) Baso % (Auto) Neut # (Auto) Lymph # (Auto) Emmons # (Auto) Eos # (Auto) Baso # (Auto) PT 23.2 H INR 2.0 H APTT Sodium 140 Potassium 3.8 Chloride 102 Carbon Dioxide 32 BUN 30 H Creatinine 1.18 H Estimated GFR 45.2 L BUN/Creatinine Ratio 25.4 H Glucose 114 H Lactate Calcium 8.6 Magnesium 2.0 Total Bilirubin AST ALT Alkaline Phosphatase NT-Pro-B Natriuret Pep Total Protein Albumin Globulin Albumin/Globulin Ratio Procalcitonin Urine RBC Urine WBC Ur Squamous Epith Cells Amorphous Sediment Urine Bacteria Ur Culture Indicated? COVID-19 PCR Assessment & Plan Assessment & Plan narrative: Lucila Hawkins is a 69-year-old female with a past medical history significant for persistent atrial fibrillation anticoagulated on warfarin, congestive heart failure with preserved ejection fraction, diabetes mellitus type II, non-insulin using and diet controlled with neuropathy, hypertension, hyperlipidemia, peripheral vascular disease with chronic venous stasis ulcers followed by wound care at [place], CKD stage 3, morbid obesity and obstructive sleep apnea not on CPAP who presented to the ED for increasing right leg pain with mild drainage and erythema around the wound and general malaise. 1. Peripheral vascular disease with acute cellulitis and infected venous stasis ulcers of right leg with chronic pain and opiate dependence, present on admision. Active. -Patient with bilateral venous stasis ulcers and skin lesions followed by wound care clinic at [place]. Patient presented with worsening right leg pain, erythema and mild drainage of right leg with several chronic venous stasis ulcerations. -Previous culture grew Enterococcus faecalis and Acinetobacter baumanii sensitive to levofloxacin. Received levofloxacin 750 mg in ED. Continue levofloxacin 750 mg daily and added doxycycline 100 mg twice daily to prevent Acinetobacter baumanii resistance to fluoroquinolones and anti-inflammatory effect per previous discussion with Infectious Disease at [facility] -Continue wound care per nursing and previous wound care physicians orders. -Continue oxycodone 5-325 mg every 4 hours as needed for pain. -Continue to recommend consideration of referral to vascular surgery to treat underlying venous insufficiency per PCP. 2. Heart failure with preserved EF, chronic, present on admission. Stable. -Do not believe this represents and acute CHF exacerbation. -Received furosemide 40 mg IV x 1 in the ED. Continue home furosemide 40 mg daily, lisinopril 40 mg daily, and metoprolol succinate 25 mg daily. -Continue to monitor strict I&Os and daily weights. 3. Chronic hypoxemic and hypercarbic respiratory, secondary to morbid obesioty, OHS and NABILA, present on admission. Stable. -Patient reports she is in process of obtaining a sleep study. -Patient is at her baseline oxygen requirement of 2 L continuous maintaining oxygen saturation high 90s. Continue supplemental oxygen as necessary to keep oxygen saturation 88-92%. -Ordered BiPAP (due to history of hypercarbia) at night per RT protocol and requested respiratory therapy to contact patient's oxygen company [employer] to acquire home BiPAP. 4. CKD stage 3, present on admission. Stable. -Initial creatinine 1.28. Baseline creatinine variable to be between 0.9-1.2. -Avoid nephrotoxic agents. -Continue to monitor creatinine daily. 5. Persistent atrial fibrillation, chronic, present on admission. Stable. -Patient is currently rate controlled. -EKG demonstrated atrial fibrillation without acute ischemic changes such as ST elevation or depression. -Continue home diltiazem ER 240 mg and metoprolol succinate 25 mg daily. -Continue warfarin decreased from 7.5 mg to 6 mg daily at 17:00 due to concurrent use of levofloxacin. INR therapeutic at 2.0. Continue to monitor INR daily and adjust warfarin dosing as indicated while on levofloxacin. 6. Diabetes mellitus type 2, non-insulin using and diet controlled, with neuropathy, present on admission. Stable. -Previous hemoglobin A1C is 6.1% 12/2019 indicative of excellent glycemic control and in the range of prediabetes. Patient is not currently medically treated and diet controlled. -Continue [facility] blood glucose checks and low dose correctional scale insulin. -Continue heart healthy/carbohydrate consistent diet. 7. Hypertension, chronic, present on admission. Stable. -Continue home furosemide 40 mg daily, lisinopril 40 mg daily, and metoprolol succinate 25 mg daily. 8. Hyperlipidemia, chronic, present on admission. Stable. -Not medically treated with lipid-lowering agent. 9. Super morbid obesity with panniculus with panniculitis and Tatyana intertrigo of skin folds, chronic, present on admission. Stable. -BMI of 56. 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 -Continue nystatin applied topically twice daily. -Recommend referral to general surgery to consider panniculectomy per PCP. Code Status: Limited per POL dated 02/06/2020. Patient directs me to call her brother who is her medical POA. VTE prophylaxis: Warfarin Disposition: Patient likely to discharge home with home health tomorrow pending wound cultures.
[2020-03-10 12:29] LABS: Procalcitonin < 0.05 ng/mL (<0.5)
--- NOTE | 2020-03-10 14:16 | CM.DANOTE ---
Addendum entered by Tiffany Go LPN 03/10/20 14:29: Pt's diagnosis of morbid obesity (286 lbs) is noted as well as the impact this has on her ongoing care needs. Original Note: Discharge Planning/Care Management DCP: assessment: case received, EMR reviewed and including the recent admissions to from Dec and Jan 2020 and the last clinic note from PCP: Dr. Suly Shelton. Met then with pt and introduced self and role. Pt is a 69 year old female who admitted to care of hospitalist team. Payer: [employer] [facility]. Pt confirms she has been home from [facility] since mid January. She is still in process of working with [employer] program and currently pays for her caregiver Emmie privately. She says she is on a spendown in terms of qualifying for [employer]. She says she is never by herself as POA brother Adeel Leonides/Bertram, comes over to care for her when needed as fill in for Emmie. She confirms Adeel's contact # [phone] and said he will be picking her up at d/c. Dr. Hoskins says that will be tomorrow. Agreed to call Adeel tomorrow morning as soon as the d/c is certain so that he will have time to get here. She remains current with the [facility] in [place] and Emmie takes here there. [facility] follows at home for wound care but she is considering making a change is this agency. Went over the choice list: she is considering and wants to see what Adeel thinks. She has been with [facility] for some time but she reports there have been issues getting the wound care supplies. Pt remains on home o2 per nasal cannula. P: check in tomorrow morning and follow up as indicated. PT and OT will see pt today. CM Discharge Assessment Start: 03/10/20 14:10 Freq: Status: Active Protocol: Document 03/10/20 14:10 ITV (Rec: 03/10/20 14:16 ITV [id number]) Discharge Planning Assessment Advance Directives? Yes History Provided By Patient,Medical Record Prior Living Arrangements House Comment pt confirms she has a caregiver Emmie who is basically there 15/12. When Emmie needs a break pt's brother Adeel is there to help. Type of transportation used prior to Relies on Others admit Community [facility] used prior to Oxygen Therapy admission: Comment home health with [facility]. is considering a change to another agency DME Already Rented / Owned Oxygen Review Status In Process
[2020-03-10] MEDS: WARFARIN 3 MG TABLET 6 MG PO (16:53)
[2020-03-10] MEDS: levoFLOXacin 250 MG TABLET 750 MG PO (17:38)
--- NOTE | 2020-03-10 19:36 | RT ---
Started hospital Biflex on patient. Patient refused bipap even with encouragement. I explained the importance of using the Bipap. We will try again after 2100 when she gets Lorazapam. I called [employer] to get her set home on a home Bipap. [facility] said their system was down. I will call again tomorrow.
[2020-03-10] MEDS: LORazepam 1 MG TABLET 2 MG PO (20:31)
[2020-03-10] MEDS: SENNOSIDES 8.6 MG TABLET 17.2 MG PO (20:31)
[2020-03-10] MEDS: DOXYCYCLINE HYCLATE 100 MG TABLET PO (20:31)
[2020-03-11] VITALS (8 sets, daily range): BP systolic 103–124; BP diastolic 50–73; PULSE 57–100; RESP 18–20; TEMP 36.1–36.5; O2SAT 94–99
[2020-03-11] MEDS: OXYCODONE/ACETAMINOPHEN 5/325 TABLET 1 TAB PO ×2 (02:07→10:02)
[2020-03-11 05:30] LABS: Prothrombin Time 22.6 SECONDS (10.1-12.7)
[2020-03-11 05:32] LABS: Add Manual Diff / Slide Review NO; Basophils Absolute Auto 0 /uL (0-100); Basophils Percent Auto 0.3 % (0-2); Eosinophils Absolute Auto 200 /uL (0-450); Eosinophils Percent Auto 3.1 % (2-4); Hematocrit 27.4 % (36-46); Hemoglobin 8.6 g/dL (12.0-16.0); Lymphocytes Absolute Auto 800 /uL (1100-4500); Lymphocytes Percent Auto 10.5 % (25-40); Mean Corpuscular HGB Conc 31.3 % (30-36); Mean Corpuscular Hemoglobin 28.8 PG (26-34); Mean Corpuscular Volume 92.3 fL (80-100); Monocytes Absolute Auto 600 /uL (0-900); Monocytes Percent Auto 8.7 % (3-14); Neutrophils Absolute Auto 5700 /uL (1500-7000); Neutrophils Percent Auto 77.4 % (50-75); Platelet Count 277 X10^3/uL (150-400); Red Blood Cell Count 2.97 X10^6/uL (4.0-5.2); White Blood Cell Count 7.4 X10^3/uL (4.5-11.0)
[2020-03-11 05:45] LABS: BUN Creatinine Ratio 27.7 (6-22); Blood Urea Nitrogen 36 mg/dL (7-17); Calcium 8.7 mg/dL (8.4-10.2); Carbon Dioxide 31 mmol/L (22-32); Chloride 103 mmol/L (98-107); Estimated Glomerular Filt Rate 40.4 mL/min (>60); Glucose 91 mg/dL (80-110); HEMOLYSIS < 15 (0-50); Potassium 4.1 mmol/L (3.4-5.1); Sodium 140 mmol/L (137-145)
[2020-03-11] MEDS: LACTOBACILLUS ACIDOPHILUS TABLET 1 EACH PO (08:39)
[2020-03-11] MEDS: dilTIAZem CD 240 MG CAP PO (08:39)
[2020-03-11] MEDS: lisinopriL 20 MG TABLET 40 MG PO (08:40)
[2020-03-11] MEDS: DOXYCYCLINE HYCLATE 100 MG TABLET PO (08:40)
[2020-03-11] MEDS: FUROSEMIDE 40 MG TABLET PO (08:40)
[2020-03-11] MEDS: METOPROLOL ER 25 MG TABLET PO (08:43)
[2020-03-11] MEDS: NYSTATIN CREAM 30 GM 1 APPLIC TOP (08:44)
[2020-03-11] MEDS: ACETAMINOPHEN 325 MG TABLET 650 MG PO (08:48)
--- NOTE | 2020-03-11 09:14 | CM.DPNOTE ---
dcp: continued: Pt now with a d/c to home setting per Dr. Griffith. Checked in with pt and RN Joyce. Pt reports her caregiver Emmie is picking hr up about noon. [facility] will be resumed per pt's wishes and will leave a vm for them re the d/c now and fax the d/c summary. Pt clarifies her Medicaid status: She does now have active Medicaid, it is the [place] process that has not yet been finalized. She says she is planning to establish with the [facility] in the [facility] to make her frequent wound care visits easier.
--- NOTE | 2020-03-11 09:30 | P.DS_ITS ---
History of Present Illness History of Present Illness Chief complaint: INFECTION OF RIGHT LEG Narrative: Lucila Hawkins is a 69-year-old female with history significant for atrial fibrillation anticoagulated on Coumadin, congestive heart failure with preserved ejection fraction, diet controlled diabetes with neuropathy, hypertension, hyperlipidemia, peripheral vascular disease chronic leg ulcers, morbid obesity and obstructive sleep apnea presents to the emergency department with an approximate 1 week history of worsening wounds on her legs particularly her right posterior lower leg. She has been going to the [place] wound care clinic and they set her up with home health wound care. Per the alexandra ent's caregiver Emmie, they came by without any dressing supplies, took off her dressings and then supposedly left her without any dressings. They feel like this is a flare up of her chronic venous stasis ulcerations to the point where it is infected. The patient is very uncomfortable and not that cooperative with providing a history partly out of being in pain and what appears to be short of breath. Rest of the history and her family and social history are to derive from prior admissions. She does endorse having a significant amount of lower extremity pain, back pain, she denies any fevers sweats or chills though her caregiver states she is always cold, she is on home oxygen with a history of hypoxia and hypercapnia, she denies abdominal pain but is concerned about enlargement of a pannus she states enlarges depending on when she takes lasix, urinary symptoms, diarrhea or constipation. She is on a pain contract with her PCP. Patient was admitted for acute renal failure on January 10 and discharged on January 14 to [facility] and remained there I believe until around February 07. She did return for an overnight stay in the middle of her due to altered mental status but was deemed safe for discharge back to the rehab facility the next day. She was then followed up by her PCP on February 15 with some modifications of her warfarin dosing as well as what appeared to be a lengthy discussion about the various referrals for home health wound care, physical therapy, sleep Medicine, among others. During her initial stay they did an echocardiogram which indicated a slightly reduced ejection fraction of 50-55% and mild aortic stenosis. In the ED she was administered a 1 time dose of IV Levaquin, a 1 time dose of IV furosemide 40 mg and an x-ray of her right lower leg did not reveal any concerns for necrotizing fasciitis or osteomyelitis. She presents with temperature of 97.1?, blood pressure 128/70, heart rate 98, respiratory rate of 19, oxygen saturation 98% on 2 L, she weighs 130.5 kg with a BMI 58.5. WBC is 10.8, RBC 3.29, hemoglobin 9.6, hematocrit 30.2, platelet count 336, her INR is subtherapeutic at 1.7, PT is 19.4, sodium 143, potassium 4.0, chloride 103, bicarb 33, BUN 31, creatinine is elevated over baseline at 1.28, with a GFR 41.1, glucose 103, lactate 1.5, calcium 8.9, liver enzymes within normal limits, proBNP is elevated at 24 30, procalcitonin is negative, UA indicates bacteria and wbc's and will be cultured, COVID-19 PCR is negative. Discharge Providers Provider Date of admission: 03/09/20 19:37 Discharge Date: 03/11/20 Primary care physician: Dillon Shelton MD Consults: 03/09/20 20:16 Consult to Physical Therapy Evaluate & Treat Comment: Ambulate daily Physician Instructions: Evaluate and Treat Consult to Respiratory Therapy Evaluate & Treat Comment: NABILA, uses CPAP Physician Instructions: Evaluate and treat 03/10/20 10:41 Consult to Occupational Therapy Evaluate & Treat Comment: Physician Instructions: Evaluate and treat Discharge provider: Rolando Griffith MD Summary Hospital Course Discharge Diagnosis: 1. Acute right lower extremity cellulitis 2. Chronic bilateral lower extremity venous stasis ulcers 3. Heart failure with preserved EF without exacerbation 4. Chronic hypoxemic and hypercarbic respiratory failure without exacerbation 5. Chronic kidney disease stage 3 6. Persistent atrial fibrillation 7. Diet-controlled type 2 diabetes 8. Severe obesity Patient was admitted due to worsening pain, redness and drainage of right lower extremity associated with chronic venous stasis ulcers. She was started on Levaquin and doxycycline. Previous admission wound culture had grown Enteroc occus faecalis and Acinetobacter baumanii sensitive to Levaquin. Current wound culture is growing Gram-negative bacilli. Patient is responding to the antibiotic regimen with improvement of pain, redness and drainage. She is established and is seen weekly at [facility] for wound care management. She also has dressing changes 2 or 3 times a week through home health. She is being discharged on 10 more days of Levaquin and doxycycline and will follow-up and wound care. We have also resumed home health nurse, PT and OT services. 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 She will continue topical nystatin twice daily. Consider PCP surgical referral for panniculectomy if patient is deemed surgical candidate. Exam Vital Signs (past 8 hours): - 03/11/20 05:14 03/11/20 08:30 03/11/20 08:40 Temperature 97.7 F 97.0 F L Pulse Rate 76 100 H 100 H Respiratory Rate 18 20 Blood Pressure 121/54 L 124/73 124/73 Pulse Oximetry 94 97 03/11/20 08:43 Temperature Pulse Rate 100 H Respiratory Rate Blood Pressure 123/73 Pulse Oximetry Oxygen Delivery Method Nasal Cannula Oxygen Flow Rate 2 Objective Labs Result Diagrams: 03/11/20 04:55 03/11/20 04:55 Labs: Laboratory Results - last 24 hr 03/10/20 03/11/20 03/11/20 04:39 04:55 04:55 WBC 7.4 RBC 2.97 L Hgb 8.6 L Hct 27.4 L MCV 92.3 MCH 28.8 MCHC 31.3 RDW 18.0 H Plt Count 277 Neut % (Auto) 77.4 H Lymph % (Auto) 10.5 L [place] % (Auto) 8.7 Eos % (Auto) 3.1 Baso % (Auto) 0.3 Neut # (Auto) 5700 Lymph # (Auto) 800 L [place] # (Auto) 600 Eos # (Auto) 200 Baso # (Auto) 0 PT 22.6 H INR 2.0 H Sodium Potassium Chloride Carbon Dioxide BUN Creatinine Estimated GFR BUN/Creatinine Ratio Glucose Calcium Procalcitonin < 0.05 03/11/20 04:55 WBC RBC Hgb Hct MCV MCH MCHC RDW Plt Count Neut % (Auto) Lymph % (Auto) [place] % (Auto) Eos % (Auto) Baso % (Auto) Neut # (Auto) Lymph # (Auto) [place] # (Auto) Eos # (Auto) Baso # (Auto) PT INR Sodium 140 Potassium 4.1 Chloride 103 Carbon Dioxide 31 BUN 36 H Creatinine 1.30 H Estimated GFR 40.4 L BUN/Creatinine Ratio 27.7 H Glucose 91 Calcium 8.7 Procalcitonin Discharge Plan Discharge Plan Patient Disposition: Home Provider Discharge Comment: Finish antibiotics for treatment of right leg cellulitis. Follow up Thursday with wound care at [facility] for next dressing change. Have INR checked in 5-7 days. We are resuming home health services. Nursing Discharge Comment: May send home with current dressing if clean and dry Discharge orders & Medications Prescriptions: New doxycycline hyclate 100 mg Tablet 100 mg PO BID Qty: 20 RF: 0 levofloxacin 750 mg tablet 750 mg PO DAILY Qty: 10 RF: 0 oxycodone-acetaminophen 5-325 mg Tablet 1 tab PO Q4HR PRN (Reason: Pain, Moderate (4-6)) Qty: 30 RF: 0 Continued diltiazem HCl [Cartia XT] 240 mg capsule,extended release 24hr 240 mg PO DAILY Qty: 90 RF: 3 lorazepam 2 mg tablet 2 mg PO BEDTIME Qty: 30 RF: 5 metoprolol succinate 25 mg tablet extended release 24 hr 25 mg PO DAILY Qty: 90 RF: 3 hydrocodone-acetaminophen 5-325 mg tablet 1 tab PO DAILY PRN (Reason: Pain (Scale Score 4-6)) Qty: 60 RF: 0 furosemide 20 mg Tablet 40 mg PO DAILY RF: 0 Adult Probiotic 3 billion cell Capsule 3,000 mmu cells PO DAILY RF: 0 nystatin 100,000 unit/gram Powder 1 applic TOPICAL BID RF: 0 Benadryl Itch Stopping 1-0.1 % Cream 1 applic TOPICAL QID PRN (Reason: Itching) RF: 0 bisacodyl 10 mg Suppository 10 mg [place] DAILY PRN (Reason: Constipation) RF: 0 polyethylene glycol 3350 [Miralax] 17 gram/dose Powder 17 g PO DAILY PRN (Reason: Constipation) RF: 0 lisinopril 40 mg Tablet 40 mg PO DAILY RF: 0 Changed warfarin 3 mg tablet See Rx Instructions .ROUTE .COMPLEX Qty: 90 RF: 0 warfarin 1 mg tablet See Rx Instructions .ROUTE .COMPLEX Qty: 90 RF: 1 No Action (DME) Glucose: Home Monitor See Rx Instructions .Route .MEDSUPPLY Qty: 1 RF: 0 (DME) Glucose: Test Strips See Rx Instructions .Route .MEDSUPPLY Qty: 100 RF: 3 Follow up/Referrals: Dillon Shelton MD [Primary Care Provider] - Discharge Health Status Multidrug resistant organism: No MDRO Diet/Activity/Treatments Diet: Diet as Tolerated Visit Report/Discharge Packet Instructions: DI for Prescription Opioid Use Visit Report Forms: Congestive Heart Failure, Patient Portal/API, Stroke Signs & Symptoms Discharge Data Primary Care Provider: Dillon Shelton Attending Provider: Ni Nieto Admisaiah Date/Time: 03/09/20 19:37
--- NOTE | 2020-03-11 15:11 | PC.NURSE ---
Day shift note: Patient discharged home per MD order, discussed importance of F/U with wound care on Thursday at [facility], check INR on in 5-7 days, and Dr. Shelton PMFernando regarding pannus surgery. Discussed importance of antibiotic adherence, warfarin medication changes in detail, and opioid use and side effects. Patient and caregiver verbalized understanding of discharge instructions. Wound care supplies given to caregiver until return to wound care. Home via private vehicle with caregiver Rula, patient to resume home with home health.
== END 2020-03-11 15:00 | disposition home or self-care (01) ==
LOC: ED 18:09 → AC 19:47
PROVIDERS: Emergency Medicine; Internal Medicine; Admitting Provider Nurse Practitioner Family; Emergency Provider Emergency Medicine; PCP Student in an Organized Health Care Education/Training Program; Referring Provider Emergency Medicine; Visit Provider Nurse Practitioner Family
DX: L03.115 Cellulitis of right lower limb (principal); E66.01 Morbid (severe) obesity due to excess calories; Z68.43 Body mass index [BMI] 50.0-59.9, adult; I48.20 Chronic atrial fibrillation, unspecified; I87.2 Venous insufficiency (chronic) (peripheral); E11.42 Type 2 diabetes mellitus with diabetic polyneuropathy; G47.33 Obstructive sleep apnea (adult) (pediatric); I73.9 Peripheral vascular disease, unspecified; I10 Essential (primary) hypertension; E78.5 Hyperlipidemia, unspecified; I50.9 Heart failure, unspecified; F11.20 Opioid dependence, uncomplicated; B35.4 Tinea corporis; Z11.59 Encounter for screening for other viral diseases
CPT/HCPCS: 36415; 73590; 80048; 80053; 81003; 81015; 82962; 83605; 83735; 83880; 84145; 85025; 85610; 85730; 87040; 87070; 87075; 87077; 87086; 87186; 87205; 87635; 94760; 96361; 96365; 96366; 96372; 96375; 97161; 97165; 97535; 99285; G0378; J1650; J1940; J1956

== ENCOUNTER 2020-04-12 11:48 | Emergency (ER) | payer OTHER, MEDICAID, SELFPAY ==
[2020-03-09 22:05] VITALS: BMI 56.2
[2020-04-12] VITALS (23 sets, daily range): BP systolic 70–171; BP diastolic 42–122; PULSE 82–122; RESP 14–40; TEMP 35; O2SAT 92–100
--- NOTE | 2020-04-12 11:55 | DI.RAD.S_ITS ---
PROCEDURE: XR CHEST 1V INDICATIONS: confusion TECHNIQUE: One view of the chest was acquired. COMPARISON: [facility], CR, XR CHEST 1V, 03/08/2019, 11:58. [facility], CR, XR CHEST 1V, 01/10/2020, 19:41. [facility], CR, XR CHEST 1V, 02/04/2020, 2:50. FINDINGS: Surgical changes and devices: None. Lungs and pleura: Lungs are clear. No pleural effusions or pneumothorax. Mediastinum: Mediastinal contours appear normal. Heart is enlarged Bones and chest wall: No suspicious bony lesions. Overlying soft tissues appear unremarkable. IMPRESSION: No acute cardiopulmonary disease process. Dictated by: Estefany Delgado MD, PhD on 04/12/2020 at 13:36 Approved by: Estefany Delgado MD, PhD on 04/12/2020 at 13:37
--- NOTE | 2020-04-12 12:05 | ED.SEPSIS ---
HPI - Sepsis General Chief Complaint: Neuro Symptoms/Deficit Mode of arrival: EMS Source: EMS Evaluation Narrative: Patient is a 69-year-old morbidly obese female with chronic lower extremity cellulitis now presenting with confusion decreasing mental status.EMS initially called for stroke however found to have low blood pressure 80/46 and a heart rate 130s. An IO was started her right lower extremity and was given push dose epi in the field. Her blood pressure is now in the 130s heart rate improved to 87. She was previously admitted to the hospital in February for lower extremity cellulitis. She has gross sleeping wounds bilateral legs her right toe of the skin seems to be peeling off. He also has a rash noted on her upper extremities and chest area he is not currently on antibiotics. 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 Brother No problems noted. Sister Fibromyalgia Social History household members: other Smoking Status: Never smoker second hand exposure: No alcohol intake: never substance use type: does not use Smoking Status: Never smoker alcohol intake frequency: 0-2 drinks per day Substance Use Type: does not use Exam Initial Vital Signs Initial Vital Signs: Vital Signs Temperature 95.0 F L 04/12/20 11:50 Pulse Rate 122 H 04/12/20 11:50 Respiratory Rate 16 04/12/20 11:50 Blood Pressure 130/78 04/12/20 11:50 Pulse Oximetry 95 04/12/20 11:50 Gen.: Alert moaning obese female HEENT: Atraumatic no JVD Neck: Neck is supple Lungs: Clear bilaterally Cardiac: Regular rate no murmurs Abdomen: Soft nontender obese Extremities: No gross bony deformity peripheral pulses intact Neurologic: Alert able to open eyes skin: All lower extremity erythema all weeping right large toe has skin hanging off of it. Upper extremities and torso has dry erythematous blanchable rash Course Orders Ordered: ED Orders 04/12/20 11:55 XR chest 1V Stat 04/12/20 12:20 Blood Culture Stat Complete Blood Count AUTO DIFF Stat Comprehensive Metabolic Panel Stat Lactate (Lactic Acid) Stat NT-proBNP (BNP-Adult 18+) Stat Partial Thromboplastin Time Stat Procalcitonin Stat Prothrombin Time INR Stat Troponin & CK Cardiac Panel Stat Wound Culture and Gram Stain Stat 04/12/20 12:57 CT head/brain wo con Stat 04/12/20 13:24 Arterial Blood Gas Stat 04/12/20 14:20 Urine Drug Screen, Rapid Stat 04/12/20 15:56 COVID19 Stat 04/12/20 16:13 Consult After Hours PICC Line RN Stat Discontinued Medications Lactated Ringer's (Lactated Ringers) 1,000 mls @ 200 mls/hr IV CONT MURRAY Last Infusion: 04/12/20 17:45 Dose: 0 mls/hr Documented by: Admin: 04/12/20 12:34 Dose: 200 mls/hr Documented by: STEFANO Piperacillin/Tazobactam/Dextrose (Zosyn) 3.375 gm in 50 mls @ 100 mls/hr IV NOW ONE Stop: 04/12/20 14:16 Last Infusion: 04/12/20 17:19 Dose: 0 mls/hr Documented by: Admin: 04/12/20 13:53 Dose: 100 mls/hr Documented by: MAGUI Vancomycin HCl/Dextrose (Vancomycin) 2,000 mg in 400 mls @ 200 mls/hr IV NOW ONE Stop: 04/12/20 15:46 Last Infusion: 04/12/20 17:59 Dose: 0 mls/hr Documented by: Admin: 04/12/20 15:09 Dose: 200 mls/hr Documented by: STEFANO Norepinephrine Bitartrate 4 mg (/ Dextrose) 254 mls @ 30.48 mls/hr IV TITRATE MURRAY; Protocol Lorazepam (Lorazepam 2 Mg/Ml Inj) 1 mg IV NOW ONE Stop: 04/12/20 17:33 Last Admin: 04/12/20 17:37 Dose: 1 mg Documented by: STEFANO Morphine Sulfate (Morphine 2 Mg/Ml Inj) 2 mg IV NOW ONE Stop: 04/12/20 14:05 Last Admin: 04/12/20 14:08 Dose: 2 mg Documented by: MAGUI Vital Signs Vital signs: Vital Signs - 8 hr 04/12/20 11:50 04/12/20 12:00 04/12/20 12:14 Temperature 95.0 F L Pulse Rate 122 H 92 H 88 Respiratory Rate 16 27 H 20 Blood Pressure 130/78 171/122 H Pulse Oximetry 95 92 92 04/12/20 12:30 04/12/20 13:00 04/12/20 14:00 Temperature Pulse Rate 85 87 85 Respiratory Rate 31 H 26 H 25 H Blood Pressure Pulse Oximetry 94 95 92 04/12/20 14:26 04/12/20 14:30 04/12/20 15:00 Temperature Pulse Rate 86 86 86 Respiratory Rate 14 40 H Blood Pressure 70/54 L 116/52 L Pulse Oximetry 97 100 04/12/20 15:11 04/12/20 15:30 04/12/20 15:31 Temperature Pulse Rate 87 86 82 Respiratory Rate 26 H 17 19 Blood Pressure 135/71 Pulse Oximetry 95 96 96 04/12/20 15:32 04/12/20 16:00 04/12/20 16:30 Temperature Pulse Rate 83 85 88 Respiratory Rate 24 23 23 Blood Pressure 109/81 Pulse Oximetry 96 97 97 04/12/20 16:31 04/12/20 16:32 04/12/20 16:34 Temperature Pulse Rate 88 89 88 Respiratory Rate 31 H 26 H 21 Blood Pressure 88/64 L 87/58 L 81/44 L Pulse Oximetry 97 97 96 04/12/20 16:40 04/12/20 16:42 04/12/20 17:00 Temperature Pulse Rate 86 85 87 Respiratory Rate 28 H 22 22 Blood Pressure 88/42 L 79/43 L Pulse Oximetry 97 98 97 04/12/20 17:01 04/12/20 17:30 Temperature Pulse Rate 86 93 H Respiratory Rate 23 Blood Pressure 101/49 L Pulse Oximetry 98 MDM - Sepsis Lab Data Attestation: I reviewed the patient's lab results. Result diagrams: 04/12/20 12:20 04/12/20 12:20 Labs: Lab Results 04/12/20 04/12/20 04/12/20 Range/Units 12:20 12:20 12:20 WBC 10.8 (4.5-11.0) X10^3/uL RBC 3.61 L (4.0-5.2) X10^6/uL Hgb 10.3 L (12.0-16.0) g/dL Hct 33.3 L (36-46) % MCV 92.3 (80-100) fL MCH 28.5 (26-34) PG MCHC 30.9 (30-36) % RDW 17.8 H (11.6-14.8) % Plt Count 324 (150-400) X10^3/uL Neut % (Auto) 88.2 H (50-75) % Lymph % (Auto) 5.4 L (25-40) % [place] % (Auto) 5.6 (3-14) % Eos % (Auto) 0.5 L (2-4) % Baso % (Auto) 0.3 (0-2) % Neut # (Auto) 9500 H (5465-2942) /uL Lymph # (Auto) 600 L (4185-1631) /uL [place] # (Auto) 600 (0-900) /uL Eos # (Auto) 100 (0-450) /uL Baso # (Auto) 0 (0-100) /uL PT (10.1-12.7) SECONDS INR (0.9-1.3) APTT (26.4-36.2) SECONDS ABG pH (7.35-7.45) ABG pCO2 (35-45) mmHg ABG pO2 (80-100) mmHg ABG HCO3 (22-26) mmol/L ABG Total CO2 (21-31) mmol/L ABG O2 Saturation (95-100) % ABG Base Excess (-2-2) mmol/L FiO2 Sodium 133 L (137-145) mmol/L Potassium 5.5 H (3.4-5.1) mmol/L Chloride 101 (98-107) mmol/L Carbon Dioxide 10 L (22-32) mmol/L BUN 119 H* (7-17) mg/dL Creatinine 5.88 H (0.52-1.04) mg/dL Estimated GFR 7.1 L (>60) mL/min BUN/Creatinine Ratio 20.2 (6-22) Glucose 95 (80-110) mg/dL Lactate (0.7-2.1) mmol/L Calcium 7.1 L (8.4-10.2) mg/dL Total Bilirubin 0.4 (0.2-1.3) mg/dL AST 30 (14-36) IU/L ALT 16 (<35) IU/L Alkaline Phosphatase 103 (38-126) U/L Total Creatine Kinase (30-135) U/L CK-MB (CK-2) (<2.37) ng/mL CK-MB (CK-2) Rel Index (1.5-5.0) % Troponin I (0.01-0.034) ng/mL NT-Pro-B Natriuret Pep (<125) pg/mL Total Protein 7.7 (6.3-8.2) g/dL Albumin 3.7 (3.5-5.0) g/dL Globulin 4.0 (1.7-4.1) g/dL Albumin/Globulin Ratio 0.9 L (1.0-2.8) Procalcitonin 0.26 (<0.5) ng/mL U Opiates 300ng/mL cut (Negative) Ur Oxycodone Screen (Negative) Urine Methadone Screen (Negative) Ur Barbiturates Screen (Negative) U Tricyclic Antidepress (Negative) Ur Phencyclidine Scrn (Negative) Ur Amphetamines Screen (Negative) U Methamphetamines Scrn (Negative) Ur MDMA Scrn (Ecstasy) (Negative) U Benzodiazepines Scrn (Negative) Urine Cocaine Screen (Negative) U Marijuana (THC) Screen (Negative) COVID-19 PCR (Negative) 04/12/20 04/12/20 04/12/20 Range/Units 12:20 12:20 12:20 WBC (4.5-11.0) X10^3/uL RBC (4.0-5.2) X10^6/uL Hgb (12.0-16.0) g/dL Hct (36-46) % MCV (80-100) fL MCH (26-34) PG MCHC (30-36) % RDW (11.6-14.8) % Plt Count (150-400) X10^3/uL Neut % (Auto) (50-75) % Lymph % (Auto) (25-40) % [place] % (Auto) (3-14) % Eos % (Auto) (2-4) % Baso % (Auto) (0-2) % Neut # (Auto) (1150-5647) /uL Lymph # (Auto) (7142-3468) /uL [place] # (Auto) (0-900) /uL Eos # (Auto) (0-450) /uL Baso # (Auto) (0-100) /uL PT 45.4 H (10.1-12.7) SECONDS INR 4.0 H (0.9-1.3) APTT 50 H D (26.4-36.2) SECONDS ABG pH (7.35-7.45) ABG pCO2 (35-45) mmHg ABG pO2 (80-100) mmHg ABG HCO3 (22-26) mmol/L ABG Total CO2 (21-31) mmol/L ABG O2 Saturation (95-100) % ABG Base Excess (-2-2) mmol/L FiO2 Sodium (137-145) mmol/L Potassium (3.4-5.1) mmol/L Chloride (98-107) mmol/L Carbon Dioxide (22-32) mmol/L BUN (7-17) mg/dL Creatinine (0.52-1.04) mg/dL Estimated GFR (>60) mL/min BUN/Creatinine Ratio (6-22) Glucose (80-110) mg/dL Lactate 1.4 (0.7-2.1) mmol/L Calcium (8.4-10.2) mg/dL Total Bilirubin (0.2-1.3) mg/dL AST (14-36) IU/L ALT (<35) IU/L Alkaline Phosphatase (38-126) U/L Total Creatine Kinase (30-135) U/L CK-MB (CK-2) (<2.37) ng/mL CK-MB (CK-2) Rel Index (1.5-5.0) % Troponin I (0.01-0.034) ng/mL NT-Pro-B Natriuret Pep 3740 H (<125) pg/mL Total Protein (6.3-8.2) g/dL Albumin (3.5-5.0) g/dL Globulin (1.7-4.1) g/dL Albumin/Globulin Ratio (1.0-2.8) Procalcitonin (<0.5) ng/mL U Opiates 300ng/mL cut (Negative) Ur Oxycodone Screen (Negative) Urine Methadone Screen (Negative) Ur Barbiturates Screen (Negative) U Tricyclic Antidepress (Negative) Ur Phencyclidine Scrn (Negative) Ur Amphetamines Screen (Negative) U Methamphetamines Scrn (Negative) Ur MDMA Scrn (Ecstasy) (Negative) U Benzodiazepines Scrn (Negative) Urine Cocaine Screen (Negative) U Marijuana (THC) Screen (Negative) COVID-19 PCR (Negative) 04/12/20 04/12/20 04/12/20 Range/Units 12:20 13:24 14:20 WBC (4.5-11.0) X10^3/uL RBC (4.0-5.2) X10^6/uL Hgb (12.0-16.0) g/dL Hct (36-46) % MCV (80-100) fL MCH (26-34) PG MCHC (30-36) % RDW (11.6-14.8) % Plt Count (150-400) X10^3/uL Neut % (Auto) (50-75) % Lymph % (Auto) (25-40) % [place] % (Auto) (3-14) % Eos % (Auto) (2-4) % Baso % (Auto) (0-2) % Neut # (Auto) (4505-5017) /uL Lymph # (Auto) (3197-4863) /uL [place] # (Auto) (0-900) /uL Eos # (Auto) (0-450) /uL Baso # (Auto) (0-100) /uL PT (10.1-12.7) SECONDS INR (0.9-1.3) APTT (26.4-36.2) SECONDS ABG pH 7.12 L* (7.35-7.45) ABG pCO2 30.7 L (35-45) mmHg ABG pO2 133 H (80-100) mmHg ABG HCO3 10 L (22-26) mmol/L ABG Total CO2 11 L (21-31) mmol/L ABG O2 Saturation 98 (95-100) % ABG Base Excess -19.0 L (-2-2) mmol/L FiO2 28 Sodium (137-145) mmol/L Potassium (3.4-5.1) mmol/L Chloride (98-107) mmol/L Carbon Dioxide (22-32) mmol/L BUN (7-17) mg/dL Creatinine (0.52-1.04) mg/dL Estimated GFR (>60) mL/min BUN/Creatinine Ratio (6-22) Glucose (80-110) mg/dL Lactate (0.7-2.1) mmol/L Calcium (8.4-10.2) mg/dL Total Bilirubin (0.2-1.3) mg/dL AST (14-36) IU/L ALT (<35) IU/L Alkaline Phosphatase (38-126) U/L Total Creatine Kinase 363 H (30-135) U/L CK-MB (CK-2) 7.40 H (<2.37) ng/mL CK-MB (CK-2) Rel Index 2.0 (1.5-5.0) % Troponin I < 0.012 (0.01-0.034) ng/mL NT-Pro-B Natriuret Pep (<125) pg/mL Total Protein (6.3-8.2) g/dL Albumin (3.5-5.0) g/dL Globulin (1.7-4.1) g/dL Albumin/Globulin Ratio (1.0-2.8) Procalcitonin (<0.5) ng/mL U Opiates 300ng/mL cut Negative (Negative) Ur Oxycodone Screen Positive H (Negative) Urine Methadone Screen Negative (Negative) Ur Barbiturates Screen Negative (Negative) U Tricyclic Antidepress Negative (Negative) Ur Phencyclidine Scrn Negative (Negative) Ur Amphetamines Screen Negative (Negative) U Methamphetamines Scrn Negative (Negative) Ur MDMA Scrn (Ecstasy) Negative (Negative) U Benzodiazepines Scrn Negative (Negative) Urine Cocaine Screen Negative (Negative) U Marijuana (THC) Screen Negative (Negative) COVID-19 PCR (Negative) 04/12/20 Range/Units 15:56 WBC (4.5-11.0) X10^3/uL RBC (4.0-5.2) X10^6/uL Hgb (12.0-16.0) g/dL Hct (36-46) % MCV (80-100) fL MCH (26-34) PG MCHC (30-36) % RDW (11.6-14.8) % Plt Count (150-400) X10^3/uL Neut % (Auto) (50-75) % Lymph % (Auto) (25-40) % [place] % (Auto) (3-14) % Eos % (Auto) (2-4) % Baso % (Auto) (0-2) % Neut # (Auto) (1475-1271) /uL Lymph # (Auto) (9110-7412) /uL [place] # (Auto) (0-900) /uL Eos # (Auto) (0-450) /uL Baso # (Auto) (0-100) /uL PT (10.1-12.7) SECONDS INR (0.9-1.3) APTT (26.4-36.2) SECONDS ABG pH (7.35-7.45) ABG pCO2 (35-45) mmHg ABG pO2 (80-100) mmHg ABG HCO3 (22-26) mmol/L ABG Total CO2 (21-31) mmol/L ABG O2 Saturation (95-100) % ABG Base Excess (-2-2) mmol/L FiO2 Sodium (137-145) mmol/L Potassium (3.4-5.1) mmol/L Chloride (98-107) mmol/L Carbon Dioxide (22-32) mmol/L BUN (7-17) mg/dL Creatinine (0.52-1.04) mg/dL Estimated GFR (>60) mL/min BUN/Creatinine Ratio (6-22) Glucose (80-110) mg/dL Lactate (0.7-2.1) mmol/L Calcium (8.4-10.2) mg/dL Total Bilirubin (0.2-1.3) mg/dL AST (14-36) IU/L ALT (<35) IU/L Alkaline Phosphatase (38-126) U/L Total Creatine Kinase (30-135) U/L CK-MB (CK-2) (<2.37) ng/mL CK-MB (CK-2) Rel Index (1.5-5.0) % Troponin I (0.01-0.034) ng/mL NT-Pro-B Natriuret Pep (<125) pg/mL Total Protein (6.3-8.2) g/dL Albumin (3.5-5.0) g/dL Globulin (1.7-4.1) g/dL Albumin/Globulin Ratio (1.0-2.8) Procalcitonin (<0.5) ng/mL U Opiates 300ng/mL cut (Negative) Ur Oxycodone Screen (Negative) Urine Methadone Screen (Negative) Ur Barbiturates Screen (Negative) U Tricyclic Antidepress (Negative) Ur Phencyclidine Scrn (Negative) Ur Amphetamines Screen (Negative) U Methamphetamines Scrn (Negative) Ur MDMA Scrn (Ecstasy) (Negative) U Benzodiazepines Scrn (Negative) Urine Cocaine Screen (Negative) U Marijuana (THC) Screen (Negative) COVID-19 PCR Negative (Negative) Urine Dip Bedside Urine Glucose Negative Bedside Urine Bilirubin - Negative Bedside Urine Ketone - Negative Urine Specific Victor 1.020 Bedside Urine Occult Blood - Negative Bedside Urine pH 5 Bedside Urine Protein - Negative Bedside Urine Urobilinogen - Negative Bedside Urine Nitrite - Negative Bedside Urine Leukocytes - Negative Esterase Imaging Data CT scan - head: Radiologist's Impression: PROCEDURE: CT HEAD/BRAIN WO CON INDICATIONS: altered mental status TECHNIQUE: Noncontrast 4.5 mm thick angled axial sections acquired from the foramen magnum to the vertex, with coronal and sagittal reformats. For radiation dose reduction, the following was used: automated exposure control, adjustment of mA and/or kV according to patient size. COMPARISON: [facility], CT, CT HEAD/BRAIN WO CON, 11/19/2019, 3:48. [facility], CT, CT HEAD/BRAIN WO CON, 02/04/2020, 3:12. FINDINGS: Image quality: Limited by motion artifact. CSF spaces: Basal cisterns are patent. No extra-axial fluid collections. The ventricles are symmetric in size and shape. Brain: No intracranial bleeds or masses. There is cerebral volume loss for age, with resultant ventricular and sulcal prominence. There are periventricular and deep white matter chronic small vessel ischemic changes. There is intracranial internal carotid artery atherosclerosis. Skull and face: Calvarium and visualized facial bones appear intact, without suspicious lesions. Sinuses: Visualized sinuses and mastoids are clear. IMPRESSION: No acute intracranial disease process within limitations related to motion artifact. Dictated by: Estefany Delgado MD, PhD on 04/12/2020 at 13:28 Chest x-ray: Radiologist's Impression: PROCEDURE: XR CHEST 1V INDICATIONS: confusion TECHNIQUE: One view of the chest was acquired. COMPARISON: [facility], CR, XR CHEST 1V, 03/08/2019, 11:58. [facility], CR, XR CHEST 1V, 01/10/2020, 19:41. [facility], CR, XR CHEST 1V, 02/04/2020, 2:50. FINDINGS: Surgical changes and devices: None. Lungs and pleura: Lungs are clear. No pleural effusions or pneumothorax. Mediastinum: Mediastinal contours appear normal. Heart is enlarged Bones and chest wall: No suspicious bony lesions. Overlying soft tissues appear unremarkable. IMPRESSION: No acute cardiopulmonary disease process. Dictated by: Estefany Delgado MD, PhD on 04/12/2020 at 13:36 [facility] Narrative Medical decision making narrative: Patient is moaning she is able to respond slightly. She can open her eyes and follow some commands she is overall a very poor historian. Blood pressure has been stable. She is an extremely hard IV start but 1 is started in her left arm. She is given a dose of Zosyn and vancomycin has been started for concerning sepsis. BUN and creatinine came back as critically elevated she has new onset acute kidney injury. Previous creatinine 03/11/2020 was 1.3, which seems to be about her baseline. She is mostly complaining about the IO in her leg. I did remove the IO in the left lower leg. Immediately after her IO was pulled even the was not being used her blood pressure decreased into the 80s. PICC line nurse at bedside to place PICC. Wound and blood cultures are pending. Blood pressure improved with PICC line. Levophed is not actually started in the ED but sent with EMS Patient is a [facility] patient of the [facility] doctor alesha, has been updated patient's symptoms test results agrees with transfer and admission Critical Care Time Critical Care Time Critical Care Time: Yes Total Critical Care Time: 30 Attestation: The high probability of a clinically significant, sudden or life threatening deterioration of the [cardiovascular] system(s) required my full and direct attention, intervention and personal management. The aggregate critical care time was 30 minutes. This time is in addition to time spent performing reported procedures but includes the following: [x] Data Review and interpretation [x] Patient assessment and monitoring of vital signs [x] Documentation [x] Medication orders and management Discharge Plan Departure Patient Disposition: [facility] Clinical Impression: Sepsis associated hypotension, Acute kidney injury Cellulitis Qualifiers: Site of cellulitis: unspecified site Qualified Code(s): L03.90 - Cellulitis, unspecified Prescriptions: No Action (DME) Glucose: Home Monitor See Rx Instructions .Route .MEDSUPPLY Qty: 1 RF: 0 (DME) Glucose: Test Strips See Rx Instructions .Route .MEDSUPPLY Qty: 100 RF: 3 diltiazem HCl [Cartia XT] 240 mg capsule,extended release 24hr 240 mg PO DAILY Qty: 90 RF: 3 lorazepam 2 mg tablet 2 mg PO BEDTIME Qty: 30 RF: 5 metoprolol succinate 25 mg tablet extended release 24 hr 25 mg PO DAILY Qty: 90 RF: 3 hydrocodone-acetaminophen 5-325 mg tablet 1 tab PO DAILY PRN (Reason: Pain (Scale Score 4-6)) Qty: 60 RF: 0 furosemide 20 mg Tablet 40 mg PO DAILY RF: 0 Adult Probiotic 3 billion cell Capsule 3,000 mmu cells PO DAILY RF: 0 nystatin 100,000 unit/gram Powder 1 applic TOPICAL BID RF: 0 Benadryl Itch Stopping 1-0.1 % Cream 1 applic TOPICAL QID PRN (Reason: Itching) RF: 0 bisacodyl 10 mg Suppository 10 mg NH DAILY PRN (Reason: Constipation) RF: 0 polyethylene glycol 3350 [Miralax] 17 gram/dose Powder 17 g PO DAILY PRN (Reason: Constipation) RF: 0 lisinopril 40 mg Tablet 40 mg PO DAILY RF: 0 doxycycline hyclate 100 mg Tablet 100 mg PO BID Qty: 20 RF: 0 levofloxacin 750 mg tablet 750 mg PO DAILY Qty: 10 RF: 0 warfarin 3 mg tablet See Rx Instructions .ROUTE .COMPLEX Qty: 90 RF: 0 warfarin 1 mg tablet See Rx Instructions .ROUTE .COMPLEX Qty: 90 RF: 1 Referrals: Dillon Shelton MD [Primary Care Provider] -
[2020-04-12] MEDS: LACTATED RINGERS 1,000 ML 200 ML IV (12:34)
[2020-04-12 12:51] LABS: Add Manual Diff / Slide Review NO; Basophils Absolute Auto 0 /uL (0-100); Basophils Percent Auto 0.3 % (0-2); Eosinophils Absolute Auto 100 /uL (0-450); Eosinophils Percent Auto 0.5 % (2-4); Hematocrit 33.3 % (36-46); Hemoglobin 10.3 g/dL (12.0-16.0); Lymphocytes Absolute Auto 600 /uL (1100-4500); Lymphocytes Percent Auto 5.4 % (25-40); Mean Corpuscular HGB Conc 30.9 % (30-36); Mean Corpuscular Hemoglobin 28.5 PG (26-34); Mean Corpuscular Volume 92.3 fL (80-100); Monocytes Absolute Auto 600 /uL (0-900); Monocytes Percent Auto 5.6 % (3-14); Neutrophils Absolute Auto 9500 /uL (1500-7000); Neutrophils Percent Auto 88.2 % (50-75); Platelet Count 324 X10^3/uL (150-400); Red Blood Cell Count 3.61 X10^6/uL (4.0-5.2); Red Cell Distribution Width 17.8 % (11.6-14.8); White Blood Cell Count 10.8 X10^3/uL (4.5-11.0)
[2020-04-12 12:54] LABS: Prothrombin Time 45.4 SECONDS (10.1-12.7)
[2020-04-12 12:57] LABS: PTT Partial Thromboplastin Tim 50 SECONDS (26.4-36.2)
--- NOTE | 2020-04-12 12:57 | DI.CT.S_ITS ---
PROCEDURE: CT HEAD/BRAIN WO CON INDICATIONS: altered mental status TECHNIQUE: Noncontrast 4.5 mm thick angled axial sections acquired from the foramen magnum to the vertex, with coronal and sagittal reformats. For radiation dose reduction, the following was used: automated exposure control, adjustment of mA and/or kV according to patient size. COMPARISON: [facility], CT, CT HEAD/BRAIN WO CON, 11/19/2019, 3:48. [facility], CT, CT HEAD/BRAIN WO CON, 02/04/2020, 3:12. FINDINGS: Image quality: Limited by motion artifact. CSF spaces: Basal cisterns are patent. No extra-axial fluid collections. The ventricles are symmetric in size and shape. Brain: No intracranial bleeds or masses. There is cerebral volume loss for age, with resultant ventricular and sulcal prominence. There are periventricular and deep white matter chronic small vessel ischemic changes. There is intracranial internal carotid artery atherosclerosis. Skull and face: Calvarium and visualized facial bones appear intact, without suspicious lesions. Sinuses: Visualized sinuses and mastoids are clear. IMPRESSION: No acute intracranial disease process within limitations related to motion artifact. Dictated by: Estefany Delgado MD, PhD on 04/12/2020 at 13:28 Approved by: Estefany Delgado MD, PhD on 04/12/2020 at 13:31
[2020-04-12 12:59] LABS: Alanine Aminotransferase 16 IU/L (<35); Albumin 3.7 g/dL (3.5-5.0); Albumin Globulin Ratio 0.9 (1.0-2.8); Alkaline Phosphatase 103 U/L (38-126); Aspartate Aminotransferase 30 IU/L (14-36); BUN Creatinine Ratio 20.2 (6-22); Bilirubin Total 0.4 mg/dL (0.2-1.3); Calcium 7.1 mg/dL (8.4-10.2); Carbon Dioxide 10 mmol/L (22-32); Chloride 101 mmol/L (98-107); Estimated Glomerular Filt Rate 7.1 mL/min (>60); Glucose 95 mg/dL (80-110); HEMOLYSIS < 15 (0-50); Sodium 133 mmol/L (137-145); Total Protein 7.7 g/dL (6.3-8.2)
[2020-04-12 13:00] LABS: Lactate (Lactic Acid) 1.4 mmol/L (0.7-2.1); Potassium 5.5 mmol/L (3.4-5.1)
[2020-04-12 13:02] LABS: Blood Urea Nitrogen 119 mg/dL (7-17)
[2020-04-12 13:15] LABS: Procalcitonin 0.26 ng/mL (<0.5)
--- NOTE | 2020-04-12 13:40 | PC.NURSE ---
spoke with pt's brother on phone who states pt has been more lethargic than normal and states the [facility] nurse stated this as well. Brother is concerned that pt may be taking too much of her Lorazepam at night. Brother on his way in. notified.
[2020-04-12] MEDS: PIPERACILLIN-TAZO 3.375 GM/50 ML FROZ.PIGGY IV (13:53)
[2020-04-12] MEDS: MORPHINE 2 MG/ML INJ IV (14:08)
[2020-04-12 14:22] LABS: Fractionated Inspired Oxygen 28; HCO3 ABG 10 mmol/L (22-26); Oxygen Saturation ABG 98 % (95-100); PCO2 ABG 30.7 mmHg (35-45); PO2 ABG 133 mmHg (80-100); TCO2 ABG 11 mmol/L (21-31); pH ABG 7.12 (7.35-7.45)
[2020-04-12 14:44] LABS: NT-proBNP (BNP-Adult 18+) 3740 pg/mL (<125)
[2020-04-12] MEDS: VANCOMYCIN 2,000 MG/400 ML PIGGYBACK 200 MG IV (15:09)
[2020-04-12 15:12] LABS: Ur Creatinine Normal (Normal); Ur Specific Gravity Normal (Normal); Urine pH Normal (Normal)
[2020-04-12 15:13] LABS: UR Morphine/Opiate cutoff 300 Negative (Negative); Urine Amphetamines Negative (Negative); Urine Barbiturates Negative (Negative); Urine Benzodiazepines Negative (Negative); Urine Cocaine Negative (Negative); Urine MDMA Negative (Negative); Urine Methadone Negative (Negative); Urine Oxycodone Positive (Negative); Urine Phencyclidine Negative (Negative); Urine Tetrahydrocannabinol Negative (Negative); Urine Tricyclic Antidepressant Negative (Negative)
[2020-04-12 15:34] LABS: Urine Methamphetamines Negative (Negative)
[2020-04-12 16:23] LABS: COVID19 -Nasal RAPID Negative (Negative)
[2020-04-12 17:10] LABS: Creatine Kinase 363 U/L (30-135)
[2020-04-12 17:22] LABS: Troponin I < 0.012 ng/mL (0.01-0.034)
[2020-04-12] MEDS: LORazepam 2 MG/ML INJ 1 MG IV (17:37)
--- NOTE | 2020-04-12 18:03 | PC.NURSE ---
PICC RN was called to place line, access obtained approx [id number] in [place]
[2020-04-13 12:53] LABS: Acinetobacter baumannii Not Detected (Not Detect); Candida albicans Not Detected (Not Detect); Candida glabrata Not Detected (Not Detect); Candida krusei Not Detected (Not Detect); Candida parapsilosis Not Detected (Not Detect); Candida tropicalis Not Detected (Not Detect); E. coli Not Detected (Not Detect); Enterobacter cloacae complex Not Detected (Not Detect); Enterobacteriaceae species Not Detected (Not Detect); Enterococcus species Not Detected (Not Detect); Haemophilus influenzae Not Detected (Not Detect); Listeria monocytogenes Not Detected (Not Detect); Methicillin-resistant gene Not Detected (Not Detect); Neisseria meningitidis Not Detected (Not Detect); Proteus species Not Detected (Not Detect); Pseudomonas aeruginosa Not Detected (Not Detect); Serratia marcescens Not Detected (Not Detect); Staphylococcus species Detected (Not Detect); Streptococcus agalactiae (Gr B Not Detected (Not Detect); Streptococcus pneumonia Not Detected (Not Detect); Streptococcus pyogenes (Gr A) Not Detected (Not Detect); Streptococcus species Not Detected (Not Detect)
== END 2020-04-12 18:03 | disposition short-term general hospital (02) ==
PROVIDERS: Emergency Provider Emergency Medicine; PCP Student in an Organized Health Care Education/Training Program
DX: A41.9 Sepsis, unspecified organism (principal); I95.89 Other hypotension; L03.90 Cellulitis, unspecified; E66.01 Morbid (severe) obesity due to excess calories; R21 Rash and other nonspecific skin eruption; N17.9 Acute kidney failure, unspecified
CPT/HCPCS: 36415; 36600; 51701; 70450; 71045; 80053; 80305; 81003; 82550; 82553; 82805; 83605; 83880; 84145; 84484; 85025; 85610; 85730; 87040; 87070; 87077; 87147; 87150; 87186; 87205; 87635; 96361; 96365; 96366; 96367; 96375; 99284; 99291; 99292; J2060; J2270; J2543